=== PATIENT | female | born 1950 | race Caucasian/White ===

== ENCOUNTER 2016-05-08 07:07 | Inpatient (IN) ==
--- NOTE | 2016-05-08 07:42 | History & Physical Report ---
Date of Encounter: 05/08/16 Time of Encounter: 07:41 (\) 24 Hour HP Update - Instructions Instructions: If the History and Physical is less than 30 days old and was completed prior to A.M. admission and or procedure and has NOT been updated on calendar day of procedure please complete this update prior to performing procedure. - Update Patient reports changes in Medical Condition: No Changes in assessment/condition: No Changes in Medication: No Preop tests/diagnostics Reviewed: Yes Surgery Remains Indicated: Yes Consent for Planned Operative Procedure(s) Verified: Yes - Pre-Operative Checklist Preoperative Checklist Indicated: Yes Prophylactic Antibiotic Ordered: Yes Home Medications Include Beta Braeden: Yes Beta Braeden Taken Today (Day of Surgery): Yes Beta Braeden Taken Yesterday (Day Prior to Surgery): Yes Is VTE Prophylaxis Indicated?: Yes
[2016-05-08] MEDS ORDERED: Levofloxacin 500 MG/100 ML 500 MG/100 ML BAG IVPB ONE (07:43)
[2016-05-08] MEDS ORDERED: Albuterol 2.5 MG/3 ML NEBULIZER IH ONE (07:44)
[2016-05-08] MEDS ORDERED: Ringers Solution, Lactated 1,000 ML IVC SCH (07:45)
--- NOTE | 2016-05-08 08:04 | Anesthesia Evaluation PreOp ---
Date of Encounter: 05/08/16 Time of Encounter: 08:04 - Past History Planned Operation: r USE Cardiac History: HTN, Hyperlipidemia Pulmonary History: Snore, LUCIUS Dx PR MANAGER History: Denies Any Significant HX Other Medical History: Renal (stones), Diabetes Type II, Other (grave's dz, breast ca) Anesthesia History: No Prior Anesthetic Complications, Past Anesthesia ( cholecyst, hysterect, hernia/appy, hemorrhoid, breast, t&a, renal) Alcohol Use: none Drug use: none Medications and Allergies Aspirin [Adult Low Dose Aspirin EC] 81 mg PO DAILY 03/28/15 [History] Furosemide [Lasix] 20 mg PO DAILY 03/28/15 [History] Metformin HCl [Glucophage] 1,000 mg PO BIDWM 03/28/15 [History] Pravastatin Sodium [Pravachol] 20 mg PO DAILY 03/28/15 [History] Calcium Carbonate/Vitamin D3 [Calcium 500-Vit D3 400 Tablet] 550 mg PO DAILY 03/25 [History] Metoprolol Tartrate 50 mg PO BID 11/09/15 [History] Cetirizine HCl [Zyrtec] 10 mg PO DAILY 12/14/15 [History] Gabapentin [Neurontin] 600 mg PO HS 03/15/16 [History] Insulin Glargine,Hum.rec.anlog [Lantus Solostar] 65 unit SQ HS 03/15/16 [History ] Potassium Gluconate [Potassium] 99 mg PO DAILY 03/15/16 [History] Acetaminophen [Tylenol] 1,000 mg PO Q6HR PRN #0 tablet 03/25/16 [Rx] Cyclobenzaprine [Flexeril] 10 mg PO TID #30 tablet 04/23/16 [Rx] Oxycodone HCl/Acetaminophen [Percocet 10-325 mg Tablet] 1 tab PO Q6H PRN [History] Promethazine [Phenergan] 25 mg PO Q6HR PRN 05/08/16 [History] Terconazole [Terazol 7] 1 appl VG HS 05/08/16 [History] Allergies glimepiride [From Amaryl] Allergy (Unknown, Verified 05/07/16 04:39) Itching glipizide Allergy (Unknown, Verified 05/07/16 04:39) Itching Sulfa (Sulfonamide Antibiotics) Allergy (Unknown, Verified 05/07/16 04:39) Itching latex Allergy (Verified 05/07/16 04:39) Itching Latex, Natural Rubber Allergy (Verified 05/07/16 04:39) Itching fentanyl Adverse Reaction (Unknown, Verified 05/07/16 04:39) Vomiting and weakness promethazine Adverse Reaction (Unknown, Verified 05/07/16 04:39) muscle spasms - Meds/Allergy Pre-op Review Medications Reviewed: Yes Allergies Reviewed: Yes Beta Blockers on Current Med List: Yes If Beta Blockers taken, Date/Time (Last Dose taken): metoprolol AT 0300 Anesthesia Results - Labs Laboratory Tests 12/11/15 03/12/16 05/07/16 15:07 11:12 05:13 Hgb 14.4 Hct 44.4 Plt Count 190 PT 13.7 H INR 1.3 APTT 29.9 Sodium Potassium Creatinine Hemoglobin A1c 10.2 H 05/07/16 05:13 Hgb Hct Plt Count PT INR APTT Sodium 138 Potassium 4.5 Creatinine 1.23 H Hemoglobin A1c - Imaging EKG: report reviewed (sb) Anesthesia Exam O2 Sat Height 1.68 m Height 1.68 m Height 1.68 m Weight 117.027 kg Weight 117.027 kg Weight 117.027 kg O2 Sat by Pulse Oximetry 90 Vital Signs Temp Pulse Resp BP Pulse Ox 97.9 F 61 18 115/67 90 L 05/08/16 07:46 05/08/16 07:46 05/08/16 07:46 05/08/16 07:46 05/08/16 07:46 Height: 1.68 Weight: 117 NPO (# of Hours): >8 - HEENT Pupil (Motor): Pupils equal, EOMI Mallampati: III Teeth: Poor dentition (large incisors, loose r 2nd maxillary tooth) Oral Opening: Greater than 3 (recessed mandible, good underbite) - PR MANAGER LOC: Oriented PR MANAGER Motor: Normal RUE, Normal LUE, Normal RLE, Normal LLE, Normal Face PR MANAGER Sensory: Normal: RUE, LUE, RLE, LLE, Face - Cardiac Rhythm: Regular Murmur: None - Pulmonary Breath Sounds: bilateral Clear Respiratory Effort: Symmetrical Anesthesia Assess/Plan ASA Score: 3 (AWAKE LOOK PRIOR TO INDUCTION WITH MIRNA) Modified Stan Scale for Level of Consciousness: Cooperative, oriented, and tranquil Anesthetic Plan: General Monitoring Plan: Standard Monitors Recovery Plan: PACU
[2016-05-08] MEDS ORDERED: Lidocaine 1% 20 ML MDV ID ONE (08:31)
[2016-05-08] MEDS ORDERED: Lidocaine -MPF 4% 5 ML AMPUL ONE (09:24)
[2016-05-08] MEDS ORDERED: Propofol 500 MG/50 ML INFUS..BTL ONE (09:24)
[2016-05-08] MEDS ORDERED: *HR* Propofol 200 MG/20 ML VIAL IVP ONE (09:24)
[2016-05-08] MEDS ORDERED: *HR* Remifentanil 2 MG VIAL IVP ONE (09:24)
[2016-05-08] MEDS ORDERED: Ondansetron 4 MG/2 ML VIAL ONE (09:26)
[2016-05-08] MEDS ORDERED: EPHEDrine 50 MG/ML VIAL ONE (10:21)
[2016-05-08] MEDS ORDERED: Ondansetron 4 MG/2 ML VIAL IVP ONE (10:28)
[2016-05-08] MEDS ORDERED: *HR* Labetalol 100 MG/20 ML MDV IVP PRN (10:28)
[2016-05-08] MEDS ORDERED: *HR* HYDROmorphone (PF) 1 MG/ML SYRINGE IVP PRN (10:28)
[2016-05-08] MEDS ORDERED: *HR* OxyCODONE/APAP 10/325 TABLET PO PRN (10:43)
--- NOTE | 2016-05-08 10:45 | Discharge Summary ---
Outpatient Proc Discharge Plan - Plan Additional Instructions: [id number] (Rev. 08/20) Page 1 of 2 POST-OPERATIVE HOME GOING INSTRUCTIONS: URETEROSCOPY/STENT/CYSTOSCOPY [facility] [address] [facility] [address] [place] [address] Dr. Justo Ladd Your post-operative appointment has been scheduled for 1. When you leave Same Day Surgery you may be given: Prescriptions - Please finish all antibiotics. follow- up visit if instructed by your physician. 2. You should drink 6-8 glasses of water per day, as long as you are not on fluid restrictions by another physician. 3. It is very common to have blood and small clots in you urine following surgery. You may also experience urinary tract discomfort, irritation of the bladder and urethra (frequency, urgency, and pain/burning with urination), and occasional inability to control your urine. No sexual intercourse until evaluated by your physician 4. If you have a stent, you can expect pain: In your bladder radiating up to your kidney when, and after, you urinate When lifting something heavy When you turn or bend If you have a stent, you can expect frequency, urgency, and burning with urination and intermittent pink/red colored urine. You can work with a stent in place, but if you do a lot of heavy lifting or moving around you will see more blood in your urine. This is OKAY- just drink more fluids. If a string is taped to your abdomen, penis or thigh, it is connected to your stent. DO NOT pull on, or cut, your stent string, unless otherwise instructed by your physician. 5. Patient can remove her stent in 2-3 days Home Medications: Aspirin [Adult Low Dose Aspirin EC] 162 mg PO DAILY 03/28/15 [History] Furosemide [Lasix] 20 mg PO DAILY 03/28/15 [History] Metformin HCl [Glucophage] 1,000 mg PO BIDWM 03/28/15 [History] Pravastatin Sodium [Pravachol] 20 mg PO DAILY 03/28/15 [History] Calcium Carbonate/Vitamin D3 [Calcium 500-Vit D3 400 Tablet] 550 mg PO DAILY 03/25 [History] Metoprolol Tartrate 50 mg PO BID 09/01/16 [History] Cetirizine HCl [Zyrtec] 10 mg PO DAILY 12/14/15 [History] Gabapentin [Neurontin] 600 mg PO HS 03/15/16 [History] Insulin Glargine,Hum.rec.anlog [Lantus Solostar] 65 unit SQ HS 03/15/16 [History ] Potassium Gluconate [Potassium] 99 mg PO DAILY 03/15/16 [History] Acetaminophen [Tylenol] 1,000 mg PO Q6HR PRN #0 tablet 03/25/16 [Rx] Cyclobenzaprine [Flexeril] 10 mg PO TID #30 tablet 04/23/16 [Rx] Oxycodone HCl/Acetaminophen [Percocet 10-325 mg Tablet] 1 tab PO Q6H PRN [History] Promethazine [Phenergan] 25 mg PO Q6HR PRN 05/08/16 [History] Terconazole [Terazol 7] 1 appl VG HS 05/08/16 [History]
--- NOTE | 2016-05-08 10:47 | Operative Note ---
Date of procedure: 05/08/16 Pre-op diagnosis: right renal stone Post-op diagnosis: same Procedure: Right ureteroscopic laser lithotripsy of stone, right ureteroscopic basket retrieval of stone, right 4.8 x 26 cm ureteral stent placement Anesthesia: GETA Surgeon: Juan J Martinez Condition: stable Disposition: PACU Procedure in Detail: Patient was prepped and draped in normal sterile fashion. Timeout procedure performed. At this point I then placed a cystoscope in the patient's bladder and cannulated the right ureteral orifice using the sensor wire. This was advanced to the right kidney using fluoroscopy. I then placed 11 x 13 x 36 cm access sheath up to the right kidney. I then placed the flexible ureteroscope into the right kidney and encountered the 1.5 cm right renal stone. I used a holmium laser to fragment the stone. Stone had an mostly matrix composition and fragmented easily. I then used a basket to remove all debris and stone fragments. The entire renal collecting system was not fully surveyed with no large stone fragments or debris noted. I then backloaded a wire into the right kidney using fluoroscopy. I then placed a 4.8 x 26 cm ureteral stent into the right kidney with good curl seen in the right kidney and in the bladder. String was left for easy removal in 2-3 days.
[2016-05-08] MEDS ORDERED: Ipratropium/Albuterol Neb 3 ML ONE (11:17)
--- NOTE | 2016-05-08 14:30 | Anesthesia Evaluation Post Op ---
Date of Encounter: 05/08/16 Time of Encounter: 14:28 - Vital Signs Vital Signs: Last Vital Signs Temp 97.4 F L 05/08/16 12:25 Pulse 82 05/08/16 13:25 Resp 16 05/08/16 13:25 BP 98/61 05/08/16 13:25 Pulse Ox 97 05/08/16 13:25 - Lungs Lungs: Clear Ascult./Percussion - Airway Airway: Non-obstructed - Cardiovascular Regular Rate - Mental Status Mental Status: Alert & Oriented, Answers Appropriately - Pain Pain Scale: 2 - Nausea Vomiting Nausea Vomiting: Not Present - Hydration Hydration: Tolerates oral liquids Notes: Patient continues to require supplemental oxygen. Her initial oxygen saturation prior to surgery was 90%. After surgery, she required 4L nasal canula to maintain oxygen saturation in the mid 90's. Patient will be admitted to the hospitalist service, as she is not on supplemental oxygen at home. 05/08/16 14:28 - Discharge PostOp Status: Transfer Patient to floor
[2016-05-08] MEDS ORDERED: Naloxone 0.4 MG/ML INJ IVP PRN (15:40)
[2016-05-08] MEDS ORDERED: D5% in Water 1,000 ML IV PRN (15:44)
[2016-05-08] MEDS ORDERED: *HR* Dextrose 50 % in Water (Syg) 50 ML SYRINGE IVP PRN (15:44)
[2016-05-08] MEDS ORDERED: Dextrose Gel 15 GM PO PRN ×2 (15:44)
--- NOTE | 2016-05-08 15:56 | Internal Med History&Physical ---
<Italo Agudelo - Last Filed: 05/08/16 16:29> Date of Encounter: 05/08/16 Time of Encounter: 15:47 Assessment and Plan (1) Acute respiratory failure with hypoxia Current visit: Yes Status: Acute post operative acute respiratory failure with hypoxia likely secondary to LUCIUS vs fluid overload. Patient requiring 4L O2. Etiology unknown. No echo on file. Currently on 20mg lasix at home for venous insufficiency. Has 1 + pedal edema. Start 40 lasix BID and order echo, EKG and CXR to evaluate for heart failure. Wean off O2 with O2 sat goal of >90% (2) Ureterolithiasis Current visit: Yes Status: Acute s/p r. ureteroscopic stone extraction. Continue IVF 25cc/hr. On percocet 10/325 and dilauded for pain. repeat BMP tomorrow. management per urology (3) Venous (peripheral) insufficiency Current visit: Yes Status: Chronic Patient has hx of venous insufficiency. Currently on lasix. has 1+ pedal edema. continue lasix. (4) HLD (hyperlipidemia) Current visit: Yes Status: Chronic hx of HLD. continue pravastatin. Qualifiers: Hyperlipidemia type: pure hypercholesterolemia Qualified Code(s): E78.00 - Pure hypercholesterolemia, unspecified; E78.0 - Pure hypercholesterolemia (5) Diabetes mellitus Current visit: Yes Status: Chronic Last A1c is 10% which was five months ago. Will repeat. Start on Levamir 35 with medium sliding scale and ACHS accuchecks. Qualifiers: Diabetes mellitus type: type 2 Diabetes mellitus complication status: with hyperglycemia Diabetes mellitus halfway insulin use: with halfway use Qualified Code(s): E11.65 - Type 2 diabetes mellitus with hyperglycemia; Z79.4 - jail (current) use of insulin (6) DVT prophylaxis Current visit: Yes Status: Acute Omeprazole for GI prophylaxis and SCD for DVT prophylaxis. Admitted for observation . FUll code. Time spent 40 min . High risk for resp failure Internal Medicine - H&P: HPI Chief complaint: postoperative respiratory failure Admitted From: Intrahospital Transfer Plans for Post Hospital Care: Home History of present illness: Ms. Clifford is a 65 year old female hx of graves disease, HLD, LUCIUS, Venous insufficeincy, DMII, breast cancer, HTN, asthma underwent r. utreteroscopic stone extraction this morning. Prior to surgery patients O2 was 90% on room air. Post operatively she required 4L nasal canula. She denies ever having needed oxygen. Patient says she has had sleep study and is diagnosed with LUCIUS in the past but does not know the results. She denies use of CPAP. There are no records on ecw or meditech. Furthermore, patient takes lasix for lower extremity edema 2nd to venous insufficiency. She denies hx of hear failure, GA, CAD. There is no echocardiogram on file. Patient denies CP, SOB, abdominal pain , nausea, vomiting. Desaturated down to the 80s. Past Med Surg Social Fam HX - Past Medical History Medical history: cancer (breast s/p radiotherapy ), diabetes (insulin dep), kidney stones, renal disease, other Psychiatric history: no psych history - Past Surgical History Surgical History: appendectomy, cholecystectomy, hysterectomy, other (right breast lumpectomy) - Social History Smoking Status: Never smoker Smokeless Tobacco Status: No Alcohol use: none Drug use: none - Family History Father Living Status: - Additional Family History Additional family history: Father CAD Internal Medicine - H&P: Meds Aspirin [Adult Low Dose Aspirin EC] 162 mg PO DAILY 03/28/15 [History] Furosemide [Lasix] 20 mg PO DAILY 03/28/15 [History] Metformin HCl [Glucophage] 1,000 mg PO BIDWM 03/28/15 [History] Pravastatin Sodium [Pravachol] 20 mg PO DAILY 03/28/15 [History] Calcium Carbonate/Vitamin D3 [Calcium 500-Vit D3 400 Tablet] 550 mg PO DAILY 03/25 [History] Metoprolol Tartrate 50 mg PO BID 11/09/15 [History] Cetirizine HCl [Zyrtec] 10 mg PO DAILY 12/14/15 [History] Gabapentin [Neurontin] 600 mg PO HS 03/15/16 [History] Insulin Glargine,Hum.rec.anlog [Lantus Solostar] 65 unit SQ HS 03/15/16 [History ] Potassium Gluconate [Potassium] 99 mg PO DAILY 03/15/16 [History] Acetaminophen [Tylenol] 1,000 mg PO Q6HR PRN #0 tablet 03/25/16 [Rx] Cyclobenzaprine [Flexeril] 10 mg PO TID #30 tablet 04/23/16 [Rx] Oxycodone HCl/Acetaminophen [Percocet 10-325 mg Tablet] 1 tab PO Q6H PRN [History] Promethazine [Phenergan] 25 mg PO Q6HR PRN 05/08/16 [History] Terconazole [Terazol 7] 1 appl VG HS 05/08/16 [History] Allergies glimepiride [From Amaryl] Allergy (Unknown, Verified 05/07/16 04:39) Itching glipizide Allergy (Unknown, Verified 05/07/16 04:39) Itching Sulfa (Sulfonamide Antibiotics) Allergy (Unknown, Verified 05/07/16 04:39) Itching latex Allergy (Verified 05/07/16 04:39) Itching Latex, Natural Rubber Allergy (Verified 05/07/16 04:39) Itching fentanyl Adverse Reaction (Unknown, Verified 05/07/16 04:39) Vomiting and weakness promethazine Adverse Reaction (Unknown, Verified 05/07/16 04:39) muscle spasms All Systems PM: A 10-system review of systems was performed and is negative for pertinent findings except as documented above in the HPI. - Constitutional Constitutional: no chills, no fever(s), no night sweats - EENT Eyes: no change in vision, no discharge, no pain, no photophobia Ears: no ear discharge, no ear pain, no tinnitus Nose, mouth and throat: no dysphagia, no nasal discharge, no neck pain, no sore throat - Cardiovascular Cardiovascular ROS IM: no chest pain, no diaphoresis, no dyspnea, no lightheadedness, no palpitations, no syncope - Respiratory Respiratory: no cough, no dyspnea, no wheezing, no excessive phlegm production - Gastrointestinal Gastrointestinal: no abdominal pain, no diarrhea, no hematemesis, no hematochezia, no melena, no nausea, no vomiting - Genitourinary Genitourinary: no change in urinary stream, no dysuria, no flank pain, no hematuria - Musculoskeletal Musculoskeletal ROS IM: no numbness, no tingling - Integumentary Integumentary IM: no rash, no unusual bruising - Neurological Neurological ROS: no confusion, no convulsions, no focal weakness, no numbness, no tingling, no tremor(s) - Hematologic/Lymphatic Hematologic/Lymphatic: no easy bruising - Constitutional Vitals: Temp Pulse Resp BP Pulse Ox 98.1 F 83 16 115/60 97 05/08/16 15:00 05/08/16 15:00 05/08/16 15:00 05/08/16 15:00 05/08/16 15:01 General appearance: Present: A&O X 3, answers questions appropriately - Head Head exam: Present: atraumatic, normocephalic - Eye Eye exam: Present: PERRL, conjuntiva pink, sclera anicteric - Neck Neck exam general surgery: Present: supple, trachea midline. Absent: lymphadenopathy - Respiratory Respiratory exam: Present: CTAB, rales (fine b/l lower lobes ). Absent: accessory muscle use, rhonchi, wheezes - Cardiovascular Cardiovascular exam: Present: RRR, +S1, +S2. Absent: diastolic murmur, gallop, rubs, systolic murmur - GI/Abdominal GI/Abdominal exam: Present: normal bowel sounds, soft, no peritoneal signs. Absent: distended, tenderness - Extremities Exam Extremities exam: Present: pedal edema (mild 1+), warm, radial pulses palpable and symetrical. Absent: calf tenderness, cyanotic - Neurological Exam Neurological exam: Present: CN II-XII intact, oriented X3, no focal deficits. Absent: pronater drift, facial droop, speech deficit - Skin Skin exam: Present: dry, intact Internal Med - H&P Results - Impressions ITS Impressions Fluoroscopy 05/08/16 10:02 IMPRESSION: Intraprocedural fluoroscopic spot images as above. See separate procedure report for more information. D/ / Amadeo Mcclure MD / Amadeo Mcclure MD Interpreting Provider: Amadeo Mcclure MD X-Ray 05/08/16 10:02 IMPRESSION: Intraprocedural fluoroscopic spot images as above. See separate procedure report for more information. D/ / Amadeo Mcclure MD / Amadeo Mcclure MD Interpreting Provider: Amadeo Mcclure MD <Mata Moreno H - Last Filed: 05/08/16 16:35> Internal Medicine - H&P: HPI History of present illness: Ms. Clifford is a 65 year old female All Systems PM: A 10-system review of systems was performed and is negative for pertinent findings except as documented above in the HPI. - Constitutional Vitals: Temp Pulse Resp BP Pulse Ox 98.1 F 83 16 115/60 97 05/08/16 15:00 05/08/16 15:00 05/08/16 15:00 05/08/16 15:00 05/08/16 15:01 Internal Med - H&P Results - Impressions ITS Impressions Fluoroscopy 05/08/16 10:02 IMPRESSION: Intraprocedural fluoroscopic spot images as above. See separate procedure report for more information. D/ / Amadeo Mcclure MD / Amadeo Mcclure MD Interpreting Provider: Amadeo Mcclure MD X-Ray 05/08/16 10:02 IMPRESSION: Intraprocedural fluoroscopic spot images as above. See separate procedure report for more information. D/ / Amadeo Mcclure MD / Amadeo Mcclure MD Interpreting Provider: Amadeo Mcclure MD - Attending Attestation sleep study as outpatient I examined this patient and my medical decision-making was reviewed with the MARINE REPORTER/PA/Advanced Practice Nurse/Resident Physician. I agree with the documented findings, disposition and treatment plan as described except to the extent set forth below.
[2016-05-08] MEDS ORDERED: Ipratropium/Albuterol Neb 3 ML IH PRN (16:27)
[2016-05-08] MEDS: Insulin LISPRO 300 UNITS/3 ML VIAL SQ SCH ×2 (16:46→21:28)
[2016-05-08 16:51] LABS: Hematocrit 38.2 % (35.3-44.9); Mean Corpuscular HGB Conc 31.2 g/dL (31.6-35.5); Mean Corpuscular Hemoglobin 27.8 pg (28.0-33.3); Mean Corpuscular Volume 89.3 fL (83.0-100.0); Mean Platelet Volume 10.6 fL (9.4-12.4); Platelet Count 143 K/mcL (140-400); Red Blood Count 4.28 M/mcL (3.82-4.97); Red Cell Distribution Width 15.9 % (11.5-14.5)
[2016-05-08 16:53] LABS: Hemoglobin 11.9 g/dL (11.5-15.4)
[2016-05-08 17:00] LABS: Potassium 5.2 mEq/L (3.5-4.5)
[2016-05-08] MEDS ORDERED: *HR* Heparin 5,000 UNIT/ML VIAL SQ SCH (19:00)
[2016-05-08] MEDS ORDERED: Insulin DETEMIR 100 UNIT/ML X5UNITS SQ SCH (21:00)
[2016-05-08] MEDS: Gabapentin 300 MG CAPSULE PO SCH (22:06)
[2016-05-08] MEDS: Furosemide 40 MG/4 ML VIAL IV SCH (22:06)
[2016-05-09] MEDS ORDERED: Furosemide 480 MG in D5% in Water 192 ML IVC SCH (02:41)
--- NOTE | 2016-05-09 02:55 | Event Note ---
Addendum entered and electronically signed by Al Rosa DO 05/09/16 05:32: ABG revealed respiratory acidosis with pH of 7.27. She was put on BiPAP and RN notes she appears better. However she remains lethargic and developed a fever of 100.4 along with worsening leukocytosis. She received a dose of Tylenol. I suspect she could be getting septic but there is no obvious source of infection at this time. She had urine/blood cultures obtained and a CXR has been ordered. Will start her on Vanc/Zosyn as her infection could be due to health care associated organisms. In addition, her troponin was 0.72, without any previous recordings. I have started her on a heparin drip and obtaining an EKG. She will be moved to for higher acuity care. I will also order a head CT and obtain a VBG later this morning. Original Note: <Al Rosa - Last Filed: 05/09/16 02:48> Date of Encounter: 05/09/16 Time of Encounter: 02:48 Paged by nurse this morning due to patient being increasingly lethargic and not able to go to the bedside commode s/p ureteroscopic stone extraction and stent placement. She had already been worked up by the primary team as she developed acute respiratory failure requiring 4 L of oxygen to maintain saturations in the low-mid 90's despite not being on any oxygen at home. CXR demonstrated pulmonary edema and she was started on IV Lasix 40 mg BID. She has had decent urinary output according to RN but even with the help of several caregivers, it was difficult to get her up to the commode. I believe it is appropriate to initiate a Chery at this time which will provide accurate I/O's for the time being. Patient is A/O x3 and did confirm shortness of breath and increased work of breathing, and rales were heard bilaterally. I will place her on Lasix drip for the next 10 hours for increased diuresis, and hold her IV BID Lasix until the afternoon. Will also obtain ABG, troponin, and BNP for further evaluation. She may require BiPAP depending on her respiratory status and results of ABG. <Yasmani Garcia - Last Filed: 05/11/16 07:26> My signature below is to certify that this patient is under my care and that I, or the Resident Physician working with me, has had a [id number] encounter with this patient. For this encounter, I have reviewed the documentation, treatment plan, and medical decision making. My medical decision-making was reviewed with the Resident Physician. Cumulative laboratory and radiographic database was reviewed, considered and discussed. I agree with the documented findings, disposition and treatment plan as described except to the extent set forth below. Vital Signs Temp Pulse Resp BP Pulse Ox 05/11/16 04:22 18 91 L 05/11/16 03:29 98.3 F 80 16 168/80 92 L 05/11/16 00:02 18 93 L 05/10/16 23:40 97.8 F 79 15 161/74 92 L 05/10/16 21:30 111 05/10/16 21:11 98.2 F 111 18 161/82 91 L 05/10/16 20:35 18 91 L 05/10/16 16:30 97.8 F 110 18 164/78 91 L 05/10/16 16:08 18 93 L 05/10/16 16:07 112 05/10/16 11:57 18 90 L 05/10/16 11:49 89 05/10/16 11:26 98.2 F 94 152/70 86 L 05/10/16 08:28 97.3 F L 97 20 154/93 90 L 05/10/16 08:08 101 Intake and Output 05/10/16 05/10/16 05/11/16 15:59 23:59 07:59 Intake Total 460 / 460 120 / 120 Output Total 1200 / 1200 2850 / 2850 Balance -740 / -740 -2730 / -2730 Intake: IV Fluids 100 / 100 Zosyn 3.375 GM In 100 / 100 Dextrose 5% (Minibag+) 100 ML 100 ML @ 25 mls/hr IVPB Q8H DESI Rx#: [id number] Oral 360 / 360 120 / 120 Output: Catheter 1200 / 1200 2850 / 2850 Other: Meal Lunch Dinner Percent of Meal Consumed 100% 100% Blood Glucose* 468 473 Abnormal lab results WBC 13.6 K/mcL (4.3-11.1) H 05/11/16 04:09 RDW 15.4 % (11.5-14.5) H 05/11/16 04:09 Neutrophils # 15.8 K/mcL (1.6-8.9) H 05/09/16 03:51 PT 14.0 Seconds (9.4-12.1) H 05/09/16 05:29 ABG pCO2 57 mmHg (35-45) H 05/09/16 15:50 ABG pO2 74 mmHg (85-104) L 05/09/16 15:50 ABG HCO3 32.2 mEQ/L (21-27) H 05/09/16 15:50 ABG Total CO2 33.9 mEq/L (20-26) H 05/09/16 15:50 ABG O2 Saturation 94 % (95-98) L 05/09/16 15:50 ABG Base Excess 5.3 mEq/L (-2.0 to 3.0) H 05/09/16 15:50 VBG pO2 245 mmHg (25-40) H 05/09/16 10:28 VBG HCO3 28.2 mEq/L (21-27) H 05/09/16 10:28 Chloride 94 mEq/L (98-109) L 05/11/16 04:09 Carbon Dioxide 30 mEq/L (19-29) H 05/11/16 04:09 BUN 33 mg/dL (7-20) H 05/11/16 04:09 Creatinine 1.39 mg/dL (0.57-1.11) H 05/11/16 04:09 Est GFR ( Amer) 46 (> 60) L 05/11/16 04:09 Est GFR (Non-Af Amer) 38 (> 60) L 05/11/16 04:09 Glucose 473 mg/dL (70-99) H 05/11/16 04:09 POC Glucose 473 (58-89) H* 05/10/16 21:18 Hemoglobin A1c 7.4 % (-5.6) H 05/09/16 03:51 Calculated Osmolality 312 (280-300) H 05/11/16 04:09 Magnesium 1.3 mg/dL (1.6-2.6) L 05/09/16 16:21 Troponin I 0.50 ng/mL (0-0.03) H* 05/09/16 16:21 B-Natriuretic Peptide 440 pg/mL (0-100) H 05/09/16 03:51 Urine Clarity Cloudy (Clear) A 05/09/16 06:43 Urine Blood Large (Negative) H 05/09/16 06:43 Ur Leukocyte Esterase Large (Negative) H 05/09/16 06:43 Urine Microscopic RBC 5-15 per hpf (0-3) H 05/09/16 06:43 Urine Microscopic WBC 30-50 per hpf (0-3) H 05/09/16 06:43 Urine Yeast Moderate per hpf (None Seen) H 05/09/16 06:43 Entero/Rhino (PCR) DETECTED (Not Detect) A 05/09/16 16:30 Laboratory Results WBC 13.6 K/mcL (4.3-11.1) H 05/11/16 04:09 RBC 4.29 M/mcL (3.82-4.97) 05/11/16 04:09 Hgb 12.1 g/dL (11.5-15.4) 05/11/16 04:09 Hct 36.9 % (35.3-44.9) 05/11/16 04:09 MCV 86.0 fL (83.0-100.0) 05/11/16 04:09 MCH 28.2 pg (28.0-33.3) 05/11/16 04:09 MCHC 32.8 g/dL (31.6-35.5) 05/11/16 04:09 RDW 15.4 % (11.5-14.5) H 05/11/16 04:09 Plt Count 192 K/mcL (140-400) 05/11/16 04:09 MPV 10.8 fL (9.4-12.4) 05/11/16 04:09 Immature Gran % 0.7 % (0-4) 05/09/16 03:51 Seg Neutrophils % 86.2 % 05/09/16 03:51 Lymphocytes % 6.6 % 05/09/16 03:51 Monocytes % 5.7 % 05/09/16 03:51 Eosinophils % 0.6 % 05/09/16 03:51 Basophils % 0.2 % 05/09/16 03:51 Neutrophils # 15.8 K/mcL (1.6-8.9) H 05/09/16 03:51 Lymphocytes # 1.2 K/mcL (0.6-4.6) 05/09/16 03:51 Monocytes # 1.1 K/mcL (0.0-1.3) 05/09/16 03:51 Eosinophils # 0.1 K/mcL (0.0-0.6) 05/09/16 03:51 Basophils # 0.0 K/mcL (0.0-0.2) 05/09/16 03:51 PT 14.0 Seconds (9.4-12.1) H 05/09/16 05:29 INR 1.3 05/09/16 05:29 APTT 30.2 Seconds (26.0-36.0) D 05/09/16 12:57 ABG pH 7.36 pH Units (7.32-7.45) 05/09/16 15:50 ABG pCO2 57 mmHg (35-45) H 05/09/16 15:50 ABG pO2 74 mmHg (85-104) L 05/09/16 15:50 ABG HCO3 32.2 mEQ/L (21-27) H 05/09/16 15:50 ABG Total CO2 33.9 mEq/L (20-26) H 05/09/16 15:50 ABG O2 Saturation 94 % (95-98) L 05/09/16 15:50 ABG Base Excess 5.3 mEq/L (-2.0 to 3.0) H 05/09/16 15:50 VBG pH 7.35 pH Units (7.32-7.42) 05/09/16 10:28 VBG pCO2 51 mmHg (41-51) 05/09/16 10:28 VBG pO2 245 mmHg (25-40) H 05/09/16 10:28 VBG HCO3 28.2 mEq/L (21-27) H 05/09/16 10:28 Blood Gas Modality BIPAP 05/09/16 15:50 Inspired O2 36 % 05/09/16 15:50 Sodium 137 mEq/L (136-145) 05/11/16 04:09 Potassium 3.7 mEq/L (3.5-4.5) 05/11/16 04:09 Chloride 94 mEq/L (98-109) L 05/11/16 04:09 Carbon Dioxide 30 mEq/L (19-29) H 05/11/16 04:09 BUN 33 mg/dL (7-20) H 05/11/16 04:09 Creatinine 1.39 mg/dL (0.57-1.11) H 05/11/16 04:09 Est GFR ( Amer) 46 (> 60) L 05/11/16 04:09 Est GFR (Non-Af Amer) 38 (> 60) L 05/11/16 04:09 BUN/Creatinine Ratio 24 (6-26) 05/11/16 04:09 Glucose 473 mg/dL (70-99) H 05/11/16 04:09 POC Glucose 473 (58-89) H* 05/10/16 21:18 Est Mean Plasma Glucose 166 mg/dl 05/09/16 03:51 Hemoglobin A1c 7.4 % (-5.6) H 05/09/16 03:51 Calculated Osmolality 312 (280-300) H 05/11/16 04:09 Calcium 9.4 mg/dL (8.6-10.8) 05/11/16 04:09 Ionized Calcium 1.26 mmol/L (1.15-1.35) 05/09/16 16:21 Magnesium 1.3 mg/dL (1.6-2.6) L 05/09/16 16:21 Troponin I 0.50 ng/mL (0-0.03) H* 05/09/16 16:21 B-Natriuretic Peptide 440 pg/mL (0-100) H 05/09/16 03:51 Urine Color Yellow (Yellow) 05/09/16 06:43 Urine Clarity Cloudy (Clear) A 05/09/16 06:43 Urine pH 6.0 pH Units (5.0-8.0) 05/09/16 06:43 Ur Specific [place] 1.010 (1.010-1.025) 05/09/16 06:43 Urine Protein Trace mg/dL (Neg-Trace) 05/09/16 06:43 Urine Glucose (UA) Normal mg/dL (Normal) 05/09/16 06:43 Urine Ketones Negative mg/dL (Negative) 05/09/16 06:43 Urine Blood Large (Negative) H 05/09/16 06:43 Urine Nitrite Negative (Negative) 05/09/16 06:43 Urine Bilirubin Negative (Negative) 05/09/16 06:43 Urine Urobilinogen Normal mg/dL (Normal) 05/09/16 06:43 Ur Leukocyte Esterase Large (Negative) H 05/09/16 06:43 Urine Microscopic RBC 5-15 per hpf (0-3) H 05/09/16 06:43 Urine Microscopic WBC 30-50 per hpf (0-3) H 03 06:43 Ur Squamous Epith Cells Few per lpf (None-Few) 03 06:43 Urine Bacteria Few per hpf (None-Few) 05/09/16 06:43 Hyaline Casts None Seen per lpf (None-Few) 05/09/16 06:43 Urine Yeast Moderate per hpf (None Seen) H 05/09/16 06:43 Chlamy pneumoniae PCR Not Detected (Not Detect) 05/09/16 16:30 Adenovirus (PCR) Not Detected (Not Detect) 05/09/16 16:30 B. pertussis DNA (PCR) Not Detected (Not Detect) 05/09/16 16:30 Coronavirus OC43 (PCR) Not Detected (Not Detect) 05/09/16 16:30 Coronavirus HKU1 (PCR) Not Detected (Not Detect) 05/09/16 16:30 Coronavirus 229E (PCR) Not Detected (Not Detect) 05/09/16 16:30 Coronavirus NL63 (PCR) Not Detected (Not Detect) 05/09/16 16:30 Human Metapneumovirus Not Detected (Not Detect) 05/09/16 16:30 Influenza A (H1) PCR Not Detected (Not Detect) 05/09/16 16:30 Influ A (H1N1/09) PCR Not Detected (Not Detect) 05/09/16 16:30 Influenza A (H3) PCR Not Detected (Not Detect) 05/09/16 16:30 Influenza A Untype (PCR) Not Detected (Not Detect) 05/09/16 16:30 Influenza Type B (PCR) Not Detected (Not Detect) 05/09/16 16:30 M.pneumoniae DNA (PCR) Not Detected (Not Detect) 05/09/16 16:30 Parainfluenza 1 (PCR) Not Detected (Not Detect) 05/09/16 16:30 Parainfluenza 2 (PCR) Not Detected (Not Detect) 05/09/16 16:30 Parainfluenza 3 (PCR) Not Detected (Not Detect) 05/09/16 16:30 Parainfluenza 4 (PCR) Not Detected (Not Detect) 05/09/16 16:30 RSV (PCR) Not Detected (Not Detect) 05/09/16 16:30 Entero/Rhino (PCR) DETECTED (Not Detect) A 05/09/16 16:30 Impressions Fluoroscopy 05/08/16 10:02 IMPRESSION: Intraprocedural fluoroscopic spot images as above. See separate procedure report for more information. D/ / Amadeo Mcclure MD / Amadeo Mcclure MD Interpreting Provider: Amadeo Mcclure MD X-Ray 05/08/16 10:02 IMPRESSION: Intraprocedural fluoroscopic spot images as above. See separate procedure report for more information. D/ / Amadeo Mcclure MD / Amadeo Mcclure MD Interpreting Provider: Amadeo Mcclure MD Chest X-Ray 05/09/16 05:19 IMPRESSION: Cardiomegaly with mild pulmonary edema. No significant change. D/ / Audelia Trejo MD / Audelia Trejo MD Interpreting Provider: Audelia Trejo MD Head CT 05/09/16 07:00 IMPRESSION: 1. No acute intracranial abnormality. D/ / Álvaro Baca MD / Álvaro Baca MD Interpreting Provider: Álvaro Baca MD Chest CTA 05/09/16 07:15 IMPRESSION: 1. No findings of pulmonary embolism. 2. Mild cardiomegaly with right atrial and right ventricular dilation as well as mild right ventricular hypertrophy. 3. Moderate pulmonary artery dilation, suggestive of pulmonary hypertension given the above cardiac findings. D/ / Jaskaran Giordano MD / Jaskaran Giordano MD Interpreting Provider: Jaskaran Giodrano MD
[2016-05-09 03:18] LABS: ABG Base Excess 1.9 mEq/L (-2.0 to 3.0); ABG HCO3 30.3 mEQ/L (21-27); ABG Oxygen Saturation 93 % (95-98); ABG PCO2 66 mmHg (35-45); ABG PH 7.27 pH Units (7.32-7.45); ABG PO2 77 mmHg (85-104); ABG TCO2 32.3 mEq/L (20-26); Blood Gas FiO2 36 %
[2016-05-09 04:45] LABS: Basophils % 0.2 %; Eosinophils # 0.1 K/mcL (0.0-0.6); Eosinophils % 0.6 %; Hematocrit 35.6 % (35.3-44.9); Hemoglobin 11.1 g/dL (11.5-15.4); Immature Granulocytes % 0.7 % (0-4); Lymphocytes # 1.2 K/mcL (0.6-4.6); Lymphocytes % 6.6 %; Mean Corpuscular HGB Conc 31.2 g/dL (31.6-35.5); Mean Corpuscular Hemoglobin 27.7 pg (28.0-33.3); Mean Corpuscular Volume 88.8 fL (83.0-100.0); Monocytes # 1.1 K/mcL (0.0-1.3); Monocytes % 5.7 %; Neutrophils # 15.8 K/mcL (1.6-8.9); Platelet Count 145 K/mcL (140-400); Red Blood Count 4.01 M/mcL (3.82-4.97); Red Cell Distribution Width 15.8 % (11.5-14.5); Segmented Neutrophils % 86.2 %
[2016-05-09] MEDS ORDERED: Acetaminophen 325 MG TABLET PO PRN (04:58)
[2016-05-09 05:02] LABS: Hemoglobin A1C 7.4 %
[2016-05-09 05:06] LABS: Calcium 9.4 mg/dL (8.6-10.8); Potassium 4.5 mEq/L (3.5-4.5)
[2016-05-09] MEDS ORDERED: *HR* Heparin 5,000 UNIT/ML VIAL IVP ONE (05:17)
[2016-05-09] MEDS ORDERED: *HR* Heparin 5,000 UNIT/ML VIAL IVP PRN ×2 (05:17)
[2016-05-09] MEDS ORDERED: Heparin 25,000 UNIT/500 ML D5W 25,000 UNIT/500 ML MLS IVC SCH (05:30)
[2016-05-09 05:39] LABS: Hemoglobin 11.4 g/dL (11.5-15.4); Mean Corpuscular HGB Conc 31.7 g/dL (31.6-35.5); Mean Corpuscular Hemoglobin 28.3 pg (28.0-33.3); Mean Corpuscular Volume 89.3 fL (83.0-100.0); Mean Platelet Volume 10.9 fL (9.4-12.4); Platelet Count 132 K/mcL (140-400); Red Blood Count 4.03 M/mcL (3.82-4.97); Red Cell Distribution Width 15.8 % (11.5-14.5)
[2016-05-09 05:43] LABS: INR 1.3
[2016-05-09 05:46] LABS: Activated Partial Thrombo Time 17.7 Seconds (26.0-36.0)
[2016-05-09] MEDS ORDERED: Vancomycin 1,750 MG in D5% in Water 250 ML IVPB SCH (06:00)
--- NOTE | 2016-05-09 06:57 | Urology Progress Note ---
Date of Encounter: 05/09/16 Time of Encounter: 06:55 - Assessment and Plan (1) Right kidney stone Current Visit: No Status: Acute Assessment and plan: will keep stent in placed at this time. jony per primary team. will continue to follow. Progress Note Narrative: Alicja is a 65 y/o female pod 1 from right stone extraction. patient had difficulty with keeping O2 sats up. trop also increased. going to be started on heparin drip. catheter placed last night. Objective Initial Vital Signs Temp Pulse Resp BP Pulse Ox 97.9 F 61 18 115/67 90 L 05/08/16 07:46 05/08/16 07:46 05/08/16 07:46 05/08/16 07:46 05/08/16 07:46 - General physical appearance Present: well developed (moderate distress ) - Abdomen Present: soft - Labs 05/09/16 05:29 05/09/16 03:51 Diabetes panel 05/08/16 05/09/16 05/09/16 Range/Units 16:36 03:51 03:51 Sodium 135 L 138 (136-145) mEq/L Potassium 5.2 H 4.5 (3.5-4.5) mEq/L Chloride 103 104 (98-109) mEq/L Carbon Dioxide 24 26 (19-29) mEq/L BUN 29 H 26 H (7-20) mg/dL Creatinine 1.59 H 1.25 H (0.57-1.11) mg/dL Glucose 155 H 165 H (70-99) mg/dL Hemoglobin A1c 7.4 H ( - 5.6) % Calcium 9.0 9.4 (8.6-10.8) mg/dL Calcium panel 05/08/16 05/09/16 Range/Units 16:36 03:51 Calcium 9.0 9.4 (8.6-10.8) mg/dL Pituitary panel 05/08/16 05/09/16 Range/Units 16:36 03:51 Sodium 135 L 138 (136-145) mEq/L Potassium 5.2 H 4.5 (3.5-4.5) mEq/L Chloride 103 104 (98-109) mEq/L Carbon Dioxide 24 26 (19-29) mEq/L BUN 29 H 26 H (7-20) mg/dL Creatinine 1.59 H 1.25 H (0.57-1.11) mg/dL Glucose 155 H 165 H (70-99) mg/dL Calcium 9.0 9.4 (8.6-10.8) mg/dL Adrenal panel 05/08/16 05/09/16 Range/Units 16:36 03:51 Sodium 135 L 138 (136-145) mEq/L Potassium 5.2 H 4.5 (3.5-4.5) mEq/L Chloride 103 104 (98-109) mEq/L Carbon Dioxide 24 26 (19-29) mEq/L BUN 29 H 26 H (7-20) mg/dL Creatinine 1.59 H 1.25 H (0.57-1.11) mg/dL Glucose 155 H 165 H (70-99) mg/dL Calcium 9.0 9.4 (8.6-10.8) mg/dL Consult Discharge Plan - Plan Additional Instructions: [id number] (Rev. 08/20) Page 1 of 2 POST-OPERATIVE HOME GOING INSTRUCTIONS: URETEROSCOPY/STENT/CYSTOSCOPY [facility] [address] [address] [address] [place] [address] [address] Justo Ladd Your post-operative appointment has been scheduled for 1. When you leave Same Day Surgery you may be given: Prescriptions - Please finish all antibiotics. follow- up visit if instructed by your physician. 2. You should drink 6-8 glasses of water per day, as long as you are not on fluid restrictions by another physician. 3. It is very common to have blood and small clots in you urine following surgery. You may also experience urinary tract discomfort, irritation of the bladder and urethra (frequency, urgency, and pain/burning with urination), and occasional inability to control your urine. No sexual intercourse until evaluated by your physician 4. If you have a stent, you can expect pain: In your bladder radiating up to your kidney when, and after, you urinate When lifting something heavy When you turn or bend If you have a stent, you can expect frequency, urgency, and burning with urination and intermittent pink/red colored urine. You can work with a stent in place, but if you do a lot of heavy lifting or moving around you will see more blood in your urine. This is OKAY- just drink more fluids. If a string is taped to your abdomen, penis or thigh, it is connected to your stent. DO NOT pull on, or cut, your stent string, unless otherwise instructed by your physician. 5. Patient can remove her stent in 2-3 days Referrals: Abigail Greco, [employer] [Primary Care Provider] -
[2016-05-09] MEDS: Vancomycin 2,000 MG in D5% in Water 500 ML IVPB SCH (07:17)
[2016-05-09] MEDS: Ipratropium/Albuterol Neb 3 ML IH SCH ×5 (07:39→23:41)
--- NOTE | 2016-05-09 07:40 | Internal Med Progress Note ---
Date of Encounter: 05/09/16 Time of Encounter: 07:37 - Assessment and plan (1) Acute respiratory failure with hypoxia Current Visit: Yes Status: Acute Assessment and plan: Acute metabolic encephalopathy due to Acute hypoxic and hypercapnic respiratory failure secondary to pulmonary edema versus community-acquired pneumonia/ atypical pneumonia, consider possible pulmonary emboli Continue vancomycin, Levaquin and Zosyn The continue Lasix drip, order an echocardiogram. Order a respiratory infection panel, blood cultures, send urine to test for legionella and Streptococcus pneumoniae Order stat CT angios the chest, CT of the head due to confusion (2) Sepsis Current Visit: Yes Status: Acute Qualifiers: Sepsis type: sepsis due to unspecified organism Qualified Code(s): A41.9 - Sepsis, unspecified organism (3) Ureterolithiasis Current Visit: Yes Status: Acute Assessment and plan: s/p r. ureteroscopic stone extraction. 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 high risk due to comorbidities - Time Spent With Patient Greater than 35 minutes - Subjective Interval history: The patient is awake but confused at times. Spiked a fever of 100.4, chest x- ray shows pulmonary edema despite being on Lasix. Denies any chest pain, troponin 0.7 ABG shows a pH of 7.27 PCO2 of 66 and a PO2 of 77. Denies any abdominal pain, denies bringing up any phlegm, unable to complete review of systems due to confusion - Constitutional Vitals: Temp Pulse Resp BP Pulse Ox 100.1 F H 86 17 110/70 94 L 05/09/16 06:54 05/09/16 06:54 05/09/16 06:54 05/09/16 06:54 05/09/16 06:54 General appearance: Present: A&O X 2, answers questions appropriately - Head Head exam: Present: atraumatic, normocephalic - Eye Eye exam: Present: PERRL, conjuntiva pink, sclera anicteric Pupils: Present: PERRL - Neck Neck exam general surgery: Present: supple, trachea midline. Absent: lymphadenopathy - Respiratory Respiratory exam: Present: CTAB, rales (Bilateral crackles). Absent: accessory muscle use, rhonchi, wheezes - Cardiovascular Cardiovascular exam: Present: RRR, +S1, +S2. Absent: diastolic murmur, gallop, rubs, systolic murmur - GI/Abdominal GI/Abdominal exam: Present: normal bowel sounds, soft, no peritoneal signs. Absent: distended, tenderness - Extremities Exam Extremities exam: Present: pedal edema (+1 pitting edema in both lower extremities), warm, radial pulses palpable and symetrical. Absent: calf tenderness, cyanotic - Neurological Exam Neurological exam: Present: CN II-XII intact, no focal deficits. Absent: oriented X3, pronater drift, facial droop, speech deficit - Skin Skin exam: Present: dry, intact Internal Medicine: Result - Labs CBC & Chem 7: 05/09/16 05:29 05/09/16 03:51 Labs: Short CBC 05/08/16 05/09/16 05/09/16 Range/Units 16:36 03:51 05:29 WBC 15.4 H 18.4 H 18.0 H (4.3-11.1) K/mcL Hgb 11.9 D 11.1 L 11.4 L (11.5-15.4) g/dL Hct 38.2 35.6 36.0 (35.3-44.9) % Plt Count 143 145 132 L (140-400) K/mcL Neutrophils # 15.8 H (1.6-8.9) K/mcL BMP 05/08/16 05/09/16 16:36 03:51 Sodium 135 L 138 Potassium 5.2 H 4.5 Chloride 103 104 Carbon Dioxide 24 26 BUN 29 H 26 H Creatinine 1.59 H 1.25 H Glucose 155 H 165 H Calcium 9.0 9.4 Cardiac Enzymes 05/09/16 Range/Units 03:51 Troponin I 0.72 H* (0-0.03) ng/mL - ABG Interpretation ABG results: ABG ABG pH 7.27 pH Units (7.32-7.45) L 05/09/16 02:55 ABG pCO2 66 mmHg (35-45) H 05/09/16 02:55 ABG pO2 77 mmHg (85-104) L 05/09/16 02:55 ABG O2 Saturation 93 % (95-98) L 05/09/16 02:55 PT/INR, D-dimer PT 14.0 Seconds (9.4-12.1) H 05/09/16 05:29 - Impressions Impressions Fluoroscopy 05/08/16 10:02 IMPRESSION: Intraprocedural fluoroscopic spot images as above. See separate procedure report for more information. D/ / Amadeo Mcclure MD / Amadeo Mcclure MD Interpreting Provider: Amadeo Mcclure MD X-Ray 05/08/16 10:02 IMPRESSION: Intraprocedural fluoroscopic spot images as above. See separate procedure report for more information. D/ / Amadeo Mcclure MD / Amadeo Mcclure MD Interpreting Provider: Amadeo Mcclure MD Chest X-Ray 05/08/16 15:41 IMPRESSION: Pulmonary edema D/ / Kian Goodwin MD / Kian Goodwin MD Interpreting Provider: Kian Goodwin MD Chest X-Ray 05/09/16 05:19 IMPRESSION: Cardiomegaly with mild pulmonary edema. No significant change. D/ / Audelia Trejo MD / Audelia Trejo MD Interpreting Provider: Audelia Trejo MD Consult Discharge Plan - Plan Additional Instructions: [id number] (Rev. 08/20) Page 1 of 2 POST-OPERATIVE HOME GOING INSTRUCTIONS: URETEROSCOPY/STENT/CYSTOSCOPY [facility] [address] [facility] [address] [address] Justo Ladd Your post-operative appointment has been scheduled for 1. When you leave Same Day Surgery you may be given: Prescriptions - Please finish all antibiotics. follow- up visit if instructed by your physician. 2. You should drink 6-8 glasses of water per day, as long as you are not on fluid restrictions by another physician. 3. It is very common to have blood and small clots in you urine following surgery. You may also experience urinary tract discomfort, irritation of the bladder and urethra (frequency, urgency, and pain/burning with urination), and occasional inability to control your urine. No sexual intercourse until evaluated by your physician 4. If you have a stent, you can expect pain: In your bladder radiating up to your kidney when, and after, you urinate When lifting something heavy When you turn or bend If you have a stent, you can expect frequency, urgency, and burning with urination and intermittent pink/red colored urine. You can work with a stent in place, but if you do a lot of heavy lifting or moving around you will see more blood in your urine. This is OKAY- just drink more fluids. If a string is taped to your abdomen, penis or thigh, it is connected to your stent. DO NOT pull on, or cut, your stent string, unless otherwise instructed by your physician. 5. Patient can remove her stent in 2-3 days Referrals: Abigail Greco, [employer] [Primary Care Provider] -
[2016-05-09 07:55] LABS: Bilirubin,Urine Negative (Negative); Blood,Urine Large (Negative); Clarity,Urine Cloudy (Clear); Color,Urine Yellow (Yellow); Glucose,Urine (UA) Normal (Normal); Ketones,Urine Negative (Negative); Leukocyte Esterase,Urine Large (Negative); Nitrite,Urine Negative (Negative); Protein,Urine Trace mg/dL (Neg-Trace); Urobilinogen,Urine Normal (Normal)
[2016-05-09 07:57] LABS: Hyaline Casts,Urine None Seen per lpf (None-Few); Squamous Epithelial Cell,Urine Few per lpf (None-Few)
[2016-05-09] MEDS ORDERED: methylPREDNISolone 125 MG/2 ML VIAL IV SCH (08:00)
[2016-05-09] MEDS ORDERED: Piperacillin/Tazobactam 3.375 GM in D5% in Water (Mini-Bag+) 100 ML IVPB SCH (08:00)
[2016-05-09] MEDS: Insulin LISPRO 300 UNITS/3 ML VIAL SQ SCH ×4 (08:05→21:23)
[2016-05-09 08:15] LABS: WBC,Urine 30-50 per hpf (0-3)
[2016-05-09 08:17] LABS: Bacteria,Urine Few per hpf (None-Few); Yeast,Urine Moderate per hpf (None Seen)
[2016-05-09] MEDS ORDERED: Furosemide 20 MG TABLET PO SCH (09:00)
[2016-05-09 10:36] LABS: VBG HCO3 28.2 mEq/L (21-27); VBG PH 7.35 pH Units (7.32-7.42)
--- NOTE | 2016-05-09 10:49 | ECHO - Doppler Report ---
Echocardiogram Name: Alicja Clifford Date of Study: 05/09/2016 Date: 1950 Ht: 66.0 in Medical Record#: [id number] Age: 65 Wt: 270.0 lb Gender: Female BSA: 2.27 Order #: [id number] Location: [facility] Room #: 2N11 Reading Physician: Jaskaran Antoine MD, [facility] [employer] Spr[employer] Helper: Reny Bonilla, T Ordering Physician: Italo Agudelo DO Primary Physician: Juan J Martinez MD Indications: Pulmonary crackles Impressions: Sinus rhythm with frequent PVCs. Normal left ventricular size and systolic function, LVEF 60-65%. Mild concentric left ventricular hypertrophy. Indeterminate diastolic function. Normal right ventricular size and function. No significant valvular dysfunction. Mild pulmonary hypertension. Estimated RVSP = 40 mmHg. Left Ventricular Wall Motion: Rest Echo Findings All wall segments showed normal motion. Findings: Study Quality * Technically adequate exam. ECG Findings * Sinus rhythm with frequent PVCs. Left Ventricle * Normal left ventricular size and systolic function, LVEF 60-65%. * Normal LV chamber size. * Mild concentric left ventricular hypertrophy. * Indeterminate diastolic function. Right Ventricle * Normal right ventricular size and function. Left Atrium * Normal left atrial size. Right Atrium * Normal right atrial size. Aorta * Normally sized aortic root. Pericardium * There is no pericardial effusion present. IVC * Normal IVC dimensions and inspiratory collapse. Aortic Valve * Trileaflet aortic valve. * Mildly sclerotic aortic valve leaflets. * No aortic stenosis. * No aortic regurgitation. Mitral Valve * Normal mitral valve structure. * No mitral stenosis. * Trace mitral regurgitation. Tricuspid Valve * Normal tricuspid valve structure. * No tricuspid stenosis. * Trace tricuspid regurgitation. * Mild pulmonary hypertension. Estimated RVSP = 40 mmHg. Pulmonic Valve * Pulmonic valve not well visualized. * No pulmonic stenosis. * No pulmonic regurgitation. History Diabetes Hypercholesteremia Family History of CAD Measurements: BP: 110/ 70 2D Normal Values RVIDd: 3.50 cm IVSd: 1.30 cm 0.6 - 1.0 cm LVIDd: 5.20 cm 3.7 - 5.6 cm LVPWd: 1.20 cm 0.6 - 1.1 cm LVIDs: 3.10 cm 1.5 - 3.6 cm AO: 2.80 cm < 4.0 cm LA volume: 66 Tricuspid Valve TV Regurg Peak Grad: 37.00mmHg TV Regurg Peak Nakul: 3.04m/sec Updated by Jaskaran Antoine MD, [facility] on 05/09/2016 10:44:14 AM electronically signed on 05/09/2016 10:44:48 AM with status of Final Wall Motion Fried: 1=Normal, 2=Hypokinesis, 3=Akinesis, 4=Dyskinesis, 5=Aneurysmal, 6=Hyperkinetic, X=Not Visualized (Blank)=Missing
[2016-05-09] MEDS: Levofloxacin 750 MG/150 ML 750 MG/150 ML BAG IVPB SCH (11:27)
[2016-05-09] MEDS: Aspirin Enteric Coated 81 MG Tablet PO SCH (11:27)
[2016-05-09] MEDS: Piperacillin/Tazobactam 3.375 GM in D5% in Water (Mini-Bag+) 100 ML IVPB SCH ×2 (11:34→19:14)
[2016-05-09] MEDS: methylPREDNISolone 125 MG/2 ML VIAL IV SCH ×2 (11:34→19:14)
[2016-05-09 13:39] LABS: Calcium 8.9 mg/dL (8.6-10.8); Potassium 3.7 mEq/L (3.5-4.5)
--- NOTE | 2016-05-09 13:49 | Pulmonology Consult Note ---
Date of Encounter: 05/09/16 Time of Encounter: 13:00 Assessment and Plan (1) Acute respiratory failure with hypoxia Current Visit: Yes Status: Acute This is secondary to atelectasis and suspect patient baseline is hypoxic from her pulmonary hypertension and OHS. Patient needs incentive spirometry and early mobilization. Patient needs pain control and deep breathing. Keep SPO2 around 90% (2) LUCIUS (obstructive sleep apnea) Current Visit: Yes Status: Chronic I have told her she needs to follow up on this as outpatient and it is extremely important to be compliant with her PAP. She can be on BiPAP now. (3) Obesity hypoventilation syndrome Current Visit: Yes Status: Chronic (4) Secondary pulmonary hypertension Current Visit: Yes Status: Chronic There is evidence in echo and CTA and this is group 3 from her untreated LUCIUS, she needs to be compliant with her treatment. I have talked to primary team and no need for heparin because patient doesn't have pulmonary embolism. History of Present Illness Consult date: 05/09/16 Requesting physician: Mata Moreno Reason for consult: other (Hypoxia) Chief complaint: Hypoxia History of present illness: This is a a pleasant 65-year-old female who is known to me from outpatient and she is not complaint with her CPAP for her LUCIUS. Patient has multiple other medical problems which is listed under PMH. Patient has history of asthma and she had surgery done and was found to be hypoxic. Patient had CTA which was negative for pulmonary embolism. She denies any chest pain, no wheezing and denies any significant productive cough. She has no hemoptysis. She has some legs swelling. Patient denies any fever or chills. She is not using any home O2. Past Med Surg Social Fam HX - Past Medical History Medical history: cancer (breast s/p radiotherapy ), diabetes (insulin dep), kidney stones, renal disease, other Psychiatric history: no psych history - Past Surgical History Surgical History: appendectomy, cholecystectomy, hysterectomy, other (right breast lumpectomy) - Social History Smoking Status: Never smoker Smokeless Tobacco Status: No Alcohol use: none Drug use: none - Family History Father Living Status: Medications and Allergies Aspirin [Adult Low Dose Aspirin EC] 162 mg PO DAILY 03/28/15 [History] Furosemide [Lasix] 20 mg PO DAILY 03/28/15 [History] Metformin HCl [Glucophage] 1,000 mg PO BIDWM 03/28/15 [History] Pravastatin Sodium [Pravachol] 20 mg PO DAILY 03/28/15 [History] Calcium Carbonate/Vitamin D3 [Calcium 500-Vit D3 400 Tablet] 550 mg PO DAILY 03/25 [History] Metoprolol Tartrate 50 mg PO BID 11/09/15 [History] Cetirizine HCl [Zyrtec] 10 mg PO DAILY 12/14/15 [History] Gabapentin [Neurontin] 600 mg PO HS 03/15/16 [History] Insulin Glargine,Hum.rec.anlog [Lantus Solostar] 65 unit SQ HS 03/15/16 [History ] Potassium Gluconate [Potassium] 99 mg PO DAILY 03/15/16 [History] Acetaminophen [Tylenol] 1,000 mg PO Q6HR PRN #0 tablet 03/25/16 [Rx] Cyclobenzaprine [Flexeril] 10 mg PO TID #30 tablet 04/23/16 [Rx] Oxycodone HCl/Acetaminophen [Percocet 10-325 mg Tablet] 1 tab PO Q6H PRN [History] Promethazine [Phenergan] 25 mg PO Q6HR PRN 05/08/16 [History] Terconazole [Terazol 7] 1 appl VG HS 05/08/16 [History] Allergies glimepiride [From Amaryl] Allergy (Unknown, Verified 05/07/16 04:39) Itching glipizide Allergy (Unknown, Verified 05/07/16 04:39) Itching Sulfa (Sulfonamide Antibiotics) Allergy (Unknown, Verified 05/07/16 04:39) Itching latex Allergy (Verified 05/07/16 04:39) Itching Latex, Natural Rubber Allergy (Verified 05/07/16 04:39) Itching fentanyl Adverse Reaction (Unknown, Verified 05/07/16 04:39) Vomiting and weakness promethazine Adverse Reaction (Unknown, Verified 05/07/16 04:39) muscle spasms All Systems: A 10-system review of systems was performed and is negative for pertinent findings except as documented above in the HPI. Physical Examination Vital Signs: Vital Signs, Last 4 Hours Temp Pulse Resp BP Pulse Ox 05/09/16 12:06 18 138/76 95 05/09/16 11:21 94 95 05/09/16 11:16 98.2 F 108 18 138/76 95 05/09/16 09:49 85 General appearance: no acute distress Eyes: nonicteric Mallampati (class): 4 Neck: supple, no lymphadenopathy Effort: normal Auscultation: bilateral: diminished breath sounds Percussion: bilateral: not dull Cardiovascular: regular rate and rhythm Gastrointestinal: normoactive bowel sounds, soft Extremities: edema normal mental status, non-focal exam mood appropriate Results - Laboratory Findings CBC and BMP: 05/09/16 05:29 05/09/16 12:57 ABG ABG pH 7.27 pH Units (7.32-7.45) L 05/09/16 02:55 ABG pCO2 66 mmHg (35-45) H 05/09/16 02:55 ABG pO2 77 mmHg (85-104) L 05/09/16 02:55 ABG O2 Saturation 93 % (95-98) L 05/09/16 02:55 PT/INR, D-dimer PT 14.0 Seconds (9.4-12.1) H 05/09/16 05:29 Abnormal lab findings: Abnormal lab results WBC 18.0 K/mcL (4.3-11.1) H 05/09/16 05:29 Hgb 11.4 g/dL (11.5-15.4) L 05/09/16 05:29 RDW 15.8 % (11.5-14.5) H 05/09/16 05:29 Plt Count 132 K/mcL (140-400) L 05/09/16 05:29 Neutrophils # 15.8 K/mcL (1.6-8.9) H 05/09/16 03:51 PT 14.0 Seconds (9.4-12.1) H 05/09/16 05:29 ABG pH 7.27 pH Units (7.32-7.45) L 05/09/16 02:55 ABG pCO2 66 mmHg (35-45) H 05/09/16 02:55 ABG pO2 77 mmHg (85-104) L 05/09/16 02:55 ABG HCO3 30.3 mEQ/L (21-27) H 05/09/16 02:55 ABG Total CO2 32.3 mEq/L (20-26) H 05/09/16 02:55 ABG O2 Saturation 93 % (95-98) L 05/09/16 02:55 VBG pO2 245 mmHg (25-40) H 05/09/16 10:28 VBG HCO3 28.2 mEq/L (21-27) H 05/09/16 10:28 Sodium 135 mEq/L (136-145) L 05/09/16 12:57 BUN 24 mg/dL (7-20) H 05/09/16 12:57 Creatinine 1.21 mg/dL (0.57-1.11) H 05/09/16 12:57 Est GFR ( Amer) 54 (> 60) L 05/09/16 12:57 Est GFR (Non-Af Amer) 44 (> 60) L 05/09/16 12:57 Glucose 302 mg/dL (70-99) H 05/09/16 12:57 POC Glucose 175 (58-89) H 05/09/16 07:32 Hemoglobin A1c 7.4 % (-5.6) H 05/09/16 03:51 Troponin I 0.71 ng/mL (0-0.03) H* 05/09/16 10:28 B-Natriuretic Peptide 440 pg/mL (0-100) H 05/09/16 03:51 Urine Clarity Cloudy (Clear) A 05/09/16 06:43 Urine Blood Large (Negative) H 05/09/16 06:43 Ur Leukocyte Esterase Large (Negative) H 05/09/16 06:43 Urine Microscopic RBC 5-15 per hpf (0-3) H 05/09/16 06:43 Urine Microscopic WBC 30-50 per hpf (0-3) H 05/09/16 06:43 Urine Yeast Moderate per hpf (None Seen) H 05/09/16 06:43 - Diagnostic Findings CT scan - chest: report reviewed, image reviewed - Clinical Findings Intake & Output: Intake & Output 05/08/16 05/09/16 05/09/16 23:59 07:59 15:59 Intake Total 400 / 400 0 / 0 Output Total 200 / 200 1650 / 1650 1300 / 1300 Balance 200 / 200 -1650 / -1650 -1300 / -1300 Weight 122.64 kg Consult Discharge Plan - Plan Additional Instructions: [id number] (Rev. 08/20) Page 1 of 2 POST-OPERATIVE HOME GOING INSTRUCTIONS: URETEROSCOPY/STENT/CYSTOSCOPY [facility] [address] [place] [address] [address] Justo Ladd Your post-operative appointment has been scheduled for 1. When you leave Same Day Surgery you may be given: Prescriptions - Please finish all antibiotics. follow- up visit if instructed by your physician. 2. You should drink 6-8 glasses of water per day, as long as you are not on fluid restrictions by another physician. 3. It is very common to have blood and small clots in you urine following surgery. You may also experience urinary tract discomfort, irritation of the bladder and urethra (frequency, urgency, and pain/burning with urination), and occasional inability to control your urine. No sexual intercourse until evaluated by your physician 4. If you have a stent, you can expect pain: In your bladder radiating up to your kidney when, and after, you urinate When lifting something heavy When you turn or bend If you have a stent, you can expect frequency, urgency, and burning with urination and intermittent pink/red colored urine. You can work with a stent in place, but if you do a lot of heavy lifting or moving around you will see more blood in your urine. This is OKAY- just drink more fluids. If a string is taped to your abdomen, penis or thigh, it is connected to your stent. DO NOT pull on, or cut, your stent string, unless otherwise instructed by your physician. 5. Patient can remove her stent in 2-3 days Referrals: Abigail Greco, GROWTH HACKER [Primary Care Provider] - 05/17/16 3:00 pm ()
[2016-05-09 16:00] LABS: ABG Base Excess 5.3 mEq/L (-2.0 to 3.0); ABG HCO3 32.2 mEQ/L (21-27); ABG Oxygen Saturation 94 % (95-98); ABG PCO2 57 mmHg (35-45); ABG PH 7.36 pH Units (7.32-7.45); ABG PO2 74 mmHg (85-104); ABG TCO2 33.9 mEq/L (20-26)
[2016-05-09 16:01] LABS: Blood Gas FiO2 36 %
[2016-05-09 16:41] LABS: Ionized Calcium 1.26 mmol/L (1.15-1.35)
[2016-05-09 16:43] LABS: Magnesium 1.3 mg/dL (1.6-2.6)
[2016-05-09] MEDS: Magnesium Sulfate 2 GM in D5% in Water 100 ML IVPB SCH ×2 (17:58→19:12)
[2016-05-09 19:01] LABS: Adenovirus Not Detected (Not Detect); Bordetella Pertussis Not Detected (Not Detect); Chlamydophila pneumoniae Not Detected (Not Detect); Coronavirus 229E Not Detected (Not Detect); Coronavirus HKU1 Not Detected (Not Detect); Coronavirus NL63 Not Detected (Not Detect); Coronavirus OC43 Not Detected (Not Detect); Human Metapneumovirus Not Detected (Not Detect); Human Rhinovirus/Enterovirus ***DETECTED*** (Not Detect); Influenza A Subtype 2009 H1 Not Detected (Not Detect); Influenza A Untypeable Not Detected (Not Detect); Influenza B Not Detected (Not Detect); Mycoplasma pneumoniae Not Detected (Not Detect); Parainfluenza Virus 1 Not Detected (Not Detect); Parainfluenza Virus 2 Not Detected (Not Detect); Parainfluenza Virus 3 Not Detected (Not Detect); Parainfluenza Virus 4 Not Detected (Not Detect); Respiratory Syncytial Virus Not Detected (Not Detect)
[2016-05-09] MEDS: Gabapentin 300 MG CAPSULE PO SCH (21:03)
[2016-05-09] MEDS: Furosemide 40 MG/4 ML VIAL IV SCH (21:04)
[2016-05-09] MEDS: Insulin DETEMIR 100 UNIT/ML X5UNITS SQ SCH (21:24)
[2016-05-10] MEDS: Ipratropium/Albuterol Neb 3 ML IH SCH ×5 (03:10→20:35)
[2016-05-10] MEDS: Piperacillin/Tazobactam 3.375 GM in D5% in Water (Mini-Bag+) 100 ML IVPB SCH ×2 (04:20→11:51)
[2016-05-10] MEDS: methylPREDNISolone 125 MG/2 ML VIAL IV SCH ×2 (04:20→13:05)
[2016-05-10 04:33] LABS: Hematocrit 39.5 % (35.3-44.9); Hemoglobin 12.8 g/dL (11.5-15.4); Mean Corpuscular HGB Conc 32.4 g/dL (31.6-35.5); Mean Corpuscular Hemoglobin 28.3 pg (28.0-33.3); Mean Corpuscular Volume 87.4 fL (83.0-100.0); Mean Platelet Volume 11.2 fL (9.4-12.4); Platelet Count 179 K/mcL (140-400); Red Blood Count 4.52 M/mcL (3.82-4.97); Red Cell Distribution Width 15.4 % (11.5-14.5)
[2016-05-10 04:52] LABS: Calcium 9.9 mg/dL (8.6-10.8)
[2016-05-10] MEDS: Vancomycin 2,000 MG in D5% in Water 500 ML IVPB SCH (06:46)
[2016-05-10] MEDS: Furosemide 40 MG/4 ML VIAL IV SCH ×2 (07:54→22:01)
[2016-05-10] MEDS: Aspirin Enteric Coated 81 MG Tablet PO SCH (07:54)
[2016-05-10] MEDS: Levofloxacin 750 MG/150 ML 750 MG/150 ML BAG IVPB SCH (07:54)
[2016-05-10] MEDS: Insulin LISPRO 300 UNITS/3 ML VIAL SQ SCH ×4 (07:55→16:34)
--- NOTE | 2016-05-10 09:57 | Pulmonology Progress Note ---
Date of Encounter: 05/10/16 Time of Encounter: 08:25 Assessment and Plan (1) Acute respiratory failure with hypoxia Current Visit: Yes Status: Acute Continue wean off FIO2 to keep SPO2 around 90% and IS (2) LUCIUS (obstructive sleep apnea) Current Visit: Yes Status: Chronic Patient was able to sleep with BiPAP last night and outpatient follow up for that. (3) Obesity hypoventilation syndrome Current Visit: Yes Status: Chronic NIV (4) Secondary pulmonary hypertension Current Visit: Yes Status: Chronic This is from her untreated LUCIUS and to be addressed as outpatient (5) Atelectasis of both lungs Current Visit: Yes Status: Acute Encourage IS and I don't feel patient needs to be on all those antibiotics. Please de-escalate antibiotics. Subjective Principal diagnosis: Hypoxia Interval history: Patient is feeling better and better oxygenation Objective PUL Vital signs: Last Vital Signs Temp 97.3 F L 05/10/16 08:28 Pulse 97 05/10/16 08:28 Resp 20 05/10/16 08:28 BP 154/93 05/10/16 08:28 Pulse Ox 90 L 05/10/16 08:28 General appearance: no acute distress ENT: oropharynx moist Mallampati (class): 3 Neck: supple Effort: normal Auscultation: bilateral: diminished breath sounds Percussion: bilateral: not dull Cardiovascular: regular rate and rhythm Gastrointestinal: normoactive bowel sounds Extremities: no cyanosis, edema normal mental status, non-focal exam mood appropriate Results - Laboratory Findings CBC and BMP: 05/10/16 04:04 05/10/16 04:04 ABG ABG pH 7.36 pH Units (7.32-7.45) 05/09/16 15:50 ABG pCO2 57 mmHg (35-45) H 05/09/16 15:50 ABG pO2 74 mmHg (85-104) L 05/09/16 15:50 ABG O2 Saturation 94 % (95-98) L 05/09/16 15:50 PT/INR, D-dimer PT 14.0 Seconds (9.4-12.1) H 05/09/16 05:29 Abnormal lab findings: Abnormal lab results WBC 16.5 K/mcL (4.3-11.1) H 05/10/16 04:04 RDW 15.4 % (11.5-14.5) H 05/10/16 04:04 Neutrophils # 15.8 K/mcL (1.6-8.9) H 05/09/16 03:51 PT 14.0 Seconds (9.4-12.1) H 05/09/16 05:29 ABG pCO2 57 mmHg (35-45) H 05/09/16 15:50 ABG pO2 74 mmHg (85-104) L 05/09/16 15:50 ABG HCO3 32.2 mEQ/L (21-27) H 05/09/16 15:50 ABG Total CO2 33.9 mEq/L (20-26) H 05/09/16 15:50 ABG O2 Saturation 94 % (95-98) L 05/09/16 15:50 ABG Base Excess 5.3 mEq/L (-2.0 to 3.0) H 05/09/16 15:50 VBG pO2 245 mmHg (25-40) H 05/09/16 10:28 VBG HCO3 28.2 mEq/L (21-27) H 05/09/16 10:28 BUN 24 mg/dL (7-20) H 05/10/16 04:04 Creatinine 1.31 mg/dL (0.57-1.11) H 05/10/16 04:04 Est GFR ( Amer) 49 (> 60) L 05/10/16 04:04 Est GFR (Non-Af Amer) 40 (> 60) L 05/10/16 04:04 Glucose 348 mg/dL (70-99) H 05/10/16 04:04 POC Glucose 380 (58-89) H 05/09/16 21:10 Hemoglobin A1c 7.4 % (-5.6) H 05/09/16 03:51 Calculated Osmolality 308 (280-300) H 05/10/16 04:04 Magnesium 1.3 mg/dL (1.6-2.6) L 05/09/16 16:21 Troponin I 0.50 ng/mL (0-0.03) H* 05/09/16 16:21 B-Natriuretic Peptide 440 pg/mL (0-100) H 05/09/16 03:51 Urine Clarity Cloudy (Clear) A 05/09/16 06:43 Urine Blood Large (Negative) H 05/09/16 06:43 Ur Leukocyte Esterase Large (Negative) H 05/09/16 06:43 Urine Microscopic RBC 5-15 per hpf (0-3) H 05/09/16 06:43 Urine Microscopic WBC 30-50 per hpf (0-3) H 05/09/16 06:43 Urine Yeast Moderate per hpf (None Seen) H 05/09/16 06:43 Entero/Rhino (PCR) DETECTED (Not Detect) A 05/09/16 16:30 - Microbiology Findings Microbiology Findings: Microbiology, Last 48 Hours 05/09/16 05:29 Blood Culture - Preliminary Peripheral Venipuncture No growth. 05/09/16 05:29 Blood Culture - Preliminary Peripheral Venipuncture No growth. 05/09/16 09:30 Streptococcus pneumoniae Antigen (M - Final Urine,Clean Catch 05/09/16 09:30 Legionella Antigen - Final Urine,Catheterized - Clinical Findings Intake & Output: Intake & Output 05/09/16 05/10/16 05/10/16 23:59 07:59 15:59 Intake Total 408 / 408 0 / 0 120 / 120 Output Total 1500 / 1500 2800 / 2800 1200 / 1200 Balance -1092 / -1092 -2800 / -2800 -1080 / -1080 Weight 118.3 kg Consult Discharge Plan - Plan Additional Instructions: CLI.3279 (Rev. 08/20) Page 1 of 2 POST-OPERATIVE HOME GOING INSTRUCTIONS: URETEROSCOPY/STENT/CYSTOSCOPY [facility] [address] [place] [address] [address] Justo Ladd Your post-operative appointment has been scheduled for 1. When you leave Same Day Surgery you may be given: Prescriptions - Please finish all antibiotics. follow- up visit if instructed by your physician. 2. You should drink 6-8 glasses of water per day, as long as you are not on fluid restrictions by another physician. 3. It is very common to have blood and small clots in you urine following surgery. You may also experience urinary tract discomfort, irritation of the bladder and urethra (frequency, urgency, and pain/burning with urination), and occasional inability to control your urine. No sexual intercourse until evaluated by your physician 4. If you have a stent, you can expect pain: In your bladder radiating up to your kidney when, and after, you urinate When lifting something heavy When you turn or bend If you have a stent, you can expect frequency, urgency, and burning with urination and intermittent pink/red colored urine. You can work with a stent in place, but if you do a lot of heavy lifting or moving around you will see more blood in your urine. This is OKAY- just drink more fluids. If a string is taped to your abdomen, penis or thigh, it is connected to your stent. DO NOT pull on, or cut, your stent string, unless otherwise instructed by your physician. 5. Patient can remove her stent in 2-3 days Referrals: Abigail Greco, STEERSMAN [Primary Care Provider] - 05/17/16 3:00 pm ()
[2016-05-10] MEDS ORDERED: *HR* Dextrose 50 % in Water (Syg) 50 ML SYRINGE IVP PRN (13:08)
[2016-05-10] MEDS ORDERED: Dextrose Gel 15 GM PO PRN ×2 (13:08)
[2016-05-10] MEDS ORDERED: D5% in Water 1,000 ML IV PRN (13:08)
--- NOTE | 2016-05-10 15:26 | Urology Progress Note ---
Date of Encounter: 05/10/16 Time of Encounter: 15:25 - Assessment and Plan (1) Right kidney stone Current Visit: No Status: Acute Assessment and plan: can remove stent when catheter comes out. patient can f/u in 2-3 weeks. Progress Note Narrative: Patient seen. asleep at this time. Objective Initial Vital Signs Temp Pulse Resp BP Pulse Ox 97.9 F 61 18 115/67 90 L 05/08/16 07:46 05/08/16 07:46 05/08/16 07:46 05/08/16 07:46 05/08/16 07:46 - General physical appearance Present: well developed - Abdomen Present: soft - Labs 05/10/16 04:04 05/10/16 04:04 Diabetes panel 05/10/16 Range/Units 04:04 Sodium 140 (136-145) mEq/L Potassium 4.0 (3.5-4.5) mEq/L Chloride 98 (98-109) mEq/L Carbon Dioxide 29 (19-29) mEq/L BUN 24 H (7-20) mg/dL Creatinine 1.31 H (0.57-1.11) mg/dL Glucose 348 H (70-99) mg/dL Calcium 9.9 (8.6-10.8) mg/dL Calcium panel 05/10/16 Range/Units 04:04 Calcium 9.9 (8.6-10.8) mg/dL Pituitary panel 05/10/16 Range/Units 04:04 Sodium 140 (136-145) mEq/L Potassium 4.0 (3.5-4.5) mEq/L Chloride 98 (98-109) mEq/L Carbon Dioxide 29 (19-29) mEq/L BUN 24 H (7-20) mg/dL Creatinine 1.31 H (0.57-1.11) mg/dL Glucose 348 H (70-99) mg/dL Calcium 9.9 (8.6-10.8) mg/dL Adrenal panel 05/10/16 Range/Units 04:04 Sodium 140 (136-145) mEq/L Potassium 4.0 (3.5-4.5) mEq/L Chloride 98 (98-109) mEq/L Carbon Dioxide 29 (19-29) mEq/L BUN 24 H (7-20) mg/dL Creatinine 1.31 H (0.57-1.11) mg/dL Glucose 348 H (70-99) mg/dL Calcium 9.9 (8.6-10.8) mg/dL Consult Discharge Plan - Plan Additional Instructions: 3279 (Rev. 08/20) Page 1 of 2 POST-OPERATIVE HOME GOING INSTRUCTIONS: URETEROSCOPY/STENT/CYSTOSCOPY [facility] [address] [place] [address] Dr. Justo Ladd Your post-operative appointment has been scheduled for 1. When you leave Same Day Surgery you may be given: Prescriptions - Please finish all antibiotics. follow- up visit if instructed by your physician. 2. You should drink 6-8 glasses of water per day, as long as you are not on fluid restrictions by another physician. 3. It is very common to have blood and small clots in you urine following surgery. You may also experience urinary tract discomfort, irritation of the bladder and urethra (frequency, urgency, and pain/burning with urination), and occasional inability to control your urine. No sexual intercourse until evaluated by your physician 4. If you have a stent, you can expect pain: In your bladder radiating up to your kidney when, and after, you urinate When lifting something heavy When you turn or bend If you have a stent, you can expect frequency, urgency, and burning with urination and intermittent pink/red colored urine. You can work with a stent in place, but if you do a lot of heavy lifting or moving around you will see more blood in your urine. This is OKAY- just drink more fluids. If a string is taped to your abdomen, penis or thigh, it is connected to your stent. DO NOT pull on, or cut, your stent string, unless otherwise instructed by your physician. 5. Patient can remove her stent in 2-3 days Referrals: Abigail Greco, CHENG [Primary Care Provider] - 05/17/16 3:00 pm ()
--- NOTE | 2016-05-10 15:30 | Internal Med Progress Note ---
Date of Encounter: 05/10/16 Time of Encounter: 15:26 - Assessment and plan (1) Acute respiratory failure with hypoxia Current Visit: Yes Status: Acute Assessment and plan: Acute metabolic encephalopathy (multifactorial) due to Acute hypoxic and hypercapnic respiratory failure secondary to pulmonary edema versus due to viral bronchitis ( rhino/Enterovirus) , consider bacterial bronchitis. LUCIUS/ obesity hypoventilation syndrome, secondary pulmonary HTN , lung atelectasis still hypoxic in the 80s despite being on 3 Lt of Oxygen BIPAP as needed, non compliant with CPAP at home Disontinue vancomycin, Levaquin and Zosyn Start Azithromycin continue Lasix , decrease dose to 20 mg IV BID stricti I's and O's negative legionella and Streptococcus pneumoniae CT angio of the chest di not show Pulm emboli. (2) Sepsis Current Visit: Yes Status: Acute Qualifiers: Qualified Code(s): A41.9 - Sepsis, unspecified organism (3) Ureterolithiasis Current Visit: Yes Status: Acute Assessment and plan: s/p r. ureteroscopic stone extraction. management per urology (4) Diabetes mellitus Current Visit: Yes Status: Chronic Assessment and plan: Levemir , add lispro 10 unit s TID plus sliding scale Qualifiers: Qualified Code(s): E11.65 - Type 2 diabetes mellitus with hyperglycemia; Z79.4 - manager long term care (current) use of insulin (5) HLD (hyperlipidemia) Current Visit: Yes Status: Chronic Qualifiers: Qualified Code(s): E78.00 - Pure hypercholesterolemia, unspecified; E78.0 - Pure hypercholesterolemia (6) Elevated troponin Current Visit: Yes Status: Acute Assessment and plan: likely demand ischemia heparin drip discontinued, ASA , metoprolol, statin, cardiology consulted. high risk due to comorbidities - Subjective Interval history: Not confused anymore. Spiked a fever of 100.4 on 05/09/16, chest x-ray showed pulmonary edema despite being on Lasix. Denied any chest pain, troponin 0.7 ABG shows a pH of 7.27 PCO2 of 66 and a PO2 of 77. Denies any abdominal pain, denies bringing up any phlegm, no dysuria or diarrhea. No nausea - Constitutional Vitals: Temp Pulse Resp BP Pulse Ox 98.2 F 89 18 152/70 90 L 05/10/16 11:26 05/10/16 11:49 05/10/16 11:57 05/10/16 11:26 05/10/16 11:57 General appearance: Present: A&O X 3, answers questions appropriately - Head Head exam: Present: atraumatic, normocephalic - Eye Eye exam: Present: PERRL, conjuntiva pink, sclera anicteric Pupils: Present: PERRL - Neck Neck exam general surgery: Present: supple, trachea midline. Absent: lymphadenopathy - Respiratory Respiratory exam: Present: CTAB, rales (minimal bibasilar fine crackles). Absent: accessory muscle use, rhonchi, wheezes - Cardiovascular Cardiovascular exam: Present: RRR, +S1, +S2. Absent: diastolic murmur, gallop, rubs, systolic murmur - GI/Abdominal GI/Abdominal exam: Present: normal bowel sounds, soft, no peritoneal signs. Absent: distended, tenderness - Extremities Exam Extremities exam: Present: warm, radial pulses palpable and symetrical. Absent : calf tenderness, cyanotic, pedal edema - Neurological Exam Neurological exam: Present: CN II-XII intact, oriented X3, no focal deficits. Absent: pronater drift, facial droop, speech deficit - Skin Skin exam: Present: dry, intact Internal Medicine: Result - Labs CBC & Chem 7: 05/10/16 04:04 05/10/16 04:04 Labs: Short CBC 05/10/16 Range/Units 04:04 WBC 16.5 H (4.3-11.1) K/mcL Hgb 12.8 (11.5-15.4) g/dL Hct 39.5 (35.3-44.9) % Plt Count 179 (140-400) K/mcL BMP 05/10/16 04:04 Sodium 140 Potassium 4.0 Chloride 98 Carbon Dioxide 29 BUN 24 H Creatinine 1.31 H Glucose 348 H Calcium 9.9 Cardiac Enzymes 05/09/16 Range/Units 16:21 Troponin I 0.50 H* (0-0.03) ng/mL - ABG Interpretation ABG results: ABG ABG pH 7.36 pH Units (7.32-7.45) 05/09/16 15:50 ABG pCO2 57 mmHg (35-45) H 05/09/16 15:50 ABG pO2 74 mmHg (85-104) L 05/09/16 15:50 ABG O2 Saturation 94 % (95-98) L 05/09/16 15:50 PT/INR, D-dimer PT 14.0 Seconds (9.4-12.1) H 05/09/16 05:29 Consult Discharge Plan - Plan Additional Instructions: [id number] (Rev. 08/20) Page 1 of 2 POST-OPERATIVE HOME GOING INSTRUCTIONS: URETEROSCOPY/STENT/CYSTOSCOPY [facility] [address] [place] [address] [address]. Justo Ladd Your post-operative appointment has been scheduled for 1. When you leave Same Day Surgery you may be given: Prescriptions - Please finish all antibiotics. follow- up visit if instructed by your physician. 2. You should drink 6-8 glasses of water per day, as long as you are not on fluid restrictions by another physician. 3. It is very common to have blood and small clots in you urine following surgery. You may also experience urinary tract discomfort, irritation of the bladder and urethra (frequency, urgency, and pain/burning with urination), and occasional inability to control your urine. No sexual intercourse until evaluated by your physician 4. If you have a stent, you can expect pain: In your bladder radiating up to your kidney when, and after, you urinate When lifting something heavy When you turn or bend If you have a stent, you can expect frequency, urgency, and burning with urination and intermittent pink/red colored urine. You can work with a stent in place, but if you do a lot of heavy lifting or moving around you will see more blood in your urine. This is OKAY- just drink more fluids. If a string is taped to your abdomen, penis or thigh, it is connected to your stent. DO NOT pull on, or cut, your stent string, unless otherwise instructed by your physician. 5. Patient can remove her stent in 2-3 days Referrals: Abigail Greco, CAGE MAKER MACHINE [Primary Care Provider] - 05/17/16 3:00 pm ()
[2016-05-10] MEDS: Azithromycin 250 MG TABLET PO SCH (16:34)
[2016-05-10] MEDS ORDERED: Insulin LISPRO 300 UNITS/3 ML VIAL SQ SCH (21:00)
[2016-05-10] MEDS ORDERED: MethylPREDNISolone 40 MG/ML VIAL IVP SCH (21:00)
[2016-05-10] MEDS: Gabapentin 300 MG CAPSULE PO SCH (22:00)
[2016-05-10] MEDS: Insulin DETEMIR 100 UNIT/ML X5UNITS SQ SCH (22:01)
[2016-05-11] MEDS: Ipratropium/Albuterol Neb 3 ML IH SCH ×4 (00:02→11:01)
[2016-05-11 04:57] LABS: Hematocrit 36.9 % (35.3-44.9); Hemoglobin 12.1 g/dL (11.5-15.4); Mean Corpuscular HGB Conc 32.8 g/dL (31.6-35.5); Mean Corpuscular Hemoglobin 28.2 pg (28.0-33.3); Mean Platelet Volume 10.8 fL (9.4-12.4); Platelet Count 192 K/mcL (140-400); Red Blood Count 4.29 M/mcL (3.82-4.97); Red Cell Distribution Width 15.4 % (11.5-14.5)
[2016-05-11 05:10] LABS: Calcium 9.4 mg/dL (8.6-10.8); Potassium 3.7 mEq/L (3.5-4.5)
[2016-05-11] MEDS ORDERED: Insulin DETEMIR 100 UNIT/ML X5UNITS SQ ONE (07:34)
[2016-05-11 07:35] VITALS: BP 192/71
--- NOTE | 2016-05-11 07:45 | Discharge Summary ---
Date of Encounter: 05/11/16 Time of Encounter: 07:42 - Discharge Diagnosis (1) Acute respiratory failure with hypoxia Priority: Primary Status: Acute Comments: Acute metabolic encephalopathy (multifactorial) due to Acute hypoxic and hypercapnic respiratory failure secondary to acute pulmonary edema due to viral bronchitis ( rhino/Enterovirus) , consider bacterial bronchitis. LUCIUS/ obesity hypoventilation syndrome, secondary pulmonary HTN , lung atelectasis (2) Sepsis Priority: Primary Status: Acute Qualifiers: Sepsis type: sepsis due to unspecified organism Qualified Code(s): A41.9 - Sepsis, unspecified organism (3) Ureterolithiasis Priority: Secondary Status: Acute Comments: s/p right laser lithotripsy/ ureteroscopic stone extraction. 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: with fdc use Qualified Code(s): E11.65 - Type 2 diabetes mellitus with hyperglycemia; Z79.4 - long term care administrator (current) use of insulin (5) HLD (hyperlipidemia) Priority: Secondary Status: Chronic Qualifiers: Hyperlipidemia type: pure hypercholesterolemia Qualified Code(s): E78.00 - Pure hypercholesterolemia, unspecified; E78.0 - Pure hypercholesterolemia (6) Elevated troponin Priority: Secondary Status: Acute Comments: likely demand ischemia - Discharge Medications Prescriptions: Azithromycin [Zithromax] 500 mg PO DAILY #2 tablet Furosemide [Lasix] 20 mg PO DAILY #30 tablet Oxycodone HCl/Acetaminophen [Percocet 10-325 mg Tablet] 1 tab PO Q6H PRN #20 tablet PRN Reason: Pain PredniSONE 10 mg PO DAILY 6 Days Home Medications: Aspirin [Adult Low Dose Aspirin EC] 162 mg PO DAILY 03/28/15 [History] Metformin HCl [Glucophage] 1,000 mg PO BIDWM 03/28/15 [History] Pravastatin Sodium [Pravachol] 20 mg PO DAILY 03/28/15 [History] Calcium Carbonate/Vitamin D3 [Calcium 500-Vit D3 400 Tablet] 550 mg PO DAILY 03/25 [History] Metoprolol Tartrate 50 mg PO BID 11/09/15 [History] Cetirizine HCl [Zyrtec] 10 mg PO DAILY 12/14/15 [History] Gabapentin [Neurontin] 600 mg PO HS 03/15/16 [History] Insulin Glargine,Hum.rec.anlog [Lantus Solostar] 65 unit SQ HS 03/15/16 [History ] Potassium Gluconate [Potassium] 99 mg PO DAILY 03/15/16 [History] Acetaminophen [Tylenol] 1,000 mg PO Q6HR PRN #0 tablet 03/25/16 [Rx] Cyclobenzaprine [Flexeril] 10 mg PO TID #30 tablet 04/23/16 [Rx] Promethazine [Phenergan] 25 mg PO Q6HR PRN 05/08/16 [History] Terconazole [Terazol 7] 1 appl VG HS 05/08/16 [History] Azithromycin [Zithromax] 500 mg PO DAILY #2 tablet 05/11/16 [Rx] Furosemide [Lasix] 20 mg PO DAILY #30 tablet 05/11/16 [Rx] Oxycodone HCl/Acetaminophen [Percocet 10-325 mg Tablet] 1 tab PO Q6H PRN #20 tablet 05/11/16 [Rx] PredniSONE 10 mg PO DAILY 6 Days 05/11/16 [Rx] Allergies/Adverse Reactions: Allergies glimepiride [From Amaryl] Allergy (Unknown, Verified 05/07/16 04:39) Itching glipizide Allergy (Unknown, Verified 05/07/16 04:39) Itching Sulfa (Sulfonamide Antibiotics) Allergy (Unknown, Verified 05/07/16 04:39) Itching latex Allergy (Verified 05/07/16 04:39) Itching Latex, Natural Rubber Allergy (Verified 05/07/16 04:39) Itching fentanyl Adverse Reaction (Unknown, Verified 05/07/16 04:39) Vomiting and weakness promethazine Adverse Reaction (Unknown, Verified 05/07/16 04:39) muscle spasms Procedures/tests Complete & Pending: Procedures Performed prior 72 hours Category Date Time Status CT angio chest [CT] Stat Cat Scan 05/09/16 07:[address] without Contrast [CT head/brain wo con] [CT] Cat Scan 05/09/16 07:00 Completed Stat EKG [ECG 12 lead ECG] [ECG] Stat Y 05/09/16 05:19 Ordered EV echocardiogram Stat Y 05/09/16 15:41 Completed Date of admission: 05/09/16 08:01 Primary care physician: Abigail Greco CNP Consults: 05/08/16 16:35 Consult to Urology [CONS] Routine Consulting Provider: Juan J Martinez Reason for Consult: s/p stone extraction Call Completed: No 05/09/16 11:10 Consult to Pulmonology [CONS] Routine Consulting Provider: [facility] Reason for Consult: acute respirtory failure. Call Completed: Yes - Patient Status Disposition: Home, Self-Care Condition: Fair Overall status at discharge: patient is progressing back to baseline - Discharge Instructions Follow Up With: Abigail Greco CNP [Primary Care Provider] - 05/17/16 3:00 pm () Additional Instructions: FOllow with primary care physician in 7 days. Continue furosemide. Taper prednisone, 2 more days of azithromycin. Follow up with the pulmonary service within 2 weeks. Be compliant with CPAP at home. Can use Oxygen Follow with urology within 2 weeks. Fluid restriction of 1500 cc per day until oxygen is not required. CLI.3279 (Rev. 08/20) Page 1 of 2 POST-OPERATIVE HOME GOING INSTRUCTIONS: URETEROSCOPY/STENT/CYSTOSCOPY [facility] [address] [place] [address] [address]. Justo Ladd Your post-operative appointment has been scheduled for 1. When you leave Same Day Surgery you may be given: Prescriptions - Please finish all antibiotics. follow- up visit if instructed by your physician. 2. You should drink 6-8 glasses of water per day, as long as you are not on fluid restrictions by another physician. 3. It is very common to have blood and small clots in you urine following surgery. You may also experience urinary tract discomfort, irritation of the bladder and urethra (frequency, urgency, and pain/burning with urination), and occasional inability to control your urine. No sexual intercourse until evaluated by your physician 4. If you have a stent, you can expect pain: In your bladder radiating up to your kidney when, and after, you urinate When lifting something heavy When you turn or bend If you have a stent, you can expect frequency, urgency, and burning with urination and intermittent pink/red colored urine. You can work with a stent in place, but if you do a lot of heavy lifting or moving around you will see more blood in your urine. This is OKAY- just drink more fluids. If a string is taped to your abdomen, penis or thigh, it is connected to your stent. DO NOT pull on, or cut, your stent string, unless otherwise instructed by your physician. 5. Patient can remove her stent in 2-3 days - Diet and Activity Activity: increase activity as tolerated, wear oxygen at all times Diet: diabetic diet Hospital course: Ms. Clifford is a 65 year old female hx of graves disease, HLD, LUCIUS, Venous insufficeincy, DMII, breast cancer, HTN, asthma underwent right utreteroscopic stone extraction this morning. Prior to surgery the patient's O2 was 90% on room air. Post operatively she required 4L nasal canula. She denied ever having needed oxygen. Patient says she has had sleep study and is diagnosed with LUCIUS in the past but is not compliant with her CPAP. There are no records on ecw or meditech. Furthermore, patient takes lasix for lower extremity edema 2nd to venous insufficiency. She denied hx of hear failure, TN, CAD. There is no echocardiogram on file. Patient denies CP, SOB, abdominal pain, nausea, vomiting. Desaturated down to the 80s. Became unstable, her troponin increased to 0.7, was started on a heparin drip due to concerns of NSTEMI and Pulm emboli. ALso was given Vancomycin IV, levaquin and zosyn. A CT angio of the chest did not show any Pulmonary emboli. Was evaluated by the pulmonary service, antibiotics were discontinued as no pneumonia was found. Tested positive for Rhino/entero virus. Solumedrol and lasix were continued. The patient is saturating 93 on 3Lt, was given the option to stay another day but prefers to go home on oxygen. Has a CPAP tyrell at home which will be using now regularly. Azithromycin was prescribed. - Time Spent with Patient Total time spent providing and/or coordinating discharge services: Greater than 30 minutes (40 min) - Constitutional Vitals: Temp Pulse Resp BP Pulse Ox 97.7 F 60 18 192/71 93 L 05/11/16 07:00 05/11/16 07:00 05/11/16 07:00 05/11/16 07:00 05/11/16 07:00 General appearance: Present: A&O X 3, answers questions appropriately - Head Head exam: Present: atraumatic, normocephalic - Eye Eye exam: Present: PERRL, conjuntiva pink, sclera anicteric Pupils: Present: PERRL - Neck Neck exam general surgery: Present: supple, trachea midline. Absent: lymphadenopathy - Respiratory Respiratory exam: Present: CTAB, rales (bibasilar fine crackles). Absent: accessory muscle use, rhonchi, wheezes - Cardiovascular Cardiovascular exam: Present: RRR, +S1, +S2. Absent: diastolic murmur, gallop, rubs, systolic murmur - GI/Abdominal GI/Abdominal exam: Present: normal bowel sounds, soft, no peritoneal signs. Absent: distended, tenderness - Extremities Exam Extremities exam: Present: warm, radial pulses palpable and symetrical. Absent : calf tenderness, cyanotic, pedal edema - Neurological Exam Neurological exam: Present: CN II-XII intact, oriented X3, no focal deficits. Absent: pronater drift, facial droop, speech deficit - Skin Skin exam: Present: dry, intact
--- NOTE | 2016-05-11 08:10 | Physician Discharge Referral ---
Home Health/Hosp Referral Info Transfer to: Home Health Provider in Charge Post Discharge: PCP - Diagnosis (1) Acute respiratory failure with hypoxia Status: Acute (2) Sepsis Status: Acute (3) Ureterolithiasis Status: Acute (4) Diabetes mellitus Status: Chronic (5) HLD (hyperlipidemia) Status: Chronic (6) Elevated troponin Status: Acute - Respiratory Orders Oxygen / L per min (4 Lt) Smoking Cessation: Smoking cessation has been advised. For more information, call the [place] [employer] Quit Line at 4-606-SYZV-NOW. - Diet/Nutrition Diet/Nutrition Orders: No Added Salt (ANUPAM) - Activity Activity: List: FOllow with primary care physician in 7 days. Continue furosemide. Taper prednisone, 2 more days of azithromycin. Follow up with the pulmonary service within 2 weeks. Be compliant with CPAP at home. Can use Oxygen Follow with urology within 2 weeks. Fluid restriction of 1500 cc per day until oxygen is not required. [id number] (Rev. 08/20) Page 1 of 2 POST-OPERATIVE HOME GOING INSTRUCTIONS: URETEROSCOPY/STENT/CYSTOSCOPY [facility] [address] [facility] [address] [place] [address] [address]. Justo Ladd Your post-operative appointment has been scheduled for 1. When you leave Same Day Surgery you may be given: Prescriptions - Please finish all antibiotics. follow- up visit if instructed by your physician. 2. You should drink 6-8 glasses of water per day, as long as you are not on fluid restrictions by another physician. 3. It is very common to have blood and small clots in you urine following surgery. You may also experience urinary tract discomfort, irritation of the bladder and urethra (frequency, urgency, and pain/burning with urination), and occasional inability to control your urine. No sexual intercourse until evaluated by your physician 4. If you have a stent, you can expect pain: In your bladder radiating up to your kidney when, and after, you urinate When lifting something heavy When you turn or bend If you have a stent, you can expect frequency, urgency, and burning with urination and intermittent pink/red colored urine. You can work with a stent in place, but if you do a lot of heavy lifting or moving around you will see more blood in your urine. This is OKAY- just drink more fluids. If a string is taped to your abdomen, penis or thigh, it is connected to your stent. DO NOT pull on, or cut, your stent string, unless otherwise instructed by your physician. 5. Patient can remove her stent in 2-3 days - Services Needed Following services are medically necessary services: Home Health Aide, Physical Therapy - Transfer Medications Prescriptions: Azithromycin [Zithromax] 500 mg PO DAILY #2 tablet Furosemide [Lasix] 20 mg PO DAILY #30 tablet Oxycodone HCl/Acetaminophen [Percocet 10-325 mg Tablet] 1 tab PO Q6H PRN #20 tablet PRN Reason: Pain PredniSONE 10 mg PO DAILY 6 Days Home Medications: Aspirin [Adult Low Dose Aspirin EC] 162 mg PO DAILY 03/28/15 [History] Metformin HCl [Glucophage] 1,000 mg PO BIDWM 03/28/15 [History] Pravastatin Sodium [Pravachol] 20 mg PO DAILY 03/28/15 [History] Calcium Carbonate/Vitamin D3 [Calcium 500-Vit D3 400 Tablet] 550 mg PO DAILY 03/25 [History] Metoprolol Tartrate 50 mg PO BID 11/09/15 [History] Cetirizine HCl [Zyrtec] 10 mg PO DAILY 12/14/15 [History] Gabapentin [Neurontin] 600 mg PO HS 03/15/16 [History] Insulin Glargine,Hum.rec.anlog [Lantus Solostar] 65 unit SQ HS 03/15/16 [History ] Potassium Gluconate [Potassium] 99 mg PO DAILY 03/15/16 [History] Acetaminophen [Tylenol] 1,000 mg PO Q6HR PRN #0 tablet 03/25/16 [Rx] Cyclobenzaprine [Flexeril] 10 mg PO TID #30 tablet 04/23/16 [Rx] Promethazine [Phenergan] 25 mg PO Q6HR PRN 05/08/16 [History] Terconazole [Terazol 7] 1 appl VG HS 05/08/16 [History] Azithromycin [Zithromax] 500 mg PO DAILY #2 tablet 05/11/16 [Rx] Furosemide [Lasix] 20 mg PO DAILY #30 tablet 05/11/16 [Rx] Oxycodone HCl/Acetaminophen [Percocet 10-325 mg Tablet] 1 tab PO Q6H PRN #20 tablet 05/11/16 [Rx] PredniSONE 10 mg PO DAILY 6 Days 05/11/16 [Rx] Allergies/Adverse Reactions: Allergies glimepiride [From Amaryl] Allergy (Unknown, Verified 05/07/16 04:39) Itching glipizide Allergy (Unknown, Verified 05/07/16 04:39) Itching Sulfa (Sulfonamide Antibiotics) Allergy (Unknown, Verified 05/07/16 04:39) Itching latex Allergy (Verified 05/07/16 04:39) Itching Latex, Natural Rubber Allergy (Verified 05/07/16 04:39) Itching fentanyl Adverse Reaction (Unknown, Verified 05/07/16 04:39) Vomiting and weakness promethazine Adverse Reaction (Unknown, Verified 05/07/16 04:39) muscle spasms Certification: Further, I certify that my clinical findings support that this patient is homebound (i.e. absences from home require considerable and taxing effort and are for medical reasons or quaker services or infrequently or short duration when for other reasons) because: Homebound Reason: Patient requires assistance of a person or device to safely leave home Attestation: My signature below is to certify that this patient is under my care and that I, or nurse practitioner, or a physician's housekeeping assistant working with me, has a face-to -face encounter with this patient.
[2016-05-11] MEDS: Insulin LISPRO 300 UNITS/3 ML VIAL SQ SCH ×4 (08:49→12:36)
[2016-05-11] MEDS ORDERED: Levofloxacin 750 MG/150 ML 750 MG/150 ML BAG IVPB SCH (09:00)
[2016-05-11] MEDS ORDERED: predniSONE 20 MG TABLET PO SCH (09:00)
[2016-05-11] MEDS: Furosemide 40 MG/4 ML VIAL IV SCH (10:01)
[2016-05-11] MEDS: Azithromycin 250 MG TABLET PO SCH (10:02)
[2016-05-11] MEDS: Aspirin Enteric Coated 81 MG Tablet PO SCH (10:02)
[2016-05-11] MEDS ORDERED: Aminoglycoside Consult 1 EACH MC ONE (13:41)
== END 2016-05-11 13:42 | disposition home or self-care (01) | DRG 668 ==
LOC: SAMDAY 07:07 → 3ANU 07:07 → SUATTDRO 17:31 → 2NNU 05-09 09:01 → 3ANU 05-10 23:16
PROVIDERS: ADMIT Internal Medicine; ATTEND Internal Medicine

== ENCOUNTER 2016-12-04 13:22 | Inpatient (IN) ==
--- NOTE | 2016-12-04 13:46 | Emergency Department Note ---
Disposition Clinical Impression: Abdominal pain Qualifiers: Abdominal location: unspecified location Qualified Code(s): R10.9 - Unspecified abdominal pain Disposition: Admitted As Inpatient Condition: Fair Referrals: Abigail Greco CNP [Primary Care Provider] - Forms: ED Satisfaction Letter, Work/School Release Time of Disposition: 16:12 Abdominal Pain HPI - General Chief Complaint: ED Abdominal Pain Stated Complaint: ABD PAIN Time Seen by Provider: 12/04/16 13:42 Source: patient Mode of arrival: ambulatory Limitations: no limitations Nursing Notes Reviewed: Yes Vital Signs Reviewed: Yes - History of Present Illness HPI Narrative: 66-year-old who comes in complaining of abdominal pain for last couple of days with nausea but no vomiting. Patient has a history kidney stones and diverticulitis in the past and doesn't know if it's related to one or the other. Pt Subjective Complaint: abdominal pain Onset (ago): day(s) Consistency: constant Location: LLQ, RLQ, epigastric Pain Severity: moderate, severe Pain Scale: 9 Quality: aching Radiation: none Migration to: no migration Improves with: nothing Worsens with: movement Associated symptoms: Reports: nausea. Denies: vomiting Treatments prior to arrival: none - Related Data Home Medications Medication Instructions Recorded Confirmed Aspirin [Adult Low Dose Aspirin EC] 162 mg PO DAILY 03/28/15 05/08/16 Metformin HCl [Glucophage] 1,000 mg PO BIDWM 03/28/15 05/08/16 Pravastatin Sodium [Pravachol] 20 mg PO DAILY 03/28/15 05/08/16 Calcium Carbonate/Vitamin D3 550 mg PO DAILY 11/09/15 05/08/16 [Calcium 500-Vit D3 400 Tablet] Metoprolol Tartrate 50 mg PO BID 11/09/15 05/08/16 Cetirizine HCl [Zyrtec] 10 mg PO DAILY 12/14/15 05/08/16 Gabapentin [Neurontin] 600 mg PO HS 03/15/16 05/08/16 Insulin Glargine,Hum.rec.anlog 65 unit SQ HS 03/15/16 05/08/16 [Lantus Solostar] Potassium Gluconate [Potassium] 99 mg PO DAILY 03/15/16 05/08/16 Promethazine [Phenergan] 25 mg PO Q6HR PRN 05/08/16 05/08/16 Terconazole [Terazol 7] 1 appl VG HS 05/08/16 05/08/16 Previous Rx's Medication Instructions Recorded Acetaminophen [Tylenol] 1,000 mg PO Q6HR PRN #0 tablet 03/25/16 Cyclobenzaprine [Flexeril] 10 mg PO TID #30 tablet 04/23/16 Azithromycin [Zithromax] 500 mg PO DAILY #2 tablet 05/11/16 Furosemide [Lasix] 20 mg PO DAILY #30 tablet 05/11/16 Oxycodone HCl/Acetaminophen 1 tab PO Q6H PRN #20 tablet 05/11/16 [Percocet 10-325 mg Tablet] predniSONE [PredniSONE] 10 mg PO DAILY 6 Days tablet 05/11/16 Ciprofloxacin [Cipro] 500 mg PO BID #20 tablet 10/20/16 HYDROcodone/Acet 5/325 mg [[place] 1 tab PO Q6H PRN #12 tab 10/20/16 5-325 mg] Ondansetron HCl [Zofran] 4 mg PO Q8HR PRN #15 tablet 10/20/16 metroNIDAZOLE [Flagyl] 500 mg PO TID #30 tablet 10/20/16 Allergies Allergy/AdvReac Type Severity Reaction Status Date / Time glimepiride [From Amaryl] Allergy Unknown Itching Verified 05/07/16 04:39 glipizide Allergy Unknown Itching Verified 05/07/16 04:39 Sulfa (Sulfonamide Allergy Unknown Itching Verified 05/07/16 04:39 Antibiotics) latex Allergy Itching Verified 05/07/16 04:39 Latex, Natural Rubber Allergy Itching Verified 05/07/16 04:39 fentanyl AdvReac Unknown Vomiting Verified 05/07/16 04:39 and weakness promethazine AdvReac Unknown muscle Verified 05/07/16 04:39 spasms All systems ED: reviewed and negative except as stated. Constitutional: Denies: fever, chills, weakness, weight change Eyes: Denies: eye pain, eye discharge, vision change ENT ED: Denies: ear pain, throat pain, dental pain, hearing loss, epistaxis, congestion, dysphagia Cardiovascular: Denies: chest pain, palpitations, dyspnea on exertion, edema, syncope Respiratory: Denies: cough, dyspnea, wheezes, hemoptysis, stridor Gastrointestinal: Reports: abdominal pain. Denies: nausea, vomiting, diarrhea, constipation, hematemesis, melena, hematochezia Genitourinary: Denies: dysuria, frequency, hematuria, discharge Musculoskeletal: Denies: back pain, neck pain, arthralgia, myalgia Integumentary: Denies: rash, abrasion, lesions Neurological: Denies: headache, weakness, numbness, paresthesias, confusion, abnormal gait, vertigo Psychiatric: Denies: anxiety, depression, suicidal thoughts, homicidal thoughts , auditory hallucinations, visual hallucinations Endocrine: Denies: fatigue Hematological/Lymphatic: Denies: easy bleeding, easy bruising Allergic/Immunologic: Denies: facial swelling, urticaria Abdominal Pain PMH - Past Medical History Medical history: Reports: cancer, DVT, diabetes, hyperlipidemia, hypertension, kidney stones, renal disease, thyroid disease Female Surgical History: Reports: appendectomy, cancer surgery, cholecystectomy , herniorrhaphy, hysterectomy, Tonsillectomy [employer] history: Reports: other Psychiatric history: Reports: no psych history - Social History Smoking status: Never smoker Alcohol use: Reports: none Drug use: Reports: none Physical Exam - General Limitations: no limitations General appearance: alert - Head Head exam: atraumatic, normocephalic, normal inspection - Eye Eye exam: Present: normal appearance, PERRL, EOMI - ENT ENT exam: normal exam, normal oropharynx, mucous membranes moist - Neck Neck exam: Present: normal inspection, full ROM, trachea midline - Chest Chest inspection: Present: normal inspection, symmetric chest wall rise - Respiratory Respiratory exam: Present: normal lung sounds bilaterally - Cardiovascular Cardiovascular exam: Present: regular rate, normal rhythm, normal heart sounds - Abdominal Exam Abdominal exam: Present: soft, tenderness. Absent: guarding, rebound Abdominal tenderness: Present: diffuse - Extremities Exam Extremities exam: Present: normal inspection, full ROM. Absent: tenderness, pedal edema - Expanded Lower Extremity Exam Neurovascular/Tendon exam: Absent: motor deficit, sensory deficit, tendon deficit Gait: observed and normal - Back Exam Back exam: Present: normal inspection, full ROM. Absent: tenderness - Neurological Exam Neurological exam: Present: alert, oriented X3 - Psychiatric Psychiatric exam: Present: normal affect, normal mood - Skin Skin exam: Present: warm, dry, intact, normal color Course - Reevaluation(s) Reevaluation #1: 66-year-old with abdominal pain and not able to eat CT scan shows inflammation around the second part of the duodenum and pancreas. The patient will be admitted for further evaluation and treatment. Time: 16:11 - Consultations Consultation #1: Discussed with Dr. Solares, admit. Time: 16:04 Vital Signs Temperature 98.5 F 12/04/16 13:25 Pulse Rate 64 12/04/16 13:25 Respiratory Rate 22 12/04/16 13:25 Blood Pressure 150/80 12/04/16 13:25 O2 Sat by Pulse Oximetry 92 12/04/16 13:25 Temperature 98.5 F 12/04/16 13:25 Pulse Rate 71 12/04/16 15:23 Respiratory Rate 14 12/04/16 15:23 Blood Pressure 149/119 12/04/16 15:23 O2 Sat by Pulse Oximetry 95 12/04/16 15:23 Oxygen Delivery Oxygen Delivery Room Air Abdominal Pain - Lab Data Lab results reviewed: Yes I reviewed the patient's lab results. Result diagrams: 12/04/16 14:00 12/04/16 14:00 Lab Results 12/04/16 12/04/16 12/04/16 Range/Units 14:00 14:00 14:00 WBC 11.1 (4.3-11.1) K/mcL RBC 4.99 H (3.82-4.97) M/mcL Hgb 14.4 (11.5-15.4) g/dL Hct 44.5 (35.3-44.9) % MCV 89.2 (83.0-100.0) fL MCH 28.9 (28.0-33.3) pg MCHC 32.4 (31.6-35.5) g/dL RDW 13.0 (11.5-14.5) % Plt Count 190 (140-400) K/mcL MPV 11.2 (9.4-12.4) fL Immature Gran % 0.5 (0-4) % Seg Neutrophils % 70.0 % Lymphocytes % 21.9 % Monocytes % 5.3 % Eosinophils % 1.8 % Basophils % 0.5 % Neutrophils # 7.8 (1.6-8.9) K/mcL Lymphocytes # 2.4 (0.6-4.6) K/mcL Monocytes # 0.6 (0.0-1.3) K/mcL Eosinophils # 0.2 (0.0-0.6) K/mcL Basophils # 0.1 (0.0-0.2) K/mcL Sodium 137 (136-145) mEq/L Potassium 4.7 H (3.5-4.5) mEq/L Chloride 103 (98-109) mEq/L Carbon Dioxide 23 (19-29) mEq/L BUN 20 (7-20) mg/dL Creatinine 0.99 (0.57-1.11) mg/dL Est GFR ( Amer) > 60 (> 60) Est GFR (Non-Af Amer) 56 L (> 60) BUN/Creatinine Ratio 20 (6-26) Glucose 310 H (70-99) mg/dL Calculated Osmolality 298 (280-300) Lactic Acid 2.5 H (0.5-2.2) mmol/L Calcium 9.9 (8.6-10.8) mg/dL Total Bilirubin 0.4 (0.2-1.2) mg/dL Direct Bilirubin 0.2 (0.0-0.5) mg/dL Indirect Bilirubin 0.2 (0.0-1.2) mg/dL AST 30 (5-34) Units/L ALT 44 (0-55) Units/L Alkaline Phosphatase 84 (38-126) Units/L Serum Total Protein 7.6 (6.0-8.3) g/dL Albumin 3.3 L (3.5-5.0) g/dL Globulin 4.3 H (2.4-3.5) g/dL Albumin/Globulin Ratio 0.8 L (1.1-2.2) Amylase 50 (25-125) Units/L Lipase 33 (8-78) Units/L Urine Color (Yellow) Urine Clarity (Clear) Urine pH (5.0-8.0) pH Units Ur Specific [place] (1.010-1.025) Urine Protein (Neg-Trace) mg/dL Urine Glucose (UA) (Normal) mg/dL Urine Ketones (Negative) mg/dL Urine Blood (Negative) Urine Nitrite (Negative) Urine Bilirubin (Negative) Urine Urobilinogen (Normal) mg/dL Ur Leukocyte Esterase (Negative) Urine Microscopic RBC (0-3) per hpf Urine Microscopic WBC (0-3) per hpf Ur Squamous Epith Cells (None-Few) per lpf Urine Bacteria (None-Few) per hpf Hyaline Casts (None-Few) per lpf Ur Culture Indicated? (NO) 12/04/16 Range/Units 14:14 WBC (4.3-11.1) K/mcL RBC (3.82-4.97) M/mcL Hgb (11.5-15.4) g/dL Hct (35.3-44.9) % MCV (83.0-100.0) fL MCH (28.0-33.3) pg MCHC (31.6-35.5) g/dL RDW (11.5-14.5) % Plt Count (140-400) K/mcL MPV (9.4-12.4) fL Immature Gran % (0-4) % Seg Neutrophils % % Lymphocytes % % Monocytes % % Eosinophils % % Basophils % % Neutrophils # (1.6-8.9) K/mcL Lymphocytes # (0.6-4.6) K/mcL Monocytes # (0.0-1.3) K/mcL Eosinophils # (0.0-0.6) K/mcL Basophils # (0.0-0.2) K/mcL Sodium (136-145) mEq/L Potassium (3.5-4.5) mEq/L Chloride (98-109) mEq/L Carbon Dioxide (19-29) mEq/L BUN (7-20) mg/dL Creatinine (0.57-1.11) mg/dL Est GFR ( Amer) (> 60) Est GFR (Non-Af Amer) (> 60) BUN/Creatinine Ratio (6-26) Glucose (70-99) mg/dL Calculated Osmolality (280-300) Lactic Acid (0.5-2.2) mmol/L Calcium (8.6-10.8) mg/dL Total Bilirubin (0.2-1.2) mg/dL Direct Bilirubin (0.0-0.5) mg/dL Indirect Bilirubin (0.0-1.2) mg/dL AST (5-34) Units/L ALT (0-55) Units/L Alkaline Phosphatase (38-126) Units/L Serum Total Protein (6.0-8.3) g/dL Albumin (3.5-5.0) g/dL Globulin (2.4-3.5) g/dL Albumin/Globulin Ratio (1.1-2.2) Amylase (25-125) Units/L Lipase (8-78) Units/L Urine Color Yellow (Yellow) Urine Clarity Clear (Clear) Urine pH 6.0 (5.0-8.0) pH Units Ur Specific [place] 1.020 (1.010-1.025) Urine Protein Negative (Neg-Trace) mg/dL Urine Glucose (UA) >=1000 H (Normal) mg/dL Urine Ketones Negative (Negative) mg/dL Urine Blood Negative (Negative) Urine Nitrite Negative (Negative) Urine Bilirubin Negative (Negative) Urine Urobilinogen Normal (Normal) mg/dL Ur Leukocyte Esterase Small H (Negative) Urine Microscopic RBC 0-3 (0-3) per hpf Urine Microscopic WBC 5-15 H (0-3) per hpf Ur Squamous Epith Cells Many H (None-Few) per lpf Urine Bacteria None Seen (None-Few) per hpf Hyaline Casts None Seen (None-Few) per lpf Ur Culture Indicated? YES A (NO) - Radiology Data Radiology results reviewed: Yes I reviewed the patient's radiology results. Abdomen/Pelvis CT 12/04/16 13:43 IMPRESSION: 1. Inflammation of the 2nd portion of the duodenum and the adjacent pancreatic head. This may represent peptic ulcer disease with secondary pancreatic inflammation versus mild acute pancreatitis with secondary duodenitis. 2. Prior cholecystectomy. Questionable distal choledocholithiasis. No significant common bile duct dilatation. 3. Postsurgical changes with small bowel adhesions and no obstruction. At the superior margin of a prior ventral hernia repair there is a stable small fat containing midline ventral hernia. D/ / 12/04/2016 14:55:11 Christiano Ambriz MD / fabio Interpreting Provider: Christiano Ambriz MD
[2016-12-04 14:09] LABS: Basophils # 0.1 K/mcL (0.0-0.2); Basophils % 0.5 %; Eosinophils # 0.2 K/mcL (0.0-0.6); Eosinophils % 1.8 %; Hematocrit 44.5 % (35.3-44.9); Hemoglobin 14.4 g/dL (11.5-15.4); Immature Granulocytes % 0.5 % (0-4); Lymphocytes # 2.4 K/mcL (0.6-4.6); Lymphocytes % 21.9 %; Mean Corpuscular HGB Conc 32.4 g/dL (31.6-35.5); Mean Corpuscular Hemoglobin 28.9 pg (28.0-33.3); Mean Corpuscular Volume 89.2 fL (83.0-100.0); Mean Platelet Volume 11.2 fL (9.4-12.4); Monocytes # 0.6 K/mcL (0.0-1.3); Monocytes % 5.3 %; Neutrophils # 7.8 K/mcL (1.6-8.9); Platelet Count 190 K/mcL (140-400); Red Blood Count 4.99 M/mcL (3.82-4.97)
[2016-12-04 14:28] LABS: Bilirubin,Urine Negative (Negative); Blood,Urine Negative (Negative); Clarity,Urine Clear (Clear); Color,Urine Yellow (Yellow); Glucose,Urine (UA) >=1000 mg/dL (Normal); Ketones,Urine Negative (Negative); Leukocyte Esterase,Urine Small (Negative); Nitrite,Urine Negative (Negative); Protein,Urine Negative (Neg-Trace); Urobilinogen,Urine Normal (Normal)
[2016-12-04 14:31] LABS: Bacteria,Urine None Seen per hpf (None-Few); Hyaline Casts,Urine None Seen per lpf (None-Few); RBC,Urine 0-3 per hpf (0-3); Squamous Epithelial Cell,Urine Many per lpf (None-Few)
[2016-12-04] MEDS ORDERED: Ondansetron 4 MG/2 ML VIAL IVP ONE (15:05)
[2016-12-04] MEDS ORDERED: *HR* Morphine 2 MG/ML SYRINGE IVP ONE ×2 (15:05→16:17)
[2016-12-04] MEDS ORDERED: Pantoprazole 40 MG VIAL IVP ONE (15:05)
[2016-12-04 15:44] LABS: Alanine Aminotransferase 44 Units/L (0-55); Albumin 3.3 g/dL (3.5-5.0); Albumin/Globulin Ratio 0.8 (1.1-2.2); Alkaline Phosphatase 84 Units/L (38-126); Amylase 50 Units/L (25-125); Aspartate Amino Transferase 30 Units/L (5-34); BUN/Creatinine Ratio 20 (6-26); Bilirubin,Direct 0.2 mg/dL (0.0-0.5); Bilirubin,Indirect 0.2 mg/dL (0.0-1.2); Bilirubin,Total 0.4 mg/dL (0.2-1.2); Blood Urea Nitrogen 20 mg/dL (7-20); Calcium 9.9 mg/dL (8.6-10.8); Carbon Dioxide 23 mEq/L (19-29); Chloride 103 mEq/L (98-109); Globulin 4.3 g/dL (2.4-3.5); Glucose 310 mg/dL (70-99); Lipase 33 Units/L (8-78); Osmolality,Calculated 298 (280-300); Potassium 4.7 mEq/L (3.5-4.5); Sodium 137 mEq/L (136-145); Total Protein 7.6 g/dL (6.0-8.3); eGFR For African Americans > 60 (> 60); eGFR For Non-African Americans 56 (> 60)
[2016-12-04] MEDS ORDERED: Acetaminophen 325 MG TABLET PO PRN (17:39)
[2016-12-04] MEDS ORDERED: Naloxone 0.4 MG/ML INJ IVP PRN (17:39)
[2016-12-04] MEDS ORDERED: *HR* Dextrose 50 % in Water (Syg) 50 ML SYRINGE IVP PRN (17:54)
[2016-12-04] MEDS ORDERED: Dextrose Gel 15 GM PO PRN ×2 (17:54)
[2016-12-04] MEDS ORDERED: D5% in Water 1,000 ML IVC PRN (17:54)
[2016-12-04] MEDS ORDERED: Insulin LISPRO 300 UNITS/3 ML VIAL SQ SCH (18:00)
--- NOTE | 2016-12-04 18:09 | Internal Med History&Physical ---
<Willie Jaime - Last Filed: 12/04/16 18:51> Date of Encounter: 12/04/16 Time of Encounter: 17:30 Assessment and Plan (1) Pancreatitis Current visit: Yes Status: Acute Patient presents with suspected pancreatitis based on imaging results. CT of the abdomen/pelvis w/o contrast today shows inflammation of the second portion of the duodenum and the adjacent pancreatic head. This may represent peptic ulcer disease with secondary pancreatic inflammation versus mild acute pancreatitis with secondary duodenitis. NPO status. 0.9 NS IV fluids @ 100 mL/ HR. IVP Zofran Q6 PRN. IVP Protonix 40 mg BID. Stair-step pain medication for pain management. Hold aspirin due to suspected peptic ulcer disease. IVPB ciprofloxacin 200 mg Q12 and IVPB flagyl 500 mg Q8 ordered for infection coverage. Patient to be monitored closely. Monitor I&O and daily weight. Qualifiers: Chronicity: acute Pancreatitis type: unspecified pancreatitis type Acute pancreatitis complication: unspecified Qualified Code(s): K85.90 - Acute pancreatitis without necrosis or infection, unspecified (2) Abdominal pain Current visit: Yes Status: Acute Patient presents with acute abdominal pain. CT of the abdomen/pelvis w/o contrast today shows inflammation of the second portion of the duodenum and the adjacent pancreatic head. This may represent peptic ulcer disease with secondary pancreatic inflammation versus mild acute pancreatitis with secondary duodenitis. NPO status. 0.9 NS IV fluids @ 100 mL/HR. IVP Zofran Q6 PRN. IVP Protonix 40 mg BID. Stair-step pain medication for pain management. Hold aspirin due to suspected peptic ulcer disease. Monitor I&O and daily weight. Qualifiers: Abdominal location: generalized Qualified Code(s): R10.84 - Generalized abdominal pain (3) Hyperkalemia Current visit: Yes Status: Acute Patient presents with potassium of 4.7. Will hold patient's PO potassium today and monitor potassium level in follow-up labs and continue when WNL. (4) HTN (hypertension) Current visit: Yes Status: Chronic History of hypertension. Monitor vital signs and continue patient's metoprolol. Qualifiers: Hypertension type: essential hypertension Qualified Code(s): I10 - Essential (primary) hypertension (5) HLD (hyperlipidemia) Current visit: Yes Status: Chronic History of hyperlipidemia. Lipid panel ordered in a.m. labs. Continue patient' s pravastatin. Qualifiers: Hyperlipidemia type: pure hypercholesterolemia Qualified Code(s): E78.00 - Pure hypercholesterolemia, unspecified; E78.0 - Pure hypercholesterolemia (6) History of DVT (deep vein thrombosis) Current visit: Yes Status: Chronic Patient placed on heparin 5,000 units SQ Q8 for DVT prophylaxis and due to hx of DVTs. Patient's only current anticoagulation is daily aspirin therapy. Will hld patient's aspirin due to current peptic ulcer disease and abdominal pain. (7) Thyroid disease Current visit: Yes Status: Chronic Continue patient's Synthroid. (8) Diabetes mellitus Current visit: Yes Status: Chronic Patient presents with hx of diabetes controlled by insulin. Blood glucose 310 on admission. Will continue patient's HS insulin and administer low dose correction insulin sliding scale TIDAC and hypoglycemia protocol. Blood glucose ACHS. A1c ordered in a.m. labs. Qualifiers: Diabetes mellitus type: type 2 Diabetes mellitus complication status: with hyperglycemia Diabetes mellitus jail insulin use: with jail use Qualified Code(s): E11.65 - Type 2 diabetes mellitus with hyperglycemia; Z79.4 - [facility] (current) use of insulin (9) CKD (chronic kidney disease) stage 3, GFR 30-59 ml/min Current visit: Yes Status: Chronic Patient presents with GFR of 56. Will use IV fluids judiciously and avoid nephrotoxic agents. Monitor renal function in follow-up labs. (10) DVT prophylaxis Current visit: Yes Status: Acute Heparin 5,000 units SQ Q8 for DVT prophylaxis. Internal Medicine - H&P: HPI Chief complaint: Abdominal pain Admitted From: Emergency Dept Plans for Post Hospital Care: Home History of present illness: Mrs. Clifford is a 66 year old female with medical history of breast cancer, heart murmur, diverticulosis, DVT, phlebitis, diabetes controlled with insulin, hyperlipidemia, hypertension, kidney stones, chronic kidney disease, and thyroid disease presents from the ED with chief complaint abdominal pain which began several weeks ago and became worse yesterday causing nausea and chills. Mrs. Clifford states that she has been eating tomatoes and strawberries during the summer, most recently yesterday. Patient reports abdominal pain and nausea but denies recent illness, fever, headache, changes in vision, shortness of breath, chest pain, palpitations, lightheadedness, dizziness, diarrhea, constipation, unusual bleeding, numbness, tingling, presyncope, or syncope. Upon admission, patient's vital signs include temperature 9 8.5F, heart rate of 64 bpm, respiratory rate of 22, BP of 150/80, SPO2 92% on room air pertinent abnormal labs include potassium of 4.7, GFR 56, glucose 310, lactic acid 2.5, albumin 3.3 , globulin of 4.3, albumin/globulin ratio of 0.8. WBC is currently 11.1. CT of the abdomen/pelvis today without contrast shows inflammation of the second portion of the duodenum with adjacent pancreatic head. This may represent peptic ulcer disease with secondary pancreatic inflammation versus mild acute pancreatitis with secondary duodenitis. Prior cholecystectomy. Questionable distal choledocholithiasis. No significant common bile duct dilatation. Postsurgical changes with small bowel adhesions and no obstruction. At the superior margin of a prior ventral hernia repair there is a stable small fat- containing midline ventral hernia. Upon assessment, patient is alert and oriented 3 and states she is mildly nauseous but not in acute distress. Heart rate shows an regular rhythm on exam and lungs are clear bilaterally on auscultation. She is hemodynamically stable and reports only mild abdominal pain which she states morphine helped. Information taken from patient, chart review, and previous medical records. Mrs. Clifford at high risk for further morbidity based on current symptoms of peptic ulcer disease versus pancreatitis versus secondary duodenitis, risk factors, and history and will be placed as inpatient status. Time spent with patient greater than 40 minutes. Past Med Surg Social Fam HX - Past Medical History Source: patient, old records reviewed Medical history: cancer (Breast), DVT, diabetes, hyperlipidemia, hypertension, kidney stones, renal disease, thyroid disease Psychiatric history: no psych history - Past Surgical History Surgical History: appendectomy, cholecystectomy, hysterectomy, other (right breast lumpectomy) - Social History Smoking Status: Never smoker Smokeless Tobacco Status: No Alcohol use: none Drug use: none Current living situation: Home, With Family Activity Level: Independent ambulation Recent Out of Country Travel Within the Last 8 Weeks: No Exposure or Possible Exposure to Illness During Travel: No - Family History Father Race: Family Member Ethnicity: Non- Living Status: Age at : 42 Cause of : Cirrhosis Hx Family Endocrine Disorder: Yes (Cirrhosis) Mother Race: Family Member Ethnicity: Non- Living Status: Age at : 86 Cause of : Breast cancer Hx Family Cardiac Disorders: Yes (DVTs) Hx Family Cancer: Yes (Breast) Brother Race: Family Member Ethnicity: Non- Living Status: Age at : 51 Cause of : CAD Hx Family Cardiac Disorders: Yes (CAD) Sister Race: Family Member Ethnicity: Non- Living Status: Still Living Hx Family Medical Disorders: No Internal Medicine - H&P: Meds Aspirin [Adult Low Dose Aspirin EC] 162 mg PO DAILY 03/28/15 [History] Metformin HCl [Glucophage] 1,000 mg PO BIDWM 03/28/15 [History] Pravastatin Sodium [Pravachol] 20 mg PO DAILY 03/28/15 [History] Calcium Carbonate/Vitamin D3 [Calcium 500-Vit D3 400 Tablet] 1 tab PO DAILY 03/25 [History] Metoprolol Tartrate 50 mg PO BID 11/09/15 [History] Cetirizine HCl [Zyrtec] 10 mg PO DAILY 12/14/15 [History] Gabapentin [Neurontin] 600 mg PO HS 03/15/16 [History] Insulin Glargine,Hum.rec.anlog [Lantus Solostar] 65 unit SQ HS 03/15/16 [History ] Potassium Gluconate [Potassium] 99 mg PO DAILY 03/15/16 [History] Furosemide [Lasix] 20 mg PO DAILY #30 tablet 05/11/16 [Rx] Tizanidine HCl [Tizanidine HCl] 2 mg PO BID 12/04/16 [History] 3 Allergy/AdvReac Type Severity Reaction Status Date / Time glimepiride [From Amaryl] Allergy Unknown Itching Verified 05/07/16 04:39 glipizide Allergy Unknown Itching Verified 05/07/16 04:39 Sulfa (Sulfonamide Allergy Unknown Itching Verified 05/07/16 04:39 Antibiotics) latex Allergy Itching Verified 05/07/16 04:39 Latex, Natural Rubber Allergy Itching Verified 05/07/16 04:39 fentanyl AdvReac Unknown Vomiting Verified 05/07/16 04:39 and weakness promethazine AdvReac Unknown muscle Verified 05/07/16 04:39 spasms All Systems PM: A 10-system review of systems was performed and is negative for pertinent findings except as documented above in the HPI. - Constitutional Constitutional: as per HPI, chills, weakness - EENT Eyes: no change in vision, no discharge, no pain, no photophobia Ears: no ear discharge, no ear pain, no tinnitus Nose, mouth and throat: no dysphagia, no nasal discharge, no neck pain, no sore throat - Breasts Breasts: as per HPI - Cardiovascular Cardiovascular ROS IM: as per HPI, irregular heart rhythm - Respiratory Respiratory: as per HPI - Gastrointestinal Gastrointestinal: as per HPI, abdominal pain, nausea - Genitourinary Genitourinary: no change in urinary stream, no dysuria, no flank pain, no hematuria Menstruation: as per HPI, post hysterectomy - Musculoskeletal Musculoskeletal ROS IM: no numbness, no tingling - Integumentary Integumentary IM: no rash, no unusual bruising - Neurological Neurological ROS: no confusion, no convulsions, no focal weakness, no numbness, no tingling, no tremor(s) - Psychiatric Psychiatric: as per HPI - Endocrine Endocrine IM: as per HPI - Hematologic/Lymphatic Hematologic/Lymphatic: no easy bruising - Allergic/Immunologic Allergic/Immunologic: as per HPI - Constitutional Vitals: Temp Pulse Resp BP Pulse Ox 98.5 F 79 16 149/119 93 12/04/16 13:25 12/04/16 16:30 12/04/16 16:51 12/04/16 16:51 12/04/16 16:30 General appearance: Present: cooperative, mild distress, A&O X 3, morbidly obese , pleasant, answers questions appropriately - Head Head exam: Present: atraumatic, normocephalic - Eye Eye exam: Present: PERRL, conjuntiva pink, sclera anicteric Pupils: Present: PERRL - ENT ENT exam: Present: normal exam, normal external ear exam - Neck Neck exam general surgery: Present: normal inspection, supple, trachea midline. Absent: lymphadenopathy - Respiratory Respiratory exam: Present: CTAB. Absent: accessory muscle use, rales, rhonchi, wheezes - Cardiovascular Cardiovascular exam: Present: RRR, +S1, +S2. Absent: diastolic murmur, gallop, rubs, systolic murmur - GI/Abdominal GI/Abdominal exam: Present: guarding, soft, tenderness - Rectal Rectal exam: Present: deferred - Additional comments: exam deferred. - Extremities Exam Extremities exam: Present: warm, radial pulses palpable and symmetrical. Absent : calf tenderness, cyanotic - Back Exam Back exam: Present: normal inspection - Neurological Exam Neurological exam: Present: CN II-XII intact, oriented X3, no focal deficits. Absent: pronater drift, facial droop, speech deficit - Psychiatric Psychiatric exam: Present: normal affect, normal mood - Skin Skin exam: Present: dry, intact Internal Med - H&P Results - Labs CBC & Chem 7: 12/04/16 14:00 12/04/16 14:00 - Diagnostic Studies CT scan - abdomen Additional comments: Impressions Abdomen/Pelvis CT 12/04/16 13:43 IMPRESSION: 1. Inflammation of the 2nd portion of the duodenum and the adjacent pancreatic head. This may represent peptic ulcer disease with secondary pancreatic inflammation versus mild acute pancreatitis with secondary duodenitis. 2. Prior cholecystectomy. Questionable distal choledocholithiasis. No significant common bile duct dilatation. 3. Postsurgical changes with small bowel adhesions and no obstruction. At the superior margin of a prior ventral hernia repair there is a stable small fat containing midline ventral hernia. D/ / 12/04/2016 14:55:11 Christiano Ambriz MD / fabio Interpreting Provider: Christiano Ambriz MD <Ash Orlando - Last Filed: 12/04/16 19:04> Date of Encounter: 12/04/16 Internal Medicine - H&P: HPI History of present illness: Ms. Clifford is a 66 year old female All Systems PM: A 10-system review of systems was performed and is negative for pertinent findings except as documented above in the HPI. - Constitutional Vitals: Temp Pulse Resp BP Pulse Ox 98.5 F 79 16 149/119 93 12/04/16 13:25 12/04/16 16:30 12/04/16 16:51 12/04/16 16:51 12/04/16 16:30 Internal Med - H&P Results - Labs CBC & Chem 7: 12/04/16 14:00 12/04/16 14:00 - Attending Attestation I examined this patient and my medical decision-making was reviewed with the OUTPATIENT CODING SPECIALIST. I agree with the documented findings, disposition and treatment plan as described except to the extent set forth below. Patient is a 66-year-old female with past medical history of cancer, diabetes, DVT, hypertension, renal disease, thyroid disease and kidney stones. Patient presented to the new complains of abdominal pain and nausea. Initial CT of the abdomen revealed probable duodenitis and probable pancreatitis and peptic ulcer disease. Patient will be nothing by mouth. She will be on IV fluids and IV Cipro and Flagyl. She will eventually need EGD and colonoscopy. Patient will be continued on all her home medications. Patient states her abdominal pain has now improved with IV morphine. No other complaints. Patient is awake and alert. Not in any distress. Able to provide all history. No family members at bedside. Heart rate 79, blood pressure 149/119, O2 sat 90% on room air. Heart S1-S2 positive. Abdomen soft obese, mild epigastric tenderness. Extremities all pulses strong and regular, no edema.
[2016-12-04] MEDS: 0.9 % Sodium Chloride 1,000 ML IVC SCH (19:00)
[2016-12-04] MEDS ORDERED: TIZANIDINE HCL 2 MG PO SCH (21:00)
[2016-12-04] MEDS ORDERED: Insulin DETEMIR 100 UNIT/ML X5UNITS SQ SCH (21:00)
[2016-12-04] MEDS: Gabapentin 300 MG CAPSULE PO SCH (21:35)
[2016-12-04] MEDS: Pantoprazole 40 MG VIAL IVP SCH (21:36)
[2016-12-05] MEDS: MetroNIDAZOLE 500 MG/100 ML 500 MG/100 ML BAG IVPB SCH ×4 (00:14→23:48)
[2016-12-05] MEDS: *HR* Heparin 5,000 UNIT/ML VIAL SQ SCH ×4 (00:14→23:47)
[2016-12-05] MEDS: Insulin LISPRO 300 UNITS/3 ML VIAL SQ SCH ×5 (00:29→23:48)
[2016-12-05] MEDS: *HR* Morphine 2 MG/ML SYRINGE IVP PRN ×4 (00:29→23:54)
[2016-12-05 04:44] LABS: INR 1.2
[2016-12-05 04:46] LABS: Basophils # 0.1 K/mcL (0.0-0.2); Basophils % 0.6 %; Eosinophils # 0.3 K/mcL (0.0-0.6); Eosinophils % 2.3 %; Hematocrit 41.8 % (35.3-44.9); Hemoglobin 13.7 g/dL (11.5-15.4); Immature Granulocytes % 0.4 % (0-4); Lymphocytes % 27.6 %; Mean Corpuscular HGB Conc 32.8 g/dL (31.6-35.5); Mean Corpuscular Hemoglobin 29.5 pg (28.0-33.3); Mean Corpuscular Volume 90.1 fL (83.0-100.0); Mean Platelet Volume 11.1 fL (9.4-12.4); Monocytes # 0.9 K/mcL (0.0-1.3); Neutrophils # 6.7 K/mcL (1.6-8.9); Platelet Count 167 K/mcL (140-400); Red Blood Count 4.64 M/mcL (3.82-4.97); Red Cell Distribution Width 13.1 % (11.5-14.5); Segmented Neutrophils % 61.1 %
[2016-12-05 04:47] LABS: Activated Partial Thrombo Time 29.9 Seconds (26.0-36.0)
[2016-12-05 04:55] LABS: Alanine Aminotransferase 40 Units/L (0-55); Albumin/Globulin Ratio 0.8 (1.1-2.2); Alkaline Phosphatase 75 Units/L (38-126); Aspartate Amino Transferase 28 Units/L (5-34); BUN/Creatinine Ratio 17 (6-26); Blood Urea Nitrogen 15 mg/dL (7-20); Calcium 9.3 mg/dL (8.6-10.8); Carbon Dioxide 25 mEq/L (19-29); Chloride 105 mEq/L (98-109); Chol/HDL Ratio 3.8 (0-4.9); Cholesterol 180 mg/dL (< 200); Globulin 3.8 g/dL (2.4-3.5); Glucose 178 mg/dL (70-99); HDL Cholesterol 48 mg/dL (40-59); LDL Cholesterol,Calculated 105 mg/dL (0-99); Magnesium 1.7 mg/dL (1.6-2.6); Osmolality,Calculated 291 (280-300); Potassium 4.3 mEq/L (3.5-4.5); Sodium 138 mEq/L (136-145); Total Protein 6.8 g/dL (6.0-8.3); Triglycerides 135 mg/dL (< 150); eGFR For African Americans > 60 (> 60); eGFR For Non-African Americans > 60 (> 60)
[2016-12-05 04:57] LABS: Bilirubin,Total 0.8 mg/dL (0.2-1.2)
[2016-12-05] MEDS: 0.9 % Sodium Chloride 1,000 ML IVC SCH ×3 (07:29→20:38)
[2016-12-05] MEDS: *HR* HYDROcodone/Acet 5/325 mg TABLET PO PRN ×3 (07:32→20:37)
[2016-12-05] MEDS: Loratadine 10 MG TABLET PO SCH (08:48)
[2016-12-05] MEDS: Furosemide 20 MG TABLET PO SCH (08:48)
[2016-12-05] MEDS: Cholecalciferol (D-3) 1,000 UNIT TABLET PO SCH (08:49)
[2016-12-05] MEDS: Pantoprazole 40 MG VIAL IVP SCH ×2 (08:50→20:38)
[2016-12-05] MEDS ORDERED: NON-FORMULARY MEDICATION 1 EACH EACH (Calcium Carbonate/Vitamin D3 [Calcium 500-Vit D3 400 PO SCH (09:00)
[2016-12-05] MEDS ORDERED: (Potassium Gluconate [Potassium] 99 MG) PO SCH (09:00)
[2016-12-05] MEDS ORDERED: Lidocaine -MPF 2% 5 ML VIAL INFILT ONE (09:06)
[2016-12-05] MEDS ORDERED: *HR* Propofol 200 MG/20 ML VIAL IVP ONE (09:06)
--- NOTE | 2016-12-05 17:00 | Internal Med Progress Note ---
Date of Encounter: 12/05/16 Time of Encounter: 10:00 - Assessment and plan (1) Abdominal pain Current Visit: Yes Status: Acute Assessment and plan: -CT of the abdomen/pelvis showed inflammation of the second portion of the duodenum and adjacent pancreatic head, which may represent peptic ulcer disease with secondary pancreatic inflammation versus mild acute pancreatitis with secondary duodenitis. -Will continue IV Protonix in addition to IV Flagyl/Cipro. -GI consulted and appreciate recommendations. Qualifiers: Abdominal location: generalized Qualified Code(s): R10.84 - Generalized abdominal pain (2) Diabetes mellitus Current Visit: Yes Status: Chronic Assessment and plan: -Blood glucose controlled; continue home medications. Qualifiers: Diabetes mellitus type: type 2 Diabetes mellitus complication status: with hyperglycemia Diabetes mellitus fci insulin use: with terminologist use Qualified Code(s): E11.65 - Type 2 diabetes mellitus with hyperglycemia; Z79.4 - [facility] (current) use of insulin (3) HLD (hyperlipidemia) Current Visit: Yes Status: Chronic Assessment and plan: Continue home medications Qualifiers: Hyperlipidemia type: pure hypercholesterolemia Qualified Code(s): E78.00 - Pure hypercholesterolemia, unspecified; E78.0 - Pure hypercholesterolemia (4) HTN (hypertension) Current Visit: Yes Status: Chronic Assessment and plan: -Blood pressure controlled; continue home medications. Qualifiers: Hypertension type: essential hypertension Qualified Code(s): I10 - Essential (primary) hypertension (5) Thyroid disease Current Visit: Yes Status: Chronic Assessment and plan: Continue home medications. (6) Obesity hypoventilation syndrome Current Visit: No Status: Chronic Assessment and plan: Lifestyle modifications for weight loss (7) LUCIUS (obstructive sleep apnea) Current Visit: No Status: Chronic Assessment and plan: -Will continue supplemental oxygen - Subjective Interval history: She reports of abdominal discomfort this morning. - Constitutional Vitals: Temp Pulse Resp BP Pulse Ox 97.5 F L 53 18 121/66 92 12/05/16 15:00 12/05/16 15:00 12/05/16 15:00 12/05/16 15:00 12/05/16 15:00 General appearance: Present: cooperative, mild distress, A&O X 3, morbidly obese , pleasant, answers questions appropriately - Respiratory Respiratory exam: Present: CTAB. Absent: accessory muscle use, rales, rhonchi, wheezes - Cardiovascular Cardiovascular exam: Present: RRR, +S1, +S2. Absent: diastolic murmur, gallop, rubs, systolic murmur - GI/Abdominal GI/Abdominal exam: Present: soft, tenderness, no peritoneal signs. Absent: distended, guarding Internal Medicine: Result - Labs CBC & Chem 7: 12/05/16 04:25 12/05/16 04:25 Labs: Short CBC 12/05/16 Range/Units 04:25 WBC 10.9 (4.3-11.1) K/mcL Hgb 13.7 (11.5-15.4) g/dL Hct 41.8 (35.3-44.9) % Plt Count 167 (140-400) K/mcL Neutrophils # 6.7 (1.6-8.9) K/mcL BMP 12/05/16 04:25 Sodium 138 Potassium 4.3 Chloride 105 Carbon Dioxide 25 BUN 15 Creatinine 0.88 Glucose 178 H Calcium 9.3 Liver Function 12/05/16 Range/Units 04:25 Total Bilirubin 0.8 D (0.2-1.2) mg/dL AST 28 (5-34) Units/L ALT 40 (0-55) Units/L Alkaline Phosphatase 75 (38-126) Units/L Albumin 3.0 L (3.5-5.0) g/dL - ABG Interpretation ABG results: PT/INR, D-dimer PT 13.0 Seconds (9.4-12.1) H 12/05/16 04:25 Consult Discharge Plan - Plan Referrals: Abigail Greco, WARD AIDE [Primary Care Provider] -
[2016-12-05] MEDS: Gabapentin 300 MG CAPSULE PO SCH (20:38)
[2016-12-06] MEDS: Ondansetron 4 MG/2 ML VIAL IVP PRN (02:51)
[2016-12-06] MEDS: *HR* HYDROcodone/Acet 5/325 mg TABLET PO PRN ×2 (02:52→22:47)
[2016-12-06] MEDS: Insulin LISPRO 300 UNITS/3 ML VIAL SQ SCH ×4 (06:09→23:36)
[2016-12-06] MEDS: Loratadine 10 MG TABLET PO SCH (07:44)
[2016-12-06] MEDS: Cholecalciferol (D-3) 1,000 UNIT TABLET PO SCH (07:45)
[2016-12-06] MEDS: Furosemide 20 MG TABLET PO SCH ×2 (07:45→10:09)
[2016-12-06] MEDS: MetroNIDAZOLE 500 MG/100 ML 500 MG/100 ML BAG IVPB SCH ×3 (07:46→23:33)
[2016-12-06] MEDS: *HR* Heparin 5,000 UNIT/ML VIAL SQ SCH ×3 (07:46→23:34)
[2016-12-06] MEDS: Pantoprazole 40 MG VIAL IVP SCH ×2 (07:46→20:12)
--- NOTE | 2016-12-06 08:43 | Anesthesia Evaluation PreOp ---
Date of Encounter: 12/06/16 Time of Encounter: 08:37 - Past History Planned Operation: EGD Cardiac History: HTN, Hyperlipidemia Pulmonary History: Snore, LUCIUS Dx MEDICAL RECEPTION SPECIALIST History: Other Other Medical History: Renal (Stones), Diabetes Type II, Thyroid (Grave's Dx), Other (Breast Ca) Anesthesia History: No Prior Anesthetic Complications, Past Anesthesia (GB, ANNIE , Hernia/Appy, Hemorrhoid, Breast, T&A) : No Alcohol Use: none Drug use: none Medications and Allergies Aspirin [Adult Low Dose Aspirin EC] 162 mg PO DAILY 03/28/15 [History] Metformin HCl [Glucophage] 1,000 mg PO BIDWM 03/28/15 [History] Pravastatin Sodium [Pravachol] 20 mg PO DAILY 03/28/15 [History] Calcium Carbonate/Vitamin D3 [Calcium 500-Vit D3 400 Tablet] 1 tab PO DAILY 03/25 [History] Metoprolol Tartrate 50 mg PO BID 11/09/15 [History] Cetirizine HCl [Zyrtec] 10 mg PO DAILY 12/14/15 [History] Gabapentin [Neurontin] 600 mg PO HS 03/15/16 [History] Insulin Glargine,Hum.rec.anlog [Lantus Solostar] 65 unit SQ HS 03/15/16 [History ] Potassium Gluconate [Potassium] 99 mg PO DAILY 03/15/16 [History] Furosemide [Lasix] 20 mg PO DAILY #30 tablet 05/11/16 [Rx] Tizanidine HCl [Tizanidine HCl] 2 mg PO BID 12/04/16 [History] 3 Allergy/AdvReac Type Severity Reaction Status Date / Time glimepiride [From Amaryl] Allergy Unknown Itching Verified 05/07/16 04:39 glipizide Allergy Unknown Itching Verified 05/07/16 04:39 Sulfa (Sulfonamide Allergy Unknown Itching Verified 05/07/16 04:39 Antibiotics) latex Allergy Itching Verified 05/07/16 04:39 Latex, Natural Rubber Allergy Itching Verified 05/07/16 04:39 fentanyl AdvReac Unknown Vomiting Verified 05/07/16 04:39 and weakness promethazine AdvReac Unknown muscle Verified 05/07/16 04:39 spasms - Meds/Allergy Pre-op Review Medications Reviewed: Yes Allergies Reviewed: Yes Beta Blockers on Current Med List: Yes If Beta Blockers taken, Date/Time (Last Dose taken): 07:45 12/06/2016 Anesthesia Results - Labs 12/05/16 04:25 12/05/16 04:25 Echocardiogram Name: Alicja Clifford Date of Study: 05/09/2016 Impressions: Sinus rhythm with frequent PVCs. Normal left ventricular size and systolic function, LVEF 60-65%. Mild concentric left ventricular hypertrophy. Indeterminate diastolic function. Normal right ventricular size and function. No significant valvular dysfunction. Mild pulmonary hypertension. Estimated RVSP = 40 mmHg. Anesthesia Exam O2 Sat Weight 124.341 kg O2 Sat by Pulse Oximetry 95 O2 Sat by Pulse Oximetry 94 O2 Sat by Pulse Oximetry 95 O2 Sat by Pulse Oximetry 94 O2 Sat by Pulse Oximetry 92 O2 Sat by Pulse Oximetry 95 Vital Signs Temp Pulse Resp BP Pulse Ox 98.5 F 64 22 150/80 92 12/04/16 13:25 12/04/16 13:25 12/04/16 13:25 12/04/16 13:25 12/04/16 13:25 Vital Signs/O2 Sat, Most Current Temp Pulse Resp BP Pulse Ox 97.4 F L 72 17 167/95 95 12/06/16 06:58 12/06/16 06:58 12/06/16 06:58 12/06/16 06:58 12/06/16 06:58 - HEENT Pupil (Motor): Pupils equal, EOMI Mallampati: III Teeth: Normal Oral Opening: Greater than 3 - MEDICAL RECEPTION SPECIALIST LOC: Oriented MEDICAL RECEPTION SPECIALIST Motor: Normal RUE, Normal LUE, Normal RLE, Normal LLE, Normal Face MEDICAL RECEPTION SPECIALIST Sensory: Normal: RUE, LUE, RLE, LLE, Face - Cardiac Rhythm: Regular Murmur: None JVD: No Carotid Bruit: No - Pulmonary Breath Sounds: bilateral Clear Respiratory Effort: Symmetrical Anesthesia Assess/Plan ASA Score: 4 Modified Stan Scale for Level of Consciousness: Cooperative, oriented, and tranquil Anesthetic Plan: MAC Autologous Blood: Yes Monitoring Plan: Standard Monitors Recovery Plan: Other
[2016-12-06] MEDS ORDERED: Simethicone 40 MG/0.6 ML MLS IR ONE (09:14)
[2016-12-06] MEDS ORDERED: Tetracaine/Benzocaine/Butamben 200MG/SPRAY (100SPY/BOT) MM ONE (09:14)
[2016-12-06 10:11] LABS: Basophils # 0.1 K/mcL (0.0-0.2); Basophils % 0.6 %; Eosinophils # 0.3 K/mcL (0.0-0.6); Hematocrit 40.4 % (35.3-44.9); Immature Granulocytes % 0.3 % (0-4); Lymphocytes # 2.1 K/mcL (0.6-4.6); Lymphocytes % 22.8 %; Mean Corpuscular HGB Conc 32.2 g/dL (31.6-35.5); Mean Platelet Volume 10.5 fL (9.4-12.4); Monocytes # 0.7 K/mcL (0.0-1.3); Neutrophils # 6.2 K/mcL (1.6-8.9); Platelet Count 165 K/mcL (140-400); Red Blood Count 4.49 M/mcL (3.82-4.97); Segmented Neutrophils % 66.3 %
[2016-12-06 10:28] LABS: BUN/Creatinine Ratio 12 (6-26); Blood Urea Nitrogen 10 mg/dL (7-20); Calcium 8.9 mg/dL (8.6-10.8); Carbon Dioxide 24 mEq/L (19-29); Chloride 106 mEq/L (98-109); Glucose 188 mg/dL (70-99); Osmolality,Calculated 292 (280-300); Potassium 4.2 mEq/L (3.5-4.5); Sodium 139 mEq/L (136-145); eGFR For African Americans > 60 (> 60); eGFR For Non-African Americans > 60 (> 60)
[2016-12-06] MEDS: 0.9 % Sodium Chloride 1,000 ML IVC SCH ×2 (12:12→22:49)
[2016-12-06] MEDS: *HR* Morphine 2 MG/ML SYRINGE IVP PRN ×2 (14:45→20:11)
--- NOTE | 2016-12-06 16:09 | Gastroenterology Consult Note ---
Date of Encounter: 12/06/16 Time of Encounter: 09:00 - Assessment and plan (1) Abdominal pain Current Visit: Yes Status: Acute Assessment and plan: CT abdomen showed inflammation of second portion of duodenum and adjacent pancreatic head. Suggesting PUD vs mild pancreatitis with secondary duodonitis. Has been treated with flagyl, cipro, and protonix. Will proceed with EGD, schedule pt for MRCP, if stone is present she will need ERCP. Qualifiers: Abdominal location: right upper quadrant Qualified Code(s): R10.11 - Right upper quadrant pain (2) Nausea alone Current Visit: Yes Status: Acute Assessment and plan: Was started on protonix and is improved. (3) Pancreatic abnormality Current Visit: Yes Status: Acute Assessment and plan: CT shows possible pancreatitis await MRCP results, may need ERCP. - Time Spent With Patient Total time spent is greater than 50% in coordination of care (as documented) at patient's floor/unit and/or counseling patient: GI History of Present Illness - Data of Consult Patient: new to practice Consult date: 12/06/16 Requesting Physician: Loki Pascal - Consult Narrative Reason for consult: abdominal pain History of present illness: Ms. Clifford is a 66 year old female who presented with abdominal pain for several weeks. Pt states she has been eating increased amounts of tomatoes and strawberries and thinks this my be causing her pain. She has occasional nausea but denies vomiting. She denies any bloody or tarry stools but states she has hemmorrhoids and has occasional scant bleeding with wiping. She denies fever but had chills. She has been on zantac at home with some relief. She had normal BM last night and denies any diarrhea but has occasional constipation at home. She has a past medicat hx of DVT has been on aspirin at home, she denies any anticoagulants, breast CA, DM and kidney disease. Colonoscopy: >10 years ago EGD: never Past Med Surg Social Fam HX - Past Medical History Medical history: cancer (Breast), DVT, diabetes, hyperlipidemia, hypertension, kidney stones, renal disease, thyroid disease Psychiatric history: no psych history - Past Surgical History Surgical History: appendectomy, cholecystectomy, hysterectomy, other (right breast lumpectomy) - Social History Smoking Status: Never smoker Smokeless Tobacco Status: No Alcohol use: none Drug use: none - Family History Mother Race: Family Member Ethnicity: Non- Living Status: Age at : 86 Cause of : Breast cancer Hx Family Cardiac Disorders: Yes (DVTs) Hx Family Cancer: Yes (Breast) Brother Race: Family Member Ethnicity: Non- Living Status: Age at : 51 Cause of : CAD Hx Family Cardiac Disorders: Yes (CAD) Sister Race: Family Member Ethnicity: Non- Living Status: Still Living Hx Family Medical Disorders: No Father Race: Family Member Ethnicity: Non- Living Status: Age at : 42 Cause of : Cirrhosis Hx Family Endocrine Disorder: Yes (Cirrhosis) Review of Systems: GI: as per IGIUGIG GENERAL: denies fever, has some chills EYES: denies yellow discoloration ENT: denies pain with swallowing or difficulty swallowing CARDIO: denies chest pain, palpitations RESP: No Shortness of breath with exertion : denies change in color of urine NEURO: denies any weakness HEME: Denies any bruising MS: denies joint pain, joint swelling or back pain. DERM: denies rash or itching PSYCH: Denies history of anxiety or depression - Constitutional Vitals: Temp Pulse Resp BP Pulse Ox 98.6 F 61 16 166/89 96 12/06/16 10:00 12/06/16 10:00 12/06/16 10:00 12/06/16 10:00 12/06/16 10:00 Exam: CONSTITUTIONAL:~alert, no acute distress.~HEAD:~normocephalic.~EYES:~no jaundice.~NECK:~no obvious swelling.~HEART:~regular rate and rhythm, no murmurs. ~LUNGS:~bilateral good air entry.~ABDOMEN:~obese, non distended, soft, non tender, no masses pulpable, no organomegaly.~RECTAL EXAM:~Deferred.~EXTREMITIES: ~no clubbing, cyanosis or edema.~SKIN:~pallor noted, no stigmata of chronic liver disease.~NEUROLOGIC:~no obvious focal defect.~~~~ Results - Labs CBC & Chem 7: 12/06/16 10:01 12/06/16 10:01 Labs: Last Result Calcium 8.9 mg/dL (8.6-10.8) 12/06/16 10:01 Triglycerides 135 mg/dL (< 150) 12/05/16 04:25 Entire Visit Hgb 13.0 g/dL (11.5-15.4) 12/06/16 10:01 Hct 40.4 % (35.3-44.9) 12/06/16 10:01 PT 13.0 Seconds (9.4-12.1) H 12/05/16 04:25 Total Bilirubin 0.8 mg/dL (0.2-1.2) D 12/05/16 04:25 AST 28 Units/L (5-34) 12/05/16 04:25 ALT 40 Units/L (0-55) 12/05/16 04:25 Amylase 50 Units/L (25-125) 12/04/16 14:00 Lipase 33 Units/L (8-78) 12/04/16 14:00 - ABG ABG results: PT/INR, D-dimer PT 13.0 Seconds (9.4-12.1) H 12/05/16 04:25 Consult Discharge Plan - Plan Referrals: Abigail Greco, [employer] [Primary Care Provider] -
--- NOTE | 2016-12-06 18:01 | Internal Med Progress Note ---
Date of Encounter: 12/06/16 Time of Encounter: 10:00 - Assessment and plan (1) Abdominal pain Current Visit: Yes Status: Acute Assessment and plan: -CT of the abdomen/pelvis showed inflammation of the second portion of the duodenum and adjacent pancreatic head, which may represent peptic ulcer disease with secondary pancreatic inflammation versus mild acute pancreatitis with secondary duodenitis. -EGD showed LA grade A esophagitis in addition to nonbleeding cratered duodenal ulcers without any stigmata of bleeding. -MRCP showed mild to moderate intrahepatic and minimal extrahepatic Pierce dilation with no choledocholithiasis. There is a suspicion however for thickening of the extrahepatic bile ducts. In addition, there is edema in the pancreaticoduodenal groove of unknown etiology. -May need ERCP for further evaluation per GI recommendations. -Continue IV Cipro/Flagyl in addition to IV Protonix. -Following an appreciate any additional recommendations. Qualifiers: Abdominal location: generalized Qualified Code(s): R10.84 - Generalized abdominal pain (2) Diabetes mellitus Current Visit: Yes Status: Chronic Assessment and plan: -Blood glucose controlled; continue home medications. Qualifiers: Diabetes mellitus type: type 2 Diabetes mellitus complication status: with hyperglycemia Diabetes mellitus longterm insulin use: with exterminator termite use Qualified Code(s): E11.65 - Type 2 diabetes mellitus with hyperglycemia; Z79.4 - long term care pharmacist (current) use of insulin (3) HLD (hyperlipidemia) Current Visit: Yes Status: Chronic Assessment and plan: Continue home medications Qualifiers: Hyperlipidemia type: pure hypercholesterolemia Qualified Code(s): E78.00 - Pure hypercholesterolemia, unspecified; E78.0 - Pure hypercholesterolemia (4) HTN (hypertension) Current Visit: Yes Status: Chronic Assessment and plan: -Blood pressure controlled; continue home medications. Qualifiers: Hypertension type: essential hypertension Qualified Code(s): I10 - Essential (primary) hypertension (5) Thyroid disease Current Visit: Yes Status: Chronic Assessment and plan: Continue home medications. (6) Obesity hypoventilation syndrome Current Visit: No Status: Chronic Assessment and plan: Lifestyle modifications for weight loss (7) LUCIUS (obstructive sleep apnea) Current Visit: No Status: Chronic Assessment and plan: -Will continue supplemental oxygen - Subjective Interval history: She reports of abdominal discomfort improving this morning. - Constitutional Vitals: Temp Pulse Resp BP Pulse Ox 97.6 F 58 16 158/83 95 12/06/16 10:40 12/06/16 10:40 12/06/16 10:40 12/06/16 10:40 12/06/16 10:40 General appearance: Present: cooperative, mild distress, A&O X 3, morbidly obese , pleasant, answers questions appropriately - Respiratory Respiratory exam: Present: CTAB. Absent: accessory muscle use, rales, rhonchi, wheezes - Cardiovascular Cardiovascular exam: Present: RRR, +S1, +S2. Absent: diastolic murmur, gallop, rubs, systolic murmur - GI/Abdominal GI/Abdominal exam: Present: normal bowel sounds, soft, no peritoneal signs. Absent: distended, tenderness Internal Medicine: Result - Labs CBC & Chem 7: 12/06/16 10:01 12/06/16 10:01 Labs: Short CBC 12/06/16 Range/Units 10:01 WBC 9.3 (4.3-11.1) K/mcL Hgb 13.0 (11.5-15.4) g/dL Hct 40.4 (35.3-44.9) % Plt Count 165 (140-400) K/mcL Neutrophils # 6.2 (1.6-8.9) K/mcL BMP 12/06/16 10:01 Sodium 139 Potassium 4.2 Chloride 106 Carbon Dioxide 24 BUN 10 Creatinine 0.82 Glucose 188 H Calcium 8.9 - ABG Interpretation ABG results: PT/INR, D-dimer PT 13.0 Seconds (9.4-12.1) H 12/05/16 04:25 - Impressions Impressions Abdomen MRI 12/06/16 10:14 IMPRESSION: 1. Mild to moderate intrahepatic and minimal extrahepatic biliary dilation. No choledocholithiasis. 2. Suspicion for wall thickening involving the extrahepatic bile ducts, potentially due to cholangitis. 3. Edema in the pancreaticoduodenal groove of in definite etiology, as no obvious duodenal nor pancreatic abnormalities identified. Considerations include cholangitis as above, pancreatitis, or duodenitis. 4. Severe hepatic steatosis. D/ / Jaskaran Giordano MD / Jaskaran Giordano MD Interpreting Provider: Jaskaran Giordano MD Consult Discharge Plan - Plan Referrals: Abigail Greco, [employer] [Primary Care Provider] -
[2016-12-06] MEDS: Gabapentin 300 MG CAPSULE PO SCH (20:13)
[2016-12-07] MEDS: *HR* Morphine 2 MG/ML SYRINGE IVP PRN ×4 (02:23→20:18)
[2016-12-07] MEDS: *HR* HYDROcodone/Acet 5/325 mg TABLET PO PRN ×2 (05:18→23:28)
[2016-12-07] MEDS: Insulin LISPRO 300 UNITS/3 ML VIAL SQ SCH ×4 (05:24→23:39)
[2016-12-07] MEDS: Loratadine 10 MG TABLET PO SCH (07:42)
[2016-12-07] MEDS: Cholecalciferol (D-3) 1,000 UNIT TABLET PO SCH (07:42)
[2016-12-07] MEDS: Furosemide 20 MG TABLET PO SCH (07:42)
[2016-12-07] MEDS: Pantoprazole 40 MG VIAL IVP SCH ×3 (08:22→20:18)
[2016-12-07] MEDS: *HR* Heparin 5,000 UNIT/ML VIAL SQ SCH ×3 (08:23→23:29)
[2016-12-07] MEDS: MetroNIDAZOLE 500 MG/100 ML 500 MG/100 ML BAG IVPB SCH ×2 (08:24→15:53)
[2016-12-07 09:09] LABS: Basophils # 0.1 K/mcL (0.0-0.2); Basophils % 0.6 %; Eosinophils # 0.3 K/mcL (0.0-0.6); Eosinophils % 3.4 %; Hematocrit 41.4 % (35.3-44.9); Hemoglobin 13.6 g/dL (11.5-15.4); Immature Granulocytes % 0.4 % (0-4); Lymphocytes # 1.8 K/mcL (0.6-4.6); Lymphocytes % 22.1 %; Mean Corpuscular HGB Conc 32.9 g/dL (31.6-35.5); Mean Corpuscular Hemoglobin 30.1 pg (28.0-33.3); Mean Corpuscular Volume 91.6 fL (83.0-100.0); Monocytes # 0.6 K/mcL (0.0-1.3); Monocytes % 7.8 %; Neutrophils # 5.4 K/mcL (1.6-8.9); Platelet Count 154 K/mcL (140-400); Red Blood Count 4.52 M/mcL (3.82-4.97); Red Cell Distribution Width 13.2 % (11.5-14.5); Segmented Neutrophils % 65.7 %
[2016-12-07 09:25] LABS: BUN/Creatinine Ratio 8 (6-26); Blood Urea Nitrogen 7 mg/dL (7-20); Calcium 8.9 mg/dL (8.6-10.8); Carbon Dioxide 27 mEq/L (19-29); Chloride 105 mEq/L (98-109); Glucose 195 mg/dL (70-99); Osmolality,Calculated 293 (280-300); Potassium 3.6 mEq/L (3.5-4.5); Sodium 140 mEq/L (136-145); eGFR For African Americans > 60 (> 60); eGFR For Non-African Americans > 60 (> 60)
[2016-12-07] MEDS: 0.9 % Sodium Chloride 1,000 ML IVC SCH ×2 (12:31→23:42)
--- NOTE | 2016-12-07 15:01 | Internal Med Progress Note ---
Date of Encounter: 12/07/16 Time of Encounter: 10:00 - Assessment and plan (1) Abdominal pain Current Visit: Yes Status: Acute Assessment and plan: -CT of the abdomen/pelvis showed inflammation of the second portion of the duodenum and adjacent pancreatic head, which may represent peptic ulcer disease with secondary pancreatic inflammation versus mild acute pancreatitis with secondary duodenitis. -EGD showed LA grade A esophagitis in addition to nonbleeding cratered duodenal ulcers without any stigmata of bleeding. -MRCP showed mild to moderate intrahepatic and minimal extrahepatic bialary dilation with no choledocholithiasis. There is a suspicion however for thickening of the extrahepatic bile ducts. In addition, there is edema in the pancreaticoduodenal groove of unknown etiology. -No need for ERCP due to no stones being dignified in any of the ducts.. -Continue IV Cipro/Flagyl in addition to IV Protonix. -Will start patient on a full clear liquid diet and advance as tolerates. -GI following and appreciate any further recommendations. Qualifiers: Abdominal location: generalized Qualified Code(s): R10.84 - Generalized abdominal pain (2) Diabetes mellitus Current Visit: Yes Status: Chronic Assessment and plan: -Blood glucose controlled; continue home medications. Qualifiers: Diabetes mellitus type: type 2 Diabetes mellitus complication status: with hyperglycemia Diabetes mellitus nursing home insulin use: with nursing home use Qualified Code(s): E11.65 - Type 2 diabetes mellitus with hyperglycemia; Z79.4 - [facility] (current) use of insulin (3) HLD (hyperlipidemia) Current Visit: Yes Status: Chronic Assessment and plan: -Continue statin Qualifiers: Hyperlipidemia type: pure hypercholesterolemia Qualified Code(s): E78.00 - Pure hypercholesterolemia, unspecified; E78.0 - Pure hypercholesterolemia (4) HTN (hypertension) Current Visit: Yes Status: Chronic Assessment and plan: -Blood pressure controlled; continue home medications. Qualifiers: Hypertension type: essential hypertension Qualified Code(s): I10 - Essential (primary) hypertension (5) Thyroid disease Current Visit: Yes Status: Chronic Assessment and plan: -Continue home medications. (6) Obesity hypoventilation syndrome Current Visit: No Status: Chronic Assessment and plan: Lifestyle modifications for weight loss (7) LUCIUS (obstructive sleep apnea) Current Visit: No Status: Chronic Assessment and plan: -Will continue supplemental oxygen - Subjective Interval history: Abdominal discomfort continues to improve. - Constitutional Vitals: Temp Pulse Resp BP Pulse Ox 97.9 F 81 18 169/82 94 12/07/16 10:15 12/07/16 10:15 12/07/16 10:15 12/07/16 10:15 12/07/16 10:15 General appearance: Present: cooperative, mild distress, A&O X 3, morbidly obese , pleasant, answers questions appropriately - Cardiovascular Cardiovascular exam: Present: RRR, +S1, +S2. Absent: diastolic murmur, gallop, rubs, systolic murmur - GI/Abdominal GI/Abdominal exam: Present: normal bowel sounds, soft, no peritoneal signs. Absent: distended, tenderness Internal Medicine: Result - Labs CBC & Chem 7: 12/07/16 08:28 12/07/16 08:28 Labs: Short CBC 12/07/16 Range/Units 08:28 WBC 8.2 (4.3-11.1) K/mcL Hgb 13.6 (11.5-15.4) g/dL Hct 41.4 (35.3-44.9) % Plt Count 154 (140-400) K/mcL Neutrophils # 5.4 (1.6-8.9) K/mcL BMP 12/07/16 08:28 Sodium 140 Potassium 3.6 Chloride 105 Carbon Dioxide 27 BUN 7 Creatinine 0.84 Glucose 195 H Calcium 8.9 - ABG Interpretation ABG results: PT/INR, D-dimer PT 13.0 Seconds (9.4-12.1) H 12/05/16 04:25 - Impressions Impressions Abdomen MRI 12/06/16 10:14 IMPRESSION: 1. Mild to moderate intrahepatic and minimal extrahepatic biliary dilation. No choledocholithiasis. 2. Suspicion for wall thickening involving the extrahepatic bile ducts, potentially due to cholangitis. 3. Edema in the pancreaticoduodenal groove of in definite etiology, as no obvious duodenal nor pancreatic abnormalities identified. Considerations include cholangitis as above, pancreatitis, or duodenitis. 4. Severe hepatic steatosis. D/ / Jaskaran Giordano MD / Jaskaran Giordano MD Interpreting Provider: Jaskaran Giordano MD Consult Discharge Plan - Plan Referrals: Abigail Greco, [employer] [Primary Care Provider] -
[2016-12-07] MEDS: Gabapentin 300 MG CAPSULE PO SCH (20:17)
[2016-12-07] MEDS: Ondansetron 4 MG/2 ML VIAL IVP PRN (23:29)
[2016-12-08] MEDS: MetroNIDAZOLE 500 MG/100 ML 500 MG/100 ML BAG IVPB SCH ×4 (00:51→23:28)
[2016-12-08] MEDS: *HR* Morphine 2 MG/ML SYRINGE IVP PRN ×2 (00:53→04:57)
[2016-12-08] MEDS: 0.9 % Sodium Chloride 1,000 ML IVC SCH ×2 (06:27→14:23)
[2016-12-08] MEDS: Insulin LISPRO 300 UNITS/3 ML VIAL SQ SCH ×3 (06:28→18:32)
[2016-12-08] MEDS: Pantoprazole 40 MG VIAL IVP SCH (08:52)
[2016-12-08] MEDS: Loratadine 10 MG TABLET PO SCH (08:54)
[2016-12-08] MEDS: Furosemide 20 MG TABLET PO SCH (08:54)
[2016-12-08] MEDS: Cholecalciferol (D-3) 1,000 UNIT TABLET PO SCH (08:55)
[2016-12-08] MEDS: *HR* Heparin 5,000 UNIT/ML VIAL SQ SCH ×3 (08:57→23:29)
[2016-12-08 08:59] LABS: Basophils % 0.5 %; Eosinophils # 0.3 K/mcL (0.0-0.6); Eosinophils % 3.8 %; Hematocrit 38.7 % (35.3-44.9); Hemoglobin 12.2 g/dL (11.5-15.4); Immature Granulocytes % 0.4 % (0-4); Mean Corpuscular HGB Conc 31.5 g/dL (31.6-35.5); Mean Corpuscular Hemoglobin 28.8 pg (28.0-33.3); Mean Corpuscular Volume 91.3 fL (83.0-100.0); Mean Platelet Volume 10.6 fL (9.4-12.4); Monocytes # 0.7 K/mcL (0.0-1.3); Neutrophils # 4.3 K/mcL (1.6-8.9); Platelet Count 138 K/mcL (140-400); Red Blood Count 4.24 M/mcL (3.82-4.97); Red Cell Distribution Width 13.1 % (11.5-14.5); Segmented Neutrophils % 59.3 %
[2016-12-08 09:17] LABS: BUN/Creatinine Ratio 7 (6-26); Calcium 8.9 mg/dL (8.6-10.8); Carbon Dioxide 29 mEq/L (19-29); Chloride 109 mEq/L (98-109); Glucose 154 mg/dL (70-99); Osmolality,Calculated 296 (280-300); Potassium 3.7 mEq/L (3.5-4.5); Sodium 143 mEq/L (136-145); eGFR For African Americans > 60 (> 60); eGFR For Non-African Americans > 60 (> 60)
[2016-12-08 09:18] LABS: Blood Urea Nitrogen 5 mg/dL (7-20)
[2016-12-08] MEDS: *HR* HYDROcodone/Acet 5/325 mg TABLET PO PRN ×2 (11:49→18:30)
--- NOTE | 2016-12-08 18:16 | Internal Med Progress Note ---
Date of Encounter: 12/08/16 Time of Encounter: 11:00 - Assessment and plan (1) Abdominal pain Current Visit: Yes Status: Acute Assessment and plan: -CT of the abdomen/pelvis showed inflammation of the second portion of the duodenum and adjacent pancreatic head, which may represent peptic ulcer disease with secondary pancreatic inflammation versus mild acute pancreatitis with secondary duodenitis. -EGD showed LA grade A esophagitis in addition to nonbleeding cratered duodenal ulcers without any stigmata of bleeding. -MRCP showed mild to moderate intrahepatic and minimal extrahepatic bialary dilation with no choledocholithiasis. There is a suspicion however for thickening of the extrahepatic bile ducts. In addition, there is edema in the pancreaticoduodenal groove of unknown etiology. -No need for ERCP due to no stones being dignified in any of the ducts.. -Continue IV Cipro/Flagyl in addition to IV Protonix. -Will start patient on a full clear liquid diet and advance as tolerates. -GI following and appreciate any further recommendations. Qualifiers: Abdominal location: generalized Qualified Code(s): R10.84 - Generalized abdominal pain (2) Diabetes mellitus Current Visit: Yes Status: Chronic Assessment and plan: -Blood glucose controlled; continue home medications. Qualifiers: Diabetes mellitus type: type 2 Diabetes mellitus complication status: with hyperglycemia Diabetes mellitus group home insulin use: with group home use Qualified Code(s): E11.65 - Type 2 diabetes mellitus with hyperglycemia; Z79.4 - correction (current) use of insulin (3) HLD (hyperlipidemia) Current Visit: Yes Status: Chronic Assessment and plan: -Continue statin Qualifiers: Hyperlipidemia type: pure hypercholesterolemia Qualified Code(s): E78.00 - Pure hypercholesterolemia, unspecified; E78.0 - Pure hypercholesterolemia (4) HTN (hypertension) Current Visit: Yes Status: Chronic Assessment and plan: -Blood pressure have continued to be elevated so added calcium channel lenny to beta lenny. Qualifiers: Hypertension type: essential hypertension Qualified Code(s): I10 - Essential (primary) hypertension (5) Thyroid disease Current Visit: Yes Status: Chronic Assessment and plan: -Continue home medications. (6) Obesity hypoventilation syndrome Current Visit: No Status: Chronic Assessment and plan: Lifestyle modifications for weight loss (7) LUCIUS (obstructive sleep apnea) Current Visit: No Status: Chronic Assessment and plan: -Will continue supplemental oxygen - Subjective Interval history: Abdominal discomfort continues to improve and patient able to tolerate by mouth diet. - Constitutional Vitals: Temp Pulse Resp BP Pulse Ox 97.8 F 67 15 195/81 93 12/08/16 16:52 12/08/16 16:52 12/08/16 16:52 12/08/16 16:52 12/08/16 16:52 General appearance: Present: cooperative, mild distress, A&O X 3, morbidly obese , pleasant, answers questions appropriately - Respiratory Respiratory exam: Present: CTAB. Absent: accessory muscle use, rales, rhonchi, wheezes - Cardiovascular Cardiovascular exam: Present: RRR, +S1, +S2. Absent: diastolic murmur, gallop, rubs, systolic murmur - GI/Abdominal GI/Abdominal exam: Present: normal bowel sounds, soft, no peritoneal signs. Absent: distended, tenderness Internal Medicine: Result - Labs CBC & Chem 7: 12/08/16 08:38 12/08/16 08:38 Labs: Short CBC 12/08/16 Range/Units 08:38 WBC 7.3 (4.3-11.1) K/mcL Hgb 12.2 (11.5-15.4) g/dL Hct 38.7 (35.3-44.9) % Plt Count 138 L (140-400) K/mcL Neutrophils # 4.3 (1.6-8.9) K/mcL BMP 12/08/16 08:38 Sodium 143 Potassium 3.7 Chloride 109 Carbon Dioxide 29 BUN 5 L Creatinine 0.74 Glucose 154 H Calcium 8.9 - ABG Interpretation ABG results: PT/INR, D-dimer PT 13.0 Seconds (9.4-12.1) H 12/05/16 04:25 Consult Discharge Plan - Plan Referrals: Abigail Greco, [employer] [Primary Care Provider] -
[2016-12-08] MEDS ORDERED: Insulin LISPRO 300 UNITS/3 ML VIAL SQ SCH (21:00)
[2016-12-08] MEDS: Gabapentin 300 MG CAPSULE PO SCH (21:09)
[2016-12-09] MEDS: *HR* HYDROcodone/Acet 5/325 mg TABLET PO PRN ×2 (03:26→09:12)
[2016-12-09] MEDS: 0.9 % Sodium Chloride 1,000 ML IVC SCH (03:27)
[2016-12-09 04:52] LABS: Basophils # 0.1 K/mcL (0.0-0.2); Basophils % 0.6 %; Eosinophils # 0.3 K/mcL (0.0-0.6); Eosinophils % 3.2 %; Hematocrit 37.1 % (35.3-44.9); Hemoglobin 11.9 g/dL (11.5-15.4); Immature Granulocytes % 0.6 % (0-4); Lymphocytes # 2.5 K/mcL (0.6-4.6); Lymphocytes % 30.5 %; Mean Corpuscular HGB Conc 32.1 g/dL (31.6-35.5); Mean Corpuscular Hemoglobin 29.5 pg (28.0-33.3); Mean Corpuscular Volume 92.1 fL (83.0-100.0); Mean Platelet Volume 10.9 fL (9.4-12.4); Monocytes # 0.8 K/mcL (0.0-1.3); Monocytes % 9.7 %; Neutrophils # 4.5 K/mcL (1.6-8.9); Platelet Count 139 K/mcL (140-400); Red Blood Count 4.03 M/mcL (3.82-4.97); Red Cell Distribution Width 13.4 % (11.5-14.5); Segmented Neutrophils % 55.4 %
[2016-12-09 05:11] LABS: BUN/Creatinine Ratio 11 (6-26); Blood Urea Nitrogen 11 mg/dL (7-20); Carbon Dioxide 29 mEq/L (19-29); Chloride 109 mEq/L (98-109); Glucose 250 mg/dL (70-99); Osmolality,Calculated 304 (280-300); Potassium 3.6 mEq/L (3.5-4.5); Sodium 143 mEq/L (136-145); eGFR For African Americans > 60 (> 60); eGFR For Non-African Americans 57 (> 60)
[2016-12-09] MEDS: Cholecalciferol (D-3) 1,000 UNIT TABLET PO SCH (08:54)
[2016-12-09] MEDS: Pantoprazole 40 MG VIAL IVP SCH (08:54)
[2016-12-09] MEDS: Furosemide 20 MG TABLET PO SCH (08:55)
[2016-12-09] MEDS: *HR* Heparin 5,000 UNIT/ML VIAL SQ SCH ×2 (08:55→15:04)
[2016-12-09] MEDS: Loratadine 10 MG TABLET PO SCH (08:55)
[2016-12-09] MEDS: MetroNIDAZOLE 500 MG/100 ML 500 MG/100 ML BAG IVPB SCH (08:55)
[2016-12-09] MEDS: Insulin LISPRO 300 UNITS/3 ML VIAL SQ SCH ×2 (08:57→11:47)
[2016-12-09] MEDS ORDERED: amLODIPine 5 MG TABLET PO SCH (09:00)
[2016-12-09 14:52] VITALS: BP 181/73
--- NOTE | 2016-12-09 14:53 | Discharge Summary ---
Date of Encounter: 12/09/16 Time of Encounter: 10:00 - Discharge Diagnosis (1) Abdominal pain Priority: Primary Status: Acute Qualifiers: Abdominal location: generalized Qualified Code(s): R10.84 - Generalized abdominal pain (2) Diabetes mellitus Priority: Primary Status: Chronic Qualifiers: Diabetes mellitus type: type 2 Diabetes mellitus complication status: with hyperglycemia Diabetes mellitus termite renewal inspector insulin use: with snf use Qualified Code(s): E11.65 - Type 2 diabetes mellitus with hyperglycemia; Z79.4 - correction (current) use of insulin (3) HLD (hyperlipidemia) Priority: Secondary Status: Chronic Qualifiers: Hyperlipidemia type: pure hypercholesterolemia Qualified Code(s): E78.00 - Pure hypercholesterolemia, unspecified; E78.0 - Pure hypercholesterolemia (4) HTN (hypertension) Priority: Secondary Status: Chronic Qualifiers: Hypertension type: essential hypertension Qualified Code(s): I10 - Essential (primary) hypertension (5) Thyroid disease Priority: Secondary Status: Chronic (6) Obesity hypoventilation syndrome Priority: Secondary Status: Chronic (7) LUCIUS (obstructive sleep apnea) Priority: Secondary Status: Chronic - Discharge Medications Prescriptions: HYDROcodone/Acet 5/325 mg [[place] 5-325 mg] 1 tab PO Q12HR PRN #10 tablet PRN Reason: Moderate Pain (4-6) amLODIPine [Norvasc] 10 mg PO DAILY #30 tablet Ciprofloxacin HCl [Cipro] 500 mg PO BID #14 tablet metroNIDAZOLE [Flagyl] 500 mg PO TID #21 tablet Omeprazole [PriLOSEC] 40 mg PO DAILY #30 cap Sucralfate [Carafate] 1 gm PO QIDAC #120 tablet Home Medications: Aspirin [Adult Low Dose Aspirin EC] 162 mg PO DAILY 03/28/15 [History] Metformin HCl [Glucophage] 1,000 mg PO BIDWM 03/28/15 [History] Pravastatin Sodium [Pravachol] 20 mg PO DAILY 03/28/15 [History] Calcium Carbonate/Vitamin D3 [Calcium 500-Vit D3 400 Tablet] 1 tab PO DAILY 03/25 [History] Metoprolol Tartrate 50 mg PO BID 11/09/15 [History] Cetirizine HCl [Zyrtec] 10 mg PO DAILY 12/14/15 [History] Gabapentin [Neurontin] 600 mg PO HS 03/15/16 [History] Insulin Glargine,Hum.rec.anlog [Lantus Solostar] 65 unit SQ HS 03/15/16 [History ] Potassium Gluconate [Potassium] 99 mg PO DAILY 03/15/16 [History] Furosemide [Lasix] 20 mg PO DAILY #30 tablet 05/11/16 [Rx] Tizanidine HCl 2 mg PO BID 12/04/16 [History] Ciprofloxacin HCl [Cipro] 500 mg PO BID #14 tablet 12/09/16 [Rx] HYDROcodone/Acet 5/325 mg [[place] 5-325 mg] 1 tab PO Q12HR PRN #10 tablet [Rx] Omeprazole [PriLOSEC] 40 mg PO DAILY #30 cap 12/09/16 [Rx] Sucralfate [Carafate] 1 gm PO QIDAC #120 tablet 12/09/16 [Rx] amLODIPine [Norvasc] 10 mg PO DAILY #30 tablet 12/09/16 [Rx] metroNIDAZOLE [Flagyl] 500 mg PO TID #21 tablet 12/09/16 [Rx] Allergies/Adverse Reactions: 3 Allergy/AdvReac Type Severity Reaction Status Date / Time glimepiride [From Amaryl] Allergy Unknown Itching Verified 05/07/16 04:39 glipizide Allergy Unknown Itching Verified 05/07/16 04:39 Sulfa (Sulfonamide Allergy Unknown Itching Verified 05/07/16 04:39 Antibiotics) latex Allergy Itching Verified 05/07/16 04:39 Latex, Natural Rubber Allergy Itching Verified 05/07/16 04:39 fentanyl AdvReac Unknown Vomiting Verified 05/07/16 04:39 and weakness promethazine AdvReac Unknown muscle Verified 05/07/16 04:39 spasms Date of admission: 12/04/16 17:39 Primary care physician: Abigail Greco CNP Consults: 12/05/16 11:39 Consult to Gastroenterology [CONS] Routine Consulting Provider: Gastroenterology Yuki Reason for Consult: abd pain Call Completed: Yes - Patient Status Disposition: Home, Self-Care Condition: Fair - Discharge Instructions Follow Up With: Abigail Greco CNP [Primary Care Provider] - 12/16/16 9:00 am Hospital course: Patient is a 66 year old female with past medical history significant for breast cancer, diverticulosis, DVT, phlebitis, diabetes controlled with insulin , hyperlipidemia, hypertension, CKD, and hypothyroid, who presented to the ER on 12/04/16 with abdominal pain. Patient reported that her abdominal pain began several weeks ago and became worse the day of admission. She reported of eating tomatoes and strawberries; most recently the day prior to admission. In the ER, she was found to have inflammation of the second portion of the duodenum with adjacent pancreatic head on CT of the abdomen/pelvis which is suspected to secondary to peptic ulcer disease. Patient was admitted to the medical floor for further workup. During patients hospital stay, GI was consulted with recommendations for an EGD that showed LA grade A esophagitis in addition to a nonbleeding cratered duodenal ulcers without any stigmata of bleeding. An MRCP was also done which showed mild to moderate intrahepatic and minimal extrahepatic bialary dilation with no choledocholithiasis. Patients abdominal discomfort improved on IV Cipro/Flagyl in addition to IV Protonix. Her diet was advanced as tolerated with no issues. She will be discharged to continue a short course of Cipro/Flagyl and to take daily pantoprazole in addition to Carafate. Patient will follow-up with her primary care provider. - Time Spent with Patient Total time spent providing and/or coordinating discharge services: Less than 30 minutes - Constitutional Vitals: Temp Pulse Resp BP Pulse Ox 98.1 F 70 17 191/77 96 12/09/16 10:16 12/09/16 10:16 12/09/16 10:16 12/09/16 10:16 12/09/16 10:16 General appearance: Present: cooperative, mild distress, A&O X 3, morbidly obese , pleasant, answers questions appropriately - GI/Abdominal GI/Abdominal exam: Present: normal bowel sounds, soft, no peritoneal signs. Absent: distended, tenderness
[2016-12-09] MEDS ORDERED: metroNIDAZOLE 500 MG TABLET PO SCH (15:00)
[2016-12-09] MEDS ORDERED: Sucralfate 1 GM TABLET PO SCH (16:30)
== END 2016-12-09 16:42 | disposition home or self-care (01) | DRG 439 ==
LOC: 3ANU 13:22 → EMEROO 13:22 → 3ANU 17:43
PROVIDERS: ADMIT Family Medicine; ATTEND Hospitalist

== ENCOUNTER 2017-08-22 12:13 | Observation (INO) ==
[2017-08-22] MEDS ORDERED: Aspirin 81 MG TAB.CHEW PO ONE (12:31)
[2017-08-22] MEDS ORDERED: Ipratropium/Albuterol Neb 3 ML IH ONE (12:33)
--- NOTE | 2017-08-22 12:45 | Emergency Department Note ---
Disposition Clinical Impression: Congestive heart failure Disposition: Admitted As Inpatient Referrals: Abigail Greco, N[employer] [Primary Care Provider] - Forms: ED Satisfaction Letter General Adult HPI - General Chief complaint: ED Shortness of Breath/Dyspnea Stated complaint: SOB Time Seen by Provider: 08/22/17 12:20 Source: patient Limitations: no limitations Nursing Notes Reviewed: Yes Vital Signs Reviewed: Yes - History of Present Illness Pain Scale: 6 - Related Data Home Medications Medication Instructions Recorded Confirmed Metformin HCl [Glucophage] 1,000 mg PO BIDWM 03/28/15 08/22/17 Pravastatin Sodium [Pravachol] 20 mg PO DAILY 03/28/15 08/22/17 Cetirizine HCl [Zyrtec] 10 mg PO DAILY 12/14/15 08/22/17 Insulin Glargine,Hum.rec.anlog 65 unit SQ HS 03/15/16 08/22/17 [Lantus Solostar] Potassium Gluconate [Potassium] 99 mg PO DAILY 03/15/16 08/22/17 Tizanidine HCl 2 mg PO BID 12/04/16 08/22/17 Aspirin [Lo-Dose Aspirin EC] 162 mg PO DAILY 08/22/17 08/22/17 Calcium Carbonate [Calcium] 600 mg PO DAILY 08/22/17 08/22/17 Gabapentin [Neurontin] 1,200 mg PO TID 08/22/17 08/22/17 Metoprolol [Lopressor] 50 mg PO BID 08/22/17 08/22/17 Previous Rx's Medication Instructions Recorded Furosemide [Lasix] 20 mg PO DAILY #30 tablet 05/11/16 Omeprazole [PriLOSEC] 40 mg PO DAILY #30 cap 12/09/16 Sucralfate [Carafate] 1 gm PO QIDAC #120 tablet 12/09/16 amLODIPine [Norvasc] 10 mg PO DAILY #30 tablet 12/09/16 Allergies Allergy/AdvReac Type Severity Reaction Status Date / Time glimepiride [From Amaryl] Allergy Unknown Itching Verified 05/07/16 04:39 glipizide Allergy Unknown Itching Verified 05/07/16 04:39 Sulfa (Sulfonamide Allergy Unknown Itching Verified 05/07/16 04:39 Antibiotics) latex Allergy Itching Verified 05/07/16 04:39 Latex, Natural Rubber Allergy Itching Verified 05/07/16 04:39 fentanyl AdvReac Unknown Vomiting Verified 05/07/16 04:39 and weakness promethazine AdvReac Unknown muscle Verified 05/07/16 04:39 spasms Past Medical History - Past Medical History Medical history: Reports: cancer, DVT, diabetes, hyperlipidemia, hypertension, kidney stones, renal disease, thyroid disease Surgical history: Reports: appendectomy, cholecystectomy, hysterectomy, other ( right breast lumpectomy) Psychiatric history: Reports: 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 - Social History Smoking Status: Never smoker Smokeless Tobacco Status: No Alcohol use: Reports: none Drug use: Reports: none Physical Exam - General Limitations: no limitations General appearance: alert Course Vital Signs Temperature 98.8 F 08/22/17 12:14 Pulse Rate 65 08/22/17 12:14 Respiratory Rate 18 08/22/17 12:14 Blood Pressure 139/66 08/22/17 12:14 O2 Sat by Pulse Oximetry 91 08/22/17 12:14 Temperature 98.8 F 08/22/17 12:21 Pulse Rate 70 08/22/17 13:47 Respiratory Rate 20 08/22/17 13:47 Blood Pressure 193/92 08/22/17 13:47 O2 Sat by Pulse Oximetry 94 08/22/17 13:47 Oxygen Delivery Oxygen Delivery Nasal Cannula Medical Decision Making - [facility] Narrative Medical decision making narrative: Chest X-Ray 08/22/17 12:21 IMPRESSION: Mild pulmonary vascular congestion. Otherwise no acute cardiopulmonary findings. D/ / Colette Dillard MD / Colette Dillard MD Interpreting Provider: Colette Dillard MD 1450 hrs.: Regarding on bring her into the hospital. This may be from heart failure since she does have edema and small elevation in BNP. I do not feel that she has a PE. She is in agreement with this plan. Paging hospitals for admission. - Lab Data Result diagrams: 08/22/17 12:39 08/22/17 12:39 Lab Results 08/22/17 08/22/17 08/22/17 Range/Units 12:39 12:39 12:39 WBC 9.2 (4.3-11.1) K/mcL RBC 4.77 (3.82-4.97) M/mcL Hgb 13.0 (11.5-15.4) g/dL Hct 41.3 (35.3-44.9) % MCV 86.6 (83.0-100.0) fL MCH 27.3 L (28.0-33.3) pg MCHC 31.5 L (31.6-35.5) g/dL RDW 14.3 (11.5-14.5) % Plt Count 241 (140-400) K/mcL MPV 10.7 (9.4-12.4) fL Immature Gran % 0.2 (0-4) % Seg Neutrophils % 65.0 % Lymphocytes % 23.0 % Monocytes % 8.6 % Eosinophils % 2.4 % Basophils % 0.8 % Neutrophils # 6.0 (1.6-8.9) K/mcL Lymphocytes # 2.1 (0.6-4.6) K/mcL Monocytes # 0.8 (0.0-1.3) K/mcL Eosinophils # 0.2 (0.0-0.6) K/mcL Basophils # 0.1 (0.0-0.2) K/mcL D-Dimer (0-500) ng/mLFEU Sodium 135 L (136-145) mEq/L Potassium 4.3 (3.5-5.1) mEq/L Chloride 100 (98-107) mEq/L Carbon Dioxide 25 (23-29) mEq/L BUN 18 (8-23) mg/dL Creatinine 0.86 (0.60-1.20) mg/dL Est GFR ( Amer) > 60 (> 60) Est GFR (Non-Af Amer) > 60 (> 60) BUN/Creatinine Ratio 21 (6-26) Glucose 405 H (70-105) mg/dL Calculated Osmolality 299 (280-300) Lactic Acid 3.0 H (0.5-2.2) mmol/L Calcium 10.1 (8.6-10.3) mg/dL Total Bilirubin (0.3-1.0) mg/dL Direct Bilirubin (0.0-0.2) mg/dL Indirect Bilirubin (0.0-1.2) mg/dL AST (13-39) Units/L ALT (7-52) Units/L Alkaline Phosphatase (34-104) Units/L Troponin I < 0.03 (< 0.04) ng/mL B-Natriuretic Peptide (Less than 100) pg/mL Serum Total Protein (6.4-8.9) g/dL Albumin (3.5-5.7) g/dL Globulin (2.4-3.5) g/dL Albumin/Globulin Ratio (1.1-2.2) Lipase (11-82) Units/L 08/22/17 08/22/17 08/22/17 Range/Units 12:39 12:39 12:39 WBC (4.3-11.1) K/mcL RBC (3.82-4.97) M/mcL Hgb (11.5-15.4) g/dL Hct (35.3-44.9) % MCV (83.0-100.0) fL MCH (28.0-33.3) pg MCHC (31.6-35.5) g/dL RDW (11.5-14.5) % Plt Count (140-400) K/mcL MPV (9.4-12.4) fL Immature Gran % (0-4) % Seg Neutrophils % % Lymphocytes % % Monocytes % % Eosinophils % % Basophils % % Neutrophils # (1.6-8.9) K/mcL Lymphocytes # (0.6-4.6) K/mcL Monocytes # (0.0-1.3) K/mcL Eosinophils # (0.0-0.6) K/mcL Basophils # (0.0-0.2) K/mcL D-Dimer 341 (0-500) ng/mLFEU Sodium (136-145) mEq/L Potassium (3.5-5.1) mEq/L Chloride (98-107) mEq/L Carbon Dioxide (23-29) mEq/L BUN (8-23) mg/dL Creatinine (0.60-1.20) mg/dL Est GFR ( Amer) (> 60) Est GFR (Non-Af Amer) (> 60) BUN/Creatinine Ratio (6-26) Glucose (70-105) mg/dL Calculated Osmolality (280-300) Lactic Acid (0.5-2.2) mmol/L Calcium (8.6-10.3) mg/dL Total Bilirubin 0.5 (0.3-1.0) mg/dL Direct Bilirubin 0.0 (0.0-0.2) mg/dL Indirect Bilirubin 0.5 (0.0-1.2) mg/dL AST 23 (13-39) Units/L ALT 27 (7-52) Units/L Alkaline Phosphatase 67 (34-104) Units/L Troponin I (< 0.04) ng/mL B-Natriuretic Peptide 188 H (Less than 100) pg/mL Serum Total Protein 7.0 (6.4-8.9) g/dL Albumin 3.7 (3.5-5.7) g/dL Globulin 3.3 (2.4-3.5) g/dL Albumin/Globulin Ratio 1.1 (1.1-2.2) Lipase 45 (11-82) Units/L Attestation Statement - Attestation Attestation: This documentation is done with the assistance of Dragon dictation. Despite efforts made to ensure accuracy, there may be inaccuracies in senior embedded software engineer or spelling and typographical errors. I examined this patient and my medical decision-making was reviewed with the Resident Physician. I agree with the documented findings, disposition and treatment plan as described except to the extent set forth below. Patient seen and evaluated by Dr. Kolb and myself, I agree with her evaluation and management plan, supervise care the patient stay. Patient presents today with some dyspnea with the chest discomfort. She said a history of DVT in the past. I do a cardiac and pulmonary workup on her and reassess. She may need admission. She is in agreement with this plan.
--- NOTE | 2017-08-22 12:50 | Emergency Department Note ---
Disposition Clinical Impression: Congestive heart failure Qualifiers: Heart failure type: other Qualified Code(s): I50.9 - Heart failure, unspecified Disposition: Admitted As Inpatient Condition: Good Referrals: Abigail Greco CNP [Primary Care Provider] - Forms: ED Satisfaction Letter Time of Disposition: 14:29 General Adult HPI - General Chief complaint: ED Shortness of Breath/Dyspnea Stated complaint: SOB Time Seen by Provider: 08/22/17 12:20 Source: patient Limitations: no limitations Nursing Notes Reviewed: Yes Vital Signs Reviewed: Yes - History of Present Illness HPI Narrative: 23 week history of increasing shortness of breath. No history of CHF but she does have fluid retention. Did have breast cancer and radiation. Patient has orthopnea. She cannot lay flat at all. She also has been getting dyspneic on exertion. She cannot walk longer than 2-3 steps. Pain Scale: 6 - Related Data Home Medications Medication Instructions Recorded Confirmed Metformin HCl [Glucophage] 1,000 mg PO BIDWM 03/28/15 12/04/16 Pravastatin Sodium [Pravachol] 20 mg PO DAILY 03/28/15 12/04/16 Cetirizine HCl [Zyrtec] 10 mg PO DAILY 12/14/15 12/04/16 Insulin Glargine,Hum.rec.anlog 65 unit SQ HS 03/15/16 12/04/16 [Lantus Solostar] Potassium Gluconate [Potassium] 99 mg PO DAILY 03/15/16 12/04/16 Tizanidine HCl 2 mg PO BID 12/04/16 12/04/16 Aspirin [Lo-Dose Aspirin EC] 162 mg PO DAILY 08/22/17 08/22/17 Calcium Carbonate [Calcium] 600 mg PO DAILY 08/22/17 08/22/17 Gabapentin [Neurontin] 1,200 mg PO TID 08/22/17 08/22/17 Metoprolol [Lopressor] 50 mg PO BID 08/22/17 08/22/17 Previous Rx's Medication Instructions Recorded Furosemide [Lasix] 20 mg PO DAILY #30 tablet 05/11/16 Omeprazole [PriLOSEC] 40 mg PO DAILY #30 cap 12/09/16 Sucralfate [Carafate] 1 gm PO QIDAC #120 tablet 12/09/16 amLODIPine [Norvasc] 10 mg PO DAILY #30 tablet 12/09/16 Allergies Allergy/AdvReac Type Severity Reaction Status Date / Time glimepiride [From Amaryl] Allergy Unknown Itching Verified 05/07/16 04:39 glipizide Allergy Unknown Itching Verified 05/07/16 04:39 Sulfa (Sulfonamide Allergy Unknown Itching Verified 05/07/16 04:39 Antibiotics) latex Allergy Itching Verified 05/07/16 04:39 Latex, Natural Rubber Allergy Itching Verified 05/07/16 04:39 fentanyl AdvReac Unknown Vomiting Verified 05/07/16 04:39 and weakness promethazine AdvReac Unknown muscle Verified 05/07/16 04:39 spasms All systems ED: reviewed and negative except as stated. Constitutional: Denies: fever, chills ENT ED: Denies: congestion Cardiovascular: Reports: chest pain (Heaviness she is insistent is not actually pain). Denies: palpitations, syncope Respiratory: Reports: cough (Nonproductive), dyspnea. Denies: sputum production Gastrointestinal: Denies: abdominal pain, nausea, vomiting, diarrhea, hematemesis, melena, hematochezia Genitourinary: Denies: urgency, dysuria, frequency Musculoskeletal: Denies: back pain, neck pain Past Medical History - Past Medical History Attestation: Yes The following information was validated with the patient. 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 Absent : tenderness - Respiratory Respiratory exam: Present: wheezes (In the bases). Absent: respiratory distress , accessory muscle use - Cardiovascular Cardiovascular exam: Present: regular rate, normal rhythm, normal heart sounds - Abdominal Exam Abdominal exam: Present: soft, tenderness (Mild tenderness to palpation of her left upper quadrant.). Absent: distention, guarding, rebound, rigidity - Extremities Exam Extremities exam: Present: full ROM, pedal edema (Dictating). Absent: tenderness - Back Exam Back exam: Present: normal inspection, full ROM. Absent: tenderness - Neurological Exam Neurological exam: Present: alert, oriented X3 - Psychiatric Psychiatric exam: Present: normal affect, normal mood - Skin Skin exam: Present: warm, dry, intact, normal color Course Course Narrative: Female patient presenting to the emergency department with a 2 to three-week history of orthopnea and dyspnea on exertion. States that today it got so bad that she had come to the emergency department. She reports a nonproductive cough. Also reporting a chest heaviness today. She does have a history of DVT. Also has a history of a right mastectomy from breast cancer and a renal mass removed. Patient reporting fluid retention as well. No history of CHF. She does have pitting edema to her lower extremities. This is mild. She has some mild abdominal pain on exam as well. This is to the left upper quadrant. She winces to light palpation. Patient body habitus inhibits the exam and the pain appears to be in the subcutaneous area whenever I barely touch the patient' s left upper quadrant. It does not appear that she has any left upper quadrant tenderness to palpation whenever I deeply palpate the right side and attempt to cause a fluid wave. She denies any nausea vomiting or diarrhea. No blood in her stool or urine. No urinary symptoms. Patient does have some scant wheezing whenever she is sitting in this is in the lower lobes bilaterally. We will provide patient with a DuoNeb and get a chest x-ray at this time. We will also get a d-dimer and a basic lab workup. Patient's EKG did have multifocal complexes. We will provide patient with aspirin for her chest heaviness. - Reevaluation(s) Reevaluation #1: Patient reassessed. She is requiring 2 L of oxygen to keep her actions saturation around 95%. She states that she is feeling better at this time. The chest heaviness has decreased significantly. She states that she still cannot lay flat or she is short of breath. She states that she walks more than 5 or 6 steps she gets extremely short of breath. She does have a history of radiation to her chest and since then she has noticed that her heart "flip flops " and she is on Toprol for this. We will admit patient to the hospital for fluid retention pulmonary edema as well as hypoxia. Of note she did recently have some root canals. This was after a trip to [place]. She does have a history of DVT after asking her about this it appears to have been a superficial venous thrombosis. His d-dimer was negative while here. Pt has pulmonary edema on exam. We have given her a dose of lasix and are admitting to the hospital. Time: 14:24 - Consultations Consultation #1: Dr Tena accepted Pt in stable condition. Time: 15:34 Vital Signs Temperature 98.8 F 08/22/17 12:14 Pulse Rate 65 08/22/17 12:14 Respiratory Rate 18 08/22/17 12:14 Blood Pressure 139/66 08/22/17 12:14 O2 Sat by Pulse Oximetry 91 08/22/17 12:14 Temperature 98.8 F 08/22/17 12:21 Pulse Rate 72 08/22/17 14:59 Respiratory Rate 22 08/22/17 14:59 Blood Pressure 165/88 08/22/17 14:59 O2 Sat by Pulse Oximetry 95 08/22/17 14:59 Oxygen Delivery Oxygen Delivery Nasal Cannula Medical Decision Making - Medical Records Medical records reviewed: Yes I reviewed the patient's medical records. - Lab Data Lab results reviewed: Yes I reviewed the patient's lab results. Result diagrams: 08/22/17 12:39 08/22/17 12:39 Lab Results 08/22/17 08/22/17 08/22/17 Range/Units 12:39 12:39 12:39 WBC 9.2 (4.3-11.1) K/mcL RBC 4.77 (3.82-4.97) M/mcL Hgb 13.0 (11.5-15.4) g/dL Hct 41.3 (35.3-44.9) % MCV 86.6 (83.0-100.0) fL MCH 27.3 L (28.0-33.3) pg MCHC 31.5 L (31.6-35.5) g/dL RDW 14.3 (11.5-14.5) % Plt Count 241 (140-400) K/mcL MPV 10.7 (9.4-12.4) fL Immature Gran % 0.2 (0-4) % Seg Neutrophils % 65.0 % Lymphocytes % 23.0 % Monocytes % 8.6 % Eosinophils % 2.4 % Basophils % 0.8 % Neutrophils # 6.0 (1.6-8.9) K/mcL Lymphocytes # 2.1 (0.6-4.6) K/mcL Monocytes # 0.8 (0.0-1.3) K/mcL Eosinophils # 0.2 (0.0-0.6) K/mcL Basophils # 0.1 (0.0-0.2) K/mcL D-Dimer (0-500) ng/mLFEU Sodium 135 L (136-145) mEq/L Potassium 4.3 (3.5-5.1) mEq/L Chloride 100 (98-107) mEq/L Carbon Dioxide 25 (23-29) mEq/L BUN 18 (8-23) mg/dL Creatinine 0.86 (0.60-1.20) mg/dL Est GFR ( Amer) > 60 (> 60) Est GFR (Non-Af Amer) > 60 (> 60) BUN/Creatinine Ratio 21 (6-26) Glucose 405 H (70-105) mg/dL Calculated Osmolality 299 (280-300) Lactic Acid 3.0 H (0.5-2.2) mmol/L Calcium 10.1 (8.6-10.3) mg/dL Total Bilirubin (0.3-1.0) mg/dL Direct Bilirubin (0.0-0.2) mg/dL Indirect Bilirubin (0.0-1.2) mg/dL AST (13-39) Units/L ALT (7-52) Units/L Alkaline Phosphatase (34-104) Units/L Troponin I < 0.03 (< 0.04) ng/mL B-Natriuretic Peptide (Less than 100) pg/mL Serum Total Protein (6.4-8.9) g/dL Albumin (3.5-5.7) g/dL Globulin (2.4-3.5) g/dL Albumin/Globulin Ratio (1.1-2.2) Lipase (11-82) Units/L 08/22/17 08/22/1708/22/18 Range/Units 12:39 12:39 12:39 WBC (4.3-11.1) K/mcL RBC (3.82-4.97) M/mcL Hgb (11.5-15.4) g/dL Hct (35.3-44.9) % MCV (83.0-100.0) fL MCH (28.0-33.3) pg MCHC (31.6-35.5) g/dL RDW (11.5-14.5) % Plt Count (140-400) K/mcL MPV (9.4-12.4) fL Immature Gran % (0-4) % Seg Neutrophils % % Lymphocytes % % Monocytes % % Eosinophils % % Basophils % % Neutrophils # (1.6-8.9) K/mcL Lymphocytes # (0.6-4.6) K/mcL Monocytes # (0.0-1.3) K/mcL Eosinophils # (0.0-0.6) K/mcL Basophils # (0.0-0.2) K/mcL D-Dimer 341 (0-500) ng/mLFEU Sodium (136-145) mEq/L Potassium (3.5-5.1) mEq/L Chloride (98-107) mEq/L Carbon Dioxide (23-29) mEq/L BUN (8-23) mg/dL Creatinine (0.60-1.20) mg/dL Est GFR ( Amer) (> 60) Est GFR (Non-Af Amer) (> 60) BUN/Creatinine Ratio (6-26) Glucose (70-105) mg/dL Calculated Osmolality (280-300) Lactic Acid (0.5-2.2) mmol/L Calcium (8.6-10.3) mg/dL Total Bilirubin 0.5 (0.3-1.0) mg/dL Direct Bilirubin 0.0 (0.0-0.2) mg/dL Indirect Bilirubin 0.5 (0.0-1.2) mg/dL AST 23 (13-39) Units/L ALT 27 (7-52) Units/L Alkaline Phosphatase 67 (34-104) Units/L Troponin I (< 0.04) ng/mL B-Natriuretic Peptide 188 H (Less than 100) pg/mL Serum Total Protein 7.0 (6.4-8.9) g/dL Albumin 3.7 (3.5-5.7) g/dL Globulin 3.3 (2.4-3.5) g/dL Albumin/Globulin Ratio 1.1 (1.1-2.2) Lipase 45 (11-82) Units/L - Radiology Data Radiology results reviewed: Yes I reviewed the patient's radiology results. Chest X-Ray 08/22/17 12:21 IMPRESSION: Mild pulmonary vascular congestion. Otherwise no acute cardiopulmonary findings. D/ / Colette Dillard MD / Colette Dillard MD Interpreting Provider: Colette Dillard MD - EKG Data EKG #1 EKG attestation: Yes I reviewed and interpreted this EKG. EKG results narrative: Normal sinus rhythm with multifocal complexes at a rate of 81. [place] interval was not measured. QRS duration is 113. QT is 386. QTC is 423. No signs of acute ischemia. Patient does have several atrial complexes as well as some ventricular complexes. She had one PVC on previous EKG dated 10/20/2016.
[2017-08-22 12:51] LABS: Basophils # 0.1 K/mcL (0.0-0.2); Basophils % 0.8 %; Eosinophils # 0.2 K/mcL (0.0-0.6); Eosinophils % 2.4 %; Hematocrit 41.3 % (35.3-44.9); Immature Granulocytes % 0.2 % (0-4); Lymphocytes # 2.1 K/mcL (0.6-4.6); Mean Corpuscular HGB Conc 31.5 g/dL (31.6-35.5); Mean Corpuscular Hemoglobin 27.3 pg (28.0-33.3); Mean Corpuscular Volume 86.6 fL (83.0-100.0); Mean Platelet Volume 10.7 fL (9.4-12.4); Monocytes # 0.8 K/mcL (0.0-1.3); Monocytes % 8.6 %; Platelet Count 241 K/mcL (140-400); Red Blood Count 4.77 M/mcL (3.82-4.97); Red Cell Distribution Width 14.3 % (11.5-14.5)
[2017-08-22 13:11] LABS: Albumin 3.7 g/dL (3.5-5.7); Albumin/Globulin Ratio 1.1 (1.1-2.2); Bilirubin,Indirect 0.5 mg/dL (0.0-1.2); Bilirubin,Total 0.5 mg/dL (0.3-1.0); Globulin 3.3 g/dL (2.4-3.5)
[2017-08-22 13:12] LABS: Troponin I < 0.03 ng/mL (< 0.04)
[2017-08-22 13:13] LABS: BUN/Creatinine Ratio 21 (6-26); Blood Urea Nitrogen 18 mg/dL (8-23); Calcium 10.1 mg/dL (8.6-10.3); Carbon Dioxide 25 mEq/L (23-29); Chloride 100 mEq/L (98-107); Glucose 405 mg/dL (70-105); Osmolality,Calculated 299 (280-300); Potassium 4.3 mEq/L (3.5-5.1); Sodium 135 mEq/L (136-145); eGFR For African Americans > 60 (> 60); eGFR For Non-African Americans > 60 (> 60)
[2017-08-22] MEDS ORDERED: 0.9 % Sodium Chloride 1,000 ML IVC ONE (13:15)
[2017-08-22] MEDS ORDERED: Furosemide 20 MG/2 ML VIAL IVP ONE (15:12)
--- NOTE | 2017-08-22 17:34 | Internal Med History&Physical ---
Date of Encounter: 08/22/17 Time of Encounter: 17:34 Internal Medicine - H&P: HPI Chief complaint: SOB over the last month History of present illness: Ms. Clifford is a 66 year old female with hx of DMII, norvasc, GERD, HLD who presents with evaluation of progressive SOB. Reports 1 months hx of progressive SOB that has got worse over the last 3-4 days. Now unable to walk around the house feeling winded. No overt orthopnea or PND on PNA. Associated with b/l LE edema reported as welling. On review, she reports losing 11 pounds in the last month due to nausea symptoms with food - leading to decrease food intake. EKG personally reviewed with rate 81, PVCs FINDINGS: No focal consolidation, pleural effusion or pneumothorax. The cardiomediastinal silhouette is stable. Mild pulmonary vascular congestion. No overt pulmonary edema. The osseous structures are stable. XR/XR chest 1V portable IMPRESSION: Mild pulmonary vascular congestion. Otherwise no acute cardiopulmonary findings. TTE 05/09/2016 Impressions: Sinus rhythm with frequent PVCs. Normal left ventricular size and systolic function, LVEF 60-65%. Mild concentric left ventricular hypertrophy. Indeterminate diastolic function. Normal right ventricular size and function. No significant valvular dysfunction. Mild pulmonary hypertension. Estimated RVSP = 40 mmHg. Left Ventricular Wall Motion: Rest Echo Findings All wall segments showed normal motion. Findings: Study Quality * Technically adequate exam. ECG Findings * Sinus rhythm with frequent PVCs. Left Ventricle * Normal left ventricular size and systolic function, LVEF 60-65%. * Normal LV chamber size. * Mild concentric left ventricular hypertrophy. * Indeterminate diastolic function. Right Ventricle * Normal right ventricular size and function. Left Atrium * Normal left atrial size. Right Atrium * Normal right atrial size. Aorta * Normally sized aortic root. Pericardium * Th/ere is no pericardial effusion present. IVC/ * Normal IVC dimensions and inspiratory collapse. Aortic Valve * Trileaflet aortic valve. * Mildly sclerotic aortic valve leaflets. * No aortic stenosis. * No aortic regurgitation. Mitral Valve * Normal mitral valve structure. * No mitral stenosis. * Trace mitral regurgitation. Tricuspid Valve * Normal tricuspid valve structure. * No tricuspid stenosis. * Trace tricuspid regurgitation. * Mild pulmonary hypertension. Estimated RVSP = 40 mmHg. Pulmonic Valve * Pulmonic valve not well visualized. * No pulmonic stenosis. * No pulmonic regurgitation. Past Med Surg Social Fam HX - Past Medical History Medical history: cancer, DVT, diabetes, hyperlipidemia, hypertension, kidney stones, renal disease, thyroid disease Additional medical history: breast cancer Psychiatric history: no psych history - Past Surgical History Surgical History: appendectomy, cholecystectomy, hysterectomy, other (right breast lumpectomy) Additional surgical history: partial masectomy right breast - Social History Smoking Status: Never smoker Smokeless Tobacco Status: No Alcohol use: none Drug use: none - Family History Mother Family Member Ethnicity: Non- Living Status: Hx Family Cardiac Disorders: Yes (DVTs) Hx Family Cancer: Yes (Breast) Brother Family Member Ethnicity: Non- Living Status: Hx Family Cardiac Disorders: Yes (CAD) Sister Family Member Ethnicity: Non- Living Status: Still Living Father Family Member Ethnicity: Non- Living Status: Hx Family Endocrine Disorder: Yes (Cirrhosis) Internal Medicine - H&P: Meds Metformin HCl [Glucophage] 1,000 mg PO BIDWM 03/28/15 [History] Pravastatin Sodium [Pravachol] 20 mg PO DAILY 03/28/15 [History] Cetirizine HCl [Zyrtec] 10 mg PO DAILY 12/14/15 [History] Insulin Glargine,Hum.rec.anlog [Lantus Solostar] 65 unit SQ HS 03/15/16 [History ] Potassium Gluconate [Potassium] 99 mg PO DAILY 03/15/16 [History] Furosemide [Lasix] 20 mg PO DAILY #30 tablet 05/11/16 [Rx] Tizanidine HCl 2 mg PO BID 12/04/16 [History] Omeprazole [PriLOSEC] 40 mg PO DAILY #30 cap 12/09/16 [Rx] Sucralfate [Carafate] 1 gm PO QIDAC #120 tablet 12/09/16 [Rx] amLODIPine [Norvasc] 10 mg PO DAILY #30 tablet 12/09/16 [Rx] Aspirin [Lo-Dose Aspirin EC] 162 mg PO DAILY 08/22/17 [History] Calcium Carbonate [Calcium] 600 mg PO DAILY 08/22/17 [History] Gabapentin [Neurontin] 1,200 mg PO TID 08/22/17 [History] Metoprolol [Lopressor] 50 mg PO BID 08/22/17 [History] 3 Allergy/AdvReac Type Severity Reaction Status Date / Time glimepiride [From Amaryl] Allergy Unknown Itching Verified 05/07/16 04:39 glipizide Allergy Unknown Itching Verified 05/07/16 04:39 Sulfa (Sulfonamide Allergy Unknown Itching Verified 05/07/16 04:39 Antibiotics) latex Allergy Itching Verified 05/07/16 04:39 Latex, Natural Rubber Allergy Itching Verified 05/07/16 04:39 fentanyl AdvReac Unknown Vomiting Verified 05/07/16 04:39 and weakness promethazine AdvReac Unknown muscle Verified 05/07/16 04:39 spasms All Systems PM: A 10-system review of systems was performed and is negative for pertinent findings except as documented above in the HPI. - Constitutional Vitals: Temp Pulse Resp BP Pulse Ox 98.8 F 72 22 165/88 95 08/22/17 12:21 08/22/17 14:59 08/22/17 14:59 08/22/17 14:59 08/22/17 14:59 Exam: General - AAO x 3. Increase habitus Psych - Appropriate affect/speech. No agitation Eyes - BARBI. Eye lids intact. No scleral icterus Neuro - No gross peripheral or central neuro deficits on inspection Heart - Sinus. RRR. S1 and S2 present. No added HS/murmurs appreciated. No elevated JVD appreciated. Lung - Adequate air entry b/l, No crackles/wheezes appreciated GI - Soft, non-tender. No hepatosplenomegaly/ascites. BS+ - No CVA/suprapubic tenderness or palpable bladder distension Skin - Intact. No rash/petechiae/ecchymosis. +1 b/l LE edema Internal Med - H&P Results - Labs CBC & Chem 7: 08/22/17 12:39 08/22/17 12:39 - Assessment and plan (1) SOB (shortness of breath) Current Visit: Yes Status: Acute Assessment and plan: check TTE for LVEF and to r/o Pulm HTN - based on clinical exam - likely has LUCIUS /OHS lasix 40mg BID IV for now check RUQ US to r/o cirrhosis (2) Lactic acidosis Current Visit: Yes Status: Acute Assessment and plan: no evidence of sepsis trend lactate check RUQ US to ensure no overt evidence of liver disease hold metformin (3) Diabetes mellitus Current Visit: No Status: Chronic Assessment and plan: continue lantus add ISS given uncontrolled hyperglycemia check A1c Qualifiers: Diabetes mellitus type: type 2 Diabetes mellitus fdc insulin use: with fdc use Diabetes mellitus complication status: with hyperglycemia Qualified Code(s): E11.65 - Type 2 diabetes mellitus with hyperglycemia; 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
[2017-08-22] MEDS ORDERED: Naloxone 0.4 MG/ML INJ IVP PRN (17:41)
[2017-08-22] MEDS ORDERED: Dextrose Gel 15 GM/37.5 ML TUBE PO PRN ×2 (17:42)
[2017-08-22] MEDS ORDERED: D5% in Water 1,000 ML IVC PRN (17:42)
[2017-08-22] MEDS ORDERED: *HR* Dextrose 50 % in Water (Syg) 50 ML SYRINGE IVP PRN (17:42)
[2017-08-22] MEDS: Insulin LISPRO 300 UNITS/3 ML VIAL SQ SCH ×2 (18:25→18:26)
[2017-08-22] MEDS ORDERED: Insulin LISPRO 300 UNITS/3 ML VIAL SQ SCH (21:00)
[2017-08-22] MEDS: tiZANidine 4 MG TABLET PO SCH (21:33)
[2017-08-22] MEDS: Sucralfate 1 GM TABLET PO SCH (21:33)
[2017-08-22] MEDS: Insulin DETEMIR 100 UNIT/ML X5UNITS SQ SCH (21:34)
[2017-08-22] MEDS ORDERED: *HR* OxyCODONE/APAP 7.5/325 TABLET PO ONE (22:07)
[2017-08-23 04:33] LABS: BUN/Creatinine Ratio 20 (6-26); Blood Urea Nitrogen 19 mg/dL (8-23); Carbon Dioxide 26 mEq/L (23-29); Chloride 103 mEq/L (98-107); Glucose 295 mg/dL (70-105); Osmolality,Calculated 297 (280-300); Potassium 4.2 mEq/L (3.5-5.1); Sodium 137 mEq/L (136-145); eGFR For African Americans > 60 (> 60); eGFR For Non-African Americans 60 (> 60)
[2017-08-23 06:43] LABS: Estimated Average Glucose 298 mg/dl
[2017-08-23] MEDS: Insulin LISPRO 300 UNITS/3 ML VIAL SQ SCH ×7 (08:57→20:20)
[2017-08-23] MEDS: Gabapentin 400 MG CAPSULE PO SCH ×3 (08:57→20:10)
[2017-08-23] MEDS: Sucralfate 1 GM TABLET PO SCH ×4 (08:57→20:10)
[2017-08-23] MEDS: Aspirin Enteric Coated 81 MG Tablet PO SCH (08:58)
[2017-08-23] MEDS: tiZANidine 4 MG TABLET PO SCH ×2 (08:58→20:10)
[2017-08-23] MEDS: amLODIPine 5 MG TABLET PO SCH (08:58)
--- NOTE | 2017-08-23 10:48 | Electrocardiograph Report ---
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
--- NOTE | 2017-08-23 11:21 | Internal Med Progress Note ---
Date of Encounter: 08/23/17 Time of Encounter: 11:20 - Assessment and plan (1) SOB (shortness of breath) Current Visit: Yes Status: Acute Assessment and plan: Presented with shortness of breath CXR reveals mild pulmonary vascular congestion Appears to be fluid overloaded on exam, bilateral lower extremity nonpitting edema TTE obtained- LVEF 55%. Mild concentric left ventricular hypertrophy. Mild left ventricular diastolic dysfunction. Mildly dilated left atrium. Trace mitral regurgitation. Unable to estimate RVSP due to lack of TR jet. -Negative for pulmonary hypertension Continue twice a day diuretics for now, monitor renal function closely liver ultrasound obtained, mild hepatic steatosis, otherwise unremarkable Strict I and O Daily weight Continuous telemetry, continuous SPO2 monitoring O2 per nasal cannula titrate to maintain SPO2 greater than 92% Daily labs (2) Diabetes mellitus Current Visit: No Status: Chronic Assessment and plan: H/o DM, uncontrolled hemoglobin A1c 12 Mild hyperglycemia persists today continue basal insulin at current dose Increase sliding scale to medium coverage Closely monitor blood glucose before meals and at bedtime Qualifiers: Diabetes mellitus type: type 2 Diabetes mellitus senior living insulin use: with sound engineer audio control use Diabetes mellitus complication status: with hyperglycemia Qualified Code(s): E11.65 - Type 2 diabetes mellitus with hyperglycemia; Z79.4 - [facility] (current) use of insulin (3) HTN (hypertension) Current Visit: No Status: Chronic Assessment and plan: History of HTN, blood pressure slightly elevated today, continue anti-HTN med, add hydralazine IV push when necessary Qualifiers: Hypertension type: essential hypertension Qualified Code(s): I10 - Essential (primary) hypertension (4) Lactic acidosis Current Visit: Yes Status: Resolved Assessment and plan: Resolved no evidence of sepsis check RUQ US to ensure no overt evidence of liver disease Continue to hold metformin (5) Hypoventilation associated with obesity syndrome Current Visit: Yes Status: Acute Assessment and plan: See above - Time Spent With Patient Total time spent is greater than 50% in coordination of care (as documented) at patient's floor/unit and/or counseling patient: 25 - 35 minutes - Subjective Interval history: Patient seen and examined at bedside today. No acute changes overnight. Patient reporting that her shortness of breath is improving but she remains mildly short of breath with exertion. Discussed plan of care today, patient verbalizes understanding, denies any further questions. - Constitutional Vitals: Temp Pulse Resp BP Pulse Ox 98.4 F 74 18 166/91 91 08/23/17 11:09 08/23/17 11:09 08/23/17 11:09 08/23/17 11:09 08/23/17 11:09 General appearance: Present: A&O X 3 - Head Head exam: Present: atraumatic, normocephalic - Eye Eye exam: Present: PERRL, conjuntiva pink, sclera anicteric Pupils: Present: PERRL - Neck Neck exam general surgery: Present: supple, trachea midline. Absent: lymphadenopathy - Respiratory Respiratory exam: Present: decreased breath sounds, CTAB, prolonged expiratory phase. Absent: accessory muscle use, rales, respiratory distress, rhonchi, wheezes, tachypnea Additional comments: Mild conversational dyspnea, mild dyspnea with exertion - Cardiovascular Cardiovascular exam: Present: RRR, +S1, +S2. Absent: diastolic murmur, gallop, rubs, systolic murmur - GI/Abdominal GI/Abdominal exam: Present: normal bowel sounds, soft, no peritoneal signs. Absent: distended, tenderness - Extremities Exam Extremities exam: Present: normal capillary refill, normal inspection, warm, radial pulses palpable and symmetrical. Absent: calf tenderness, cyanotic, pedal edema Additional comments: BLE nonpitting edema - Neurological Exam Neurological exam: Present: CN II-XII intact, oriented X3, no focal deficits. Absent: pronater drift, facial droop, speech deficit - Skin Skin exam: Present: dry, intact Internal Medicine: Result - Labs CBC & Chem 7: 08/22/17 12:39 08/23/17 03:54 Labs: BMP 08/23/17 03:54 Sodium 137 Potassium 4.2 Chloride 103 Carbon Dioxide 26 BUN 19 Creatinine 0.93 Glucose 295 H Calcium 9.0 - ABG Interpretation ABG results: PT/INR, D-dimer D-Dimer 341 ng/mLFEU (0-500) 08/22/17 12:39 - Impressions Impressions Liver Ultrasound 08/23/17 07:00 IMPRESSION: 1. Mild hepatic steatosis. 2. Cholecystectomy. No significant biliary ductal dilatation. D/ / Leonardo Renteria MD / Leonardo Renteria MD Interpreting Provider: Leonardo Renteria MD Consult Discharge Plan - Plan Referrals: Abigail Greco CNP [Primary Care Provider] -
[2017-08-23] MEDS ORDERED: Ondansetron 4 MG/2 ML VIAL ONE (13:55)
[2017-08-23] MEDS ORDERED: Ondansetron 4 MG/2 ML VIAL IVP PRN (13:58)
[2017-08-23] MEDS: Furosemide 40 MG/4 ML VIAL IVP SCH ×2 (14:04→20:13)
[2017-08-23] MEDS: Insulin DETEMIR 100 UNIT/ML X5UNITS SQ SCH (20:20)
[2017-08-23] MEDS: Ibuprofen 400 MG TABLET PO PRN (20:33)
[2017-08-24] MEDS: Ibuprofen 400 MG TABLET PO PRN ×3 (04:30→22:36)
[2017-08-24 04:45] LABS: Basophils # 0.1 K/mcL (0.0-0.2); Basophils % 0.9 %; Eosinophils # 0.3 K/mcL (0.0-0.6); Eosinophils % 3.6 %; Hematocrit 40.9 % (35.3-44.9); Hemoglobin 12.3 g/dL (11.5-15.4); Immature Granulocytes % 0.3 % (0-4); Lymphocytes # 2.8 K/mcL (0.6-4.6); Lymphocytes % 28.8 %; Mean Corpuscular HGB Conc 30.1 g/dL (31.6-35.5); Mean Corpuscular Hemoglobin 26.9 pg (28.0-33.3); Mean Corpuscular Volume 89.5 fL (83.0-100.0); Mean Platelet Volume 10.9 fL (9.4-12.4); Monocytes % 10.4 %; Neutrophils # 5.4 K/mcL (1.6-8.9); Platelet Count 224 K/mcL (140-400); Red Blood Count 4.57 M/mcL (3.82-4.97); Red Cell Distribution Width 14.3 % (11.5-14.5)
[2017-08-24 05:11] LABS: Calcium 8.5 mg/dL (8.6-10.3); Potassium 4.2 mEq/L (3.5-5.1)
[2017-08-24] MEDS: Sucralfate 1 GM TABLET PO SCH ×4 (08:11→20:33)
[2017-08-24] MEDS: Aspirin Enteric Coated 81 MG Tablet PO SCH (08:11)
[2017-08-24] MEDS: Furosemide 40 MG/4 ML VIAL IVP SCH ×2 (08:12→20:34)
[2017-08-24] MEDS: tiZANidine 4 MG TABLET PO SCH (08:12)
[2017-08-24] MEDS: amLODIPine 5 MG TABLET PO SCH (08:12)
[2017-08-24] MEDS: Insulin LISPRO 300 UNITS/3 ML VIAL SQ SCH ×7 (08:13→20:41)
[2017-08-24] MEDS: Gabapentin 400 MG CAPSULE PO SCH (08:15)
--- NOTE | 2017-08-24 12:38 | Internal Med Progress Note ---
Date of Encounter: 08/24/17 Time of Encounter: 12:36 - Assessment and plan (1) SOB (shortness of breath) Current Visit: Yes Status: Acute Assessment and plan: Presented with shortness of breath CXR reveals mild pulmonary vascular congestion Appears to be euvolemic today, generalized BLE edema, improving Shortness of breath improving today however, still present with exertion Lungs clear/diminished AP and L, prolonged expiratory phase, 2.5 L NC Would benefit from IV diuresis an additional day Consider discharging on lisinopril/HCTZ as she does have uncontrolled HTN and recurrent extremity swelling TTE obtained- LVEF 55%. Mild concentric left ventricular hypertrophy. Mild left ventricular diastolic dysfunction. Mildly dilated left atrium. Trace mitral regurgitation. Unable to estimate RVSP due to lack of TR jet. -Negative for pulmonary hypertension Continue twice a day diuretics for now, monitor renal function closely liver ultrasound obtained, mild hepatic steatosis, otherwise unremarkable Strict I and O Daily weight Continuous telemetry, continuous SPO2 monitoring O2 per nasal cannula titrate to maintain SPO2 greater than 92% Daily labs (2) Diabetes mellitus Current Visit: No Status: Chronic Assessment and plan: H/o DM, uncontrolled hemoglobin A1c 12 Mild hyperglycemia persists today Increase basal insulin dose Increase sliding scale to medium coverage Closely monitor blood glucose before meals and at bedtime Qualifiers: Diabetes mellitus type: type 2 Diabetes mellitus [facility] insulin use: with extermination supervisor use Diabetes mellitus complication status: with hyperglycemia Qualified Code(s): E11.65 - Type 2 diabetes mellitus with hyperglycemia; Z79.4 - [facility] (current) use of insulin (3) HTN (hypertension) Current Visit: No Status: Chronic Assessment and plan: History of HTN, BP stable today, 08/24/17 continue current anti-HTN med, add hydralazine IV push when necessary Qualifiers: Hypertension type: essential hypertension Qualified Code(s): I10 - Essential (primary) hypertension (4) Lactic acidosis Current Visit: Yes Status: Resolved Assessment and plan: Resolved (5) Hypoventilation associated with obesity syndrome Current Visit: Yes Status: Acute Assessment and plan: Morbid obesity; I suspect she may have hypoventilation syndrome due to this Discussed lifestyle modifications, diet and weight loss Patient's body habitus contributing to shortness of breath See above (6) Polypharmacy Current Visit: Yes Status: Acute Assessment and plan: resulting in increased lethargy and decreased functional capacity patient has low activity threshold 2/2 pain with ambulation Taking high doses of Zanaflex and gabapentin I believe both of these medications are what is causing her decrease in functional capacity Patient and family are reporting that she is lethargic most of the time and is very inactive Decrease gabapentin to 600 mg 3 times a day, decrease Zanaflex to 2 mg twice a day when necessary (7) Decreased functional residual capacity Current Visit: Yes Status: Acute Assessment and plan: See above PT/OT consult to assess functional capacity Per my assessment the patient would benefit from inpatient rehabilitation Consult social security benefits interviewer - Time Spent With Patient Total time spent is greater than 50% in coordination of care (as documented) at patient's floor/unit and/or counseling patient: Greater than 35 minutes - Subjective Interval history: Patient seen and examined at bedside today. No acute changes overnight. Reporting she remains mildly short of breath. Also, reporting BLE generalized edema improving. Discussed plan of care today, patient verbalizes understanding , denies any further questions. - Constitutional Vitals: Temp Pulse Resp BP Pulse Ox 98.6 F 54 16 119/69 94 08/24/17 11:29 08/24/17 11:29 08/24/17 11:29 08/24/17 11:29 08/24/17 11:29 General appearance: Present: A&O X 3, morbidly obese, no acute distress, answers questions appropriately - Head Head exam: Present: atraumatic, normocephalic - Eye Eye exam: Present: EOMI, PERRL, conjuntiva pink, sclera anicteric Pupils: Present: PERRL - Neck Neck exam general surgery: Present: supple, trachea midline. Absent: lymphadenopathy - Respiratory Respiratory exam: Present: decreased breath sounds, CTAB, prolonged expiratory phase. Absent: accessory muscle use, rales, respiratory distress, rhonchi, wheezes, tachypnea - Cardiovascular Cardiovascular exam: Present: RRR, +S1, +S2. Absent: diastolic murmur, gallop, rubs, systolic murmur - GI/Abdominal GI/Abdominal exam: Present: normal bowel sounds, soft, no peritoneal signs. Absent: distended, tenderness - Extremities Exam Extremities exam: Present: normal capillary refill, warm, radial pulses palpable and symmetrical. Absent: calf tenderness, cyanotic, normal inspection , pedal edema Additional comments: BLE generalized edema - Neurological Exam Neurological exam: Present: alert, CN II-XII intact, oriented X3, no focal deficits. Absent: pronater drift, facial droop, speech deficit - Skin Skin exam: Present: dry, intact Internal Medicine: Result - Labs CBC & Chem 7: 08/24/17 04:28 08/24/17 04:28 Labs: Short CBC 08/24/17 Range/Units 04:28 WBC 9.6 (4.3-11.1) K/mcL Hgb 12.3 (11.5-15.4) g/dL Hct 40.9 (35.3-44.9) % Plt Count 224 (140-400) K/mcL Neutrophils # 5.4 (1.6-8.9) K/mcL BMP 08/24/17 04:28 Sodium 135 L Potassium 4.2 Chloride 101 Carbon Dioxide 27 BUN 25 H Creatinine 1.10 Glucose 279 H Calcium 8.5 L - ABG Interpretation ABG results: PT/INR, D-dimer D-Dimer 341 ng/mLFEU (0-500) 08/22/17 12:39 Consult Discharge Plan - Plan Referrals: Abigail Greco, MAINTENANCE MECHANIC HELPER [Primary Care Provider] -
[2017-08-24] MEDS ORDERED: tiZANidine 4 MG TABLET PO PRN (12:41)
[2017-08-24] MEDS: Gabapentin 300 MG CAPSULE PO SCH ×2 (14:14→20:34)
[2017-08-24] MEDS: Insulin DETEMIR 100 UNIT/ML X5UNITS SQ SCH (20:40)
[2017-08-25 04:48] LABS: Potassium 4.5 mEq/L (3.5-5.1)
[2017-08-25] MEDS: Sucralfate 1 GM TABLET PO SCH ×4 (11:05→20:44)
[2017-08-25] MEDS: amLODIPine 5 MG TABLET PO SCH (11:05)
[2017-08-25] MEDS: Aspirin Enteric Coated 81 MG Tablet PO SCH (11:05)
[2017-08-25] MEDS: Insulin LISPRO 300 UNITS/3 ML VIAL SQ SCH ×6 (11:06→16:47)
[2017-08-25] MEDS: Gabapentin 300 MG CAPSULE PO SCH ×3 (11:06→20:43)
[2017-08-25] MEDS: Ibuprofen 400 MG TABLET PO PRN ×2 (11:16→20:52)
--- NOTE | 2017-08-25 14:58 | Internal Med Progress Note ---
Date of Encounter: 08/25/17 Time of Encounter: 14:47 - Assessment and plan (1) SOB (shortness of breath) Current Visit: Yes Status: Acute Assessment and plan: Presented with shortness of breath 2/2 mild pulmonary vascular congestion TTE obtained and found- LVEF 55%. Mild concentric left ventricular hypertrophy. Mild left ventricular diastolic dysfunction. Mildly dilated left atrium. Trace mitral regurgitation. Unable to estimate RVSP due to lack of TR jet. -Negative for pulmonary hypertension euvolemic today edema resolved No longer short of breath Lungs clear/diminished AP and L, prolonged expiratory phase, on room air Consider discharging on lisinopril/HCTZ as she does have uncontrolled HTN and recurrent extremity swelling Did not add lisinopril/HCTZ today d/t NAOMIE, consider adding if renal function improves today Strict I and O Daily weight Continuous telemetry, continuous SPO2 monitoring O2 per nasal cannula titrate to maintain SPO2 greater than 92% Daily labs (2) Diabetes mellitus Current Visit: No Status: Chronic Assessment and plan: H/o DM, uncontrolled hemoglobin A1c 12 Mild hyperglycemia persists today Increase basal insulin dose Increase sliding scale to high coverage Closely monitor blood glucose before meals and at bedtime Qualifiers: Diabetes mellitus type: type 2 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 professor of 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 use Diabetes mellitus complication status: with hyperglycemia Qualified Code(s): E11.65 - Type 2 diabetes mellitus with hyperglycemia; Z79.4 - [facility] (current) use of insulin (3) HTN (hypertension) Current Visit: No Status: Chronic Assessment and plan: History of HTN, BP stable today, 08/25/17 continue current anti-HTN med, add hydralazine IV push when necessary Qualifiers: Hypertension type: essential hypertension Qualified Code(s): I10 - Essential (primary) hypertension (4) Lactic acidosis Current Visit: Yes Status: Resolved Assessment and plan: Resolved (5) Hypoventilation associated with obesity syndrome Current Visit: Yes Status: Acute Assessment and plan: Morbid obesity; I suspect she may have hypoventilation syndrome due to this Discussed lifestyle modifications, diet and weight loss Patient's body habitus contributing to shortness of breath See above (6) Polypharmacy Current Visit: Yes Status: Acute Assessment and plan: resulting in increased lethargy and decreased functional capacity patient has low activity threshold 2/2 pain with ambulation Taking high doses of Zanaflex and gabapentin I believe both of these medications are what is causing her decrease in functional capacity Patient and family are reporting that she is lethargic most of the time and is very inactive Decrease gabapentin to 600 mg 3 times a day yesterday, decrease Zanaflex to 2 mg twice a day when necessary Patient's mental status appears to have improved today also, improved activity tolerance today Counseling provided regarding polypharmacy and the need for down titration of gabapentin (7) Decreased functional residual capacity Current Visit: Yes Status: Acute Assessment and plan: See above PT/OT consult to assess functional capacity- rec home health with PT/OT at D/C Please give Rx for rollator at d/c micrographics services supervisor following consultation-please set up home health for PT/OT - Time Spent With Patient Total time spent is greater than 50% in coordination of care (as documented) at patient's floor/unit and/or counseling patient: Greater than 35 minutes - Subjective Interval history: Patient seen and examined at bedside today. No acute changes overnight. Reporting shortness of breath has markedly improved. BLE edema has resolved per patient. Discussed plan of care today, patient verbalizes understanding, denies any further questions. - Constitutional Vitals: Temp Pulse Resp BP Pulse Ox 98.1 F 79 16 169/72 92 08/25/17 11:28 08/25/17 11:28 08/25/17 11:28 08/25/17 11:28 08/25/17 11:28 General appearance: Present: A&O X 3, morbidly obese, no acute distress, answers questions appropriately - Head Head exam: Present: atraumatic, normocephalic - Eye Eye exam: Present: EOMI, PERRL, conjuntiva pink, sclera anicteric Pupils: Present: PERRL - Neck Neck exam general surgery: Present: supple, trachea midline. Absent: lymphadenopathy - Respiratory Respiratory exam: Present: CTAB. Absent: accessory muscle use, rales, rhonchi, wheezes - Cardiovascular Cardiovascular exam: Present: RRR, +S1, +S2. Absent: diastolic murmur, gallop, rubs, systolic murmur - GI/Abdominal GI/Abdominal exam: Present: normal bowel sounds, soft, no peritoneal signs. Absent: distended, tenderness - Extremities Exam Extremities exam: Present: warm, radial pulses palpable and symmetrical. Absent : calf tenderness, cyanotic, pedal edema - Neurological Exam Neurological exam: Present: CN II-XII intact, oriented X3, no focal deficits. Absent: pronater drift, facial droop, speech deficit - Skin Skin exam: Present: dry, intact Internal Medicine: Result - Labs CBC & Chem 7: 08/24/17 04:28 08/25/17 04:17 Labs: BMP 08/25/17 04:17 Sodium 135 L Potassium 4.5 Chloride 99 Carbon Dioxide 27 BUN 37 H Creatinine 1.39 H Glucose 351 H Calcium 9.0 - ABG Interpretation ABG results: PT/INR, D-dimer D-Dimer 341 ng/mLFEU (0-500) 08/22/17 12:39 Consult Discharge Plan - Plan Referrals: Abigail Greco CNP [Primary Care Provider] - 09/02/17 10:00 am
[2017-08-25] MEDS: Insulin DETEMIR 100 UNIT/ML X5UNITS SQ SCH (20:46)
[2017-08-25] MEDS ORDERED: Insulin LISPRO 300 UNITS/3 ML VIAL SQ SCH (21:00)
[2017-08-26] MEDS: Aspirin Enteric Coated 81 MG Tablet PO SCH (08:26)
[2017-08-26] MEDS: amLODIPine 5 MG TABLET PO SCH (08:26)
[2017-08-26] MEDS: Gabapentin 300 MG CAPSULE PO SCH (08:26)
[2017-08-26] MEDS: Sucralfate 1 GM TABLET PO SCH ×2 (08:26→12:40)
[2017-08-26] MEDS: Insulin LISPRO 300 UNITS/3 ML VIAL SQ SCH ×4 (08:27→12:40)
[2017-08-26 08:45] LABS: BUN/Creatinine Ratio 27 (6-26); Blood Urea Nitrogen 21 mg/dL (8-23); Calcium 9.3 mg/dL (8.6-10.3); Carbon Dioxide 27 mEq/L (23-29); Chloride 104 mEq/L (98-107); Glucose 274 mg/dL (70-105); Osmolality,Calculated 301 (280-300); Potassium 4.7 mEq/L (3.5-5.1); Sodium 139 mEq/L (136-145); eGFR For African Americans > 60 (> 60); eGFR For Non-African Americans > 60 (> 60)
[2017-08-26 08:50] LABS: Basophils # 0.1 K/mcL (0.0-0.2); Basophils % 0.8 %; Eosinophils # 0.3 K/mcL (0.0-0.6); Eosinophils % 3.8 %; Hematocrit 38.5 % (35.3-44.9); Hemoglobin 11.5 g/dL (11.5-15.4); Immature Granulocytes % 0.4 % (0-4); Lymphocytes # 1.9 K/mcL (0.6-4.6); Lymphocytes % 25.4 %; Mean Corpuscular HGB Conc 29.9 g/dL (31.6-35.5); Mean Corpuscular Volume 90.4 fL (83.0-100.0); Mean Platelet Volume 11.4 fL (9.4-12.4); Monocytes # 0.8 K/mcL (0.0-1.3); Neutrophils # 4.3 K/mcL (1.6-8.9); Platelet Count 182 K/mcL (140-400); Red Blood Count 4.26 M/mcL (3.82-4.97); Red Cell Distribution Width 14.2 % (11.5-14.5); Segmented Neutrophils % 58.6 %
[2017-08-26 12:01] VITALS: BP 142/70
--- NOTE | 2017-08-26 12:58 | Discharge Summary ---
- NOTES TO OUTPATIENT PROVIDER Notes to Outpatient Provider: Patient would benefit from sleep study-. Qualify for home O2. Decreased gabapentin as well as Zanaflex due to increased lethargy /sedation. 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 Clifford is a 66 year old female past medical history of diabetes type 2 hypertension hyperlipidemia GERD who presented to the ER with progressive shortness of breath which has been ongoing for approximately 1 month. Over the past 3-4 days she has been increasingly short of breath on exertion as well as experiencing worsening edema. Chest x-ray did not show mild pulmonary vascular congestion TTE with EF 55% mild concentric left ventricular hypertrophy mild left ventricular diastolic dysfunction mild dilated left atrium negative for pulmonary hypertension. Lab work did show some lactic acidosis which resolved after holding metformin. Due to her exacerbation of CHFshe required oxygen supplementation. There is concern for hypoventilation associated with obesity syndrome. Patient did qualify for home oxygen. Did discuss with patient sleep study as outpatient which she states she was not interested. Patient was diuresed with strict I&O's. Her creatinine did slightly elevated Patient was evaluated by PT and OT who recommended home health physical therapy. Patient declined and requested outpatient physical therapy. Patient is on sedating medications gabapentin and Zanaflex these have been reduced due to lethargy during admission. I did review and oars report, and she does have a recent prescription of gabapentin which was filled on 06/11 2017 on a day for 90 days. Advised patient to decrease gabapentin to twice a day and to follow-up with primary care physician since this provider knows her best and can adjust the medications accordingly. The patient is very adamant about continuing gabapentin 3 times a day explained to patient concerned about her being oversedated she feels that this works best for her in relieves her pain. Did explain to patient she will not receive any prescriptions for gabapentin or Zanaflex and can continue what she has at home until she sees her PCP Again advised the patient to follow-up with PCP next week so medications can be adjusted. I advised patient and the importance of monitoring fluid intake as well as daily weights. She will follow-up with primary care and have laboratory monitored as outpatient. I reviewed discharge instructions as well as home medications patient verbalized understanding she is hemodynamically stable at this time and ready for discharge. - Time Spent with Patient Total time spent providing and/or coordinating discharge services: - Discharge Medications Home Medications: Metformin HCl [Glucophage] 1,000 mg PO BIDWM 03/28/15 [History] Pravastatin Sodium [Pravachol] 20 mg PO DAILY 03/28/15 [History] Cetirizine HCl [Zyrtec] 10 mg PO DAILY 12/14/15 [History] Insulin Glargine,Hum.rec.anlog [Lantus Solostar] 65 unit SQ HS 03/15/16 [History ] Potassium Gluconate [Potassium] 99 mg PO DAILY 03/15/16 [History] Furosemide [Lasix] 20 mg PO DAILY #30 tablet 05/11/16 [Rx] Omeprazole [PriLOSEC] 40 mg PO DAILY #30 cap 12/09/16 [Rx] Sucralfate [Carafate] 1 gm PO QIDAC #120 tablet 12/09/16 [Rx] amLODIPine [Norvasc] 10 mg PO DAILY #30 tablet 12/09/16 [Rx] Aspirin [Lo-Dose Aspirin EC] 162 mg PO DAILY 08/22/17 [History] Calcium Carbonate [Calcium] 600 mg PO DAILY 08/22/17 [History] Metoprolol [Lopressor] 50 mg PO BID 08/22/17 [History] Gabapentin [Neurontin] 600 mg PO TID capsule 08/26/17 [Rx] Allergies/Adverse Reactions: 3 Allergy/AdvReac Type Severity Reaction Status Date / Time glimepiride [From Amaryl] Allergy Unknown Itching Verified 05/07/16 04:39 glipizide Allergy Unknown Itching Verified 05/07/16 04:39 Sulfa (Sulfonamide Allergy Unknown Itching Verified 05/07/16 04:39 Antibiotics) latex Allergy Itching Verified 05/07/16 04:39 Latex, Natural Rubber Allergy Itching Verified 05/07/16 04:39 fentanyl AdvReac Unknown Vomiting Verified 05/07/16 04:39 and weakness promethazine AdvReac Unknown muscle Verified 05/07/16 04:39 spasms Date of admission: 08/22/17 16:01 Primary care physician: Abigail Greco CNP Consults: 08/24/17 12:55 Consult to Occupational Therapy [CONS] Routine Comment: Evaluate, develop and implement POC Reason for Consult: Assessment functional capacity, potential inpatient rehabilitation Does patient have active BEDREST order?: No Is patient medically & hemodynamically stable?: Yes Patient assessed for mobility or mobilized this visit?: No Consult to Physical Therapy [CONS] Routine Comment: Evaluate, develop and implement POC Reason for Consult: Assessment functional capacity, potential inpatient rehabilitation placement need Does patient have active BEDREST order?: No Is patient medically & hemodynamically stable?: Yes Patient assessed for mobility or mobilized this visit?: No 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] Routine Reason for SW Consult: Potential inpatient rehabilitation need Discharging clinician: Alix Hutton Anticipated date of discharge: 08/26/17 - Constitutional Vitals: Temp Pulse Resp BP Pulse Ox 97.8 F 62 18 142/70 93 08/26/17 11:53 08/26/17 11:53 08/26/17 11:53 08/26/17 11:53 08/26/17 11:53 General appearance: Present: A&O X 3, morbidly obese, no acute distress, answers questions appropriately - Patient Status Disposition: Home, Self-Care Condition: Good Functional capacity at discharge: uses cane/walker Overall status at discharge: patient is back to baseline - Discharge Instructions Instructions: Gabapentin (By mouth), Tizanidine (By mouth), Heart Failure (DC) , Low Sodium Diet (DC), Fluid Restriction (DC) Follow Up With: Abigail Greco CNP [Primary Care Provider] - 09/02/17 10:00 am Additional Instructions: Weigh yourself daily and log your weight. Take the log to your follow up appointment Restrict your fluid intake to 1500 ml per day. Get labs re-drawn in 1 week. - Diet and Activity Activity: as per physical therapy, wear oxygen at all times Diet: diabetic diet, low salt diet
--- NOTE | 2017-08-26 16:50 | Physician Discharge Referral ---
Home Health/Hosp Referral Info Transfer to: Home Health Attending Provider: carlos Hutton Provider in Charge Post Discharge: PCP - Diagnosis (1) Diabetes mellitus Priority: Secondary Status: Chronic (2) HTN (hypertension) Priority: Secondary Status: Chronic (3) SOB (shortness of breath) Priority: Primary Status: Acute (4) Lactic acidosis Priority: Secondary Status: Resolved (5) Hypoventilation associated with obesity syndrome Priority: Secondary Status: Acute (6) Polypharmacy Priority: Secondary Status: Acute (7) Decreased functional residual capacity Priority: Secondary Status: Acute - Respiratory Orders Oxygen / L per min Smoking Cessation: Smoking cessation has been advised. For more information, call the [place] Tobacco Quit Line at 7-901-GWOS-NOW. - Diet/Nutrition Diet/Nutrition Orders: No Added Salt (ANUPAM), No Concentrated Sweets - Services Needed Following services are medically necessary services: Physical Therapy, Occupational Therapy - Transfer Medications Home Medications: Metformin HCl [Glucophage] 1,000 mg PO BIDWM 03/28/15 [History] Pravastatin Sodium [Pravachol] 20 mg PO DAILY 03/28/15 [History] Cetirizine HCl [Zyrtec] 10 mg PO DAILY 12/14/15 [History] Insulin Glargine,Hum.rec.anlog [Lantus Solostar] 65 unit SQ HS 03/15/16 [History ] Potassium Gluconate [Potassium] 99 mg PO DAILY 03/15/16 [History] Furosemide [Lasix] 20 mg PO DAILY #30 tablet 05/11/16 [Rx] Omeprazole [PriLOSEC] 40 mg PO DAILY #30 cap 12/09/16 [Rx] Sucralfate [Carafate] 1 gm PO QIDAC #120 tablet 12/09/16 [Rx] amLODIPine [Norvasc] 10 mg PO DAILY #30 tablet 12/09/16 [Rx] Aspirin [Lo-Dose Aspirin EC] 162 mg PO DAILY 08/22/17 [History] Calcium Carbonate [Calcium] 600 mg PO DAILY 08/22/17 [History] Metoprolol [Lopressor] 50 mg PO BID 08/22/17 [History] Gabapentin [Neurontin] 600 mg PO TID capsule 08/26/17 [Rx] Allergies/Adverse Reactions: 3 Allergy/AdvReac Type Severity Reaction Status Date / Time glimepiride [From Amaryl] Allergy Unknown Itching Verified 05/07/16 04:39 glipizide Allergy Unknown Itching Verified 05/07/16 04:39 Sulfa (Sulfonamide Allergy Unknown Itching Verified 05/07/16 04:39 Antibiotics) latex Allergy Itching Verified 05/07/16 04:39 Latex, Natural Rubber Allergy Itching Verified 05/07/16 04:39 fentanyl AdvReac Unknown Vomiting Verified 05/07/16 04:39 and weakness promethazine AdvReac Unknown muscle Verified 05/07/16 04:39 spasms Certification: Further, I certify that my clinical findings support that this patient is homebound (i.e. absences from home require considerable and taxing effort and are for medical reasons or alevism services or infrequently or short duration when for other reasons) because: Homebound Reason: Severity of cardiac or pulmonary status limits activity tolerance Attestation: My signature below is to certify that this patient is under my care and that I, or nurse practitioner, or a physician's anesthesiology physician assistant working with me, has a face-to -face encounter with this patient.
== END 2017-08-26 15:55 | disposition home or self-care (01) ==
LOC: EMEROO 12:13 → 3BNU 12:13
PROVIDERS: ADMIT Internal Medicine Hematology & Oncology; ATTEND Family Medicine

== ENCOUNTER 2018-01-30 05:56 | Inpatient (IN) ==
--- NOTE | 2018-01-30 06:25 | Emergency Department Note ---
Disposition Clinical Impression: Hypoxia Chest pain Qualifiers: Chest pain type: unspecified Qualified Code(s): R07.9 - Chest pain, unspecified Disposition: Admitted As Inpatient General Adult HPI - General Stated complaint: ROHAN Time Seen by Provider: 01/30/18 06:11 Source: patient Limitations: no limitations Nursing Notes Reviewed: Yes Vital Signs Reviewed: Yes - History of Present Illness HPI Narrative: 67 year old female with history of DM and CHF presents with shortness of breath. Pt stated she was struggling of breathing in the past two days. Associate with mild right chest uncomfortable. Pt stated she was in hospital three months ago for chest pain. She was diagnosed with early stage of CHF. Pt was prescribed home oxygen. But she returned it on [place] due to "no need" . Pt denied legs swelling or weight gain. Pt's O2 sat was 86 in room air in triage. No smoking. No history of COPD. Onset (ago): day(s) (2) Location: chest Radiation: non-radiation Pain Scale: 0 - Related Data Home Medications Medication Instructions Recorded Confirmed RX: Metformin HCl [Glucophage] 1,000 mg PO BIDWM 03/28/15 01/30/18 RX: Pravastatin Sodium [Pravachol] 20 mg PO DAILY 03/28/15 01/30/18 RX: Cetirizine HCl [Zyrtec] 10 mg PO DAILY 12/14/15 01/30/18 RX: Insulin Glargine,Hum.rec.anlog 69 unit SQ HS 03/15/16 01/30/18 [Lantus Solostar] RX: Potassium Gluconate [Potassium] 99 mg PO DAILY 03/15/16 01/30/18 RX: Aspirin [Lo-Dose Aspirin EC] 162 mg PO DAILY 08/22/17 01/30/18 RX: Calcium Carbonate [Calcium] 600 mg PO DAILY 08/22/17 01/30/18 RX: Metoprolol [Lopressor] 50 mg PO BID 08/22/17 01/30/18 Gabapentin [Neurontin] 1,200 mg PO TID 01/30/18 01/30/18 Tizanidine HCl 2 mg PO TID PRN 01/30/18 01/30/18 Previous Rx's Medication Instructions Recorded RX: Furosemide [Lasix] 20 mg PO DAILY #30 tablet 05/11/16 RX: Omeprazole [PriLOSEC] 40 mg PO DAILY #30 cap 12/09/16 RX: Sucralfate [Carafate] 1 gm PO QIDAC #120 tablet 12/09/16 RX: amLODIPine [Norvasc] 10 mg PO DAILY #30 tablet 12/09/16 Allergies Allergy/AdvReac Type Severity Reaction Status Date / Time glimepiride [From Amaryl] Allergy Unknown Itching Verified 01/30/18 06:21 glipizide Allergy Unknown Itching Verified 01/30/18 06:21 Sulfa (Sulfonamide Allergy Unknown Itching Verified 01/30/18 06:21 Antibiotics) latex Allergy Itching Verified 01/30/18 06:21 Latex, Natural Rubber Allergy Itching Verified 01/30/18 06:21 fentanyl AdvReac Unknown Vomiting Verified 01/30/18 06:21 and weakness promethazine AdvReac Unknown muscle Verified 01/30/18 06:21 spasms Constitutional: Denies: fever Eyes: Denies: eye pain ENT ED: Denies: ear pain Cardiovascular: Denies: chest pain Respiratory: Reports: dyspnea. Denies: cough Gastrointestinal: Denies: abdominal pain Genitourinary: Denies: urgency Musculoskeletal: Denies: back pain Integumentary: Denies: rash Neurological: Denies: headache Psychiatric: Denies: anxiety Endocrine: Denies: fatigue Hematological/Lymphatic: Denies: easy bleeding Allergic/Immunologic: Denies: facial swelling Past Medical History - Past Medical History Medical history: Reports: cancer, DVT, diabetes, hyperlipidemia, hypertension, kidney stones, renal disease, thyroid disease Surgical history: Reports: appendectomy, cholecystectomy, hysterectomy, other Psychiatric history: Reports: no psych 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 Absent: scleral icterus, conjunctival injection - ENT ENT exam: normal exam - Neck Neck exam: Present: normal inspection - Chest Chest inspection: Present: normal inspection, symmetric chest wall rise - Respiratory Respiratory exam: Present: normal lung sounds bilaterally. Absent: respiratory distress, wheezes - Cardiovascular Cardiovascular exam: Present: regular rate - Abdominal Exam Abdominal exam: Present: soft, Non-Tender - Extremities Exam Extremities exam: Present: normal inspection, full ROM. Absent: tenderness - Back Exam Back exam: Present: normal inspection, full ROM - Neurological Exam Neurological exam: Present: alert, oriented X3 - Psychiatric Psychiatric exam: Present: normal affect - Skin Skin exam: Present: warm Course Vital Signs Temperature 98.2 F 01/30/18 06:07 Pulse Rate 64 01/30/18 06:07 Respiratory Rate 24 01/30/18 06:07 Blood Pressure 160/92 01/30/18 06:07 O2 Sat by Pulse Oximetry 86 01/30/18 06:07 Temperature 97.8 F 01/31/18 11:16 Pulse Rate 78 01/31/18 11:16 Respiratory Rate 18 01/31/18 11:16 Blood Pressure 159/80 01/31/18 11:16 O2 Sat by Pulse Oximetry 96 01/31/18 11:16 Oxygen Delivery Oxygen Delivery Nasal Cannula Medical Decision Making - MDM Narrative Medical decision making narrative: 67 year old female with history of DM and CHF presents with shortness of breath. Pt stated she was struggling of breathing in the past two days. Associate with mild right chest uncomfortable. Labs; Negative troponin. BNP 120. xray unr emarkable. EKG unremarkable. pt's O2 sat was 86 in room air. 96 with 2 L NC. Pt's O2 sat dropped to 89 after activity. Associate with dyspnea. Casey Maxwell saw the patient. She agrees pt is not stable to be discharged home. Pt need be admitted to hospital for chest pain, hypoxia. Spoke with Hospitalist Dr. Pascal. Pt is accepted - Lab Data Lab results reviewed: Yes I reviewed the patient's lab results. Result diagrams: 01/31/18 04:07 01/31/18 04:07 Lab Results 01/30/18 01/30/18 01/30/18 Range/Units 06:47 06:47 06:47 WBC 7.6 (4.3-11.1) K/mcL RBC 4.76 (3.82-4.97) M/mcL Hgb 13.7 (11.5-15.4) g/dL Hct 42.5 (35.3-44.9) % MCV 89.3 (83.0-100.0) fL MCH 28.8 (28.0-33.3) pg MCHC 32.2 (31.6-35.5) g/dL RDW 14.3 (11.5-14.5) % Plt Count 194 (140-400) K/mcL MPV 11.0 (9.4-12.4) fL Immature Gran % 0.3 (0-4) % Seg Neutrophils % 63.2 % Lymphocytes % 26.1 % Monocytes % 8.3 % Eosinophils % 1.7 % Basophils % 0.4 % Neutrophils # 4.8 (1.6-8.9) K/mcL Lymphocytes # 2.0 (0.6-4.6) K/mcL Monocytes # 0.6 (0.0-1.3) K/mcL Eosinophils # 0.1 (0.0-0.6) K/mcL Basophils # 0.0 (0.0-0.2) K/mcL Sodium 135 L (136-145) mEq/L Potassium 4.3 (3.5-5.1) mEq/L Chloride 103 (98-107) mEq/L Carbon Dioxide 24 (23-29) mEq/L BUN 25 H (8-23) mg/dL Creatinine 0.88 (0.60-1.20) mg/dL Est GFR ( Amer) > 60 (> 60) Est GFR (Non-Af Amer) > 60 (> 60) BUN/Creatinine Ratio 28 H (6-26) Glucose 353 H (70-105) mg/dL Calculated Osmolality 299 (280-300) Calcium 9.4 (8.6-10.3) mg/dL Total Bilirubin 0.4 (0.3-1.0) mg/dL AST 15 (13-39) Units/L ALT 14 (7-52) Units/L Alkaline Phosphatase 46 (34-104) Units/L Troponin I < 0.03 (< 0.04) ng/mL B-Natriuretic Peptide 120 H (Less than 100) pg/mL Serum Total Protein 6.7 (6.4-8.9) g/dL Albumin 3.6 (3.5-5.7) g/dL Globulin 3.1 (2.4-3.5) g/dL Albumin/Globulin Ratio 1.2 (1.1-2.2) - Radiology Data Radiology results reviewed: Yes I reviewed the patient's radiology results. cc: Abigail Greco; Roberto Carlos Laureano; ~ EXAMINATION: TWO VIEWS OF THE CHEST 01/30/2018 6:38 am COMPARISON: Chest radiograph 05/08/2016 HISTORY: ORDERING SYSTEM PROVIDED HISTORY: shortness of breath FINDINGS: Decreased vascular congestion and edema compared with the prior exam. No pneumothorax or pleural effusion. No focal airspace consolidation. Stable mild cardiac enlargement. Normal bones. Thoracic spondylosis. XR/XR chest 2V IMPRESSION: Cardiomegaly with mild vascular congestion and borderline edema. D/ / Maicol Harden / Maicol Harden Interpreting Provider: Maicol Harden
[2018-01-30 07:03] LABS: Basophils % 0.4 %; Eosinophils # 0.1 K/mcL (0.0-0.6); Eosinophils % 1.7 %; Hematocrit 42.5 % (35.3-44.9); Hemoglobin 13.7 g/dL (11.5-15.4); Immature Granulocytes % 0.3 % (0-4); Lymphocytes % 26.1 %; Mean Corpuscular HGB Conc 32.2 g/dL (31.6-35.5); Mean Corpuscular Hemoglobin 28.8 pg (28.0-33.3); Mean Corpuscular Volume 89.3 fL (83.0-100.0); Monocytes # 0.6 K/mcL (0.0-1.3); Monocytes % 8.3 %; Neutrophils # 4.8 K/mcL (1.6-8.9); Platelet Count 194 K/mcL (140-400); Red Blood Count 4.76 M/mcL (3.82-4.97); Red Cell Distribution Width 14.3 % (11.5-14.5); Segmented Neutrophils % 63.2 %
[2018-01-30 07:20] LABS: Alanine Aminotransferase 14 Units/L (7-52); Albumin 3.6 g/dL (3.5-5.7); Albumin/Globulin Ratio 1.2 (1.1-2.2); Alkaline Phosphatase 46 Units/L (34-104); Aspartate Amino Transferase 15 Units/L (13-39); BUN/Creatinine Ratio 28 (6-26); Bilirubin,Total 0.4 mg/dL (0.3-1.0); Blood Urea Nitrogen 25 mg/dL (8-23); Calcium 9.4 mg/dL (8.6-10.3); Carbon Dioxide 24 mEq/L (23-29); Chloride 103 mEq/L (98-107); Globulin 3.1 g/dL (2.4-3.5); Glucose 353 mg/dL (70-105); Osmolality,Calculated 299 (280-300); Potassium 4.3 mEq/L (3.5-5.1); Sodium 135 mEq/L (136-145); Total Protein 6.7 g/dL (6.4-8.9); Troponin I < 0.03 ng/mL (< 0.04); eGFR For Non-African Americans > 60 (> 60)
[2018-01-30] MEDS ORDERED: Furosemide 20 MG/2 ML VIAL IVP ONE (07:55)
[2018-01-30] MEDS ORDERED: Ipratropium/Albuterol Neb 3 ML IH ONE (08:15)
[2018-01-30] MEDS ORDERED: methylPREDNISolone 125 MG/2 ML VIAL IVP ONE (08:15)
--- NOTE | 2018-01-30 09:24 | Emergency Department Note ---
Disposition Clinical Impression: Hypoxia Chest pain Qualifiers: Chest pain type: unspecified Qualified Code(s): R07.9 - Chest pain, unspecified Disposition: Admitted As Inpatient General Adult HPI - General Chief complaint: ED Shortness of Breath/Dyspnea Stated complaint: ROHAN Time Seen by Provider: 01/30/18 06:11 Source: patient Limitations: no limitations - History of Present Illness Location: chest Pain Scale: 0 - Related Data Home Medications Medication Instructions Recorded Confirmed Metformin HCl [Glucophage] 1,000 mg PO BIDWM 03/28/15 01/30/18 Pravastatin Sodium [Pravachol] 20 mg PO DAILY 03/28/15 01/30/18 Cetirizine HCl [Zyrtec] 10 mg PO DAILY 12/14/15 01/30/18 Insulin Glargine,Hum.rec.anlog 69 unit SQ HS 03/15/16 01/30/18 [Lantus Solostar] Potassium Gluconate [Potassium] 99 mg PO DAILY 03/15/16 01/30/18 Aspirin [Lo-Dose Aspirin EC] 162 mg PO DAILY 08/22/17 01/30/18 Calcium Carbonate [Calcium] 600 mg PO DAILY 08/22/17 01/30/18 Metoprolol [Lopressor] 50 mg PO BID 08/22/17 01/30/18 Gabapentin [Neurontin] 1,200 mg PO TID 01/30/18 01/30/18 Tizanidine HCl 2 mg PO TID PRN 01/30/18 01/30/18 Previous Rx's Medication Instructions Recorded Furosemide [Lasix] 20 mg PO DAILY #30 tablet 05/11/16 Omeprazole [PriLOSEC] 40 mg PO DAILY #30 cap 12/09/16 Sucralfate [Carafate] 1 gm PO QIDAC #120 tablet 12/09/16 amLODIPine [Norvasc] 10 mg PO DAILY #30 tablet 12/09/16 Allergies Allergy/AdvReac Type Severity Reaction Status Date / Time glimepiride [From Amaryl] Allergy Unknown Itching Verified 01/30/18 06:21 glipizide Allergy Unknown Itching Verified 01/30/18 06:21 Sulfa (Sulfonamide Allergy Unknown Itching Verified 01/30/18 06:21 Antibiotics) latex Allergy Itching Verified 01/30/18 06:21 Latex, Natural Rubber Allergy Itching Verified 01/30/18 06:21 fentanyl AdvReac Unknown Vomiting Verified 01/30/18 06:21 and weakness promethazine AdvReac Unknown muscle Verified 01/30/18 06:21 spasms Constitutional: Denies: fever Eyes: Denies: eye pain ENT ED: Denies: ear pain Cardiovascular: Denies: chest pain Respiratory: Reports: dyspnea. 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 - Social History Smoking Status: Never smoker Smokeless Tobacco Status: No Alcohol use: Reports: none Drug use: Reports: none Physical Exam - General Limitations: no limitations General appearance: alert Course Vital Signs Temperature 98.2 F 01/30/18 06:07 Pulse Rate 64 01/30/18 06:07 Respiratory Rate 24 01/30/18 06:07 Blood Pressure 160/92 01/30/18 06:07 O2 Sat by Pulse Oximetry 86 01/30/18 06:07 Temperature 98.2 F 01/30/18 06:07 Pulse Rate 62 01/30/18 08:39 Respiratory Rate 18 01/30/18 08:39 Blood Pressure 151/101 01/30/18 08:39 O2 Sat by Pulse Oximetry 98 01/30/18 08:39 Oxygen Delivery Oxygen Delivery Nasal Cannula Medical Decision Making - Lab Data Result diagrams: 01/30/18 06:47 01/30/18 06:47 Lab Results 01/30/18 01/30/18 01/30/18 Range/Units 06:47 06:47 06:47 WBC 7.6 (4.3-11.1) K/mcL RBC 4.76 (3.82-4.97) M/mcL Hgb 13.7 (11.5-15.4) g/dL Hct 42.5 (35.3-44.9) % MCV 89.3 (83.0-100.0) fL MCH 28.8 (28.0-33.3) pg MCHC 32.2 (31.6-35.5) g/dL RDW 14.3 (11.5-14.5) % Plt Count 194 (140-400) K/mcL MPV 11.0 (9.4-12.4) fL Immature Gran % 0.3 (0-4) % Seg Neutrophils % 63.2 % Lymphocytes % 26.1 % Monocytes % 8.3 % Eosinophils % 1.7 % Basophils % 0.4 % Neutrophils # 4.8 (1.6-8.9) K/mcL Lymphocytes # 2.0 (0.6-4.6) K/mcL Monocytes # 0.6 (0.0-1.3) K/mcL Eosinophils # 0.1 (0.0-0.6) K/mcL Basophils # 0.0 (0.0-0.2) K/mcL Sodium 135 L (136-145) mEq/L Potassium 4.3 (3.5-5.1) mEq/L Chloride 103 (98-107) mEq/L Carbon Dioxide 24 (23-29) mEq/L BUN 25 H (8-23) mg/dL Creatinine 0.88 (0.60-1.20) mg/dL Est GFR ( Amer) > 60 (> 60) Est GFR (Non-Af Amer) > 60 (> 60) BUN/Creatinine Ratio 28 H (6-26) Glucose 353 H (70-105) mg/dL Calculated Osmolality 299 (280-300) Calcium 9.4 (8.6-10.3) mg/dL Total Bilirubin 0.4 (0.3-1.0) mg/dL AST 15 (13-39) Units/L ALT 14 (7-52) Units/L Alkaline Phosphatase 46 (34-104) Units/L Troponin I < 0.03 (< 0.04) ng/mL B-Natriuretic Peptide 120 H (Less than 100) pg/mL Serum Total Protein 6.7 (6.4-8.9) g/dL Albumin 3.6 (3.5-5.7) g/dL Globulin 3.1 (2.4-3.5) g/dL Albumin/Globulin Ratio 1.2 (1.1-2.2) Attestation Statement - Attestation Attestation: I examined this patient and my medical decision-making was reviewed with the Resident Physician. I agree with the documented findings, disposition and treatment plan as described except to the extent set forth below. 67 year old dallin presents to the ED with complaints of ROHAN and refuses to use oxygen therapy at home and is now having exertinoal chest pain and has a history of CHF and was hypoxic to 86% and dropped to 89% on walk trial. We will admit to medicine for ACS and hypoxia
--- NOTE | 2018-01-30 10:02 | Internal Med History&Physical ---
Date of Encounter: 01/30/18 Time of Encounter: 08:00 Internal Medicine - H&P: HPI Chief complaint: Shortness of breath/chest pressure Admitted From: Home Plans for Post Hospital Care: Home History of present illness: Patient is a 67-year-old female with past medical history significant for diastolic heart failure, diabetes, hypothyroid, hypertension, obesity hypoventilation syndrome, pulmonary hypertension and LUCIUS who presents to the ER on 01/30/18 due to shortness of breath and chest pressure. Patient reports a 3 day history of progressively worsening shortness of breath with chest pressure. She also reports symptoms of orthopnea as she states that she was not able to lie down in the bed to sleep but after sitting up in a recliner, her symptoms improved and she was able to sleep. Patient denies any lower extremity edema or recent weight gain. Patient does report that she noticed her symptoms 2 days after Thanksgiving dinner not sure of her sodium intake during that meal. In the ER, patient was found to have a slightly elevated BNP at 120 with mild vascular congestion on chest x-ray. She was given a dose of IV Lasix 20 mg in the ER as well as methylprednisone and will be admitted to medical surgical floor for acute on chronic diastolic heart failure. Past Med Surg Social Fam HX - Past Medical History Medical history: cancer, DVT, diabetes, hyperlipidemia, hypertension, kidney stones, renal disease, thyroid disease Additional medical history: breast cancer. hypothyroidism. renal insuff. Psychiatric history: no psych history - Past Surgical History Surgical History: appendectomy, cholecystectomy, hysterectomy, other Additional surgical history: partial masectomy right breast. hernia repairs - Social History Smoking Status: Never smoker Smokeless Tobacco Status: No Alcohol use: none Drug use: none - Family History Mother Family Member Ethnicity: Non- Living Status: Hx Family Cardiac Disorders: Yes (DVTs) Hx Family Cancer: Yes (Breast) Brother Family Member Ethnicity: Non- Living Status: Hx Family Cardiac Disorders: Yes (CAD) Sister Family Member Ethnicity: Non- Living Status: Still Living Father Family Member Ethnicity: Non- Living Status: Hx Family Endocrine Disorder: Yes (Cirrhosis) Internal Medicine - H&P: Meds Metformin HCl [Glucophage] 1,000 mg PO BIDWM 03/28/15 [History] Pravastatin Sodium [Pravachol] 20 mg PO DAILY 03/28/15 [History] Cetirizine HCl [Zyrtec] 10 mg PO DAILY 12/14/15 [History] Insulin Glargine,Hum.rec.anlog [Lantus Solostar] 69 unit SQ HS 03/15/16 [History] Potassium Gluconate [Potassium] 99 mg PO DAILY 03/15/16 [History] Furosemide [Lasix] 20 mg PO DAILY #30 tablet 05/11/16 [Rx] Omeprazole [PriLOSEC] 40 mg PO DAILY #30 cap 12/09/16 [Rx] Sucralfate [Carafate] 1 gm PO QIDAC #120 tablet 12/09/16 [Rx] amLODIPine [Norvasc] 10 mg PO DAILY #30 tablet 12/09/16 [Rx] Aspirin [Lo-Dose Aspirin EC] 162 mg PO DAILY 08/22/17 [History] Calcium Carbonate [Calcium] 600 mg PO DAILY 08/22/17 [History] Metoprolol [Lopressor] 50 mg PO BID 08/22/17 [History] Gabapentin [Neurontin] 1,200 mg PO TID 01/30/18 [History] Tizanidine HCl 2 mg PO TID PRN 01/30/18 [History] Allergy/AdvReac Type Severity Reaction Status Date / Time glimepiride [From Amaryl] Allergy Unknown Itching Verified 01/30/18 06:21 glipizide Allergy Unknown Itching Verified 01/30/18 06:21 Sulfa (Sulfonamide Allergy Unknown Itching Verified 01/30/18 06:21 Antibiotics) latex Allergy Itching Verified 01/30/18 06:21 Latex, Natural Rubber Allergy Itching Verified 01/30/18 06:21 fentanyl AdvReac Unknown Vomiting Verified 01/30/18 06:21 and weakness promethazine AdvReac Unknown muscle Verified 01/30/18 06:21 spasms All Systems PM: A 10-system review of systems was performed and is negative for pertinent findings except as documented above in the HPI. - Constitutional Vitals: Temp Pulse Resp BP Pulse Ox 98.0 F 63 20 151/88 91 01/30/18 09:35 01/30/18 09:35 01/30/18 09:35 01/30/18 09:35 01/30/18 09:35 General appearance: Present: A&O X 3, no acute distress Exam: As above - Head Head exam: Present: normocephalic - Eye Eye exam: Present: normal appearance - ENT ENT exam: Present: mucous membranes moist - Respiratory Respiratory exam: Present: CTAB. Absent: accessory muscle use, rales, rhonchi, wheezes - Cardiovascular Cardiovascular exam: Present: RRR, +S1, +S2. Absent: diastolic murmur, gallop, rubs, systolic murmur - GI/Abdominal GI/Abdominal exam: Present: normal bowel sounds, soft, no peritoneal signs. Absent: distended, tenderness - Extremities Exam Extremities exam: Present: pedal edema - Neurological Exam Neurological exam: Present: alert, oriented X3 - Psychiatric Psychiatric exam: Present: normal mood - Skin Skin exam: Present: normal color Internal Med - H&P Results - Labs CBC & Chem 7: 01/30/18 06:47 01/30/18 06:47 Labs: Short CBC 01/30/18 Range/Units 06:47 WBC 7.6 (4.3-11.1) K/mcL Hgb 13.7 (11.5-15.4) g/dL Hct 42.5 (35.3-44.9) % Plt Count 194 (140-400) K/mcL Neutrophils # 4.8 (1.6-8.9) K/mcL BMP 01/30/18 06:47 Sodium 135 L Potassium 4.3 Chloride 103 Carbon Dioxide 24 BUN 25 H Creatinine 0.88 Glucose 353 H Calcium 9.4 Cardiac Enzymes 01/30/18 Range/Units 06:47 Troponin I < 0.03 (< 0.04) ng/mL Liver Function 01/30/18 Range/Units 06:47 Total Bilirubin 0.4 (0.3-1.0) mg/dL AST 15 (13-39) Units/L ALT 14 (7-52) Units/L Alkaline Phosphatase 46 (34-104) Units/L Albumin 3.6 (3.5-5.7) g/dL - Impressions ITS Impressions Chest X-Ray 01/30/18 06:14 IMPRESSION: Cardiomegaly with mild vascular congestion and borderline edema. D/ / Maicol Harden / Maicol Harden Interpreting Provider: Maicol Harden - Assessment and plan (1) Acute on chronic diastolic (congestive) heart failure Current Visit: Yes Status: Acute Assessment and plan: Patient with shortness of breath, chest pressure and orthopnea 2 days after Thanksgiving dinner suspect secondary to increased sodium intake. Educated patient and the importance of compliance with low sodium diet. Patient with slightly elevated BNP on admission at 120 with mild vascular congestion on chest x-ray. Initial dose of IV Lasix 20 mg was given in the ER. Will initiate IV Lasix is 20 mg twice daily in addition to fluid restriction and strict I's and O's and daily weights. 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 (3) HLD (hyperlipidemia) Current Visit: No Status: Chronic Assessment and plan: Continue patient's home dose of statin Qualifiers: Hyperlipidemia type: unspecified Qualified Code(s): E78.5 - Hyperlipidemia, unspecified (4) HTN (hypertension) Current Visit: No Status: Chronic Assessment and plan: /Patient's home dose of amlodipine and metoprolol Qualifiers: Hypertension type: essential hypertension Qualified Code(s): I10 - Essential (primary) hypertension (5) LUCIUS (obstructive sleep apnea) Current Visit: No Status: Chronic Assessment and plan: Patient to wear CPAP daily at bedtime (6) Obesity hypoventilation syndrome Current Visit: No Status: Chronic Assessment and plan: Patient to wear CPAP daily at bedtime as above (7) Secondary pulmonary hypertension Current Visit: No Status: Chronic Assessment and plan: Monitor on continuous pulse oximetry (8) DVT prophylaxis Current Visit: No Status: Acute Assessment and plan: Subcutaneous heparin - Time Spent With Patient Total time spent is greater than 50% in coordination of care (as documented) at patient's floor/unit and/or counseling patient:
--- NOTE | 2018-01-30 10:03 | Electrocardiograph Report ---
[place] [id number] Test Date: 2018-01-30 Pat Name: Alicja Clifford Department: [id number] Room: 3B65 Gender: F A/C Tech: : 1950 Requested By: Roberto Carlos Laureano Order Number: [id number] Reading MD: Wil Castellon Measurements Intervals [place] Rate: 67 P: 40 FL: 157 QRS: 7 QRSD: 109 T: 26 QT: 415 QTc: 439 Interpretive Statements Sinus rhythm Ventricular trigeminy Abnormal R-wave progression, late transition Electronically Signed On 01-30-2018 10:02:16 EST by Wil Castellon
[2018-01-30] MEDS ORDERED: tiZANidine 4 MG TABLET PO PRN (10:26)
[2018-01-30] MEDS ORDERED: Naloxone 0.4 MG/ML INJ IVP PRN (10:33)
[2018-01-30] MEDS: Sucralfate 1 GM TABLET PO SCH ×3 (13:01→20:09)
[2018-01-30] MEDS: Insulin LISPRO 300 UNITS/3 ML VIAL SQ SCH ×2 (13:01→16:54)
[2018-01-30] MEDS: Gabapentin 400 MG CAPSULE PO SCH ×2 (14:30→20:09)
[2018-01-30] MEDS: Furosemide 20 MG/2 ML VIAL IVP SCH (16:54)
[2018-01-30] MEDS: Insulin DETEMIR 100 UNIT/ML X5UNITS SQ SCH (20:09)
[2018-01-30] MEDS ORDERED: *HR* Dextrose 50 % in Water (Syg) 50 ML SYRINGE IVP PRN (20:15)
[2018-01-30] MEDS ORDERED: D5% in Water 1,000 ML IVC PRN (20:15)
[2018-01-30] MEDS ORDERED: Dextrose Gel 15 GM/37.5 ML TUBE PO PRN ×2 (20:15)
[2018-01-30] MEDS ORDERED: Insulin LISPRO 300 UNITS/3 ML VIAL SQ SCH (21:00)
[2018-01-30] MEDS ORDERED: Acetaminophen 325 MG TABLET PO PRN (21:58)
[2018-01-30] MEDS: *HR* HYDROcodone/Acet 5/325 mg TABLET PO PRN (23:09)
[2018-01-31] MEDS ORDERED: Insulin DETEMIR 100 UNIT/ML X5UNITS SQ ONE (00:08)
[2018-01-31 04:34] LABS: Basophils % 0.2 %; Hematocrit 40.3 % (35.3-44.9); Hemoglobin 12.9 g/dL (11.5-15.4); Immature Granulocytes % 0.4 % (0-4); Lymphocytes % 9.8 %; Mean Corpuscular Hemoglobin 28.4 pg (28.0-33.3); Mean Corpuscular Volume 88.6 fL (83.0-100.0); Mean Platelet Volume 11.5 fL (9.4-12.4); Monocytes # 0.6 K/mcL (0.0-1.3); Neutrophils # 8.2 K/mcL (1.6-8.9); Platelet Count 207 K/mcL (140-400); Red Blood Count 4.55 M/mcL (3.82-4.97); Red Cell Distribution Width 14.2 % (11.5-14.5); Segmented Neutrophils % 83.6 %
[2018-01-31] MEDS ORDERED: Nitroglycerin 0.4 MG TAB.SUBL SL PRN (04:48)
[2018-01-31 04:55] LABS: BUN/Creatinine Ratio 33 (6-26); Blood Urea Nitrogen 34 mg/dL (8-23); Calcium 9.5 mg/dL (8.6-10.3); Carbon Dioxide 23 mEq/L (23-29); Chloride 100 mEq/L (98-107); Glucose 479 mg/dL (70-105); Osmolality,Calculated 303 (280-300); Potassium 4.4 mEq/L (3.5-5.1); Sodium 132 mEq/L (136-145); eGFR For Non-African Americans 54 (> 60)
[2018-01-31 05:10] LABS: Troponin I < 0.03 ng/mL (< 0.04)
[2018-01-31] MEDS: Loratadine 10 MG TABLET PO SCH (08:10)
[2018-01-31] MEDS: Sucralfate 1 GM TABLET PO SCH ×4 (08:10→22:05)
[2018-01-31] MEDS: Furosemide 20 MG/2 ML VIAL IVP SCH ×2 (08:10→17:07)
[2018-01-31] MEDS: Aspirin Enteric Coated 81 MG Tablet PO SCH (08:10)
[2018-01-31] MEDS: Gabapentin 400 MG CAPSULE PO SCH ×3 (08:10→22:05)
[2018-01-31] MEDS: amLODIPine 5 MG TABLET PO SCH (08:10)
[2018-01-31] MEDS: Insulin LISPRO 300 UNITS/3 ML VIAL SQ SCH ×4 (08:10→22:03)
[2018-01-31] MEDS: (Potassium Gluconate [Potassium] 99 MG) PO SCH (08:11)
--- NOTE | 2018-01-31 11:57 | Internal Med Progress Note ---
Hospitalist Progress Note - Encounter Date of Encounter: 01/31/18 Time of Encounter: 11:57 - Subjective Interval History: Patient seen and examined at bedside, denies any chest pain or shortness of breath at this time - Exam Vitals: Temp Pulse Resp BP Pulse Ox 97.8 F 78 18 159/80 96 01/31/18 11:16 01/31/18 11:16 01/31/18 11:16 01/31/18 11:16 01/31/18 11:16 Exam: General appearance: Present: A&O X 3, no acute distress Exam: - Head Head exam: Present: normocephalic - Eye Eye exam: Present: normal appearance - ENT ENT exam: Present: mucous membranes moist - Respiratory Respiratory exam: Present: CTAB. Absent: accessory muscle use, rales, rhonchi, wheezes - Cardiovascular Cardiovascular exam: Present: RRR, +S1, +S2. Absent: diastolic murmur, gallop, rubs, systolic murmur - GI/Abdominal GI/Abdominal exam: Present: normal bowel sounds, soft, no peritoneal signs. Absent: distended, tenderness - Extremities Exam Extremities exam: Present: pedal edema - Neurological Exam Neurological exam: Present: alert, oriented X3 - Psychiatric Psychiatric exam: Present: normal mood - Skin Skin exam: Present: normal color - Assessment and Plan (1) Diabetes mellitus Current Visit: No Status: Chronic Assessment and Plan: Will hold patient's metformin but continue patient's home dose of Lantus 01/31 Is had elevated blood glucose 542 continue with Lantus as well as high sliding [id number] before meals and at bedtime (2) DVT prophylaxis Current Visit: No Status: Acute Assessment and Plan: Subcutaneous heparin (3) HLD (hyperlipidemia) Current Visit: No Status: Chronic Assessment and Plan: Continue patient's home dose of statin (4) LUCIUS (obstructive sleep apnea) Current Visit: No Status: Chronic Assessment and Plan: Patient to wear CPAP daily at bedtime 01/31 Patient refusing CPAP (5) Obesity hypoventilation syndrome Current Visit: No Status: Chronic Assessment and Plan: Patient to wear CPAP daily at bedtime as above 01/31 Patient has been refusing CPAP continue with oxygen (6) Secondary pulmonary hypertension Current Visit: No Status: Chronic Assessment and Plan: Monitor on continuous pulse oximetry 01/31 Continuous pulse ox oxygen as needed patient refusing CPAP (7) HTN (hypertension) Current Visit: No Status: Chronic Assessment and Plan: /Patient's home dose of amlodipine and metoprolol (8) Acute on chronic diastolic (congestive) heart failure Current Visit: Yes Status: Acute Assessment and Plan: Patient with shortness of breath, chest pressure and orthopnea 2 days after Thanksgiving dinner suspect secondary to increased sodium intake. Educated patient and the importance of compliance with low sodium diet. Patient with slightly elevated BNP on admission at 120 with mild vascular congestion on chest x-ray. Initial dose of IV Lasix 20 mg was given in the ER. Will initiate IV Lasix is 20 mg twice daily in addition to fluid restriction and strict I's and O's and daily weights. 01/31 No chest pain or shortness of breath this time we will continue to diurese Patient will require education concerning low-sodium diet Continue with IV Lasix fluid restriction and daily weights and strict diagnosed 6 minute walk for home O2 qualification - Time Spent with Patient Total time spent is greater than 50% in coordination of care (as documented) at patient's floor/unit and/or counseling patient: Internal Medicine: Result - Labs CBC & Chem 7: 01/31/18 04:07 01/31/18 04:07 Labs: Short CBC 01/31/18 Range/Units 04:07 WBC 9.8 (4.3-11.1) K/mcL Hgb 12.9 (11.5-15.4) g/dL Hct 40.3 (35.3-44.9) % Plt Count 207 (140-400) K/mcL Neutrophils # 8.2 (1.6-8.9) K/mcL BMP 01/31/18 04:07 Sodium 132 L Potassium 4.4 Chloride 100 Carbon Dioxide 23 BUN 34 H Creatinine 1.02 Glucose 479 H Calcium 9.5 Cardiac Enzymes 01/31/18 Range/Units 04:07 Troponin I < 0.03 (< 0.04) ng/mL Consult Discharge Plan - Plan Referrals: Abigail Greco, BRIM RAISER [Primary Care Provider] - (1) Diabetes mellitus Qualifiers: Diabetes mellitus type: type 2 Chronic kidney disease stage: unspecified stage (3) HLD (hyperlipidemia) Qualifiers: Hyperlipidemia type: unspecified Qualified Code(s): E78.5 - Hyperlipidemia, unspecified (7) HTN (hypertension) Qualifiers: Hypertension type: essential hypertension Qualified Code(s): I10 - Essential (primary) hypertension
[2018-01-31] MEDS: *HR* Heparin 5,000 UNIT/ML VIAL SQ SCH (17:54)
[2018-01-31] MEDS: Insulin DETEMIR 100 UNIT/ML X5UNITS SQ SCH (22:04)
[2018-01-31] MEDS: *HR* HYDROcodone/Acet 5/325 mg TABLET PO PRN (22:05)
[2018-02-01 03:26] LABS: Basophils % 0.4 %; Eosinophils # 0.2 K/mcL (0.0-0.6); Eosinophils % 1.4 %; Hematocrit 40.3 % (35.3-44.9); Hemoglobin 12.6 g/dL (11.5-15.4); Immature Granulocytes % 0.3 % (0-4); Lymphocytes # 3.9 K/mcL (0.6-4.6); Lymphocytes % 37.2 %; Mean Corpuscular HGB Conc 31.3 g/dL (31.6-35.5); Mean Corpuscular Hemoglobin 28.4 pg (28.0-33.3); Mean Platelet Volume 11.1 fL (9.4-12.4); Monocytes # 0.8 K/mcL (0.0-1.3); Monocytes % 7.3 %; Neutrophils # 5.6 K/mcL (1.6-8.9); Platelet Count 199 K/mcL (140-400); Red Blood Count 4.43 M/mcL (3.82-4.97); Red Cell Distribution Width 14.5 % (11.5-14.5); Segmented Neutrophils % 53.4 %
[2018-02-01 03:45] LABS: BUN/Creatinine Ratio 37 (6-26); Blood Urea Nitrogen 37 mg/dL (8-23); Calcium 8.6 mg/dL (8.6-10.3); Carbon Dioxide 25 mEq/L (23-29); Chloride 103 mEq/L (98-107); Glucose 271 mg/dL (70-105); Osmolality,Calculated 298 (280-300); Potassium 3.8 mEq/L (3.5-5.1); Sodium 135 mEq/L (136-145); eGFR For Non-African Americans 55 (> 60)
[2018-02-01] MEDS: *HR* HYDROcodone/Acet 5/325 mg TABLET PO PRN ×2 (05:52→14:46)
[2018-02-01] MEDS: *HR* Heparin 5,000 UNIT/ML VIAL SQ SCH ×2 (05:52→17:59)
[2018-02-01] MEDS: (Potassium Gluconate [Potassium] 99 MG) PO SCH (09:07)
[2018-02-01] MEDS: Aspirin Enteric Coated 81 MG Tablet PO SCH (09:08)
[2018-02-01] MEDS: Loratadine 10 MG TABLET PO SCH (09:10)
[2018-02-01] MEDS: Sucralfate 1 GM TABLET PO SCH ×4 (09:10→20:22)
[2018-02-01] MEDS: amLODIPine 5 MG TABLET PO SCH (09:10)
[2018-02-01] MEDS: Gabapentin 400 MG CAPSULE PO SCH ×3 (09:10→20:22)
[2018-02-01] MEDS: Insulin LISPRO 300 UNITS/3 ML VIAL SQ SCH ×4 (09:11→20:35)
--- NOTE | 2018-02-01 12:32 | Internal Med Progress Note ---
Hospitalist Progress Note - Encounter Date of Encounter: 02/01/18 Time of Encounter: 12:29 - Subjective Interval History: Patient seen and examined at bedside, denies any chest pain palpitations or shortness of breath at this time. I did review lab results and telemetry review from last night. We will order echocardiogram and consult cardiology updated patient concerning treatment plan who is agreeable to plan. - Exam Vitals: Temp Pulse Resp BP Pulse Ox 98.0 F 56 15 126/60 93 02/01/18 11:58 02/01/18 11:58 02/01/18 11:58 02/01/18 11:58 02/01/18 11:58 Exam: General appearance: Present: A&O X 3, no acute distress Exam: - Head Head exam: Present: normocephalic - Eye Eye exam: Present: normal appearance - ENT ENT exam: Present: mucous membranes moist - Respiratory Respiratory exam: Present: CTAB. Absent: accessory muscle use, rales, rhonchi, wheezes - Cardiovascular Cardiovascular exam: Present: RRR, +S1, +S2. Absent: diastolic murmur, gallop, rubs, systolic murmur - GI/Abdominal GI/Abdominal exam: Present: normal bowel sounds, soft, no peritoneal signs. Absent: distended, tenderness - Extremities Exam Extremities exam: Present: pedal edema - Neurological Exam Neurological exam: Present: alert, oriented X3 - Psychiatric Psychiatric exam: Present: normal mood - Skin Skin exam: Present: normal color - Assessment and Plan (1) Diabetes mellitus Current Visit: No Status: Chronic Assessment and Plan: Will hold patient's metformin but continue patient's home dose of Lantus 01/31 Is had elevated blood glucose 542 continue with Lantus as well as high sliding [id number] before meals and at bedtime 02/01 Glucose has improved continue with Lantus as well as highs sliding scale. Continue with Accu-Cheks before meals at bedtime and diabetic diet (2) DVT prophylaxis Current Visit: No Status: Acute Assessment and Plan: Subcutaneous heparin (3) HLD (hyperlipidemia) Current Visit: No Status: Chronic Assessment and Plan: Continue patient's home dose of statin (4) LUCIUS (obstructive sleep apnea) Current Visit: No Status: Chronic Assessment and Plan: Patient to wear CPAP daily at bedtime 01/31 Patient refusing CPAP 02/01 Patient refusing CPAP (5) Obesity hypoventilation syndrome Current Visit: No Status: Chronic Assessment and Plan: Patient to wear CPAP daily at bedtime as above 01/31 Patient has been refusing CPAP continue with oxygen 02/01 Continue with oxygen patient is refusing CPAP at this time (6) Secondary pulmonary hypertension Current Visit: No Status: Chronic Assessment and Plan: Monitor on continuous pulse oximetry 01/31 Continuous pulse ox oxygen as needed patient refusing CPAP (7) HTN (hypertension) Current Visit: No Status: Chronic Assessment and Plan: /Patient's home dose of amlodipine and metoprolol (8) Acute on chronic diastolic (congestive) heart failure Current Visit: Yes Status: Acute Assessment and Plan: Patient with shortness of breath, chest pressure and orthopnea 2 days after Thanksgiving dinner suspect secondary to increased sodium intake. Educated patient and the importance of compliance with low sodium diet. Patient with slightly elevated BNP on admission at 120 with mild vascular congestion on chest x-ray. Initial dose of IV Lasix 20 mg was given in the ER. Will initiate IV Lasix is 20 mg twice daily in addition to fluid restriction and strict I's and O's and daily weights. 01/31 No chest pain or shortness of breath this time we will continue to diurese Patient will require education concerning low-sodium diet Continue with IV Lasix fluid restriction and daily weights and strict diagnosed 6 minute walk for home O2 qualification 02/01 Patient does qualify for home O2 which we will continue Continue with fluid restriction daily weights and intake and output-1000 mL's yesterday We will switch IV Lasix to by mouth Obtain cardiac echo Previous echo completed Impressions: LVEF 55%. Mild concentric left ventricular hypertrophy. Mild left ventricular diastolic dysfunction. Mildly dilated left atrium. Trace mitral regurgitation. Unable to estimate RVSP due to lack of TR jet. (9) Frequent PVCs Current Visit: Yes Status: Acute Assessment and Plan: Patient has frequent PVCs occurring on telemetry overnight as well as on EKG. EKG did capture bigeminy as well as trigeminy. Patient reports chronic history of irregular rhythm and is on metoprolol however she has not seen a sql report writer in several years . 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 appreciate recommendations we will maintain potassium 4 and mag of 2 Continuous cardiac monitoring - Time Spent with Patient Total time spent is greater than 50% in coordination of care (as documented) at patient's floor/unit and/or counseling patient: Internal Medicine: Result - Labs CBC & Chem 7: 02/01/18 03:09 02/01/18 03:09 Labs: Short CBC 02/01/18 Range/Units 03:09 WBC 10.5 (4.3-11.1) K/mcL Hgb 12.6 (11.5-15.4) g/dL Hct 40.3 (35.3-44.9) % Plt Count 199 (140-400) K/mcL Neutrophils # 5.6 (1.6-8.9) K/mcL BMP 02/01/18 03:09 Sodium 135 L Potassium 3.8 Chloride 103 Carbon Dioxide 25 BUN 37 H Creatinine 1.00 Glucose 271 H Calcium 8.6 Consult Discharge Plan - Plan Referrals: Abigail Greco, [employer] [Primary Care Provider] - (1) Diabetes mellitus Qualifiers: Diabetes mellitus type: type 2 Chronic kidney disease stage: unspecified stage (3) HLD (hyperlipidemia) Qualifiers: Hyperlipidemia type: unspecified Qualified Code(s): E78.5 - Hyperlipidemia, unspecified (7) HTN (hypertension) Qualifiers: Hypertension type: essential hypertension Qualified Code(s): I10 - Essential (primary) hypertension
[2018-02-01] MEDS: *HR* OxyCODONE Immed Rel 5 MG TABLET PO PRN (19:14)
[2018-02-01] MEDS: Insulin DETEMIR 100 UNIT/ML X5UNITS SQ SCH (20:25)
[2018-02-02] MEDS: *HR* OxyCODONE Immed Rel 5 MG TABLET PO PRN ×3 (03:54→21:59)
[2018-02-02] MEDS: *HR* Heparin 5,000 UNIT/ML VIAL SQ SCH ×2 (05:03→17:02)
[2018-02-02 05:32] LABS: Basophils % 0.5 %; Eosinophils # 0.1 K/mcL (0.0-0.6); Eosinophils % 1.8 %; Hemoglobin 12.8 g/dL (11.5-15.4); Immature Granulocytes % 0.5 % (0-4); Lymphocytes # 2.6 K/mcL (0.6-4.6); Mean Corpuscular HGB Conc 30.5 g/dL (31.6-35.5); Mean Corpuscular Hemoglobin 28.1 pg (28.0-33.3); Mean Corpuscular Volume 92.3 fL (83.0-100.0); Mean Platelet Volume 11.2 fL (9.4-12.4); Monocytes # 0.7 K/mcL (0.0-1.3); Monocytes % 8.8 %; Neutrophils # 4.5 K/mcL (1.6-8.9); Platelet Count 182 K/mcL (140-400); Red Blood Count 4.55 M/mcL (3.82-4.97); Red Cell Distribution Width 14.4 % (11.5-14.5); Segmented Neutrophils % 56.4 %
[2018-02-02 05:48] LABS: BUN/Creatinine Ratio 33 (6-26); Blood Urea Nitrogen 30 mg/dL (8-23); Calcium 9.1 mg/dL (8.6-10.3); Carbon Dioxide 27 mEq/L (23-29); Chloride 104 mEq/L (98-107); Glucose 302 mg/dL (70-105); Osmolality,Calculated 299 (280-300); Potassium 4.4 mEq/L (3.5-5.1); Sodium 136 mEq/L (136-145); eGFR For Non-African Americans > 60 (> 60)
[2018-02-02] MEDS: Sucralfate 1 GM TABLET PO SCH ×4 (06:47→21:51)
[2018-02-02] MEDS: Insulin LISPRO 300 UNITS/3 ML VIAL SQ SCH ×4 (08:59→22:00)
[2018-02-02] MEDS: Gabapentin 400 MG CAPSULE PO SCH ×3 (09:00→21:51)
[2018-02-02] MEDS: amLODIPine 5 MG TABLET PO SCH (09:01)
[2018-02-02] MEDS: Furosemide 20 MG TABLET PO SCH (09:02)
[2018-02-02] MEDS: (Potassium Gluconate [Potassium] 99 MG) PO SCH (09:02)
[2018-02-02] MEDS: Aspirin Enteric Coated 81 MG Tablet PO SCH (09:02)
[2018-02-02] MEDS: Loratadine 10 MG TABLET PO SCH (09:02)
--- NOTE | 2018-02-02 10:47 | Cardiology Consult Note ---
Addendum entered and electronically signed by Lacho Peraza MD 02/02/18 13:40: I examined this patient and my medical decision-making was reviewed with the MEAT SERVICE TEAM MEMBER. I agree with the documented findings, disposition and treatment plan as described except to the extent set forth below. A/P: Bigeminy frequent PVC with multiple cv risk factors Acute on chronic diastolic CHF Recommend ischemic villeda, patient wants to stay for stress test Original Note: Date of Encounter: 02/02/18 Time of Encounter: 10:42 Assessment and Plan (1) Frequent PVCs Current Visit: Yes Status: Acute Consulted due to frequent PVCs--couplet PVC episodes noted and 3 beat runs NSVT, longest 3 beats. Pt reports hx of frequent PVCs diagnosed in 2009, managed with Lopressor 50mg BID since that time. Reports stress test in 2009, no ischemic eval since. TTE EF preserved 55-60%. Mild LVDD, mild TR, mild phtn est RVSP 41mmHg. K, Mag, TSH WNL. Risk factors for CAD include obesity, DM, HTN. Given chest pressure, dyspnea and frequent PVCs recommend stress test. 2 day based on BMI. Pt agrees and prefers to stay inpt for stress test. Further recs pending stress test. (2) Chest pain Current Visit: Yes Status: Acute Generalized chest pressure associated with dyspnea. Relief with supplemental O2. Troponins negative x 2. TTE EF preserved. As above, 2 day stress test. Qualifiers: Chest pain type: unspecified Qualified Code(s): R07.9 - Chest pain, unspecified (3) Acute on chronic diastolic (congestive) heart failure Current Visit: Yes Status: Acute Presented with dyspnea, chest pressure and orthopnea. TTE EF preserved, mild LVDD. BNP 120, CXR mild congestion. Given IV Lasix, now on PO Lasix 20mg daily. Recommend strict I/Os, Na and fluid restriction, daily weights. Discussion w patient/family: The assessment and plan as outlined above was discussed with the patient and/or family members who expressed understanding and agreement. All questions were answered. Thank you for involving us in the care of your patient. Please call with any questions. I will discuss all the above with Dr. Peraza and make changes as necessary. History of Present Illness Consult date: 02/02/18 Requesting physician: Alix Hutton Consult reason: PVCs Chief complaint: dyspnea, chest pressure History of present illness: Ms. Clifford is a 67 year old female with PMH significant for diastolic CHF, DM, hypothyroid, HTN, obesity hypoventilation syndrome, pulmonary hypertension, PVCs, breast ca s/p partial mastectomy and radiation, and LUCIUS who presents to the ER on 01/30/18 due to shortness of breath and chest pressure. Patient reports a 3 day history of progressively worsening shortness of breath with chest pressure, orthopnea. Denies lower extremity edema or recent weight gain. Reports that she noticed her symptoms 2 days after Thanksgiving dinner not sure of her sodium intake during that meal. Found to have a slightly elevated BNP at 120 with mild vascular congestion on CXR. Noted to have episodes of frequent PVCs, bigemy and trigeminy. Cardiology consulted for further recs. Pt reports symptom improvement with supplemental O2. Troponins negative x 2. TTE EF preserved. Past Med Surg Social Fam HX - Past Medical History Medical history: cancer, DVT, diabetes, hyperlipidemia, hypertension, kidney stones, renal disease, thyroid disease Additional medical history: breast cancer. hypothyroidism. renal insuff. Psychiatric history: no psych history - Past Surgical History Surgical History: appendectomy, cholecystectomy, hysterectomy, other Additional surgical history: partial masectomy right breast. hernia repairs - Social History Smoking Status: Never smoker Smokeless Tobacco Status: No Alcohol use: none Drug use: none - Family History Mother Family Member Ethnicity: Non- Living Status: Hx Family Cardiac Disorders: Yes (DVTs) Hx Family Cancer: Yes (Breast) Brother Family Member Ethnicity: Non- Living Status: Hx Family Cardiac Disorders: Yes (CAD) Sister Family Member Ethnicity: Non- Living Status: Still Living Father Family Member Ethnicity: Non- Living Status: Hx Family Endocrine Disorder: Yes (Cirrhosis) Medications and Allergies Metformin HCl [Glucophage] 1,000 mg PO BIDWM 03/28/15 [History] Pravastatin Sodium [Pravachol] 20 mg PO DAILY 03/28/15 [History] Cetirizine HCl [Zyrtec] 10 mg PO DAILY 12/14/15 [History] Insulin Glargine,Hum.rec.anlog [Lantus Solostar] 69 unit SQ HS 03/15/16 [H istory] Potassium Gluconate [Potassium] 99 mg PO DAILY 03/15/16 [History] Furosemide [Lasix] 20 mg PO DAILY #30 tablet 05/11/16 [Rx] Omeprazole [PriLOSEC] 40 mg PO DAILY #30 cap 12/09/16 [Rx] Sucralfate [Carafate] 1 gm PO QIDAC #120 tablet 12/09/16 [Rx] amLODIPine [Norvasc] 10 mg PO DAILY #30 tablet 12/09/16 [Rx] Aspirin [Lo-Dose Aspirin EC] 162 mg PO DAILY 08/22/17 [History] Calcium Carbonate [Calcium] 600 mg PO DAILY 08/22/17 [History] Metoprolol [Lopressor] 50 mg PO BID 08/22/17 [History] Gabapentin [Neurontin] 1,200 mg PO TID 01/30/18 [History] Tizanidine HCl 2 mg PO TID PRN 01/30/18 [History] Allergy/AdvReac Type Severity Reaction Status Date / Time glimepiride [From Amaryl] Allergy Unknown Itching Verified 01/30/18 06:21 glipizide Allergy Unknown Itching Verified 01/30/18 06:21 Sulfa (Sulfonamide Allergy Unknown Itching Verified 01/30/18 06:21 Antibiotics) latex Allergy Itching Verified 01/30/18 06:21 Latex, Natural Rubber Allergy Itching Verified 01/30/18 06:21 fentanyl AdvReac Unknown Vomiting Verified 01/30/18 06:21 and weakness promethazine AdvReac Unknown muscle Verified 01/30/18 06:21 spasms All Systems Review: The remainder of the systems were reviewed and are negative - Cardiovascular Cardiovascular: as per HPI, chest pain at rest, dyspnea at rest, dyspnea on exertion, orthopnea - Respiratory Respiratory: dyspnea Physical Examination Vital Signs, Last 4 Hours Temp Pulse Resp BP Pulse Ox 02/02/18 07:56 97.6 F 66 16 146/63 96 Vital Signs Temp Pulse Resp BP Pulse Ox 02/02/18 07:56 97.6 F 66 16 146/63 96 02/02/18 04:08 97.2 F L 64 16 159/75 96 02/02/18 00:09 98.6 F 65 15 160/80 96 02/01/18 19:11 98.3 F 71 14 145/50 94 02/01/18 14:47 97.8 F 57 16 109/73 96 02/01/18 11:58 98.0 F 56 15 126/60 93 Intake and Output 02/01/18 02/02/18 02/02/18 23:59 07:59 15:59 Intake Total 102 / 102 Output Total 150 / 150 300 / 300 Balance -48 / -48 -300 / -300 Intake: IV Fluids 102 / 102 Magnesium Sulfate 1 GM In 0.9 % 102 / 102 Sodium Chloride 100 ML @ 100 mls/hr IVPB ONCE ONE Rx#: [id number] Oral 0 / 0 Output: Urine 150 / 150 300 / 300 Other: Weight 133.6 kg Blood Glucose* 276 287 Patient Weight 02/02/18 23:59 Weight 133.6 kg General: Conversant, No Apparent Distress HEENT: Atraumatic, Normocephaly, Mucus Membranes Moist Neck: No JVD, Normal carotid pulses Cardiac: Reg Rate and Rhythm, Normal S1 and S2, No Murmur Lungs: Other (diminished) Neuro: Alert and responsive, No focal deficits noted Abdomen: Soft, Non-Tender Skin: No rashes noted on visualized skin Musculoskeletal: No Chest Wall Tenderness Extremities: No Clubbing, No Cyanosis, No Edema, Normal Pulses Results 02/02/18 05:12 02/02/18 05:12 Lab Results 02/02/18 02/02/18 02/02/18 05:12 05:12 05:12 WBC 8.0 Hgb 12.8 Hct 42.0 Plt Count 182 Sodium 136 Potassium 4.4 Chloride 104 Carbon Dioxide 27 BUN 30 H Creatinine 0.91 Glucose 302 H Calcium 9.1 Magnesium 2.1 Short CBC 02/02/18 Range/Units 05:12 WBC 8.0 (4.3-11.1) K/mcL Hgb 12.8 (11.5-15.4) g/dL Hct 42.0 (35.3-44.9) % Plt Count 182 (140-400) K/mcL Neutrophils # 4.5 (1.6-8.9) K/mcL BMP 02/02/18 Range/Units 05:12 Sodium 136 (136-145) mEq/L Potassium 4.4 (3.5-5.1) mEq/L Chloride 104 (98-107) mEq/L Carbon Dioxide 27 (23-29) mEq/L BUN 30 H (8-23) mg/dL Creatinine 0.91 (0.60-1.20) mg/dL Glucose 302 H (70-105) mg/dL Calcium 9.1 (8.6-10.3) mg/dL Impressions Echocardiogram 02/01/18 10:21 Impressions: LVEF 55-60%. Normal LV chamber size, wall thickness and function. Mild left ventricular diastolic dysfunction. Normal right ventricular structure and function. Mild tricuspid regurgitation. Mild pulmonary hypertension. Estimated RVSP is 41 mmHg. Left Ventricular Wall Motion: Rest Echo Findings All wall segments showed normal motion. Findings: Study Quality * Technically sub-optimal due to poor echocardiographic windows. ECG Findings * Normal sinus rhythm. Left Ventricle * LVEF 55-60%. * Normal LV chamber size, wall thickness and function. * Mild left ventricular diastolic dysfunction. Right Ventricle * Normal right ventricular structure and function. Left Atrium * Mild to moderately dilated left atrium. Right Atrium * Mildly dilated right atrium. Aortic Valve * Aortic valve not well visualized. * Grossly, focal areas of calcification. * No aortic regurgitation. * No aortic stenosis. Mitral Valve * Normal mitral valve structure and function. * No mitral regurgitation. * Trace mitral regurgitation. Tricuspid Valve * Normal tricuspid valve structure. * Mild tricuspid regurgitation. * Mild pulmonary hypertension. * Estimated RVSP is 41 mmHg. * Estimated RA pressure is 5 mmHg. Pulmonic Valve * Pulmonic valve not well visualized. Aorta * Normally sized aortic root. Pericardium * The pericardium appears normal. IVC * The IVC is not well evaluated. Pulmonary Artery * Normal visualized portions of the main pulmonary artery. Active Medications Acetaminophen (Tylenol) 650 mg PO Q6HR PRN PRN Reason: Mild Pain Stop: 08/01/18 21:59 Hydrocodone Bitart/Acetaminophen (Newell 5-325 Mg) 1 tab PO Q6H PRN PRN Reason: Moderate Pain Stop: 08/01/18 22:09 Last Admin: 02/01/18 14:46 Dose: 1 tab Amlodipine Besylate (Norvasc) 10 mg PO DAILY [facility]; Protocol Stop: 08/02/18 09:01 Last Admin: 02/02/18 09:01 Dose: 10 mg Aspirin (Aspirin Ec) 162 mg PO DAILY [facility] Stop: 08/02/18 09:01 Last Admin: 02/02/18 09:02 Dose: 162 mg Calcium Carbonate (Tums) 500 mg PO DAILY [facility] Stop: 08/02/18 09:01 Last Admin: 02/02/18 09:00 Dose: 500 mg Dextrose/Water (Dextrose 50% (Syg)) 25 ml IVP AD PRN PRN Reason: Hypoglycemia Stop: 08/01/18 20:16 Furosemide (Lasix) 20 mg PO DAILY [facility] Stop: 08/04/18 09:01 Last Admin: 02/02/18 09:02 Dose: 20 mg Gabapentin (Neurontin) 1,200 mg PO TID [facility] Stop: 08/01/18 15:01 Last Admin: 02/02/18 09:00 Dose: 1,200 mg Glucagon (Glucagen) 1 mg IM ONCE PRN PRN Reason: Hypoglycemia Stop: 08/01/18 20:16 Glucose (Gluctose) 15 gm PO ONCE PRN PRN Reason: Hypoglycemia Stop: 08/01/18 20:16 Glucose (Gluctose) 30 gm PO ONCE PRN PRN Reason: Hypoglycemia Stop: 08/01/18 20:16 Heparin Sodium (Porcine) (Heparin) 5,000 unit SQ Q12HCO [facility] Stop: 08/02/18 18:01 Last Admin: 02/02/18 05:03 Dose: 5,000 unit Dextrose (Dextrose 5%) 1,000 mls @ 100 mls/hr IVC .Q10H PRN PRN Reason: HYPOGLYCEMIA Stop: 08/01/18 20:16 Insulin Detemir (Levemir) 69 unit SQ HS [facility] Stop: 08/01/18 21:01 Last Admin: 02/01/18 20:25 Dose: 69 unit Insulin Human Lispro (Humalog) 0 units SQ HS [facility]; Protocol Stop: 08/01/18 21:01 Last Admin: 02/01/18 20:35 Dose: 12 units Insulin Human Lispro (Humalog) 0 units SQ TIDAC [facility]; Protocol Stop: 08/01/18 13:01 Last Admin: 02/02/18 08:59 Dose: 12 units Loratadine (Claritin) 10 mg PO DAILY [facility] Stop: 08/02/18 09:01 Last Admin: 02/02/18 09:02 Dose: 10 mg Metoprolol Tartrate (Lopressor) 50 mg PO BID [facility] Stop: 08/01/18 12:49 Last Admin: 02/02/18 09:00 Dose: 50 mg Naloxone HCl (Narcan) 0.4 mg IVP Q2MIN PRN PRN Reason: SEE COMMENTS Stop: 08/01/18 10:34 Nitroglycerin (Nitroglycerin) 0.4 mg SL Q5MIN PRN PRN Reason: Chest Pain Stop: 08/02/18 04:49 Omeprazole (Prilosec) 40 mg PO DAILY [facility] Stop: 08/02/18 09:01 Last Admin: 02/02/18 09:01 Dose: 40 mg Oxycodone HCl (Roxicodone) 10 mg PO Q6H PRN; Protocol PRN Reason: Severe Pain Stop: 08/01/18 22:10 Last Admin: 02/02/18 03:54 Dose: 10 mg Pharmacy Profile Note (Patient Taking Own Medication) 0 each PO DAILY [facility] Stop: 08/02/18 09:01 Last Admin: 02/02/18 09:02 Dose: Not Given Simvastatin (Zocor) 10 mg PO HS [facility] Stop: 08/02/18 21:01 Last Admin: 02/01/18 20:22 Dose: 10 mg Sucralfate (Carafate) 1 gm PO QIDAC [facility] Stop: 08/01/18 11:31 Last Admin: 02/02/18 06:47 Dose: 1 gm Tizanidine HCl (Zanaflex) 2 mg PO TID PRN PRN Reason: ACHES IN LEGS - Imaging and Cardiology Echo: report reviewed - EKG Interpretation EKG results cardiology: personally reviewed (SR with frequent PVCs), other (12 hr tele AVG HR 69, PVCs, couplet-triplets of PVCs noted) Consult Discharge Plan - Plan Referrals: Abigail Greco, ME[employer] SERVICE TEAM MEMBER [Primary Care Provider] - 02/06/18 9:00 am (Your appointment has been requested. our offices will call you with an appointmnt time and date. )
--- NOTE | 2018-02-02 11:34 | Internal Med Progress Note ---
Hospitalist Progress Note - Encounter Date of Encounter: 02/02/18 Time of Encounter: 11:31 - Subjective Interval History: Patient seen and examined at bedside, denies any chest pain palpitations or shortness of breath at this time. Patient was seen by cardiology she will undergo a 2 day stress test NPO at this time-reviewed treatment plan patient verbalized understanding - Exam Vitals: Temp Pulse Resp BP Pulse Ox 97.6 F 66 16 146/63 96 02/02/18 07:56 02/02/18 07:56 02/02/18 07:56 02/02/18 07:56 02/02/18 07:56 Exam: General appearance: Present: A&O X 3, no acute distress Exam: - Head Head exam: Present: normocephalic - Eye Eye exam: Present: normal appearance - ENT ENT exam: Present: mucous membranes moist - Respiratory Respiratory exam: Present: CTAB. Absent: accessory muscle use, rales, rhonchi, wheezes - Cardiovascular Cardiovascular exam: Present: RRR, +S1, +S2. Absent: diastolic murmur, gallop, rubs, systolic murmur - GI/Abdominal GI/Abdominal exam: Present: normal bowel sounds, soft, no peritoneal signs. Absent: distended, tenderness - Extremities Exam Extremities exam: No pedal edema - Neurological Exam Neurological exam: Present: alert, oriented X3 - Psychiatric Psychiatric exam: Present: normal mood - Skin Skin exam: Present: normal color - Assessment and Plan (1) Diabetes mellitus Current Visit: No Status: Chronic Assessment and Plan: Will hold patient's metformin but continue patient's home dose of Lantus 01/31 Is had elevated blood glucose 542 continue with Lantus as well as high sliding [id number] before meals and at bedtime 02/01 Glucose has improved continue with Lantus as well as highs sliding scale. Continue with Accu-Cheks before meals at bedtime and diabetic diet 02/02 Continue with Lantus as well as high sliding scale continue with Accu-Cheks before meals at bedtime as well as diabetic diet (2) DVT prophylaxis Current Visit: No Status: Acute Assessment and Plan: Subcutaneous heparin (3) HLD (hyperlipidemia) Current Visit: No Status: Chronic Assessment and Plan: Continue patient's home dose of statin (4) LUCIUS (obstructive sleep apnea) Current Visit: No Status: Chronic Assessment and Plan: Patient to wear CPAP daily at bedtime 01/31 Patient refusing CPAP 02/01 Patient refusing CPAP 02/02 patient continues to refuse CPAP (5) Obesity hypoventilation syndrome Current Visit: No Status: Chronic Assessment and Plan: Patient to wear CPAP daily at bedtime as above 01/31 Patient has been refusing CPAP continue with oxygen 02/01 Continue with oxygen patient is refusing CPAP at this time 02/02 continue with oxygen patient continues to refuse CPAP (6) Secondary pulmonary hypertension Current Visit: No Status: Chronic Assessment and Plan: Monitor on continuous pulse oximetry 01/31 Continuous pulse ox oxygen as needed patient refusing CPAP 02/02 Continue with oxygen refusing CPAP (7) HTN (hypertension) Current Visit: No Status: Chronic Assessment and Plan: /Patient's home dose of amlodipine and metoprolol (8) Acute on chronic diastolic (congestive) heart failure Current Visit: Yes Status: Acute Assessment and Plan: Patient with shortness of breath, chest pressure and orthopnea 2 days after Thanksgiving dinner suspect secondary to increased sodium intake. Educated patient and the importance of compliance with low sodium diet. Patient with slightly elevated BNP on admission at 120 with mild vascular congestion on chest x-ray. Initial dose of IV Lasix 20 mg was given in the ER. Will initiate IV Lasix is 20 mg twice daily in addition to fluid restriction and strict I's and O's and daily weights. 01/31 No chest pain or shortness of breath this time we will continue to diurese Patient will require education concerning low-sodium diet Continue with IV Lasix fluid restriction and daily weights and strict diagnosed 6 minute walk for home O2 qualification 02/01 Patient does qualify for home O2 which we will continue Continue with fluid restriction daily weights and intake and output-1000 mL's yesterday We will switch IV Lasix to by mouth Obtain cardiac echo Previous echo completed Impressions: LVEF 55%. Mild concentric left ventricular hypertrophy. Mild left ventricular diastolic dysfunction. Mildly dilated left atrium. Trace mitral regurgitation. Unable to estimate RVSP due to lack of TR jet. 02/02 Patient qualifies for home O2 which we will continue cont with fluid restriction and monitor intake output IV Lasix switched to oral Echo has been obtained see above Monitor weight (9) Frequent PVCs Current Visit: Yes Status: Acute Assessment and Plan: Patient has frequent PVCs occurring on telemetry overnight as well as on EKG. EKG did capture bigeminy as well as trigeminy. Patient reports chronic history of irregular rhythm and is on metoprolol however she has not seen a research and insights executive in several years . Denies any palpitation or chest pain at this time Potassium is 3.8 mag 1.9 TSH 5.212-we will obtain cardiac echo [place] [facility] cardiology appreciate recommendations we will maintain potassium 4 and mag of 2 Continuous cardiac monitoring 02/02 Continues to have frequent PVCs lab work unremarkable and stable at this time Vegetable Packer been consulted-nothing by mouth for 2 day stress test Continuous cardiac monitoring - Time Spent with Patient Total time spent is greater than 50% in coordination of care (as documented) at patient's floor/unit and/or counseling patient: Internal Medicine: Result - Labs CBC & Chem 7: 02/02/18 05:12 02/02/18 05:12 Labs: Short CBC 02/02/18 Range/Units 05:12 WBC 8.0 (4.3-11.1) K/mcL Hgb 12.8 (11.5-15.4) g/dL Hct 42.0 (35.3-44.9) % Plt Count 182 (140-400) K/mcL Neutrophils # 4.5 (1.6-8.9) K/mcL BMP 02/02/18 05:12 Sodium 136 Potassium 4.4 Chloride 104 Carbon Dioxide 27 BUN 30 H Creatinine 0.91 Glucose 302 H Calcium 9.1 - Impressions Impressions Echocardiogram 02/01/18 10:21 Impressions: LVEF 55-60%. Normal LV chamber size, wall thickness and function. Mild left ventricular diastolic dysfunction. Normal right ventricular structure and function. Mild tricuspid regurgitation. Mild pulmonary hypertension. Estimated RVSP is 41 mmHg. Left Ventricular Wall Motion: Rest Echo Findings All wall segments showed normal motion. Findings: Study Quality * Technically sub-optimal due to poor echocardiographic windows. ECG Findings * Normal sinus rhythm. Left Ventricle * LVEF 55-60%. * Normal LV chamber size, wall thickness and function. * Mild left ventricular diastolic dysfunction. Right Ventricle * Normal right ventricular structure and function. Left Atrium * Mild to moderately dilated left atrium. Right Atrium * Mildly dilated right atrium. Aortic Valve * Aortic valve not well visualized. * Grossly, focal areas of calcification. * No aortic regurgitation. * No aortic stenosis. Mitral Valve * Normal mitral valve structure and function. * No mitral regurgitation. * Trace mitral regurgitation. Tricuspid Valve * Normal tricuspid valve structure. * Mild tricuspid regurgitation. * Mild pulmonary hypertension. * Estimated RVSP is 41 mmHg. * Estimated RA pressure is 5 mmHg. Pulmonic Valve * Pulmonic valve not well visualized. Aorta * Normally sized aortic root. Pericardium * The pericardium appears normal. IVC * The IVC is not well evaluated. Pulmonary Artery * Normal visualized portions of the main pulmonary artery. Consult Discharge Plan - Plan Referrals: Abigail Greco CNP [Primary Care Provider] - 02/06/18 9:00 am (Your appointment has been requested. our offices will call you with an appointmnt time and date. ) (1) Diabetes mellitus Qualifiers: Diabetes mellitus type: type 2 Chronic kidney disease stage: unspecified stage (3) HLD (hyperlipidemia) Qualifiers: Hyperlipidemia type: unspecified Qualified Code(s): E78.5 - Hyperlipidemia, unspecified (7) HTN (hypertension) Qualifiers: Hypertension type: essential hypertension Qualified Code(s): I10 - Essential (primary) hypertension
--- NOTE | 2018-02-02 16:33 | Electrocardiograph Report ---
[address] [address] Test Date: 2018-01-31 Pat Name: Alicja Clifford Department: 113 Room: [facility] Gender: F Research Statistician: : 1950 Requested By: [id number] Order Number: [id number] Reading MD: Tommie Pelletier Measurements Intervals [place] Rate: 76 P: 72 OR: 169 QRS: 15 QRSD: 115 T: 14 QT: 397 QTc: 428 Interpretive Statements SINUS RHYTHM WITH FREQUENT VENTRICULAR PREMATURE COMPLEXES POSSIBLE LEFT ATRIAL ENLARGEMENT MODERATE INTRAVENTRICULAR CONDUCTION DELAY Electronically Signed On 02-02-2018 16:31:53 EST by Tommie Pelletier
--- NOTE | 2018-02-02 20:39 | Electrocardiograph Report ---
[address] [address] Test Date: 2018-01-31 Pat Name: Alicja Clifford Department: 113 Room: 3B Gender: F Key Attendant: : 1950 Requested By: Alix Hutton Order Number: [id number] Reading MD: Tommie Pelletier Measurements Intervals [place] Rate: 79 P: 67 [place]: 163 QRS: 11 QRSD: 111 T: 9 QT: 398 QTc: 432 Interpretive Statements SINUS RHYTHM WITH FREQUENT VENTRICULAR PREMATURE COMPLEXES MODERATE INTRAVENTRICULAR CONDUCTION DELAY Electronically Signed On 02-02-2018 20:37:20 EST by Tommie Pelletier
--- NOTE | 2018-02-02 21:28 | Electrocardiograph Report ---
[address] [place], [place] [address] Test Date: 2018-02-01 Pat Name: Alicja Clifford Department: 113 Room: 3B Gender: F Television Producer: : 1950 Requested By: Alix Hutton Order Number: [id number] Reading MD: Tommie Pelletier Measurements Intervals [place] Rate: 61 P: 71 [place]: 168 QRS: 17 QRSD: 109 T: 27 QT: 408 QTc: 411 Interpretive Statements SINUS RHYTHM POSSIBLE LEFT ATRIAL ENLARGEMENT MODERATE INTRAVENTRICULAR CONDUCTION DELAY Electronically Signed On 02-02-2018 21:26:23 EST by Tommie Pelletier
[2018-02-02] MEDS: Insulin DETEMIR 100 UNIT/ML X5UNITS SQ SCH (21:52)
[2018-02-03 04:16] LABS: Basophils % 0.4 %; Eosinophils # 0.1 K/mcL (0.0-0.6); Eosinophils % 1.3 %; Hemoglobin 13.2 g/dL (11.5-15.4); Immature Granulocytes % 0.7 % (0-4); Lymphocytes # 2.3 K/mcL (0.6-4.6); Lymphocytes % 27.1 %; Mean Corpuscular HGB Conc 30.7 g/dL (31.6-35.5); Mean Corpuscular Hemoglobin 28.4 pg (28.0-33.3); Mean Corpuscular Volume 92.7 fL (83.0-100.0); Mean Platelet Volume 11.1 fL (9.4-12.4); Monocytes # 0.8 K/mcL (0.0-1.3); Monocytes % 9.1 %; Neutrophils # 5.2 K/mcL (1.6-8.9); Platelet Count 189 K/mcL (140-400); Red Blood Count 4.64 M/mcL (3.82-4.97); Red Cell Distribution Width 14.3 % (11.5-14.5); Segmented Neutrophils % 61.4 %
[2018-02-03] MEDS: *HR* OxyCODONE Immed Rel 5 MG TABLET PO PRN ×2 (04:23→23:50)
[2018-02-03] MEDS: *HR* Heparin 5,000 UNIT/ML VIAL SQ SCH ×2 (04:24→17:55)
[2018-02-03 04:33] LABS: BUN/Creatinine Ratio 28 (6-26); Blood Urea Nitrogen 28 mg/dL (8-23); Calcium 9.2 mg/dL (8.6-10.3); Carbon Dioxide 26 mEq/L (23-29); Chloride 101 mEq/L (98-107); Glucose 280 mg/dL (70-105); Osmolality,Calculated 296 (280-300); Potassium 4.8 mEq/L (3.5-5.1); Sodium 135 mEq/L (136-145); eGFR For Non-African Americans 55 (> 60)
[2018-02-03] MEDS ORDERED: Regadenoson 0.4 MG/5 ML SYRINGE IVP ONE (05:53)
[2018-02-03] MEDS: Loratadine 10 MG TABLET PO SCH (10:08)
[2018-02-03] MEDS: Aspirin Enteric Coated 81 MG Tablet PO SCH (10:08)
[2018-02-03] MEDS: *HR* HYDROcodone/Acet 5/325 mg TABLET PO PRN (10:08)
[2018-02-03] MEDS: amLODIPine 5 MG TABLET PO SCH (10:08)
[2018-02-03] MEDS: Furosemide 20 MG TABLET PO SCH (10:08)
[2018-02-03] MEDS: Gabapentin 400 MG CAPSULE PO SCH ×3 (10:08→21:34)
[2018-02-03] MEDS: Sucralfate 1 GM TABLET PO SCH ×4 (10:08→21:34)
[2018-02-03] MEDS: Insulin LISPRO 300 UNITS/3 ML VIAL SQ SCH ×4 (10:11→21:35)
[2018-02-03] MEDS: (Potassium Gluconate [Potassium] 99 MG) PO SCH (10:13)
--- NOTE | 2018-02-03 11:56 | Event Note ---
Date of Encounter: 02/03/18 Time of Encounter: 11:54 - Cardiology Event Note 2 day stress test resulted--perfusion imaging showed evidence of beulah-infarct ischemia in the basal inferolateral segment. Pharmacologic ECG was non diagnostic for ischemia. Gated EF = 58%. The LV is dilated. There is no evidence of TID. Given abnormal stress test, frequent PVCs, risk factors and symptoms, recommend LHC to further evaluate. R/B/A discussed. Pt agreeable to proceed. LHC today.
[2018-02-03] MEDS ORDERED: ISOVUE-370 200 ML INFUS..BTL ONE (12:57)
[2018-02-03] MEDS ORDERED: 0.9 % Sodium Chloride 1,000 ML ONE ×2 (12:57→13:41)
[2018-02-03] MEDS ORDERED: Nitroglycerin 1,000 MCG/10 ML VIAL IV ONE (12:57)
[2018-02-03] MEDS ORDERED: Heparin 1,000 UNITS/500 mL 500 ML ONE (12:57)
[2018-02-03] MEDS ORDERED: *HR* Heparin 10,000 UNIT/10 ML VIAL ONE (12:57)
[2018-02-03] MEDS ORDERED: Naloxone 0.4 MG/ML INJ IVP PRN (13:33)
[2018-02-03] MEDS ORDERED: *HR* Midazolam HCl 2 MG/2 ML VIAL ONE (13:44)
[2018-02-03] MEDS ORDERED: *HR* FentaNYL (PF) 100 MCG/2 ML VIAL ONE (13:44)
--- NOTE | 2018-02-03 13:56 | Pre-Sedation Evaluation ---
Pre-sedation evaluation - Pre-sedation checklist Date of procedure: 02/03/18 Procedure: [facility] Recent Vitals: Last Vital Signs Temp 98.4 F 02/03/18 06:45 Pulse 55 02/03/18 06:45 Resp 16 02/03/18 06:45 BP 169/72 02/03/18 06:45 Pulse Ox 92 02/03/18 06:45 H&P (including ROS) documented in medical record: Yes Previous reaction to sedatives/anesthetics: No Dietary Status: NPO 6 hours prior to procedure Airway Assessment: Patient can open mouth completely, TMJ function normal, Micrognathia (under-bite, receding chin) absent, Neck with adequate range of motion Dentition: No loose teeth or bridges Possible difficult airway: Yes If Yes;: Morbid obesity ASA Classification *see protocol: CLASS II-Mild systemic disease Cardiac Registry (Cardio Only) - Functional Capacity Functional Capacity: < 4 METS - Clincal Frailty Scale Clinical Frailty Scale: Vulnerable
[2018-02-03] MEDS ORDERED: Naloxone 0.4 MG/ML INJ ONE (14:09)
--- NOTE | 2018-02-03 14:24 | Internal Med Progress Note ---
Hospitalist Progress Note - Encounter Date of Encounter: 02/03/18 Time of Encounter: 13:32 - Subjective Interval History: Seen and examined at bedside today. No acute changes overnight. - Exam Vitals: Temp Pulse Resp BP Pulse Ox 98.4 F 55 16 169/72 92 02/03/18 06:45 02/03/18 06:45 02/03/18 06:45 02/03/18 06:45 02/03/18 06:45 Exam: PHYSICAL EXAMINATION: GENERAL: The patient is an obese female, NAD, a and O 3 HEENT: Head is normocephalic and atraumatic. Extraocular muscles are intact. Pupils are equal, round, and reactive to light and accommodation. NECK: Supple. No carotid bruits. No lymphadenopathy or thyromegaly. LUNGS: Clear to auscultation B/L AP and L. HEART: Regular rate and rhythm, S1, S2 without murmur. ABDOMEN: Soft, nontender, and nondistended. Positive bowel sounds. No hepatosplenomegaly was noted. EXTREMITIES: Without any cyanosis, clubbing, rash, lesions or edema. NEUROLOGIC: Cranial nerves II through XII are grossly intact. SKIN: No ulceration or induration present. - Assessment and Plan (1) Acute on chronic diastolic (congestive) heart failure Current Visit: Yes Status: Acute Assessment and Plan: CHF exacerbation with mild vascular congestion continue diuretics continue I&O monitoring and daily weight repeat echo LVEF 55-60%. Normal LV chamber size, wall thickness and function. Mild left ventricular diastolic dysfunction. Normal right ventricular structure and function. Mild tricuspid regurgitation. Mild pulmonary hypertension. Estimated RVSP is 41 mmHg. (2) Diabetes mellitus Current Visit: No Status: Chronic Assessment and Plan: holding oral hypoglycemic agents continue basal insulin continue HSSIC (3) HLD (hyperlipidemia) Current Visit: No Status: Chronic Assessment and Plan: Continue STATIN (4) LUCIUS (obstructive sleep apnea) Current Visit: No Status: Chronic Assessment and Plan: refusing CPAP (5) Obesity hypoventilation syndrome Current Visit: No Status: Chronic Assessment and Plan: chronic; refusing CPAP (6) Secondary pulmonary hypertension Current Visit: No Status: Chronic (7) HTN (hypertension) Current Visit: No Status: Chronic Assessment and Plan: stable continue anti-HTN meds (8) Frequent PVCs Current Visit: Yes Status: Acute Assessment and Plan: Patient has frequent PVCs occurring on telemetry overnight as well as on EKG. EKG did capture bigeminy as well as trigeminy. Patient reports chronic history of irregular rhythm and is on metoprolol however she has not seen a office technologist in several years . Denies any palpitation or chest pain at this time Potassium is 3.8 mag 1.9 TSH 5.212-we will obtain cardiac echo Dresser Tender cardiology appreciate recommendations we will maintain potassium 4 and mag of 2 Continuous cardiac monitoring 02/02 Continues to have frequent PVCs lab work unremarkable and stable at this time Naval Architect Specialist been consulted-nothing by mouth for 2 day stress test Continuous cardiac monitoring 02/03--persistent LHC today patient drowsy s/p LHC; will remain for monitoring overnight (9) DVT prophylaxis Current Visit: No Status: Acute Assessment and Plan: Continue Subcutaneous heparin - Time Spent with Patient Total time spent is greater than 50% in coordination of care (as documented) at patient's floor/unit and/or counseling patient: less than 15 minutes Plan of Care Discussed with: patient Internal Medicine: Result - Labs CBC & Chem 7: 02/03/18 04:02 02/03/18 04:02 Labs: Short CBC 02/03/18 Range/Units 04:02 WBC 8.5 (4.3-11.1) K/mcL Hgb 13.2 (11.5-15.4) g/dL Hct 43.0 (35.3-44.9) % Plt Count 189 (140-400) K/mcL Neutrophils # 5.2 (1.6-8.9) K/mcL BMP 02/03/18 04:02 Sodium 135 L Potassium 4.8 Chloride 101 Carbon Dioxide 26 BUN 28 H Creatinine 1.00 Glucose 280 H Calcium 9.2 Consult Discharge Plan - Plan Referrals: Abigail Greco, [facility] [employer] [Primary Care Provider] - 02/06/18 9:00 am (Your appointment has been requested. our offices will call you with an appointmnt time and date. ) (2) Diabetes mellitus Qualifiers: Diabetes mellitus type: type 2 Chronic kidney disease stage: unspecified stage Qualified Code(s): E11.22 - Type 2 diabetes mellitus with diabetic chronic kidney disease; Z79.4 - parts counterman (current) use of insulin (3) HLD (hyperlipidemia) Qualifiers: Hyperlipidemia type: unspecified Qualified Code(s): E78.5 - Hyperlipidemia, unspecified (7) HTN (hypertension) Qualifiers: Hypertension type: essential hypertension Qualified Code(s): I10 - Essential (primary) hypertension
--- NOTE | 2018-02-03 14:35 | Event Note ---
Date of Encounter: 02/03/18 Time of Encounter: 14:34 - Cardiology Event Note [facility] completed--normal coronaries, no intervention warranted. Cardiology signing off. ReconsultPRN.
--- NOTE | 2018-02-03 14:42 | Invasive Diagnostic Lab Proc ---
Name: Alicja Clifford Date of Study: 02/03/2018 Date: 1950 Ht: 66.9in Medical Record#: [id number] Age: 67 Wt: 295.42lb Gender: Female BSA: 2.38 Order #: [id number] BMI: 46.37 Physicians Procedure Physician: Viviana Castellon MD, [facility] Referring MD: Referring MD: Staff Name Position Time In Sites, Sylwia RT (R) Monitor 01:46 PM Sylwia Mak RT (R) Scrub 01:47 PM Gennaro Reynoso RN Education Program Specialist 01:47 PM Indications Indication Abnormal Test - Stress Procedures Performed Procedure L HRT ARTERY/VENTRICLE ANGIO Pre-Procedure Checklist Informed consent is complete signed and on chart. H&P is on chart. ID band is on and ID verified with patient. Patient NPO for procedure The procedure was described for the patient and questions were answered. Blood Pressure: 169/72 ECG is on chart. Rhythm: NSR Plan of Care Patient will tolerate the procedure without complications. Adequate level of comfort will be maintained. Hemodynamics will remain stable Patient will recover from procedure without complications. Respiratory function will be maintained. Cardiac rhythm will remain stable. Patient temperature will be maintained. Patient and/or family have verbalized understanding of the procedure. Patient Education Chief Complaint/Reason for Test: Cardiac Cath Developmental Category: Geriatric (65+ years) Developmentally Appropriate for Age: Yes Learning Barriers: None Education Needs: Procedure Education Method: Verbal Information Taught: Cardiac Cath Educational Evaluation: Able to repeat information Intravenous Access Time IV Size Location DC'd Fluid/Drip Rate Units RN 20g 1 03/13" Patent On Arrival 0.9NaCl 50 ml/hr Gennaro Reynoso RN Allergies SULFA (sulfonamide) glimepiride glipizide promethazine Vital Signs Time BP (mmHg) HR (bpm) O2 Sat. RR (bpm) LOC 01:56 PM 147 / 82 62 86 % 02:01 PM 148 / 85 66 94 % 02:06 PM 147 / 93 79 87 % 29 02:11 PM 142 / 73 63 94 % 10 02:16 PM 138 / 78 68 96 % 11 02:21 PM 137 / 73 76 95 % 10 Procedural Medications Time Medication Dose Units Method Given By 01:47 PM Oxygen 2 L/min nasal cannula Gennaro Reynoso RN 01:59 PM Versed 2 mg Intravenous Gennaro Reynoso RN 01:59 PM Fentanyl 50 mcg Intravenous Gennaro Reynoso RN 02:14 PM Lidocaine 2% 19 ml Subcutaneous Viviana Castellon MD, [facility] ASA Classification: CLASS II- Mild systemic disease (i.e. well-controlled diabetes, hypertension, asthma, cigarette smoking) Belinda Score Preprocedure Postprocedure Activity 2- Moves 4 extremities sustained head lift Activity 2- Moves 4 extremities sustained head lift Circulation 2- SBP +/= 20 points of pre-anesthetic level Circulation 2- SBP +/= 20 points of pre-anesthetic level Consciousness 2- Awake and alert oriented x 3 Consciousness 2- Awake and alert oriented x 3 O2 Saturation 2- Able to maintain O2 satruation of 92% on room air O2 Saturation 2- Able to maintain O2 satruation of 92% on room air Respiratory 2- Able to deep breathe and cough well Respiratory 2- Able to deep breathe and cough well Total Score 10 Total Score 10 Contrast Agent: Isovue Diagnostic Contrast: 79 ml Total Contrast: 79 ml Fluoro Dose: 5915 mGy Procedure Log Time Note Enter By 01:27 PM CathStat 01:46 PM Pt arrived to laborer salvage 2 at 13:46 tsites 01:47 PM Sylwia Thorne RT (R) Position: Monitor Time in: 13:46 tsites 01:47 PM Sylwia Mak RT (R) Position: Scrub Time in: 13:47 tsites 01:47 PM Gennaro Reynoso RN Position: Education Program Specialist Time in: 13:47 tsites 01:47 PM Patient charges- Angio tray pack, Navilyst 3mm J, Pulse Oximetry and ACIST tubing and transducer tsites 01:47 PM Physician arrived 13:47 tsites 01:47 PM Meet and greet completed tsites 01:47 PM Sign in performed according to hospital policy. Informed consent was obtained. tsites 01:47 PM Procedure start 13:47 tsites 01:48 PM Time: 13:47 Oxygen on at 2 L/min per nasal cannula by Gennaro Reynoso RN tsites 01:55 PM Vitals capture started with the following parameters, Patient=Adult, Interval=5 min, Initial Zthaqhyr=283 mmHg, Deflation Rate=5 mmHg, Cuff placed on Right Arm 01:56 PM HR=62 bpm, GHUE=871/82 mmhg, SpO2=86.0 % 01:59 PM Hair removed from procedure site in holding area using clippers. Right groin prepped with Chloraprep by Sylwia Thorne (Talia), then patient was draped. Skin intact. tsites 01:59 PM Time: 13:59 Versed 2 mg Intravenous Given by Gennaro Reynoso RN tsites 01:59 PM Time: 13:59 Fentanyl 50 mcg Intravenous Given by Gennaro Reynoso RN tsites 02:00 PM Clinical Presentation: Unstable angina tsites 02:00 PM Pressure channel 1 zero failed. 02:00 PM Pressure channel 1 zeroed. 02:00 PM Recorded ECG: HR=64 Condition=Condition 1 02:01 PM HR=66 bpm, SLUW=682/85 mmhg, SpO2=94.0 % 02:06 PM HR=79 bpm, AAAW=285/93 mmhg, SpO2=87.0 %, Resp=29 B/min 02:11 PM HR=63 bpm, TPCI=031/73 mmhg, SpO2=94.0 %, Resp=10 B/min 02:12 PM Time out was performed according to hospital policy. Conscious sedation and anesthesia was achieved (see medication log with in this report above) tsites 02:14 PM Time: 14:14 19 ml Lidocaine 2% to right groin Subcutaneous Given by Viviana Castellon MD, [facility] tsites 02:16 PM HR=68 bpm, BRPX=143/78 mmhg, SpO2=96.0 %, Resp=11 B/min 02:17 PM Access obtained by percutaneous puncture. 5Fr 10cm Terumo [place] sheath placed in right Femoral artery. [id number] tsites 02:17 PM 5Fr FL 4 catheter inserted over the wire [facility] tsites 02:17 PM 0.035 145cm Navilyst 3mmJ wire [id number] tsites 02:18 PM LCA angiography performed in multiple views. tsites 02:18 PM Recorded Pressure: Ao, HR=67, Condition=Condition 1 (Aorta) Ao 107/65/84 02:19 PM wire reinserted catheter removed tsites 02:19 PM 5Fr FR 4 catheter inserted over the wire [facility] tsites 02:20 PM RCA angiography performed in multiple views. tsites 02:21 PM HR=76 bpm, PYGN=153/73 mmhg, SpO2=95.0 %, Resp=10 B/min 02:21 PM Recorded Pressure: Ao, HR=78, Condition=Condition 1 (Aorta) Ao 147/64/100 02:21 PM wire reinserted catheter removed tsites : PM 5Fr Pigtail catheter inserted over the wire [facility] tsites 02: PM Catheter crossed the aortic valve and was selectively placed in the left ventricle. Pressures recorded on pullback for left heart catheterization. tsites 02: PM Bolus angiogram of left Ventricle complete: 8 ml/sec for a total of 24 mls tsites 02: PM Pressure channel 1 zero failed. 02: PM Pressure channel 1 zeroed. 02:23 PM Recorded Pressure: LV, HR=77, Condition=Condition 1 (Left Ventricle) LV 136/-4/13 02:23 PM Recorded Pressure: LV, Ao, HR=70, Condition=Condition 1 (Left Ventricle) LV 97/22/33, (Aorta) Ao 93/33/63 02:24 PM wire reinserted catheter removed tsites 02: PM Physician reviewing films tsites : PM Bolus angiogram of right Femoral complete: 2 ml/sec for a total of 4 mls tsites 02:25 PM Procedure completed at 14:25 02/03/2018 tsites 02: PM Sign out completed: Radiation Dose 555 mGy, 5915 cGy/cm2 Fluoro Time: Isovue 370 - 200ml contrast 79 ml given by Viviana Castellon MD, [facility]. Complications: None. The patient was discharged out of the lab coordinator in stable condition. Cardiac Rehab Consult needed: NoConfirmed administered medications: Yes tsites 02: PM Isovue 370 - 200ml,1 Bottle(s) used. tsites 02: PM Coronary Dominance: right tsites 02: PM Arterial sheath pulled, Mynx closure device used and was Successful S/N. tsites 02: PM Estimated Blood Loss: minimal tsites 02: PM Post ECG NSR tsites 02: PM Post Blood Pressure 140/78 tsites 02: PM 14:26 Post Pulses Bilateral DP & PT 1+ tsites 02: PM Information taught Cardiac Cath and Mynx tsites 02:27 PM Education needs Procedure, Plan of Care, and Responsibilities of Patient in Care tsites 02: PM Learning barriers :None tsites 02:27 PM Education Methods Verbal tsites 02:27 PM Education evaluation Able to repeat information tsites 02:27 PM Site status No bleeding/hematoma - Rt Groin as reported by Sylwia Mak RT (R) at 14:27 tsites 02:27 PM Opsite applied tsites 02:27 PM Delay to floor No tsites 02:27 PM Patient out of room: 14:27 tsites 02:27 PM Family placed in consult room. tsites 02:27 PM Report given to natividad MCCORMICK Pt taken to 3B Room #65. 14:27 tsites Complications Complication None Hemodynamics Pressures Site Systolic/A Wave Diastolic/V Wave Mean AO 107 65 84 AO 147 64 100 LV 136 -4 13 LV 97 22 33 AO 93 33 63 Post Procedure Information Blood Pressure: 140/78 mmHg Rhythm: NSR Post procedural instructions were given Closure Device Time Device Success/Fail 02/03/2018 2:29:00 PM MynxGrip Successful Site Checks Time Location Status Staff Sheath In? Note 02:27 PM Rt Groin No bleeding/hematoma Sylwia Mak RT (R) Pulses Time Site Pre-Procedure Post-Procedure Note Bilateral DP & PT 2+ Bilateral radial 2+ 2:26:00 PM Bilateral DP & PT 1+ Updated by Sylwia Thorne RT (R) on 02/03/2018 2:31:47 PM Sylwia Thorne RT electronically signed on 02/03/2018 2:32:59 PM with status of Final
[2018-02-03] MEDS: Insulin DETEMIR 100 UNIT/ML X5UNITS SQ SCH (21:35)
[2018-02-04] MEDS: *HR* Heparin 5,000 UNIT/ML VIAL SQ SCH ×2 (05:38→18:02)
[2018-02-04] MEDS: Insulin LISPRO 300 UNITS/3 ML VIAL SQ SCH ×4 (08:53→21:23)
[2018-02-04] MEDS: amLODIPine 5 MG TABLET PO SCH (08:54)
[2018-02-04] MEDS: Gabapentin 400 MG CAPSULE PO SCH ×3 (08:54→21:24)
[2018-02-04] MEDS: Aspirin Enteric Coated 81 MG Tablet PO SCH (08:54)
[2018-02-04] MEDS: Loratadine 10 MG TABLET PO SCH (08:54)
[2018-02-04] MEDS: (Potassium Gluconate [Potassium] 99 MG) PO SCH (08:54)
[2018-02-04] MEDS: Sucralfate 1 GM TABLET PO SCH ×4 (08:54→21:24)
[2018-02-04] MEDS: Furosemide 20 MG TABLET PO SCH (08:54)
--- NOTE | 2018-02-04 10:00 | Discharge Summary ---
Orders not resulted at time of discharge: Pending orders 02/02/18 10:36 NM willi perf SPECT multi [NM] Routine Date of Encounter: 02/04/18 Time of Encounter: 09:58 - Discharge Diagnosis (1) Acute on chronic diastolic (congestive) heart failure Priority: Primary Status: Acute (2) Diabetes mellitus Priority: Secondary Status: Chronic Qualifiers: Diabetes mellitus type: type 2 Chronic kidney disease stage: unspecified stage Qualified Code(s): E11.22 - Type 2 diabetes mellitus with diabetic chronic kidney disease; Z79.4 - prison (current) use of insulin (3) HLD (hyperlipidemia) Priority: Secondary Status: Chronic Qualifiers: Hyperlipidemia type: unspecified Qualified Code(s): E78.5 - Hyperlipidemia, unspecified (4) LUCIUS (obstructive sleep apnea) Priority: Secondary Status: Chronic (5) Obesity hypoventilation syndrome Priority: Secondary Status: Chronic (6) Secondary pulmonary hypertension Priority: Secondary Status: Chronic (7) HTN (hypertension) Priority: Secondary Status: Chronic Qualifiers: Hypertension type: essential hypertension Qualified Code(s): I10 - Essential (primary) hypertension (8) Frequent PVCs Priority: Secondary Status: Acute (9) DVT prophylaxis Priority: Secondary Status: Acute Hospital course: Ms. Clifford is a 67 year old female Discharge discussed with: patient, nurse, solutions delivery consultant - Time Spent with Patient Total time spent providing and/or coordinating discharge services: Less than 30 minutes - Discharge Medications Home Medications: Metformin HCl [Glucophage] 1,000 mg PO BIDWM 03/28/15 [History] Pravastatin Sodium [Pravachol] 20 mg PO DAILY 03/28/15 [History] Cetirizine HCl [Zyrtec] 10 mg PO DAILY 12/14/15 [History] Insulin Glargine,Hum.rec.anlog [Lantus Solostar] 69 unit SQ HS 03/15/16 [Histor y] Potassium Gluconate [Potassium] 99 mg PO DAILY 03/15/16 [History] Furosemide [Lasix] 20 mg PO DAILY #30 tablet 05/11/16 [Rx] Omeprazole [PriLOSEC] 40 mg PO DAILY #30 cap 12/09/16 [Rx] Sucralfate [Carafate] 1 gm PO QIDAC #120 tablet 12/09/16 [Rx] amLODIPine [Norvasc] 10 mg PO DAILY #30 tablet 10/02/17 [Rx] Aspirin [Lo-Dose Aspirin EC] 162 mg PO DAILY 08/22/17 [History] Calcium Carbonate [Calcium] 600 mg PO DAILY 08/22/17 [History] Metoprolol [Lopressor] 50 mg PO BID 08/22/17 [History] Gabapentin [Neurontin] 1,200 mg PO TID 01/30/18 [History] Tizanidine HCl 2 mg PO TID PRN 01/30/18 [History] Allergies/Adverse Reactions: Allergy/AdvReac Type Severity Reaction Status Date / Time glimepiride [From Amaryl] Allergy Unknown Itching Verified 01/30/18 06:21 glipizide Allergy Unknown Itching Verified 01/30/18 06:21 Sulfa (Sulfonamide Allergy Unknown Itching Verified 01/30/18 06:21 Antibiotics) latex Allergy Itching Verified 01/30/18 06:21 Latex, Natural Rubber Allergy Itching Verified 01/30/18 06:21 fentanyl AdvReac Unknown Vomiting Verified 01/30/18 06:21 and weakness promethazine AdvReac Unknown muscle Verified 01/30/18 06:21 spasms Date of admission: 02/03/18 13:33 Primary care physician: Abigail Greco CNP Consults: 02/01/18 12:24 Consult to Cardiology [CONS] Routine Comment: Consulting Provider: Cardiology Yuki Reason for Consult: Bigeminy, trigeminy -frequent PVCs Time Notified: 12:25 Call Completed: Yes Discharging clinician: Dc English Anticipated date of discharge: 02/04/18 - Constitutional Vitals: Temp Pulse Resp BP Pulse Ox 97.9 F 54 18 178/66 97 02/04/18 07:45 02/04/18 07:45 02/04/18 07:45 02/04/18 07:45 02/04/18 07:45 General appearance: Present: A&O X 3, no acute distress - Discharge Instructions Follow Up With: Abigail Greco CNP [Primary Care Provider] - 02/06/18 9:00 am (Your appointment has been requested. our offices will call you with an appointmnt time and date. ) Forms: ED Satisfaction Letter
--- NOTE | 2018-02-04 14:30 | Internal Med Progress Note ---
Hospitalist Progress Note - Encounter Date of Encounter: 02/04/18 Time of Encounter: 14:16 - Subjective Interval History: Seen and examined at bedside today. She is reporting increased weakness and fatigue. No additional complaints at this time - Exam Vitals: Temp Pulse Resp BP Pulse Ox 97.9 F 89 18 137/79 96 02/04/18 10:37 02/04/18 10:37 02/04/18 10:37 02/04/18 10:37 02/04/18 10:37 Exam: PHYSICAL EXAMINATION: GENERAL: The patient is an obese female, NAD, a and O 3 HEENT: Head is normocephalic and atraumatic. EOMI, PERRLA NECK: Supple. No carotid bruits. No lymphadenopathy or thyromegaly. LUNGS: Clear/diminished to auscultation B/L AP and L without rhonchi, rales or wheezing. HEART: Regular rate and rhythm, S1, S2 without murmur. ABDOMEN: Soft, nontender, and nondistended. Positive bowel sounds. No hepatosplenomegaly was noted. EXTREMITIES: Without any cyanosis, clubbing, rash, lesions or edema. NEUROLOGIC: Cranial nerves II through XII are grossly intact. SKIN: No ulceration or induration present. - Assessment and Plan (1) Acute on chronic diastolic (congestive) heart failure Current Visit: Yes Status: Acute Assessment and Plan: CHF exacerbation with mild vascular congestion continue diuretics continue I&O monitoring and daily weight LHC yesterday revealing normal coronaries She does not appear to have volume overload Weight stable LVEF 55-60%. Normal LV chamber size, wall thickness and function. Mild left ventricular diastolic dysfunction. Normal right ventricular structure and function. Mild tricuspid regurgitation. Mild pulmonary hypertension. Estimated RVSP is 41 mmHg. (2) Diabetes mellitus Current Visit: No Status: Chronic Assessment and Plan: holding oral hypoglycemic agents continue basal insulin continue HSSIC (3) HLD (hyperlipidemia) Current Visit: No Status: Chronic Assessment and Plan: Continue STATIN (4) LUCIUS (obstructive sleep apnea) Current Visit: No Status: Chronic Assessment and Plan: refusing CPAP (5) Obesity hypoventilation syndrome Current Visit: No Status: Chronic Assessment and Plan: chronic; refusing CPAP (6) Secondary pulmonary hypertension Current Visit: No Status: Chronic Assessment and Plan: Monitor on continuous pulse oximetry 01/31 Continuous pulse ox oxygen as needed patient refusing CPAP 02/02 Continue with oxygen refusing CPAP (7) HTN (hypertension) Current Visit: No Status: Chronic Assessment and Plan: stable continue anti-HTN meds (8) Frequent PVCs Current Visit: Yes Status: Acute Assessment and Plan: Patient has frequent PVCs occurring on telemetry overnight as well as on EKG. EKG did capture bigeminy as well as trigeminy. Patient reports chronic history of irregular rhythm and is on metoprolol however she has not seen a environmental services worker in several years . Denies any palpitation or chest pain at this time Potassium is 3.8 mag 1.9 TSH 5.212-we will obtain cardiac echo Stable Cleaner cardiology appreciate recommendations we will maintain potassium 4 and mag of 2 Continuous cardiac monitoring 02/02 Continues to have frequent PVCs lab work unremarkable and stable at this time Rectifying Operator been consulted-nothing by mouth for 2 day stress test Continuous cardiac monitoring 02/04--continues to have PVCs on from frequency appears to be decreasing. Continue monitor her on telemetry overnight (9) Generalized weakness Current Visit: Yes Status: Acute Assessment and Plan: Patient reporting that she is having increasing weakness and fatigue today. PT/OT has been consulted and recommended in-home therapy at discharge. We took today. The patient around the unit and she made approximately 50 feet before SPO2 dropped to the 80's. She was placed on O2 and oxygen sats improved. She has qualified for home O2 and will discharge with this as well. Continue monitor overnight and plan a discharge with home O2, home health therapy with PT and OT. (10) DVT prophylaxis Current Visit: No Status: Acute Assessment and Plan: Continue Subcutaneous heparin - Time Spent with Patient Total time spent is greater than 50% in coordination of care (as documented) at patient's floor/unit and/or counseling patient: less than 15 minutes Plan of Care Discussed with: patient Internal Medicine: Result - Labs CBC & Chem 7: 02/03/18 04:02 02/03/18 04:02 Consult Discharge Plan - Plan Referrals: Abigail Greco, [employer]IVIST [employer] [Primary Care Provider] - 02/06/18 9:00 am (Your appointment has been requested. our offices will call you with an appointmnt time and date. ) (2) Diabetes mellitus Qualifiers: Diabetes mellitus type: type 2 Chronic kidney disease stage: unspecified stage Qualified Code(s): E11.22 - Type 2 diabetes mellitus with diabetic chronic kidney disease; Z79.4 - virologist (current) use of insulin (3) HLD (hyperlipidemia) Qualifiers: Hyperlipidemia type: unspecified Qualified Code(s): E78.5 - Hyperlipidemia, unspecified (7) HTN (hypertension) Qualifiers: Hypertension type: essential hypertension Qualified Code(s): I10 - Essential (primary) hypertension
[2018-02-04] MEDS: *HR* HYDROcodone/Acet 5/325 mg TABLET PO PRN ×2 (15:50→23:41)
[2018-02-04] MEDS: Insulin DETEMIR 100 UNIT/ML X5UNITS SQ SCH (21:23)
[2018-02-05] MEDS: *HR* Heparin 5,000 UNIT/ML VIAL SQ SCH (05:40)
[2018-02-05] MEDS: *HR* HYDROcodone/Acet 5/325 mg TABLET PO PRN (05:40)
[2018-02-05] MEDS: Loratadine 10 MG TABLET PO SCH (08:32)
[2018-02-05] MEDS: Gabapentin 400 MG CAPSULE PO SCH ×2 (08:32→16:31)
[2018-02-05] MEDS: Sucralfate 1 GM TABLET PO SCH ×3 (08:32→16:31)
[2018-02-05] MEDS: Furosemide 20 MG TABLET PO SCH (08:32)
[2018-02-05] MEDS: amLODIPine 5 MG TABLET PO SCH (08:32)
[2018-02-05] MEDS: Aspirin Enteric Coated 81 MG Tablet PO SCH (08:32)
[2018-02-05] MEDS: Insulin LISPRO 300 UNITS/3 ML VIAL SQ SCH ×2 (08:35→13:00)
[2018-02-05 11:57] VITALS: BP 138/64
--- NOTE | 2018-02-05 16:30 | Discharge Summary ---
- NOTES TO OUTPATIENT PROVIDER Notes to Outpatient Provider: No pending studies at time of discharge. Prescriptions for oxygen. Prescription for wheeled walker. 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 (3) HLD (hyperlipidemia) Priority: Secondary Status: Chronic Qualifiers: Hyperlipidemia type: unspecified Qualified Code(s): E78.5 - Hyperlipidemia, unspecified (4) LUCIUS (obstructive sleep apnea) Priority: Secondary Status: Chronic (5) Obesity hypoventilation syndrome Priority: Secondary Status: Chronic (6) Secondary pulmonary hypertension Priority: Secondary Status: Chronic (7) HTN (hypertension) Priority: Secondary Status: Chronic Qualifiers: Hypertension type: essential hypertension Qualified Code(s): I10 - Essential (primary) hypertension (8) Frequent PVCs Priority: Secondary Status: Acute (9) Generalized weakness Priority: Secondary Status: Acute (10) DVT prophylaxis Priority: Secondary Status: Acute Hospital course: Ms. Clifford is a 67 year old female admitted with episode acute on chronic diastolic heart failure. Chest x-ray shows mild vascular congestion. Even diuretics and responded favorably. Cardiology seen throughout stay with congestive heart failure and worsening shortness of breath left heart catheter performed. Findings of normal coronaries. Patient's shortness of breath is likely multifactorial with obesity hypoventilation syndrome, obstructive sleep apnea, pulmonary hypertension, and CHF. She is not qualified for home oxygen on multiple occasions throughout the past couple of admissions but has refused this in the oxygen back each time. We once again qualified her for home oxygen and sent her with prescriptions for oxygen and confirm delivery to home. She was also sent with oxygen tank. Additionally, she was qualified for a front wheeled walker to assist with gait. At time of discharge the patient was able to ambulate around the unit on 2 L nasal cannula and remained 98% without respiratory distress. She is instructed to follow-up with PCP within 1 week of discharge. She states that she currently has follow-up appointments cardiology in the outpatient statin. She is also instructed to continue to keep her cardiology follow-up appointments. Additionally, she has been counseled to lose weight. Discharge discussed with: patient, family, nurse - Time Spent with Patient Total time spent providing and/or coordinating discharge services: Less than 30 minutes - Discharge Medications Home Medications: Metformin HCl [Glucophage] 1,000 mg PO BIDWM 03/28/15 [History] Pravastatin Sodium [Pravachol] 20 mg PO DAILY 03/28/15 [History] Cetirizine HCl [Zyrtec] 10 mg PO DAILY 12/14/15 [History] Insulin Glargine,Hum.rec.anlog [Lantus Solostar] 69 unit SQ HS 03/15/16 [History] Potassium Gluconate [Potassium] 99 mg PO DAILY 03/15/16 [History] Furosemide [Lasix] 20 mg PO DAILY #30 tablet 05/11/16 [Rx] Omeprazole [PriLOSEC] 40 mg PO DAILY #30 cap 12/09/16 [Rx] Sucralfate [Carafate] 1 gm PO QIDAC #120 tablet 12/09/16 [Rx] amLODIPine [Norvasc] 10 mg PO DAILY #30 tablet 12/09/16 [Rx] Aspirin [Lo-Dose Aspirin EC] 162 mg PO DAILY 08/22/17 [History] Calcium Carbonate [Calcium] 600 mg PO DAILY 08/22/17 [History] Metoprolol [Lopressor] 50 mg PO BID 08/22/17 [History] Gabapentin [Neurontin] 1,200 mg PO TID 01/30/18 [History] Tizanidine HCl 2 mg PO TID PRN 01/30/18 [History] Allergies/Adverse Reactions: Allergy/AdvReac Type Severity Reaction Status Date / Time glimepiride [From Amaryl] Allergy Unknown Itching Verified 01/30/18 06:21 glipizide Allergy Unknown Itching Verified 01/30/18 06:21 Sulfa (Sulfonamide Allergy Unknown Itching Verified 01/30/18 06:21 Antibiotics) latex Allergy Itching Verified 01/30/18 06:21 Latex, Natural Rubber Allergy Itching Verified 01/30/18 06:21 fentanyl AdvReac Unknown Vomiting Verified 01/30/18 06:21 and weakness promethazine AdvReac Unknown muscle Verified 01/30/18 06:21 spasms Date of admission: 02/03/18 13:33 Primary care physician: Abigail Greco CNP Consults: 02/01/18 12:24 Consult to Cardiology [CONS] Routine Comment: Consulting Provider: Cardiology Yuki Reason for Consult: Bigeminy, trigeminy -frequent PVCs Time Notified: 12:25 Call Completed: Yes 02/04/18 10:33 Consult to Occupational Therapy [CONS] Routine Comment: Evaluate, develop and implement POC Reason for Consult: weakness Does patient have active BEDREST order?: No Is patient medically & hemodynamically stable?: Yes Consult to Physical Therapy [CONS] Routine Comment: Evaluate, develop and implement POC Reason for Consult: weakness Does patient have active BEDREST order?: No Is patient medically & hemodynamically stable?: Yes Discharging clinician: Dc English Anticipated date of discharge: 02/05/18 - Constitutional Vitals: Temp Pulse Resp BP Pulse Ox 98.2 F 61 18 138/64 94 02/05/18 11:55 02/05/18 11:55 02/05/18 11:55 02/05/18 11:55 02/05/18 11:55 General appearance: Present: A&O X 3, no acute distress Exam: PHYSICAL EXAMINATION: GENERAL: The patient is an obese female, NAD, a and O 3 HEENT: Head is normocephalic and atraumatic. EOMI, PERRLA NECK: Supple. No carotid bruits. No lymphadenopathy or thyromegaly. LUNGS: Clear/diminished to auscultation B/L AP and L without rhonchi, rales or wheezing. HEART: Regular rate and rhythm, S1, S2 without murmur rubs or gallops. ABDOMEN: Soft, nontender, and nondistended. Positive bowel sounds. No hepatosplenomegaly was noted. EXTREMITIES: Without any cyanosis, clubbing, rash, lesions or edema. NEUROLOGIC: Cranial nerves II through XII are grossly intact. SKIN: No ulceration or induration present. - Patient Status Disposition: Home, Self-Care Condition: Fair Functional capacity at discharge: independent ambulation Overall status at discharge: patient is not back to baseline - Discharge Instructions Instructions: Heart Failure (DC) Follow Up With: Abigail Greco CNP [Primary Care Provider] - 02/06/18 9:00 am (Your appointment has been requested. our offices will call you with an appointmnt time and date. ) Additional Instructions: Call [employer] when you get home to have them deliver oxygen equipment and rollator walker. [phone]. [facility] has been set up Physical therapy at home. They will contact you once you return home to set up admission date and time. If you need to contact them, the number is [phone]. - Diet and Activity Activity: increase activity as tolerated, resume usual activities as tolerated, wear oxygen at all times, wear oxygen at night Diet: diabetic diet, low fat, low cholesterol, low salt diet
--- NOTE | 2018-02-05 16:41 | Physician Discharge Referral ---
Home Health/Hosp Referral Info Transfer to: Home Health Provider in Charge Post Discharge: PCP - Diagnosis (1) Acute on chronic diastolic (congestive) heart failure Priority: Primary Status: Acute (2) Diabetes mellitus Priority: Secondary Status: Chronic (3) HLD (hyperlipidemia) Priority: Secondary Status: Chronic (4) LUCIUS (obstructive sleep apnea) Priority: Secondary Status: Chronic (5) Obesity hypoventilation syndrome Priority: Secondary Status: Chronic (6) Secondary pulmonary hypertension Priority: Secondary Status: Chronic (7) HTN (hypertension) Priority: Secondary Status: Chronic (8) Frequent PVCs Priority: Secondary Status: Acute (9) Generalized weakness Priority: Secondary Status: Acute (10) DVT prophylaxis Priority: Secondary Status: Acute - Respiratory Orders Smoking Cessation: Smoking cessation has been advised. For more information, call the [place] Tobacco Quit Line at 3-847-CWRO-NOW. - Diet/Nutrition Diet/Nutrition Orders: No Added Salt (ANUPAM), Cardiac, No Concentrated Sweets - Services Needed Following services are medically necessary services: Physical Therapy, O ccupational Therapy - Transfer Medications Home Medications: Metformin HCl [Glucophage] 1,000 mg PO BIDWM 03/28/15 [History] Pravastatin Sodium [Pravachol] 20 mg PO DAILY 03/28/15 [History] Cetirizine HCl [Zyrtec] 10 mg PO DAILY 12/14/15 [History] Insulin Glargine,Hum.rec.anlog [Lantus Solostar] 69 unit SQ HS 03/15/16 [History] Potassium Gluconate [Potassium] 99 mg PO DAILY 03/15/16 [History] Furosemide [Lasix] 20 mg PO DAILY #30 tablet 05/11/16 [Rx] Omeprazole [PriLOSEC] 40 mg PO DAILY #30 cap 12/09/16 [Rx] Sucralfate [Carafate] 1 gm PO QIDAC #120 tablet 12/09/16 [Rx] amLODIPine [Norvasc] 10 mg PO DAILY #30 tablet 12/09/16 [Rx] Aspirin [Lo-Dose Aspirin EC] 162 mg PO DAILY 08/22/17 [History] Calcium Carbonate [Calcium] 600 mg PO DAILY 08/22/17 [History] Metoprolol [Lopressor] 50 mg PO BID 08/22/17 [History] Gabapentin [Neurontin] 1,200 mg PO TID 01/30/18 [History] Tizanidine HCl 2 mg PO TID PRN 01/30/18 [History] Allergies/Adverse Reactions: Allergy/AdvReac Type Severity Reaction Status Date / Time glimepiride [From Amaryl] Allergy Unknown Itching Verified 01/30/18 06:21 glipizide Allergy Unknown Itching Verified 01/30/18 06:21 Sulfa (Sulfonamide Allergy Unknown Itching Verified 01/30/18 06:21 Antibiotics) latex Allergy Itching Verified 01/30/18 06:21 Latex, Natural Rubber Allergy Itching Verified 01/30/18 06:21 fentanyl AdvReac Unknown Vomiting Verified 01/30/18 06:21 and weakness promethazine AdvReac Unknown muscle Verified 01/30/18 06:21 spasms Certification: Further, I certify that my clinical findings support that this patient is homebound (i.e. absences from home require considerable and taxing effort and are for medical reasons or orthodoxy services or infrequently or short duration when for other reasons) because: Homebound Reason: Patient requires assistance of a person or device to safely leave home Attestation: My signature below is to certify that this patient is under my care and that I, or nurse practitioner, or a physician's lpn medical assistant working with me, has a [id number] encounter with this patient.
== END 2018-02-05 17:20 | disposition home or self-care (01) | DRG 286 ==
LOC: 3BNU 05:56 → EMEROOARM 05:56 → SUATTDRO 08:43 → 3BNU 09:09
PROVIDERS: ADMIT Hospitalist; ATTEND Nurse Practitioner

== ENCOUNTER 2018-04-28 14:03 | Observation (INO) ==
--- NOTE | 2018-04-28 15:41 | Emergency Department Note ---
Disposition Clinical Impression: Nausea, Abnormal EKG Abdominal pain Qualifiers: Abdominal location: unspecified location Qualified Code(s): R10.9 - Unspecified abdominal pain Disposition: Admitted As Inpatient Condition: Good Time of Disposition: 20:04 Abdominal Pain HPI - General Chief Complaint: ED Abdominal Pain Stated Complaint: N/V/D, ABD Pain Time Seen by Provider: 04/28/18 15:40 Source: patient Mode of arrival: ambulatory Limitations: no limitations Nursing Notes Reviewed: Yes Vital Signs Reviewed: Yes - History of Present Illness HPI Narrative: Patient is a 67-year-old female past medical history of hypertension, hyperlipidemia, previous cancer, DVT, pancreatitis, cholecystectomy, appendectomy, previous nephrostomy tube placement due to stone versus mass. She presented today due to concern for nausea, diarrhea, abdominal pain. Denies any blood in the stool. She states that the symptoms began about 4-5 days ago. Denies any fevers. Denies any cough, shortness of breath, dysuria, hematuria. She was treated with antibiotic last week for UTI. She currently denies any urinary symptoms. She also states that last summer she was admitted due to pancreatitis. She currently denies any alcohol use or previous. Levels of triglycerides. She has not taken anything home. She says that she has been nauseous but has not actually vomited. She also admits that she had some mild centered chest discomfort yesterday that lasted for a few minutes and then went away. Denied any sweating, shortness of breath during that episode. No previous IN or stents. Pain Scale: 8 - Related Data Home Medications Medication Instructions Recorded Confirmed Metformin HCl [Glucophage] 1,000 mg PO BIDWM 03/28/15 01/30/18 Pravastatin Sodium [Pravachol] 20 mg PO DAILY 03/28/15 01/30/18 Cetirizine HCl [Zyrtec] 10 mg PO DAILY 12/14/15 01/30/18 Insulin Glargine,Hum.rec.anlog 69 unit SQ HS 03/15/16 01/30/18 [Lantus Solostar] Potassium Gluconate [Potassium] 99 mg PO DAILY 03/15/16 01/30/18 Aspirin [Lo-Dose Aspirin EC] 162 mg PO DAILY 08/22/17 01/30/18 Calcium Carbonate [Calcium] 600 mg PO DAILY 08/22/17 01/30/18 Metoprolol [Lopressor] 50 mg PO BID 08/22/17 01/30/18 Gabapentin [Neurontin] 1,200 mg PO TID 01/30/18 01/30/18 Tizanidine HCl 2 mg PO TID PRN 01/30/18 01/30/18 Previous Rx's Medication Instructions Recorded Furosemide [Lasix] 20 mg PO DAILY #30 tablet 05/11/16 Omeprazole [PriLOSEC] 40 mg PO DAILY #30 cap 12/09/16 Sucralfate [Carafate] 1 gm PO QIDAC #120 tablet 12/09/16 amLODIPine [Norvasc] 10 mg PO DAILY #30 tablet 12/09/16 Allergies Allergy/AdvReac Type Severity Reaction Status Date / Time glimepiride [From Amaryl] Allergy Unknown Itching Verified 01/30/18 06:21 glipizide Allergy Unknown Itching Verified 01/30/18 06:21 Sulfa (Sulfonamide Allergy Unknown Itching Verified 01/30/18 06:21 Antibiotics) latex Allergy Itching Verified 01/30/18 06:21 Latex, Natural Rubber Allergy Itching Verified 01/30/18 06:21 fentanyl AdvReac Unknown Vomiting Verified 01/30/18 06:21 and weakness promethazine AdvReac Unknown muscle Verified 01/30/18 06:21 spasms All systems ED: reviewed and negative except as stated. Constitutional: Denies: fever Cardiovascular: Reports: chest pain Respiratory: Denies: dyspnea Gastrointestinal: Reports: abdominal pain, nausea, diarrhea. 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 Psychiatric history: Reports: no psych history - Social History Smoking status: Never smoker Alcohol use: Reports: none Drug use: Reports: none Physical Exam - General Limitations: no limitations General appearance: alert, in no apparent distress - Head Head exam: atraumatic, normocephalic, normal inspection - Eye Eye exam: Present: normal appearance, PERRL, EOMI - ENT ENT exam: normal exam, normal oropharynx, mucous membranes moist - Neck Neck exam: Present: normal inspection, full ROM, trachea midline - Chest Chest inspection: Present: normal inspection, symmetric chest wall rise - Respiratory Respiratory exam: Present: normal lung sounds bilaterally - Cardiovascular Cardiovascular exam: Present: regular rate, normal rhythm, normal heart sounds - Abdominal Exam Abdominal exam: Present: soft, tenderness (Generalized tenderness, worse in bilateral lower quadrants.). Absent: distention, guarding, rebound, rigidity, Singh's sign, Rovsing's sign, tenderness at McBurney's Point - Extremities Exam Extremities exam: Present: normal inspection, full ROM. Absent: tenderness, pedal edema - Neurological Exam Neurological exam: Present: alert, oriented X3 - Psychiatric Psychiatric exam: Present: normal affect, normal mood - Skin Skin exam: Present: warm, dry, intact, normal color Course Course Narrative: Patient has generalized abdominal tenderness. She has a history of multiple abdominal surgeries. She also has a history of pancreatitis. She also has a recent UTI was treated with antibiotic. We will perform CT abdomen and pelvis without contrast. We will also obtain GC, BMP, LFTs, lipase, urinalysis for further assessment. We will give the patient Zofran for nausea. We will also give the patient Dilaudid for rate control. She states that she has allergies to morphine and fentanyl. 20:01 labs show negative troponin, negative lipase no signs of UTI. Chest x-ray shows pulmonary vascular congestion. CT abdomen and pelvis shows fat-containing hernia without any evidence of any complication, no other acute abnormality. EKG showed bigeminy on first EKG. EKG was repeated and showed continued frequent PVCs. No acute ST elevation or depression. Patient states that she has continued abdominal pain and nausea despite medications. I do believe that patient's illness is likely viral in nature. However, she has abnormal EKG changes. We will draw a magnesium level. We will admit for abnormal EKG, nausea, abdominal pain that is intractable. Abdomen/Pelvis CT 04/28/18 16:18 IMPRESSION: Midline ventral fat-containing hernia without evidence of acute hernia complication. No acute evidence of bowel obstruction. No evidence of urinary tract stones or hydronephrosis. Extensive diverticulosis without evidence of acute diverticulitis. D/ : / 04/28/2018 16:51:50 Smooth Kerns MD / marcello Interpreting Provider: Smooth Kerns MD Chest X-Ray 04/28/18 16:20 IMPRESSION: Pulmonary vascular congestion. D/ / Home Emmanuel MD / Home Emmanuel MD Interpreting Provider: Home Emmanuel MD Vital Signs Temperature 98.0 F 04/28/18 14:08 Pulse Rate 70 04/28/18 14:08 Respiratory Rate 18 04/28/18 14:08 Blood Pressure 181/81 04/28/18 14:08 O2 Sat by Pulse Oximetry 88 04/28/18 14:08 Temperature 98.8 F 04/28/18 23:19 Pulse Rate 63 04/28/18 23:19 Respiratory Rate 15 04/28/18 23:19 Blood Pressure 166/78 04/28/18 23:19 O2 Sat by Pulse Oximetry 95 04/28/18 23:19 Oxygen Delivery Oxygen Delivery Nasal Cannula Abdominal Pain - MDM Narrative Medical decision making narrative: Patient has generalized abdominal tenderness. She has a history of multiple abdominal surgeries. She also has a history of pancreatitis. She also has a recent UTI was treated with antibiotic. We will perform CT abdomen and pelvis without contrast. We will also obtain GC, BMP, LFTs, lipase, urinalysis for further assessment. We will give the patient Zofran for nausea. We will also give the patient Dilaudid for rate control. She states that she has allergies to morphine and fentanyl. 20:01 labs show negative troponin, negative lipase no signs of UTI. Chest x-ray shows pulmonary vascular congestion. CT abdomen and pelvis shows fat-containing hernia without any evidence of any complication, no other acute abnormality. EKG showed bigeminy on first EKG. EKG was repeated and showed continued frequent PVCs. No acute ST elevation or depression. Patient states that she has continued abdominal pain and nausea despite medications. I do believe that patient's illness is likely viral in nature. However, she has abnormal EKG changes. We will draw a magnesium level. We will admit for abnormal EKG, nausea, abdominal pain that is intractable. - Medical Records Medical records reviewed: Yes I reviewed the patient's medical records. - Lab Data Lab results reviewed: Yes I reviewed the patient's lab results. Result diagrams: 04/28/18 17:02 04/28/18 17:02 Lab Results 04/28/18 04/28/18 04/28/18 Range/Units 15:46 17:02 17:02 WBC 9.3 (4.3-11.1) K/mcL RBC 4.81 (3.82-4.97) M/mcL Hgb 13.7 (11.5-15.4) g/dL Hct 43.4 (35.3-44.9) % MCV 90.2 (83.0-100.0) fL MCH 28.5 (28.0-33.3) pg MCHC 31.6 (31.6-35.5) g/dL RDW 14.3 (11.5-14.5) % Plt Count 185 (140-400) K/mcL MPV 11.2 (9.4-12.4) fL Immature Gran % 0.2 (0-4) % Seg Neutrophils % 71.6 % Lymphocytes % 20.0 % Monocytes % 6.1 % Eosinophils % 1.7 % Basophils % 0.4 % Neutrophils # 6.7 (1.6-8.9) K/mcL Lymphocytes # 1.9 (0.6-4.6) K/mcL Monocytes # 0.6 (0.0-1.3) K/mcL Eosinophils # 0.2 (0.0-0.6) K/mcL Basophils # 0.0 (0.0-0.2) K/mcL Sodium 138 (136-145) mEq/L Potassium 4.0 (3.5-5.1) mEq/L Chloride 98 (98-107) mEq/L Carbon Dioxide 33 H (23-29) mEq/L BUN 14 (8-23) mg/dL Creatinine 0.82 (0.60-1.20) mg/dL Est GFR ( Amer) > 60 (> 60) Est GFR (Non-Af Amer) > 60 (> 60) BUN/Creatinine Ratio 17 (6-26) Glucose 331 H (70-105) mg/dL Calculated Osmolality 299 (280-300) Calcium 10.2 (8.6-10.3) mg/dL Magnesium 1.5 L (1.6-2.6) mg/dL Total Bilirubin 0.5 (0.3-1.0) mg/dL Direct Bilirubin 0.1 (0.0-0.2) mg/dL Indirect Bilirubin 0.4 (0.0-1.2) mg/dL AST 20 (13-39) Units/L ALT 21 (7-52) Units/L Alkaline Phosphatase 76 (34-104) Units/L Troponin I < 0.03 (< 0.04) ng/mL Serum Total Protein 7.5 (6.4-8.9) g/dL Albumin 3.9 (3.5-5.7) g/dL Globulin 3.6 H (2.4-3.5) g/dL Albumin/Globulin Ratio 1.1 (1.1-2.2) Lipase 30 (11-82) Units/L Urine Color Yellow (Yellow) Urine Clarity Clear (Clear) Urine pH 6.0 (5.0-8.0) pH Units Ur Specific [place] 1.029 H (1.010-1.025) Urine Protein 30 H (Neg-Trace) mg/dL Urine Glucose (UA) >=1000 H (Normal) mg/dL Urine Ketones Trace H (Negative) mg/dL Urine Blood Negative (Negative) Urine Nitrite Negative (Negative) Urine Bilirubin Negative (Negative) Urine Urobilinogen Normal (Normal) mg/dL Ur Leukocyte Esterase Small H (Negative) Urine Microscopic RBC 0-3 (0-3) per hpf Urine Microscopic WBC 15-30 H (0-3) per hpf Ur Squamous Epith Cells Many H (None-Few) per lpf Urine Bacteria None Seen (None-Few) per hpf Hyaline Casts None Seen (None-Few) per lpf Ur Culture Indicated? NO. A (NO) - Radiology Data Radiology results reviewed: Yes I reviewed the patient's radiology results. Abdomen/Pelvis CT 04/28/18 16:18 IMPRESSION: Midline ventral fat-containing hernia without evidence of acute hernia complication. No acute evidence of bowel obstruction. No evidence of urinary tract stones or hydronephrosis. Extensive diverticulosis without evidence of acute diverticulitis. D/ / 04/28/2018 16:51:50 Smooth Kerns MD / swalters Interpreting Provider: Smooth Kerns MD Chest X-Ray 04/28/18 16:20 IMPRESSION: Pulmonary vascular congestion. D/ / Home Emmanuel MD / Home Emmanuel MD Interpreting Provider: Home Emmanuel MD - EKG Data EKG attestation: Yes I reviewed and interpreted this EKG. EKG results narrative: 04/28/2018 at 16:50. Rate 89. MS 163. QRS 108. QTC 400. Left axis deviation. No acute ST elevation or depression. Bigeminy. EKG #2. 04/28/2018 at 19:31. Sinus rhythm with frequent PVCs. Heart rate 81. MS 158. QRS 107. QTC 429. Normal axis. No acute ST elevation or depression. S.B.A.R. - S.B.A.R. Situation: Demographics, MOA Background: Presenting Complaint, Relevant PMH, Meds, & Allergies Assessment: Vital Signs, Course and respsone to treatment, Exam Concerns, Patient/Family Expectation, Pertinant Lab Results Recommendation: Barrier(s) to disposition, Recommendation based on pending studies, treatments, or consults S.B.A.R. Report Given to: Dr. Eid Attestation Statement - Attestation Attestation: I, Wil Santo, examined this patient and my medical decision-making was reviewed with the [employer] CAMERA OPERATOR/PA/Advanced Practice Nurse/Resident Physician. I agree with the documented findings, disposition and treatment plan as described except to the extent set forth below. 67-year-old female presents emergency Department with concerns of weakness, fatigue, nausea, vomiting, diarrhea. Patient states her symptoms and worsening over the past few days. Patient has a fluttering in her chest. EKG showed a bigeminal pattern with multiple PVCs. Patient states that she had felt near syncopal during the day. Initial troponin negative. CT did not have evidence of acute surgical pathology. Patient will be admitted to the hospitalist for further care and evaluation of her weakness and fatigue with her palpitations.
[2018-04-28] MEDS ORDERED: *HR* HYDROmorphone (PF) 1 MG/ML SYRINGE IVP ONE (16:19)
[2018-04-28] MEDS ORDERED: 0.9 % Sodium Chloride 1,000 ML IVC ONE (16:19)
[2018-04-28] MEDS ORDERED: Ondansetron 4 MG/2 ML VIAL IVP ONE (16:19)
[2018-04-28 16:20] LABS: Bacteria,Urine None Seen per hpf (None-Few); Bilirubin,Urine Negative (Negative); Blood,Urine Negative (Negative); Clarity,Urine Clear (Clear); Color,Urine Yellow (Yellow); Glucose,Urine (UA) >=1000 mg/dL (Normal); Hyaline Casts,Urine None Seen per lpf (None-Few); Ketones,Urine Trace mg/dL (Negative); Leukocyte Esterase,Urine Small (Negative); Nitrite,Urine Negative (Negative); Protein,Urine 30 mg/dL (Neg-Trace); RBC,Urine 0-3 per hpf (0-3); Specific Gravity,Urine 1.029 (1.010-1.025); Squamous Epithelial Cell,Urine Many per lpf (None-Few); Urobilinogen,Urine Normal (Normal); WBC,Urine 15-30 per hpf (0-3)
[2018-04-28 17:29] LABS: Basophils % 0.4 %; Eosinophils # 0.2 K/mcL (0.0-0.6); Eosinophils % 1.7 %; Hematocrit 43.4 % (35.3-44.9); Hemoglobin 13.7 g/dL (11.5-15.4); Immature Granulocytes % 0.2 % (0-4); Lymphocytes # 1.9 K/mcL (0.6-4.6); Mean Corpuscular HGB Conc 31.6 g/dL (31.6-35.5); Mean Corpuscular Hemoglobin 28.5 pg (28.0-33.3); Mean Corpuscular Volume 90.2 fL (83.0-100.0); Mean Platelet Volume 11.2 fL (9.4-12.4); Monocytes # 0.6 K/mcL (0.0-1.3); Monocytes % 6.1 %; Neutrophils # 6.7 K/mcL (1.6-8.9); Platelet Count 185 K/mcL (140-400); Red Blood Count 4.81 M/mcL (3.82-4.97); Red Cell Distribution Width 14.3 % (11.5-14.5); Segmented Neutrophils % 71.6 %
[2018-04-28 17:50] LABS: Troponin I < 0.03 ng/mL (< 0.04)
[2018-04-28 17:51] LABS: Alanine Aminotransferase 21 Units/L (7-52); Albumin 3.9 g/dL (3.5-5.7); Albumin/Globulin Ratio 1.1 (1.1-2.2); Alkaline Phosphatase 76 Units/L (34-104); Aspartate Amino Transferase 20 Units/L (13-39); BUN/Creatinine Ratio 17 (6-26); Bilirubin,Direct 0.1 mg/dL (0.0-0.2); Bilirubin,Indirect 0.4 mg/dL (0.0-1.2); Bilirubin,Total 0.5 mg/dL (0.3-1.0); Blood Urea Nitrogen 14 mg/dL (8-23); Calcium 10.2 mg/dL (8.6-10.3); Carbon Dioxide 33 mEq/L (23-29); Chloride 98 mEq/L (98-107); Globulin 3.6 g/dL (2.4-3.5); Glucose 331 mg/dL (70-105); Lipase 30 Units/L (11-82); Osmolality,Calculated 299 (280-300); Sodium 138 mEq/L (136-145); Total Protein 7.5 g/dL (6.4-8.9); eGFR For Non-African Americans > 60 (> 60)
[2018-04-28] MEDS ORDERED: Aspirin 325 MG TABLET PO ONE (19:14)
[2018-04-28 20:20] LABS: Magnesium 1.5 mg/dL (1.6-2.6)
[2018-04-29] MEDS ORDERED: Ondansetron 4 MG/2 ML VIAL IVP PRN (02:43)
[2018-04-29] MEDS ORDERED: Naloxone 0.4 MG/ML INJ IVP PRN (02:43)
[2018-04-29] MEDS ORDERED: Dextrose 4 GM Chewable Tablets PO PRN ×2 (02:50)
[2018-04-29] MEDS ORDERED: Dextrose Gel 15 GM/37.5 ML TUBE PO PRN ×2 (02:50)
[2018-04-29] MEDS ORDERED: D5% in Water 1,000 ML IVC PRN (02:50)
[2018-04-29] MEDS ORDERED: *HR* Dextrose 50 % in Water (Syg) 50 ML SYRINGE IVP PRN (02:50)
--- NOTE | 2018-04-29 03:05 | Internal Med History&Physical ---
<PamelaalexisDonte N - Last Filed: 04/29/18 03:42> Date of Encounter: 04/29/18 Time of Encounter: 02:54 Internal Medicine - H&P: HPI Chief complaint: abdominal pain, chest pain History of present illness: Ms. Clifford is a 67 year old female with a history of diabetes, congestive heart failure, frequent PVCs, and recent UTI who presented to the hospital with a 4 day history of nausea, abdominal pain, and diarrhea. Patient was recently treated for a urinary tract infection, urinary cultures from 04/09/2018 grew Klebsiella. Patient does not recall the name of the antibiotic. She states that her symptoms were acute in onset associated with nausea but no vomiting. She has had soft stool but denies large liquid stools. She states decreased appetite secondary to nausea, but is currently feeling subjectively improved and asking for food. Patient states that she also experienced chest pain yesterday which is located substernally and radiated to the left chest wall. No associated shortness of breath or diaphoresis. Lab workup in the emergency department was large unremarkable aside from low magnesium at 1.5. Chest x-ray was unremarkable and abdominal pelvis CT was only remarkable for a midline ventral fat-containing hernia, negative for acute surgical pathology. Patient had a left heart catheter performed in January 2018 which revealed angiograp hically normal coronary arteries and the left ventricular contractility EF of 55%. EKG in the emergency department discovered frequent PVCs which were not seen on prior EKGs. She was given Dilaudid in the emergency department with little relief. Patient was admitted to the hospital with intractable abdominal pain and new EKG findings of PVCs. Upon chart review patient does have a recorded history of bigeminy with frequent PVCs per cardiology consultation in January 2018. At that time she underwent stress testing and left heart catheterization which revealed normal coronary arteries. Past Med Surg Social Fam HX - Past Medical History Medical history: cancer, DVT, diabetes, hyperlipidemia, hypertension, kidney stones, renal disease, thyroid disease Additional medical history: breast cancer. hypothyroidism. renal insuff. Psychiatric history: no psych history - Past Surgical History Surgical History: appendectomy, cholecystectomy, hysterectomy, other Additional surgical history: partial masectomy right breast. hernia repairs - Social History Smoking Status: Never smoker Smokeless Tobacco Status: No Alcohol use: none Drug use: none - Family History Mother Family Member Ethnicity: Non- Living Status: Hx Family Cardiac Disorders: Yes (DVTs) Hx Family Cancer: Yes (Breast) Brother Family Member Ethnicity: Non- Living Status: Hx Family Cardiac Disorders: Yes (CAD) Sister Family Member Ethnicity: Non- Living Status: Still Living Father Family Member Ethnicity: Non- Living Status: Hx Family Endocrine Disorder: Yes (Cirrhosis) Internal Medicine - H&P: Meds Metformin HCl [Glucophage] 1,000 mg PO BIDWM 03/28/15 [History] Pravastatin Sodium [Pravachol] 20 mg PO DAILY 03/28/15 [History] Cetirizine HCl [Zyrtec] 10 mg PO DAILY 12/14/15 [History] Insulin Glargine,Hum.rec.anlog [Lantus Solostar] 69 unit SQ HS 03/15/16 [History] Potassium Gluconate [Potassium] 99 mg PO DAILY 03/15/16 [History] Furosemide [Lasix] 20 mg PO DAILY #30 tablet 05/11/16 [Rx] Omeprazole [PriLOSEC] 40 mg PO DAILY #30 cap 12/09/16 [Rx] Sucralfate [Carafate] 1 gm PO QIDAC #120 tablet 12/09/16 [Rx] amLODIPine [Norvasc] 10 mg PO DAILY #30 tablet 12/09/16 [Rx] Aspirin [Lo-Dose Aspirin EC] 162 mg PO DAILY 08/22/17 [History] Calcium Carbonate [Calcium] 600 mg PO DAILY 08/22/17 [History] Metoprolol [Lopressor] 50 mg PO BID 08/22/17 [History] Gabapentin [Neurontin] 1,200 mg PO TID 01/30/18 [History] Tizanidine HCl 2 mg PO TID PRN 01/30/18 [History] Allergy/AdvReac Type Severity Reaction Status Date / Time glimepiride [From Amaryl] Allergy Unknown Itching Verified 01/30/18 06:21 glipizide Allergy Unknown Itching Verified 01/30/18 06:21 Sulfa (Sulfonamide Allergy Unknown Itching Verified 01/30/18 06:21 Antibiotics) latex Allergy Itching Verified 01/30/18 06:21 Latex, Natural Rubber Allergy Itching Verified 01/30/18 06:21 fentanyl AdvReac Unknown Vomiting Verified 01/30/18 06:21 and weakness promethazine AdvReac Unknown muscle Verified 01/30/18 06:21 spasms All Systems PM: A 10-system review of systems was performed and is negative for pertinent find ings except as documented above in the HPI. - Constitutional Constitutional: no fever(s) - EENT Eyes: no change in vision Ears: no decreased hearing - Cardiovascular Cardiovascular ROS IM: chest pain - Respiratory Respiratory: dyspnea - Gastrointestinal Gastrointestinal: abdominal pain, diarrhea, no hematochezia, no melena - Genitourinary Genitourinary: no dysuria - Musculoskeletal Musculoskeletal ROS IM: no muscle weakness - Integumentary Integumentary IM: no rash - Neurological Neurological ROS: headache(s) - Psychiatric Psychiatric: no confusion - Constitutional Vitals: Temp Pulse Resp BP Pulse Ox 98.8 F 63 15 166/78 95 04/28/18 23:19 04/28/18 23:19 04/28/18 23:19 04/28/18 23:19 04/28/18 23:19 Exam: Constitutional: Laying in bed, no acute distress HEENT: PERRLA, EOMI, oropharynx moist, no intraoral lesions. External ears and nares patent. Neck: No JVD, trachea midline Chest: Symmetrical chest wall rise, no tenderness to palpation Cardiovascular: Irregular rhythm with regular rate. There is a systolic murmur auscultated. Respiratory: Clear to auscultation bilaterally Abdomen: Soft, minimally tender, no guarding or rigidity. Nonsurgical abdomen. Extremities: No cyanosis clubbing. Mild edema of the lower extremities Psych: Appropriate mood and affect Neurological: Alert and oriented 3, no obvious focal neurological deficits Internal Med - H&P Results - Labs CBC & Chem 7: 04/28/18 17:02 04/28/18 17:02 Labs: Short CBC 04/28/18 Range/Units 17:02 WBC 9.3 (4.3-11.1) K/mcL Hgb 13.7 (11.5-15.4) g/dL Hct 43.4 (35.3-44.9) % Plt Count 185 (140-400) K/mcL Neutrophils # 6.7 (1.6-8.9) K/mcL BMP 04/28/18 17:02 Sodium 138 Potassium 4.0 Chloride 98 Carbon Dioxide 33 H BUN 14 Creatinine 0.82 Glucose 331 H Calcium 10.2 Cardiac Enzymes 04/28/18 Range/Units 17:02 Troponin I < 0.03 (< 0.04) ng/mL Liver Function 04/28/18 Range/Units 17:02 Total Bilirubin 0.5 (0.3-1.0) mg/dL Direct Bilirubin 0.1 (0.0-0.2) mg/dL AST 20 (13-39) Units/L ALT 21 (7-52) Units/L Alkaline Phosphatase 76 (34-104) Units/L Albumin 3.9 (3.5-5.7) g/dL Urine 04/28/18 Range/Units 15:46 Urine Color Yellow (Yellow) Urine Clarity Clear (Clear) Urine pH 6.0 (5.0-8.0) pH Units Ur Specific [place] 1.029 H (1.010-1.025) Urine Protein 30 H (Neg-Trace) mg/dL Urine Glucose (UA) >=1000 H (Normal) mg/dL - Impressions ITS Impressions Abdomen/Pelvis CT 04/28/18 16:18 IMPRESSION: Midline ventral fat-containing hernia without evidence of acute hernia complication. No acute evidence of bowel obstruction. No evidence of urinary tract stones or hydronephrosis. Extensive diverticulosis without evidence of acute diverticulitis. D/ / 04/28/2018 16:51:50 Smooth Kerns MD / [facility] Interpreting Provider: Smooth Kerns MD Chest X-Ray 04/28/18 16:20 IMPRESSION: Pulmonary vascular congestion. D/ / Home Emmanuel MD / Home Emmanuel MD Interpreting Provider: Home Emmanuel MD - Assessment and plan (1) Abdominal pain Current Visit: No Status: Acute Assessment and plan: 4 day history of intractable abdominal pain in the setting of recent antibiotic use for UTI CT scan does not show any evidence for acute abdominal pathology, negative for pancreatitis Labs generally unremarkable aside from hyperglycemia and hypomagnesemia -We will obtain C. difficile toxin if patient has diarrhea -Physical examination reveals nonsurgical abdomen with mild tenderness to palpation -We will control pain and keep NPO at this time -Repeat labs and lipase in AM Qualifiers: Abdominal location: generalized Qualified Code(s): R10.84 - Generalized abdominal pain (2) Frequent PVCs Current Visit: No Status: Acute Assessment and plan: EKG changes in the emergency department revealed bigeminy with frequent PVCs. Per chart review of prior admission patient had cardiology consultation for the same complaint Patient underwent stress testing and left heart catheterization which revealed a normal coronary arteries She is on aspirin daily and received a loading dose of aspirin in the emergency department today Patient admits to chest pain radiating the left yesterday -Cardiac monitoring overnight -Troponin negative 1, trend 2 more troponins -No T-wave changes on EKG reported -Repeat EKG in AM -Repleted magnesium -Repeat labs in AM -Patient recently underwent cardiology workup in January 2018, will observe patient overnight for active chest pain (3) Congestive heart failure Current Visit: No Status: Acute Assessment and plan: LVEF 55-60% on echo performed in January 2018. Mild left ventricular diastolic dysfunction. Mild pulmonary hypertension -Currently not exacerbation -Continue home dose Lasix Qualifiers: Heart failure type: other Qualified Code(s): I50.9 - Heart failure, unspecified (4) HLD (hyperlipidemia) Current Visit: No Status: Chronic Assessment and plan: Continue home statin Qualifiers: Hyperlipidemia type: unspecified Qualified Code(s): E78.5 - Hyperlipidemia, unspecified (5) HTN (hypertension) Current Visit: No Status: Chronic Assessment and plan: Vital signs stable, continue home antihypertensive treatment Qualifiers: Hypertension type: essential hypertension Qualified Code(s): I10 - Essential (primary) hypertension (6) Hypoventilation associated with obesity syndrome Current Visit: No Status: Acute Assessment and plan: Patient states that she is on bedtime oxygen Continuous pulse ox, O2 supplementation as needed (7) Diabetes mellitus Current Visit: No Status: Chronic Assessment and plan: Will initiate low dose sliding scale insulin A1c in December 2017 was 11.3, increased sliding scale insulin as needed Qualifiers: Diabetes mellitus type: type 2 Diabetes mellitus superintendent container terminal insulin use: with superintendent container terminal use Diabetes mellitus complication status: with unspecified complications Qualified Code(s): E11.8 - Type 2 diabetes mellitus with unspecified complications; Z79.4 - FDC (current) use of insulin (8) DVT prophylaxis Current Visit: No Status: Acute Assessment and plan: Heparin 5000 units subcutaneous every 12 hours - Time Spent With Patient Total time spent is greater than 50% in coordination of care (as documented) at patient's floor/unit and/or counseling patient: <Sarbjit Eid - Last Filed: 04/29/18 05:19> Date of Encounter: 04/29/18 Time of Encounter: 04:00 - Constitutional Constitutional: no chills, no fever(s), no night sweats - EENT Eyes: no change in vision Nose, mouth and throat: no nasal congestion, no sore throat - Cardiovascular Cardiovascular ROS IM: chest pain, no dyspnea, no dyspnea on exertion, no edema, no orthopnea, no syncope - Respiratory Respiratory: no cough, no chest congestion, no excessive phlegm production, no change in phlegm color - Gastrointestinal Gastrointestinal: abdominal pain, dyspepsia, early satiety, heartburn, nausea, no hematemesis, no hematochezia, no melena, no vomiting - Genitourinary Genitourinary: no dysuria, no flank pain, no hematuria - Musculoskeletal Musculoskeletal ROS IM: no arthralgias, no back pain - Integumentary Integumentary IM: no rash, no jaundice - Neurological Neurological ROS: no dizziness, no focal weakness, no frequent falls, no headache(s) - Psychiatric Psychiatric: no anxiety, no depression - Endocrine Endocrine IM: no cold intolerance, no heat intolerance, no polydipsia, no polyuria - Allergic/Immunologic Allergic/Immunologic: GI upset with certain foods - Constitutional Vitals: Temp Pulse Resp BP Pulse Ox 98.7 F 90 15 186/74 94 04/29/18 04:12 04/29/18 04:12 04/29/18 04:12 04/29/18 04:12 04/29/18 04:12 General appearance: Present: cooperative, A&O X 3, morbidly obese, no acute distress - Eye Eye exam: Present: PERRL. Absent: scleral icterus - ENT ENT exam: Present: mucous membranes dry, normal exam, normal oropharynx - Neck Neck exam general surgery: Present: supple - Respiratory Respiratory exam: Present: CTAB. Absent: rales, rhonchi, wheezes - Cardiovascular Cardiovascular exam: Present: distant heart sounds, RRR, +S1, +S2. Absent: diastolic murmur, systolic murmur - GI/Abdominal GI/Abdominal exam: Present: normal bowel sounds, tenderness (epigastric), no peritoneal signs. Absent: guarding, hepatomegaly, mass, rebound, splenomegaly - Extremities Exam Extremities exam: Present: full ROM, warm, radial pulses palpable and symmetrical. Absent: calf tenderness, pedal edema, tenderness - Back Exam Back exam: Absent: CVA tenderness (L), CVA tenderness (R) - Neurological Exam Neurological exam: Present: alert, CN II-XII intact, oriented X3, no focal deficits - Psychiatric Psychiatric exam: Present: normal affect, normal mood - Skin Skin exam: Present: dry, intact, warm Internal Med - H&P Results - Labs CBC & Chem 7: 04/29/18 03:00 04/29/18 03:00 Labs: Short CBC 04/28/18 04/29/18 Range/Units 17:02 03:00 WBC 9.3 10.6 (4.3-11.1) K/mcL Hgb 13.7 14.2 (11.5-15.4) g/dL Hct 43.4 46.2 H (35.3-44.9) % Plt Count 185 215 (140-400) K/mcL Neutrophils # 6.7 7.6 (1.6-8.9) K/mcL BMP 04/28/18 04/29/18 17:02 03:00 Sodium 138 139 Potassium 4.0 3.9 Chloride 98 104 Carbon Dioxide 33 H 27 BUN 14 11 Creatinine 0.82 0.81 Glucose 331 H 210 H Calcium 10.2 9.7 Cardiac Enzymes 04/28/18 04/29/18 Range/Units 17:02 03:00 Troponin I < 0.03 0.03 (< 0.04) ng/mL Liver Function 04/28/18 Range/Units 17:02 Total Bilirubin 0.5 (0.3-1.0) mg/dL Direct Bilirubin 0.1 (0.0-0.2) mg/dL AST 20 (13-39) Units/L ALT 21 (7-52) Units/L Alkaline Phosphatase 76 (34-104) Units/L Albumin 3.9 (3.5-5.7) g/dL Urine 04/28/18 Range/Units 15:46 Urine Color Yellow (Yellow) Urine Clarity Clear (Clear) Urine pH 6.0 (5.0-8.0) pH Units Ur Specific [place] 1.029 H (1.010-1.025) Urine Protein 30 H (Neg-Trace) mg/dL Urine Glucose (UA) >=1000 H (Normal) mg/dL - EKG Data -: EKG Interpreted by Myself - EKG Data Prior EKG available for review: no EKG comments: 04/29/18 05:12 Sinus rhythm with frequent PVC's and occasional runs of bigeminy - Impressions ITS Impressions Abdomen/Pelvis CT 04/28/18 16:18 IMPRESSION: Midline ventral fat-containing hernia without evidence of acute hernia complication. No acute evidence of bowel obstruction. No evidence of urinary tract stones or hydronephrosis. Extensive diverticulosis without evidence of acute diverticulitis. D/ / 04/28/2018 16:51:50 Smooth Kerns MD / [facility] Interpreting Provider: Smooth Kerns MD Chest X-Ray 04/28/18 16:20 IMPRESSION: Pulmonary vascular congestion. D/ / Home Emmanuel MD / Home Emmanuel MD Interpreting Provider: Home Emmanuel MD - Diagnostic Studies Chest x-ray Status: image reviewed by me (vascular congestion) - Time Spent With Patient Total time spent is greater than 50% in coordination of care (as documented) at patient's floor/unit and/or counseling patient: - Attending Attestation I discussed the patient YOMBA SHOSHONE, past medical history, review of systems, lab data, imaging findings, and exam findings with Dr. Berry. I then saw and examined patient independently as well. Patient denies any chest pain presently. However, she did have chest pain yesterday. Based on history and exam, it appears that her chest pain is actually GI in nature as it originated in her epigastrium and radiates to her chest. Upon presentation to the ER, her pain was mostly in her epigastrium. ER reported to me that she has had recurrent pancreatitis. However, upon my personal interview with patient, she only notes that she had pancreatitis one time. She denies any heavy alcohol use or abuse. She has had prior cholecystectomy. However, she does state that she was diagnosed with two ulcers during the same hospital admission of her pancreatitis. I reviewed her old records and note that she had 2 duodenal ulcers at that time. I am concerned that her abdominal and chest pain are likely referred pain from her peptic ulcer disease. She states she has been taking her PPI and Carafate regularly and has not missed many doses. However, she has been using some NSAIDs lately for headaches which are migraine in nature. Given her symptoms and complaints, I recommend GI consultation as she may need repeat EGD. She has had a full cardiac workup just 3 months ago including left heart catheterization revealing normal coronary arteries. I would simply trend her troponins and EKGs. If these are negative, I do not feel that she needs any further cardiac workup at this time. Other than my comments above and noted exam findings, I agree with Dr. Berry's assessment and plan.
[2018-04-29] MEDS ORDERED: Acetaminophen 325 MG TABLET PO PRN (03:11)
[2018-04-29] MEDS: *HR* OxyCODONE Immed Rel 5 MG TABLET PO PRN ×3 (03:36→22:15)
[2018-04-29 04:10] LABS: Basophils # 0.1 K/mcL (0.0-0.2); Basophils % 0.5 %; Eosinophils # 0.2 K/mcL (0.0-0.6); Eosinophils % 1.7 %; Hematocrit 46.2 % (35.3-44.9); Hemoglobin 14.2 g/dL (11.5-15.4); Immature Granulocytes % 0.3 % (0-4); Lymphocytes # 2.1 K/mcL (0.6-4.6); Lymphocytes % 19.8 %; Mean Corpuscular HGB Conc 30.7 g/dL (31.6-35.5); Mean Corpuscular Hemoglobin 28.2 pg (28.0-33.3); Mean Corpuscular Volume 91.7 fL (83.0-100.0); Mean Platelet Volume 11.2 fL (9.4-12.4); Monocytes # 0.7 K/mcL (0.0-1.3); Monocytes % 6.4 %; Neutrophils # 7.6 K/mcL (1.6-8.9); Platelet Count 215 K/mcL (140-400); Red Blood Count 5.04 M/mcL (3.82-4.97); Red Cell Distribution Width 14.6 % (11.5-14.5); Segmented Neutrophils % 71.3 %
[2018-04-29 04:13] LABS: INR 1.1; Prothrombin Time 12.2 Seconds (9.4-12.1)
[2018-04-29 04:16] LABS: Activated Partial Thrombo Time 32.3 Seconds (26.0-36.0)
[2018-04-29 04:25] LABS: BUN/Creatinine Ratio 14 (6-26); Blood Urea Nitrogen 11 mg/dL (8-23); Calcium 9.7 mg/dL (8.6-10.3); Carbon Dioxide 27 mEq/L (23-29); Chloride 104 mEq/L (98-107); Chol/HDL Ratio 3.9 (0-4.9); Cholesterol 203 mg/dL (< 200); Glucose 210 mg/dL (70-105); HDL Cholesterol 52 mg/dL (40-59); LDL Cholesterol,Calculated 110 mg/dL (0-99); Lipase 28 Units/L (11-82); Osmolality,Calculated 294 (280-300); Potassium 3.9 mEq/L (3.5-5.1); Sodium 139 mEq/L (136-145); Triglycerides 206 mg/dL (< 150); Troponin I 0.03 ng/mL (< 0.04); eGFR For Non-African Americans > 60 (> 60)
[2018-04-29] MEDS ORDERED: tiZANidine 4 MG TABLET PO PRN (05:45)
[2018-04-29] MEDS: *HR* Heparin 5,000 UNIT/ML VIAL SQ SCH ×2 (06:11→16:50)
[2018-04-29] MEDS: Insulin LISPRO 300 UNITS/3 ML VIAL SQ SCH ×4 (06:12→22:08)
[2018-04-29] MEDS ORDERED: *HR* Metoprolol 5 MG/5 ML VIAL IVP ONE (08:49)
--- NOTE | 2018-04-29 09:20 | Electrocardiograph Report ---
[address] [place] [address] Test Date: 2018-04-28 Pat Name: Alicja Clifford Department: EXAM1 Room: 3A22 Gender: F Insect Control Aide: : 1950 Requested By: Loki Mondragon Order Number: [id number] Reading MD: Geraldine Smith Measurements Intervals [place] Rate: 89 P: 61 AK: 163 QRS: 11 QRSD: 108 T: 33 QT: 418 QTc: 400 Interpretive Statements Sinus rhythm Ventricular bigeminy LAE, consider biatrial enlargement Left ventricular hypertrophy Electronically Signed On 04-29-2018 9:19:29 EST by Geraldine Smith
--- NOTE | 2018-04-29 09:21 | Electrocardiograph Report ---
[address] [place], [place] [address] Test Date: 2018-04-28 Pat Name: Alicja Clifford Department: EXAM1 Room: 3A22 Gender: F Liner Checker: : 1950 Requested By: Loki Mondragon Order Number: [id number] Reading MD: Geraldine Smith Measurements Intervals [place] Rate: 81 P: 59 IA: 158 QRS: 7 QRSD: 107 T: 60 QT: 369 QTc: 429 Interpretive Statements Sinus rhythm Ventricular bigeminy Probable left atrial enlargement Left ventricular hypertrophy Electronically Signed On 04-29-2018 9:19:45 EST by Geraldine Smith
[2018-04-29] MEDS: Furosemide 20 MG TABLET PO SCH (09:53)
[2018-04-29] MEDS: Aspirin Enteric Coated 81 MG Tablet PO SCH (09:53)
[2018-04-29] MEDS: amLODIPine 5 MG TABLET PO SCH (09:53)
[2018-04-29] MEDS: Loratadine 10 MG TABLET PO SCH (09:53)
[2018-04-29] MEDS: Gabapentin 400 MG CAPSULE PO SCH ×3 (09:53→22:05)
[2018-04-29] MEDS: Sucralfate 1 GM TABLET PO SCH ×4 (10:02→22:06)
--- NOTE | 2018-04-29 10:08 | Internal Med Progress Note ---
<Madie Ascencio - Last Filed: 04/29/18 12:19> Hospitalist Progress Note - Encounter Date of Encounter: 04/29/18 - Exam Vitals: Temp Pulse Resp BP Pulse Ox 98.8 F 77 14 184/63 93 04/29/18 06:33 04/29/18 11:13 04/29/18 06:33 04/29/18 11:13 04/29/18 06:33 - Time Spent with Patient Total time spent is greater than 50% in coordination of care (as documented) at patient's floor/unit and/or counseling patient: Internal Medicine: Result - Labs CBC & Chem 7: 04/29/18 03:00 04/29/18 03:00 Labs: Short CBC 04/28/18 04/29/18 Range/Units 17:02 03:00 WBC 9.3 10.6 (4.3-11.1) K/mcL Hgb 13.7 14.2 (11.5-15.4) g/dL Hct 43.4 46.2 H (35.3-44.9) % Plt Count 185 215 (140-400) K/mcL Neutrophils # 6.7 7.6 (1.6-8.9) K/mcL BMP 04/28/18 04/29/18 17:02 03:00 Sodium 138 139 Potassium 4.0 3.9 Chloride 98 104 Carbon Dioxide 33 H 27 BUN 14 11 Creatinine 0.82 0.81 Glucose 331 H 210 H Calcium 10.2 9.7 Cardiac Enzymes 04/28/18 04/29/18 04/29/18 Range/Units 17:02 03:00 09:29 Troponin I < 0.03 0.03 < 0.03 (< 0.04) ng/mL Liver Function 04/28/18 Range/Units 17:02 Total Bilirubin 0.5 (0.3-1.0) mg/dL Direct Bilirubin 0.1 (0.0-0.2) mg/dL AST 20 (13-39) Units/L ALT 21 (7-52) Units/L Alkaline Phosphatase 76 (34-104) Units/L Albumin 3.9 (3.5-5.7) g/dL Urine 04/28/18 Range/Units 15:46 Urine Color Yellow (Yellow) Urine Clarity Clear (Clear) Urine pH 6.0 (5.0-8.0) pH Units Ur Specific [place] 1.029 H (1.010-1.025) Urine Protein 30 H (Neg-Trace) mg/dL Urine Glucose (UA) >=1000 H (Normal) mg/dL - ABG Interpretation ABG results: PT/INR, D-dimer PT 12.2 Seconds (9.4-12.1) H 04/29/18 03:00 - Impressions Impressions Abdomen/Pelvis CT 04/28/18 16:18 IMPRESSION: Midline ventral fat-containing hernia without evidence of acute hernia complication. No acute evidence of bowel obstruction. No evidence of urinary tract stones or hydronephrosis. Extensive diverticulosis without evidence of acute diverticulitis. D/ / 04/28/2018 16:51:50 Smooth Kerns MD / [facility] Interpreting Provider: Smooth Kerns MD Chest X-Ray 04/28/18 16:20 IMPRESSION: Pulmonary vascular congestion. D/ / Home Emmanuel MD / Home Emmanuel MD Interpreting Provider: Home Emmanuel MD Consult Discharge Plan - Plan Referrals: Abigail Greco, HEEL TRIMMER [Primary Care Provider] - - Attending Attestation The history, physical exam, and medical decision making was performed by medical student Chucky either while I was physically present and actively involved or I personally re-performed the exam and medical decision making. I have verified the accuracy of the medical student's documentation with regards to the history, physical exam findings, and medical decision making. Ms Clifford is being observed for abd pain and chest pain. Awake, in bed. lower cramping abd pain. no nausea or emesis. + liquid bms this morning. denies fevers or chills. Denies any chest pain, pressure, sob. gen- alert, awake,appears stated age, obese eyes- pupils equal round cv- reg rate and rhythm, normal s1,s2, no murmurs appreciated, no le edema lungs- ctabl, no wheezing, rhonchi or crackles, normal resp effort on o2 nc abd- soft, non tender, non distended, + bs neuro- AAOx3 Abd pain/Diarrhea suspect 2/2 CDiff and/or possible recurrence of ulcer- recent abx use and then developed sxs, initial cdiff lab +, begin oral Vanco, monitor output and lytes, CT a/p did not demonstrate colitis, GI consulted given ulcer hx and plan to scope, keep npo, cont carafate and PPI Chest Pain, resolved- suspect was more likely gi related given clean cath reported in 2018-trops neg x3, ekgs ersonally reviewed, NSR with PVCs and without acute ischemic changes,a t this time cont home asa + statin pending scope results HLD- will discuss lipid panel results with patient and determine prior statin hx, npo at this time HTN, uncontrolled- cont home meds, dosing as discussed with pharmacy as npo, will require cont monitoring and outpt fu on dc DM on Lantus at home- as is npo and penidng scope result and diet recs, decrease from 69 units to 30 units tonight + SSI and prn hypoglycemics Hx PVCs and Bigeminy per report- IV mag today, goal is 2, monitor lytes, tele <Timmy Locke - Last Filed: 04/29/18 17:59> Hospitalist Progress Note - Encounter Date of Encounter: 04/29/18 Time of Encounter: 10:02 - Subjective Interval History: Patient is lying on back watching television upon entering the room. Patient admits mild abdominal tenderness and headache. Patient denies SOA, blurry/double vision, hematuria, hematochezia, melena. Patient was scheduled for EGD later in the day and was asking when she would be able to eat. Admits loose bowel movements - Exam Vitals: Temp Pulse Resp BP Pulse Ox 98.8 F 100 14 191/71 93 04/29/18 06:33 04/29/18 06:33 04/29/18 06:33 04/29/18 06:33 04/29/18 06:33 Exam: Gen: A & Ox3, NAD Head: normocephalic, atraumatic Eyes: EOMI, PERRLA, no conjuctival pallor Neck: No JVD, trachea midline Cardiovascular: Irregular rhythm with regular rate. +murmur, no rubs, gallops Respiratory: Wheezing, symmetric chest expansion, fair air entry Abdomen: soft, non distended with mild diffuse tenderness most prominent in epigastric Extremities: No cyanosis, clubbing. LE edema (mild) Psych: Appropriate mood and affect Neurological: no facial droop, no dysarthrias, symmetric UE and LE strength - Assessment and Plan (1) Abdominal pain Current Visit: Yes Status: Acute Assessment and Plan: -4 day history of intractable abdominal pain in the setting of recent antibiotic use for UTI -CT scan shows midline ventral hernia, no obstruction, extensive diverticulosis. Does not show any evidence for acute abdominal pathology, negative for pancreatitis -C. difficile PCR positive and toxin is negative. Due to patient having loose stool PO Vanc started -EGD on 12/06/2016 Dr. Mixon with LA grade A reflux esophagitis, small hiatal hernia, and 2 nonbleeding duodeal ulcers. -EGD on 04/29/2018 demonstrated normal esophagus, gastritis which was biopsied, normal duodenum. Awaiting patholgy results. -GI following with recommendations to continue daily PPI and educated patient on lifestyle modifications including: (1) avoidance of foods that may precipitate reflux (eg, coffee, alcohol, vaibhav late, fatty foods). (2) avoidance of acidic foods that may precipitate heartburn (eg, citrus, carbo nated drinks, spicy foods). (3) adoption of behaviors that may reduce esophageal acid exposure (see weight loss, smoking cessation, raising the head of the bed, and avoiding recumbency for 2-3 hours after meals). (2) Frequent PVCs Current Visit: No Status: Acute Assessment and Plan: EKG changes in the ED revealed bigeminy with frequent PVCs. Chart review shows cardio consult for same complaint during prior admission. -Patient underwent stress testing and left heart cath which showed normal sorenson ry arteries. -Continue daily aspirin -Troponins <0.03, <0.03, and awaiting third result -No ST changes on EKG -Mag 1.6 today, replenish and check again tomorrow (3) Congestive heart failure Current Visit: No Status: Acute Assessment and Plan: LVEF 55-60% on echo performed in January 2018. Mild left ventricular diastolic dysfunction. Mild pulmonary hypertension -Currently not exacerbation -Continue home dose Lasix (4) Hypoventilation associated with obesity syndrome Current Visit: No Status: Acute Assessment and Plan: Continue bedtime oxygen, supplement as needed continue pulse ox (5) Diabetes mellitus Current Visit: No Status: Chronic Assessment and Plan: December 2017 A1C 11.3, continue SSI and increase sliding scale as needed. (6) HLD (hyperlipidemia) Current Visit: No Status: Chronic Assessment and Plan: Calculated ASCVD risk recommends treatment with high intensity statin. Increase home simvastatin to 20mg (7) HTN (hypertension) Current Visit: No Status: Chronic Assessment and Plan: BP increased this morning due to patient being NPO before EGD. After procedure BP's of 142/68 and 153/76 Continue home antihypertensives - Time Spent with Patient Total time spent is greater than 50% in coordination of care (as documented) at patient's floor/unit and/or counseling patient: Internal Medicine: Result - Labs CBC & Chem 7: 04/29/18 03:00 04/29/18 03:00 Labs: Short CBC 04/28/18 04/29/18 Range/Units 17:02 03:00 WBC 9.3 10.6 (4.3-11.1) K/mcL Hgb 13.7 14.2 (11.5-15.4) g/dL Hct 43.4 46.2 H (35.3-44.9) % Plt Count 185 215 (140-400) K/mcL Neutrophils # 6.7 7.6 (1.6-8.9) K/mcL BMP 04/28/18 04/29/18 17:02 03:00 Sodium 138 139 Potassium 4.0 3.9 Chloride 98 104 Carbon Dioxide 33 H 27 BUN 14 11 Creatinine 0.82 0.81 Glucose 331 H 210 H Calcium 10.2 9.7 Cardiac Enzymes 04/28/18 04/29/18 Range/Units 17:02 03:00 Troponin I < 0.03 0.03 (< 0.04) ng/mL Liver Function 04/28/18 Range/Units 17:02 Total Bilirubin 0.5 (0.3-1.0) mg/dL Direct Bilirubin 0.1 (0.0-0.2) mg/dL AST 20 (13-39) Units/L ALT 21 (7-52) Units/L Alkaline Phosphatase 76 (34-104) Units/L Albumin 3.9 (3.5-5.7) g/dL Urine 04/28/18 Range/Units 15:46 Urine Color Yellow (Yellow) Urine Clarity Clear (Clear) Urine pH 6.0 (5.0-8.0) pH Units Ur Specific [place] 1.029 H (1.010-1.025) Urine Protein 30 H (Neg-Trace) mg/dL Urine Glucose (UA) >=1000 H (Normal) mg/dL - ABG Interpretation ABG results: PT/INR, D-dimer PT 12.2 Seconds (9.4-12.1) H 04/29/18 03:00 - Impressions Impressions Abdomen/Pelvis CT 04/28/18 16:18 IMPRESSION: Midline ventral fat-containing hernia without evidence of acute hernia complication. No acute evidence of bowel obstruction. No evidence of urinary tract stones or hydronephrosis. Extensive diverticulosis without evidence of acute diverticulitis. D/ / 04/28/2018 16:51:50 Smooth Kerns MD / [facility] Interpreting Provider: Smooth Kerns MD Chest X-Ray 04/28/18 16:20 IMPRESSION: Pulmonary vascular congestion. D/ / Home Emmanuel MD / Home Emmanuel MD Interpreting Provider: Home Emmanuel MD <Timmy Locke - Last Filed: 04/29/18 17:59> (1) Abdominal pain Qualifiers: Abdominal location: unspecified location Qualified Code(s): R10.9 - Unspecified abdominal pain (3) Congestive heart failure Qualifiers: Heart failure type: other Qualified Code(s): I50.9 - Heart failure, unspecified (5) Diabetes mellitus Qualifiers: Diabetes mellitus type: type 2 Diabetes mellitus senior care insulin use: with senior care use Diabetes mellitus complication status: with unspecified co mplications Qualified Code(s): E11.8 - Type 2 diabetes mellitus with unspe cified complications; 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
--- NOTE | 2018-04-29 11:38 | Gastroenterology Consult Note ---
<Jaskaran Tovar Maxime - Last Filed: 04/29/18 11:36> Date of Encounter: 04/29/18 Time of Encounter: 10:00 - Assessment and plan (1) Abdominal pain Current Visit: No Status: Acute Assessment and plan: CT A/P on admission showed midline ventral that containing hernia, no obstruction, extensive diverticulosis. EGD 12/06/2016 Dr. Mixon with LA grade A reflux esophagitis, small hiatal hernia, and 2 nonbleeding duodenal ulcers. Continue PPI. Plan for EGD today to r/o esophagitis, gastritis, duodenitis, PUD, MW tear, or AVM. Keep patient NPO for now. Patient educated regarding lifestyle modifications including: (1) avoidance of foods that may precipitate reflux (eg, coffee, alcohol, chocolate, fatty foods). (2) avoidance of acidic foods that may precipitate heartburn (eg, citrus, carbonated drinks, spicy foods). (3) adoption of behaviors that may reduce esophageal acid exposure (see weight loss, smoking cessation, raising the head of the bed, and avoiding recumbency for 2-3 hours after meals). Qualifiers: Abdominal location: epigastric Qualified Code(s): R10.13 - Epigastric pain (2) Nausea Current Visit: Yes Status: Acute Assessment and plan: Continue antiemetic and PPI. Plan for EGD today. - Time Spent With Patient Total time spent is greater than 50% in coordination of care (as documented) at patient's floor/unit and/or counseling patient: GI History of Present Illness - Data of Consult Patient: known to practice within the last 3 years Consult date: 04/29/18 Requesting Physician: Madie Ascencio - Consult Narrative Reason for consult: Peptic ulcer History of present illness: Ms. Clifford is a 67 year old female with PMHx of breast cancer, DM, DVT, HLD, HTN, kidney stones, duodenal ulcers presented to the hospital with four day history of abdominal pain, nausea, and diarrhea. She denies any vomiting. She reports having loose stools as well as watery diarrhea. She denies melena or hematochezia. Patient had EGD November 2016 with 2 duodenal ulcers noted and LA grade A esophagitis. CT A/P on admission showed midline ventral that containing hernia, no obstruction, extensive diverticulosis. Procedures: EGD 12/06/2016 Dr. Mixon: LA grade A reflux esophagitis, small hiatal hernia, 2 nonbleeding duodenal ulcers. EGD 12/23/2003 Dr. Gonzalez: Mild chronic gastritis. Colonoscopy 03/23/2003 Dr. Brandon: Mild chronic nonspecific inflammation. Colonoscopy 12/14/1999 Gonzalez: Nonspecific inflammation, hyperplastic polyp. NSAIDs: ASA Anticoagulation: None Past Med Surg Social Fam HX - Past Medical History Medical history: cancer, DVT, diabetes, hyperlipidemia, hypertension, kidney stones, renal disease, thyroid disease Additional medical history: breast cancer. hypothyroidism. renal insuff. Psychiatric history: no psych history - Past Surgical History Surgical History: appendectomy, cholecystectomy, hysterectomy, other Additional surgical history: partial masectomy right breast. hernia repairs - Social History Smoking Status: Never smoker Smokeless Tobacco Status: No Alcohol use: none Drug use: none - Family History Mother Family Member Ethnicity: Non- Living Status: Hx Family Cardiac Disorders: Yes (DVTs) Hx Family Cancer: Yes (Breast) Brother Family Member Ethnicity: Non- Living Status: Hx Family Cardiac Disorders: Yes (CAD) Sister Family Member Ethnicity: Non- Living Status: Still Living Father Family Member Ethnicity: Non- Living Status: Hx Family Endocrine Disorder: Yes (Cirrhosis) - Gastrointestinal Gastrointestinal: Present: as per HPI - Constitutional Constitutional: as per HPI - EENT Eyes: as per HPI Ears: Present: as per HPI Nose, mouth and throat: Present: as per HPI - Cardiovascular Cardiovascular ROS: Present: as per HPI - Respiratory Respiratory IM: Present: as per HPI - Genitourinary Genitourinary: Absent: change in color, Urinary frequency - Neurological ROS Neurological GI: Present: as per HPI - Hematologic/Lymphatic Hematologic/Lymphatic pediatric: Present: as per HPI - Musculoskeletal Musculoskeletal ROS GI: Present: as per HPI - Integumentary Integumentary GI: Present: as per HPI - Psychiatric ROS Psychiatric GI: Present: as per HPI - Endocrine Endocrine IM: Present: as per HPI - Constitutional Vitals: Temp Pulse Resp BP Pulse Ox 98.8 F 77 14 184/63 93 04/29/18 06:33 04/29/18 11:13 04/29/18 06:33 04/29/18 11:13 04/29/18 06:33 General appearance: Present: cooperative, A&O X 3, no acute distress, answers questions appropriately - Head Head exam: Present: atraumatic, normocephalic - Eye Eye exam: Present: normal appearance, sclera anicteric - ENT ENT exam: Present: mucous membranes dry - Neck Neck exam general surgery: Present: normal inspection, trachea midline - Respiratory Respiratory exam: Present: decreased breath sounds, CTAB. Absent: rales, r honchi - Cardiovascular Cardiovascular exam: Present: RRR, +S1, +S2 - GI/Abdominal GI/Abdominal exam: Present: normal bowel sounds, soft, tenderness (epigastric), no peritoneal signs. Absent: distended, firm, guarding - Rectal Rectal exam: Present: deferred - Extremities Exam Extremities exam: Present: warm - Neurological Exam Neurological exam: Present: no focal deficits - Psychiatric Psychiatric exam: Present: normal affect, normal mood - Skin Skin exam: Present: dry, intact, normal color, warm Results - Labs CBC & Chem 7: 04/29/18 03:00 04/29/18 03:00 Labs: Last Result Calcium 9.7 mg/dL (8.6-10.3) 04/29/18 03:00 Troponin I < 0.03 ng/mL (< 0.04) 04/29/18 09:29 Triglycerides 206 mg/dL (< 150) H 04/29/18 03:00 Entire Visit Hgb 14.2 g/dL (11.5-15.4) 04/29/18 03:00 Hct 46.2 % (35.3-44.9) H 04/29/18 03:00 PT 12.2 Seconds (9.4-12.1) H 04/29/18 03:00 Total Bilirubin 0.5 mg/dL (0.3-1.0) 04/28/18 17:02 AST 20 Units/L (13-39) 04/28/18 17:02 ALT 21 Units/L (7-52) 04/28/18 17:02 Lipase 28 Units/L (11-82) 04/29/18 03:00 - ABG ABG results: PT/INR, D-dimer PT 12.2 Seconds (9.4-12.1) H 04/29/18 03:00 - Impressions Impressions Abdomen/Pelvis CT 04/28/18 16:18 IMPRESSION: Midline ventral fat-containing hernia without evidence of acute hernia complication. No acute evidence of bowel obstruction. No evidence of urinary tract stones or hydronephrosis. Extensive diverticulosis without evidence of acute diverticulitis. D/ / 04/28/2018 16:51:50 Smooth Kerns MD / [facility] Interpreting Provider: Smooth Kerns MD Chest X-Ray 04/28/18 16:20 IMPRESSION: Pulmonary vascular congestion. D/ / Home Emmanuel MD / Home Emmanuel MD Interpreting Provider: Home Emmanuel MD Consult Discharge Plan - Plan Referrals: Abigail Greco, SUPERVISOR SAW[employer]LL [Primary Care Provider] - <Alec Dunbar - Last Filed: 04/29/18 13:43> Date of Encounter: 04/29/18 Time of Encounter: 11:30 - Time Spent With Patient Total time spent is greater than 50% in coordination of care (as documented) at patient's floor/unit and/or counseling patient: GI History of Present Illness - Data of Consult Requesting Physician: Madie Ascencio - Consult Narrative History of present illness: Ms. Clifford is a 67 year old female - Constitutional Vitals: Temp Pulse Resp BP Pulse Ox 98.8 F 77 14 184/63 93 04/29/18 06:33 04/29/18 11:13 04/29/18 06:33 04/29/18 11:13 04/29/18 06:33 Results - Labs CBC & Chem 7: 04/29/18 03:00 04/29/18 03:00 Labs: Last Result Calcium 9.7 mg/dL (8.6-10.3) 04/29/18 03:00 Troponin I < 0.03 ng/mL (< 0.04) 04/29/18 09:29 Triglycerides 206 mg/dL (< 150) H 04/29/18 03:00 Entire Visit Hgb 14.2 g/dL (11.5-15.4) 04/29/18 03:00 Hct 46.2 % (35.3-44.9) H 04/29/18 03:00 PT 12.2 Seconds (9.4-12.1) H 04/29/18 03:00 Total Bilirubin 0.5 mg/dL (0.3-1.0) 04/28/18 17:02 AST 20 Units/L (13-39) 04/28/18 17:02 ALT 21 Units/L (7-52) 04/28/18 17:02 Lipase 28 Units/L (11-82) 04/29/18 03:00 - ABG ABG results: PT/INR, D-dimer PT 12.2 Seconds (9.4-12.1) H 04/29/18 03:00 - Impressions Impressions Abdomen/Pelvis CT 04/28/18 16:18 IMPRESSION: Midline ventral fat-containing hernia without evidence of acute hernia complication. No acute evidence of bowel obstruction. No evidence of urinary tract stones or hydronephrosis. Extensive diverticulosis without evidence of acute diverticulitis. D/ / 04/28/2018 16:51:50 Smooth Kerns MD / [email or web address] Interpreting Provider: Smooth Kerns MD Chest X-Ray 04/28/18 16:20 IMPRESSION: Pulmonary vascular congestion. D/ / Home Emmanuel MD / Home Emmanuel MD Interpreting Provider: Home Emmanuel MD - Attending Attestation I have personally performed a face to face evaluation on this patient. I have reviewed and agree with the care plan. History and Exam by me shows: Patient seen . patient with the abdominal pain and nausea. Examination abdomen is soft mild tenderness in the midabdomen. Assessment: Patient with abdominal pain does has a history of peptic ulcer disease in the past. Recommendation: EGD tomorrow
[2018-04-29] MEDS: Vancomycin Oral Soln 125 MG/2.5 ML UDC PO SCH ×3 (12:21→22:05)
--- NOTE | 2018-04-29 14:11 | Anesthesia Evaluation PreOp ---
Date of Encounter: 04/29/18 Time of Encounter: 14:09 - Past History Planned Operation: EGD Cardiac History: CHF, HTN, Hyperlipidemia, Other (H/O DVT) Pulmonary History: Snore, LUCIUS Dx (home O2 qhs) BANDOLEER PACKER History: Denies Any Significant HX Other Medical History: Renal (kidney stones), Diabetes Type II, GERD, Other (H/O right breast CA S/P partial mestectomy/XRT, obesity BMI=44.7) Anesthesia History: No Prior Anesthetic Complications, Past Anesthesia Alcohol Use: none Drug use: none Medications and Allergies Metformin HCl [Glucophage] 1,000 mg PO BIDWM 03/28/15 [History] Pravastatin Sodium [Pravachol] 20 mg PO DAILY 03/28/15 [History] Cetirizine HCl [Zyrtec] 10 mg PO DAILY 12/14/15 [History] Insulin Glargine,Hum.rec.anlog [Lantus Solostar] 69 unit SQ HS 03/15/16 [History] Potassium Gluconate [Potassium] 99 mg PO DAILY 03/15/16 [History] Furosemide [Lasix] 20 mg PO DAILY #30 tablet 05/11/16 [Rx] Omeprazole [PriLOSEC] 40 mg PO DAILY #30 cap 12/09/16 [Rx] Sucralfate [Carafate] 1 gm PO QIDAC #120 tablet 12/09/16 [Rx] amLODIPine [Norvasc] 10 mg PO DAILY #30 tablet 12/09/16 [Rx] Aspirin [Lo-Dose Aspirin EC] 162 mg PO DAILY 08/22/17 [History] Calcium Carbonate [Calcium] 600 mg PO DAILY 08/22/17 [History] Metoprolol [Lopressor] 50 mg PO BID 08/22/17 [History] Gabapentin [Neurontin] 1,200 mg PO TID 01/30/18 [History] Tizanidine HCl 2 mg PO TID PRN 01/30/18 [History] Allergy/AdvReac Type Severity Reaction Status Date / Time glimepiride [From Amaryl] Allergy Unknown Itching Verified 01/30/18 06:21 glipizide Allergy Unknown Itching Verified 01/30/18 06:21 Sulfa (Sulfonamide Allergy Unknown Itching Verified 01/30/18 06:21 Antibiotics) latex Allergy Itching Verified 01/30/18 06:21 Latex, Natural Rubber Allergy Itching Verified 01/30/18 06:21 fentanyl AdvReac Unknown Vomiting Verified 01/30/18 06:21 and weakness promethazine AdvReac Unknown muscle Verified 01/30/18 06:21 spasms - Meds/Allergy Pre-op Review Medications Reviewed: Yes Allergies Reviewed: Yes Beta Blockers on Current Med List: Yes If Beta Blockers taken, Date/Time (Last Dose taken): 04/29/2018 at 0952 Anesthesia Results - Labs 04/29/18 03:00 04/29/18 03:00 - Imaging EKG: report reviewed (04/28/2018 Sinus rhythm Ventricular bigeminy Probable left atrial enlargement Left ventricular hypertrophy) Additional studies: LEFT HEART CATH Indications: Abnormal Test - Stress Suspected CAD Impressions: Coronary arteries are angiographically normal. The left ventricle is normal and has normal contractility EF 55% Recommendations: Optimal medical therapy of patient's disease. Aggressive risk factor modification 02/02/2018 Stress Impression: Perfusion imaging showed evidence of beulah-infarct ischemia in the basal inferolateral segment. Pharmacologic ECG was non diagnostic for ischemia. Gated EF = 58%. The LV is dilated. There is no evidence of TID. Findings communicated with cardiology consulting team 02/01/2018 Echo Impressions: LVEF 55-60%. Normal LV chamber size, wall thickness and function. Mild left ventricular diastolic dysfunction. Normal right ventricular structure and function. Mild tricuspid regurgitation. Mild pulmonary hypertension. Estimated RVSP is 41 mmHg. Anesthesia Exam Vital Signs/O2 Sat/Glucose, Most Recent Temp Pulse Resp BP Pulse Ox 98.8 F 77 14 184/63 93 04/29/18 06:33 04/29/18 11:13 04/29/18 06:33 04/29/18 11:13 04/29/18 06:33 Blood Glucose* 208 Height: 5'7''/1.7m Weight: 285 lbs/129.4 kg NPO (# of Hours): 8 Pain Scale: 0 Pain Scale Used: Numeric (1 - 10) - HEENT Pupil (Motor): EOMI Mallampati: III Teeth: Normal Oral Opening: Greater than 3 - BANDOLEER PACKER LOC: Oriented BANDOLEER PACKER Motor: Normal RUE, Normal LUE, Normal RLE, Normal LLE, Normal Face BANDOLEER PACKER Sensory: Normal: RUE, LUE, Face, Deficit: RLE, LLE - Cardiac Rhythm: Regular Murmur: Systolic - Pulmonary Breath Sounds: bilateral Clear Respiratory Effort: Symmetrical Anesthesia Assess/Plan ASA Score: 4 Level of consciousness: Cooperative, Oriented, Tranquil Anesthetic Plan: MAC Monitoring Plan: Standard Monitors
[2018-04-29] MEDS ORDERED: *HR* Propofol 200 MG/20 ML VIAL IVP ONE (14:40)
[2018-04-29] MEDS ORDERED: Lidocaine -MPF 2% 2 ML VIAL ONE (14:41)
[2018-04-29] MEDS ORDERED: Insulin DETEMIR 100 UNIT/ML X5UNITS SQ SCH (21:00)
[2018-04-30 03:45] LABS: Basophils % 0.4 %; Eosinophils # 0.2 K/mcL (0.0-0.6); Eosinophils % 2.2 %; Hemoglobin 12.3 g/dL (11.5-15.4); Immature Granulocytes % 0.5 % (0-4); Lymphocytes # 2.3 K/mcL (0.6-4.6); Mean Corpuscular Hemoglobin 27.8 pg (28.0-33.3); Mean Corpuscular Volume 92.8 fL (83.0-100.0); Monocytes # 0.9 K/mcL (0.0-1.3); Monocytes % 8.9 %; Neutrophils # 6.9 K/mcL (1.6-8.9); Platelet Count 174 K/mcL (140-400); Red Blood Count 4.42 M/mcL (3.82-4.97); Red Cell Distribution Width 14.6 % (11.5-14.5)
[2018-04-30 03:59] LABS: BUN/Creatinine Ratio 14 (6-26); Blood Urea Nitrogen 11 mg/dL (8-23); Calcium 8.8 mg/dL (8.6-10.3); Carbon Dioxide 29 mEq/L (23-29); Chloride 101 mEq/L (98-107); Glucose 283 mg/dL (70-105); Osmolality,Calculated 296 (280-300); Potassium 4.1 mEq/L (3.5-5.1); Sodium 138 mEq/L (136-145); eGFR For Non-African Americans > 60 (> 60)
[2018-04-30] MEDS: *HR* Heparin 5,000 UNIT/ML VIAL SQ SCH ×2 (06:03→17:35)
[2018-04-30] MEDS: Sucralfate 1 GM TABLET PO SCH ×4 (09:53→23:04)
[2018-04-30] MEDS: amLODIPine 5 MG TABLET PO SCH (09:58)
[2018-04-30] MEDS: Gabapentin 400 MG CAPSULE PO SCH ×3 (09:58→23:03)
[2018-04-30] MEDS: Loratadine 10 MG TABLET PO SCH (09:58)
[2018-04-30] MEDS: Furosemide 20 MG TABLET PO SCH (09:58)
[2018-04-30] MEDS: Aspirin Enteric Coated 81 MG Tablet PO SCH (09:58)
[2018-04-30] MEDS: Insulin LISPRO 300 UNITS/3 ML VIAL SQ SCH ×4 (09:59→23:02)
[2018-04-30] MEDS: Insulin DETEMIR 100 UNIT/ML X5UNITS SQ SCH ×2 (09:59→23:03)
--- NOTE | 2018-04-30 10:11 | Internal Med Progress Note ---
<Gino Walters Deborah - Last Filed: 04/30/18 15:54> Hospitalist Progress Note - Encounter Date of Encounter: 04/30/18 Time of Encounter: 10:11 - Subjective Interval History: Ms. Clifford is a 67F with PMH of DM 2, CHF, frequent PVCs, and recent UTI treated at the beginning of this month. She was admitted on 04/29/18 complaining of epigastric abdominal pain. She completed a 10 day course of Ceftin ear for the UTI with urine cultures grew Klebsiella. Patient also states that after antibiotic treatment she developed vaginal candidiasis and took a dose of Diflucan 2 days prior to admission. During this admission she underwent EGD w hich revealed gastritis, no ulcers noted. GI team recommended continuing daily PPI. Patient also complained of large loose bowel movements on admission. C. difficile positive. Patient seen and examined at bedside today patient states she feels generally unwell, but will not elaborate during questioning. She denies any subjective fever or chills. Denies any further chest pain, shortness of breath, nausea, vomiting, headaches, numbness, tingling. - Exam Vitals: Temp Pulse Resp BP Pulse Ox 97.6 F 79 15 163/76 91 04/30/18 05:15 04/30/18 05:15 04/30/18 05:15 04/30/18 05:15 04/30/18 05:15 Exam: Constitutional: Obese female in mild distress Head: Normocephalic, atraumatic Eyes: PERRL, EOMI, conjunctiva pink, sclera anicteric Neck: Supple, trachea midline, no lymphadenopathy Lungs: Clear to auscultation bilaterally. Nonlabored breathing. No wheezes, rales, or rhonchi noted. Cardiac: Irregular rhythm +S1 + S2 No murmurs, clicks, or rubs noted. GI: Abdomen soft, nontender, nondistended. Normoactive bowel sounds Extremities: Warm, radial pulses palpable and symmetrical. No cyanosis, pedal edema, or calf tenderness. Neuro: Alert and oriented 3. No focal deficits. Normal speech. Skin: Warm, dry, and intact. - Assessment and Plan (1) Abdominal pain Current Visit: Yes Status: Acute Assessment and Plan: Presented with 4 day history of intractable abdominal pain with recent antibiotic use for UTI CT scan revealed midline ventral hernia without obstruction, and extensive diverticulosis without diverticulitis. Negative for pancreatitis. UA from the ED revealed small leukocyte esterase, greater than 1000 glucose, and trace ketones. Nonsuggestive of refractory UTI. C. difficile PCR positive and toxin negative. EGD on 12/06/[address] Mixon revealed grade a reflux esophagitis, small hiatal hernia, and 2 nonbleeding duodenal ulcers. EGD on 04/29/2018 demonstrated normal esophagus, and gastritis, with normal duodenum. Awaiting pathology results from stomach biopsies. GI following, appreciate recommendations of continuing daily PPI and lifestyle modifications Day 2 of PO Vanc for C diff colitis (2) C. difficile diarrhea Current Visit: Yes Status: Acute Assessment and Plan: Recently completed a ten-day course of Cefdinir for Klebsiella UTI Plating of a large loose bowel movements on admission C. difficile PCR positive Today 2 of PO Vanc with plans for 14 day course per GI recommendations (3) Yeast infection of the vagina Current Visit: Yes Status: Acute Assessment and Plan: Complaining of vaginal pruritus and burning during urination Received 1 dose of Diflucan at home prior to admission per PCP One-time dose of 150 mg Diflucan (4) Diabetes mellitus Current Visit: Yes Status: Chronic Assessment and Plan: Hemoglobin A1c from 12/2017 was 11.3 ACHS accuchecks Diabetic diet SSI 60u Levemir daily (5) HLD (hyperlipidemia) Current Visit: Yes Status: Chronic Assessment and Plan: Calculated ASCVD risk recommends treatment with high intensity statin. Started atorvastatin 40 mg daily (6) HTN (hypertension) Current Visit: Yes Status: Chronic Assessment and Plan: Uncontrolled on arrival with SBP in 180s Improved today at 151/67 Continue Norvasc 10mg daily and Metoprolol 50mg BID Continue to monitor (7) Frequent PVCs Current Visit: Yes Status: Chronic Assessment and Plan: EKG changes in the ED revealed bigeminy with frequent PVCs. Chart review shows cardio consult for same complaint during prior admission. 02/03/2018 - underwent stress testing and left heart cath which showed normal coronary arteries. Denies chest pain Serial troponins negative Repeat EKG showed no significant changes Continue daily aspirin (8) Obesity hypoventilation syndrome Current Visit: Yes Status: Chronic Assessment and Plan: On home O2 at night Continue supplemental O2 (9) Congestive heart failure Current Visit: Yes Status: Chronic Assessment and Plan: Not in acute exacerbation Most recent echo from 01/2018 showed LVEF 55-60% with mild LV diastolic dysfunction and mild pulmonary HTN Continue home Lasix DVT Prophylaxis: SQ Heparin - Time Spent with Patient Total time spent is greater than 50% in coordination of care (as documented) at patient's floor/unit and/or counseling patient: Internal Medicine: Result - Labs CBC & Chem 7: 04/30/18 02:53 04/30/18 02:53 Labs: Short CBC 04/30/18 Range/Units 02:53 WBC 10.4 (4.3-11.1) K/mcL Hgb 12.3 D (11.5-15.4) g/dL Hct 41.0 (35.3-44.9) % Plt Count 174 (140-400) K/mcL Neutrophils # 6.9 (1.6-8.9) K/mcL BMP 04/30/18 02:53 Sodium 138 Potassium 4.1 Chloride 101 Carbon Dioxide 29 BUN 11 Creatinine 0.79 Glucose 283 H Calcium 8.8 - ABG Interpretation ABG results: PT/INR, D-dimer PT 12.2 Seconds (9.4-12.1) H 04/29/18 03:00 - Impressions Impressions Abdomen/Pelvis CT 04/28/18 16:18 IMPRESSION: Midline ventral fat-containing hernia without evidence of acute hernia complication. No acute evidence of bowel obstruction. No evidence of urinary tract stones or hydronephrosis. Extensive diverticulosis without evidence of acute diverticulitis. D/ / 04/28/2018 16:51:50 Smooth Kerns MD / marcello Interpreting Provider: Smooth Kerns MD Consult Discharge Plan - Plan Referrals: Abigail Greco, ASSEMBLY REPAIRER [Primary Care Provider] - <Madie Ascencio - Last Filed: 05/01/18 07:28> Hospitalist Progress Note - Encounter Date of Encounter: 05/01/18 - Exam Vitals: Temp Pulse Resp BP Pulse Ox 98.1 F 69 18 151/67 93 04/30/18 11:12 04/30/18 11:12 04/30/18 11:12 04/30/18 11:12 04/30/18 11:12 - Time Spent with Patient Total time spent is greater than 50% in coordination of care (as documented) at patient's floor/unit and/or counseling patient: Internal Medicine: Result - Labs CBC & Chem 7: 05/01/18 03:50 05/01/18 03:50 Labs: Short CBC 04/30/18 Range/Units 02:53 WBC 10.4 (4.3-11.1) K/mcL Hgb 12.3 D (11.5-15.4) g/dL Hct 41.0 (35.3-44.9) % Plt Count 174 (140-400) K/mcL Neutrophils # 6.9 (1.6-8.9) K/mcL BMP 04/30/18 02:53 Sodium 138 Potassium 4.1 Chloride 101 Carbon Dioxide 29 BUN 11 Creatinine 0.79 Glucose 283 H Calcium 8.8 - ABG Interpretation ABG results: PT/INR, D-dimer PT 12.2 Seconds (9.4-12.1) H 04/29/18 03:00 - Attending Attestation I examined this patient and my medical [facility]. I agree with the documented findings, disposition and treatment plan as described except to the extent set forth below. Ms Clifford is being observed for C diff. Awake, in bed. overall feeling fatigued. one loose bm thus far this morning. mild cramping abd pain, no n/v fevers/chills. No cp, pressure, palpitations. Denies sob or cough. gen- alert, awake,appears stated age, obese cv- reg rate and rhythm, normal s1,s2, no murmurs appreciated, no le edema lungs- ctabl, no wheezing, rhonchi or crackles, normal resp effort on o2 nc abd- soft, non tender, non distended, + bs neuro- AAOx3 Abd pain/Diarrhea 2/2 CDiff -c diff pcr +, toxin neg, given clinical picutre, cont oral vanc x14d as per gi , egd with gastritis cont carafate and PPI Chest Pain, resolved- suspect was more likely gi related given clean cath reported in 2018-trops neg x3, ekgs without acute ischemic changes HLD-given ten year risk would benefit from high intensity statin, dc home simvastatin, begin atorvastatin, fu with pcp outpt HTN, BP elevated above goal- cont home meds, uptitrate to goal, will require cont monitoring and outpt fu on dc DM on Lantus at home- long acting+ SSI and prn hypoglycemics, transition back to home dosing Hx PVCs and Bigeminy -monitor lytes, tele Chronic stable diastolic CHF- cont home gonzalo refused eval by pt/ot to assess any home needs as she would refuse Home health states she ambulates with home cane without problem and lives with SW onfirmed she is rx 3L cont o2 at home further diagnoses and plan as noted by resident <Gino Walters - Last Filed: 04/30/18 15:54> (1) Abdominal pain Qualifiers: Abdominal location: epigastric Qualified Code(s): R10.13 - Epigastric pain (4) Diabetes mellitus Qualifiers: Diabetes mellitus type: type 2 Diabetes mellitus mcc insulin use: with exterminator use Diabetes mellitus complication status: with unspecified complications Qualified Code(s): E11.8 - Type 2 diabetes mellitus with unspecified complications; Z79.4 - retirement (current) use of insulin (5) HLD (hyperlipidemia) Qualifiers: Hyperlipidemia type: unspecified Qualified Code(s): E78.5 - Hyperlipidemia, unspecified (6) HTN (hypertension) Qualifiers: Hypertension type: essential hypertension Qualified Code(s): I10 - Essential (primary) hypertension (9) Congestive heart failure Qualifiers: Heart failure type: diastolic Heart failure chronicity: chronic Qualified Code(s): I50.32 - Chronic diastolic (congestive) heart failure
[2018-04-30] MEDS: Vancomycin Oral Soln 125 MG/2.5 ML UDC PO SCH ×4 (10:18→23:02)
--- NOTE | 2018-04-30 11:17 | Gastroenterology Progress Note ---
<TovarJaskaran Maxime - Last Filed: 04/30/18 11:21> Date of Encounter: 04/30/18 Time of Encounter: 09:40 - Assessment and plan (1) Abdominal pain Current Visit: No Status: Acute Assessment and plan: EGD yesterday showed gastritis, no ulcers noted. Continue PPI daily. Patient educated regarding lifestyle modifications including: (1) avoidance of foods that may precipitate reflux (eg, coffee, alcohol, chocolate, fatty foods). (2) avoidance of acidic foods that may precipitate heartburn (eg, citrus, carbonated drinks, spicy foods). (3) adoption of behaviors that may reduce esophageal acid exposure (see weight l oss, smoking cessation, raising the head of the bed, and avoiding recumbency for 2-3 hours after meals). Qualifiers: Abdominal location: epigastric Qualified Code(s): R10.13 - Epigastric pain (2) C. difficile diarrhea Current Visit: Yes Status: Acute Assessment and plan: C diff positive. Continue PO Vancomycin to complete 14 day course. (3) Nausea Current Visit: Yes Status: Acute Assessment and plan: Improved. Continue antiemetic and PPI. - Time Spent With Patient Total time spent is greater than 50% in coordination of care (as documented) at patient's floor/unit and/or counseling patient: - Subjective Interval history: Patient is resting in bed and reports feeling better today. She continues to admit loose bowel movements. - Constitutional Vitals: Temp Pulse Resp BP Pulse Ox 97.6 F 79 15 163/76 91 04/30/18 05:15 04/30/18 05:15 04/30/18 05:15 04/30/18 05:15 04/30/18 05:15 General appearance: Present: cooperative, A&O X 3, no acute distress, answers questions appropriately - Head Head exam: Present: atraumatic, normocephalic - Eye Eye exam: Present: normal appearance, sclera anicteric - ENT ENT exam: Present: mucous membranes moist - Neck Neck exam general surgery: Present: normal inspection, trachea midline - Respiratory Respiratory exam: Present: decreased breath sounds, CTAB - Cardiovascular Cardiovascular exam: Present: RRR, +S1, +S2 - GI/Abdominal GI/Abdominal exam: Present: soft, tenderness (mild), no peritoneal signs. Absent: distended, firm, guarding - Rectal Rectal exam: Present: deferred - Extremities Exam Extremities exam: Present: warm - Neurological Exam Neurological exam: Present: no focal deficits - Psychiatric Psychiatric exam: Present: normal affect, normal mood - Skin Skin exam: Present: dry, intact, normal color, warm Results - Labs CBC & Chem 7: 04/30/18 02:53 04/30/18 02:53 Labs: Last Result Calcium 8.8 mg/dL (8.6-10.3) 04/30/18 02:53 Troponin I < 0.03 ng/mL (< 0.04) 04/29/18 09:29 Triglycerides 206 mg/dL (< 150) H 04/29/18 03:00 Entire Visit Hgb 12.3 g/dL (11.5-15.4) D 04/30/18 02:53 Hct 41.0 % (35.3-44.9) 04/30/18 02:53 PT 12.2 Seconds (9.4-12.1) H 04/29/18 03:00 Total Bilirubin 0.5 mg/dL (0.3-1.0) 04/28/18 17:02 AST 20 Units/L (13-39) 04/28/18 17:02 ALT 21 Units/L (7-52) 04/28/18 17:02 Lipase 28 Units/L (11-82) 04/29/18 03:00 - ABG ABG results: PT/INR, D-dimer PT 12.2 Seconds (9.4-12.1) H 04/29/18 03:00 Consult Discharge Plan - Plan Referrals: Abigail Greco, AIR TRANSPORTATION PROVIDER [Primary Care Provider] - <Alec Dunbar - Last Filed: 04/30/18 16:24> Date of Encounter: 04/30/18 Time of Encounter: 11:00 - Time Spent With Patient Total time spent is greater than 50% in coordination of care (as documented) at patient's floor/unit and/or counseling patient: - Constitutional Vitals: Temp Pulse Resp BP Pulse Ox 98.5 F 73 18 162/79 92 04/30/18 15:30 04/30/18 15:30 04/30/18 15:30 04/30/18 15:30 04/30/18 15:30 Results - Labs CBC & Chem 7: 04/30/18 02:53 04/30/18 02:53 Labs: Last Result Calcium 8.8 mg/dL (8.6-10.3) 04/30/18 02:53 Troponin I < 0.03 ng/mL (< 0.04) 04/29/18 09:29 Triglycerides 206 mg/dL (< 150) H 04/29/18 03:00 Entire Visit Hgb 12.3 g/dL (11.5-15.4) D 04/30/18 02:53 Hct 41.0 % (35.3-44.9) 04/30/18 02:53 PT 12.2 Seconds (9.4-12.1) H 04/29/18 03:00 Total Bilirubin 0.5 mg/dL (0.3-1.0) 04/28/18 17:02 AST 20 Units/L (13-39) 04/28/18 17:02 ALT 21 Units/L (7-52) 04/28/18 17:02 Lipase 28 Units/L (11-82) 04/29/18 03:00 - ABG ABG results: PT/INR, D-dimer PT 12.2 Seconds (9.4-12.1) H 04/29/18 03:00 - Attending Attestation I have personally performed a face to face evaluation on this patient. I have reviewed and agree with the care plan. History and Exam by me shows: Patient seen at the bedside. Per patient abdominal pain is better. On examination: Abdomen is soft. Recommendation: #1 C. difficile colitis #2 gastritis. Recommendation: Continue by mouth vancomycin and by mouth PPI
[2018-04-30] MEDS ORDERED: Fluconazole 100 MG TABLET PO ONE (11:18)
[2018-04-30] MEDS: *HR* OxyCODONE Immed Rel 5 MG TABLET PO PRN (19:04)
--- NOTE | 2018-04-30 21:09 | Electrocardiograph Report ---
[address] [address] Test Date: 2018-04-29 Pat Name: Alicja Clifford Department: 115 Room: 3A22 Gender: F Binder Selector: : 1950 Requested By: Madie Ascencio Order Number: [id number] Reading MD: Geraldine Smith Measurements Intervals [employer] Rate: 94 P: 67 MN: 160 QRS: 5 QRSD: 109 T: 42 QT: 383 QTc: 435 Interpretive Statements SINUS RHYTHM WITH FREQUENT VENTRICULAR PREMATURE COMPLEXES IN A BIGEMINAL PATTERN MINIMAL VOLTAGE CRITERIA FOR LVH, CONSIDER NORMAL VARIANT NONSPECIFIC ST & T-WAVE ABNORMALITY ABNORMAL RHYTHM ECG Electronically Signed On 04-30-2018 21:08:11 EST by Geraldine Smith
[2018-04-30] MEDS: tiZANidine 4 MG TABLET PO PRN (23:11)
[2018-05-01] MEDS: *HR* OxyCODONE Immed Rel 5 MG TABLET PO PRN ×3 (01:15→20:41)
[2018-05-01 04:23] LABS: Basophils # 0.1 K/mcL (0.0-0.2); Basophils % 0.5 %; Eosinophils # 0.2 K/mcL (0.0-0.6); Eosinophils % 2.3 %; Hematocrit 43.1 % (35.3-44.9); Hemoglobin 13.1 g/dL (11.5-15.4); Immature Granulocytes % 0.6 % (0-4); Lymphocytes # 2.7 K/mcL (0.6-4.6); Lymphocytes % 26.8 %; Mean Corpuscular HGB Conc 30.4 g/dL (31.6-35.5); Mean Corpuscular Hemoglobin 28.7 pg (28.0-33.3); Mean Corpuscular Volume 94.3 fL (83.0-100.0); Monocytes # 0.8 K/mcL (0.0-1.3); Monocytes % 7.8 %; Neutrophils # 6.2 K/mcL (1.6-8.9); Platelet Count 169 K/mcL (140-400); Red Blood Count 4.57 M/mcL (3.82-4.97); Red Cell Distribution Width 14.2 % (11.5-14.5)
[2018-05-01 04:41] LABS: BUN/Creatinine Ratio 17 (6-26); Blood Urea Nitrogen 15 mg/dL (8-23); Calcium 9.5 mg/dL (8.6-10.3); Carbon Dioxide 32 mEq/L (23-29); Chloride 100 mEq/L (98-107); Glucose 279 mg/dL (70-105); Magnesium 1.9 mg/dL (1.6-2.6); Osmolality,Calculated 299 (280-300); Potassium 4.2 mEq/L (3.5-5.1); Sodium 139 mEq/L (136-145); eGFR For Non-African Americans > 60 (> 60)
[2018-05-01] MEDS: *HR* Heparin 5,000 UNIT/ML VIAL SQ SCH ×2 (05:35→17:17)
[2018-05-01 05:58] LABS: Bilirubin,Urine Negative (Negative); Blood,Urine Trace (Negative); Clarity,Urine Cloudy (Clear); Color,Urine Yellow (Yellow); Glucose,Urine (UA) >=1000 mg/dL (Normal); Ketones,Urine Negative (Negative); Leukocyte Esterase,Urine Small (Negative); Nitrite,Urine Negative (Negative); Protein,Urine 30 mg/dL (Neg-Trace); Specific Gravity,Urine 1.026 (1.010-1.025); Urobilinogen,Urine Normal (Normal)
[2018-05-01 06:00] LABS: Bacteria,Urine None Seen per hpf (None-Few); Hyaline Casts,Urine None Seen per lpf (None-Few); Squamous Epithelial Cell,Urine Many per lpf (None-Few); WBC,Urine 30-50 per hpf (0-3)
[2018-05-01] MEDS: Loratadine 10 MG TABLET PO SCH (08:27)
[2018-05-01] MEDS: Aspirin Enteric Coated 81 MG Tablet PO SCH (08:27)
[2018-05-01] MEDS: Gabapentin 400 MG CAPSULE PO SCH ×3 (08:27→20:40)
[2018-05-01] MEDS: Furosemide 20 MG TABLET PO SCH (08:28)
[2018-05-01] MEDS: Sucralfate 1 GM TABLET PO SCH ×4 (08:28→20:40)
[2018-05-01] MEDS: Insulin LISPRO 300 UNITS/3 ML VIAL SQ SCH ×4 (08:28→20:42)
[2018-05-01] MEDS: amLODIPine 5 MG TABLET PO SCH (08:28)
[2018-05-01] MEDS: Vancomycin Oral Soln 125 MG/2.5 ML UDC PO SCH ×4 (08:28→20:42)
--- NOTE | 2018-05-01 08:32 | Internal Med Progress Note ---
<Madie Ascencio - Last Filed: 05/01/18 12:11> Hospitalist Progress Note - Encounter Date of Encounter: 05/01/18 - Exam Vitals: Temp Pulse Resp BP Pulse Ox 97.4 F L 61 18 121/74 92 05/01/18 10:46 05/01/18 10:46 05/01/18 10:46 05/01/18 10:46 05/01/18 10:46 - Time Spent with Patient Total time spent is greater than 50% in coordination of care (as documented) at patient's floor/unit and/or counseling patient: Internal Medicine: Result - Labs CBC & Chem 7: 05/01/18 03:50 05/01/18 03:50 Labs: Short CBC 05/01/18 Range/Units 03:50 WBC 9.9 (4.3-11.1) K/mcL Hgb 13.1 (11.5-15.4) g/dL Hct 43.1 (35.3-44.9) % Plt Count 169 (140-400) K/mcL Neutrophils # 6.2 (1.6-8.9) K/mcL BMP 05/01/18 03:50 Sodium 139 Potassium 4.2 Chloride 100 Carbon Dioxide 32 H BUN 15 Creatinine 0.90 Glucose 279 H Calcium 9.5 Urine 05/01/18 Range/Units 05:15 Urine Color Yellow (Yellow) Urine Clarity Cloudy A (Clear) Urine pH 6.0 (5.0-8.0) pH Units Ur Specific [place] 1.026 H (1.010-1.025) Urine Protein 30 H (Neg-Trace) mg/dL Urine Glucose (UA) >=1000 H (Normal) mg/dL - ABG Interpretation ABG results: PT/INR, D-dimer PT 12.2 Seconds (9.4-12.1) H 04/29/18 03:00 Consult Discharge Plan - Plan Referrals: Abigail Greco, RO[facility] [Primary Care Provider] - 05/06/18 9:00 am (Follow up as scheduled. ) - Attending Attestation I examined this patient and my medical decision-making was reviewed with the Resident Physician Dr Walters. I agree with the documented findings, disposition and treatment plan as described except to the extent set forth below. Ms Clifford is being observed for C diff. Awake, in bed. Beginning to ahve slowing down of diarrhea, remains loose/watery. abd pain improving. eating and drinking, no fevers, chills, n/v. She had no palpitations, sob, or chest pain with increased rate pvcs/couplets as noted on tele last night. She denies any rash today or itching. tele personally reviewed and freq pvcs with couplets noted, this morning NSR and infrequent pvcs gen- alert, awake,appears stated age, obese cv- reg rate and rhythm, normal s1,s2, no murmurs appreciated lungs- ctabl, no wheezing, rhonchi or crackles, normal resp effort on o2 nc abd- soft, non tender, non distended, + bs neuro- AAOx3 Abd pain/Diarrhea 2/2 CDiff -c diff pcr +, toxin neg, given clinical picture cont oral vanc x14d as per gi , egd with gastritis cont carafate and PPI, outpt fu on dc for bx results with gi Chest Pain, resolved- suspect was gi related given clean cath reported in 2018- trops neg x3, ekgs without acute ischemic changes HLD-cont atorvastatin, fu with pcp outpt HTN, Bp improved- cont home meds, uptitrate as needed, will require cont monitoring and outpt fu on dc DM on Lantus at home- long acting+ SSI and prn hypoglycemics, adjusting insulin asneeded, will cont home regimen upon dc Hx PVCs and Bigeminy -increased freq overnight, team discussed with cards and rec for holter monitor and outt fu, monitor lytes, tele while inpt Chronic stable diastolic CHF- cont home gonzalo refused eval by pt/ot to assess any home needs as she would refuse Home health states she ambulates with home cane without problem and lives with SW confirmed she is rx 3L cont o2 at home further diagnoses and plan as noted by resident anticipate will be able to dc to home in next 24-48hrs <Gino Walters - Last Filed: 05/01/18 16:44> Hospitalist Progress Note - Encounter Date of Encounter: 05/01/18 Time of Encounter: 10:20 - Subjective Interval History: Ms. Clifford is a 67F with PMH of DM 2, CHF, frequent PVCs, and recent UTI treated at the beginning of this month. She was admitted on 04/29/18 complaining of epigastric abdominal pain. She completed a 10 day course of Ceftin ear for the UTI with urine cultures grew Klebsiella. Patient also states that after antibiotic treatment she developed vaginal candidiasis and took a dose of Diflucan 2 days prior to admission. During this admission she underwent EGD which revealed gastritis, no ulcers noted. GI team recommended continuing daily PPI. Patient also complained of large loose bowel movements on admission. C. difficile positive. Patient seen and examined at bedside today patient states she feels about the same. States she doesn't understand "why everyone was getting so excited about my heart last night". Denies having any chest pain or increased shortness of breath. She denies any subjective fever or chills. Denies any nausea, vomiting, headaches, numbness, tingling. States diarrhea has "slowed down". - Exam Vitals: Temp Pulse Resp BP Pulse Ox 97.7 F 62 18 155/67 97 05/01/18 07:03 05/01/18 07:03 05/01/18 07:03 05/01/18 07:03 05/01/18 07:03 Exam: Constitutional: Obese female in no acute distress Head: Normocephalic, atraumatic Eyes: PERRL, EOMI, conjunctiva pink, sclera anicteric Neck: Supple, trachea midline, no lymphadenopathy Lungs: Clear to auscultation bilaterally. Nonlabored breathing. No wheezes, rales, or rhonchi noted. Cardiac: Irregular rhythm +S1 + S2 No murmurs, clicks, or rubs noted. GI: Abdomen soft, nontender, nondistended. Normoactive bowel sounds Extremities: Warm, radial pulses palpable and symmetrical. No cyanosis, pedal edema, or calf tenderness. Neuro: Alert and oriented 3. No focal deficits. Normal speech. Skin: Warm, dry, and intact. - Assessment and Plan (1) C. difficile diarrhea Current Visit: Yes Status: Acute Assessment and Plan: Recently completed a ten-day course of Cefdinir for Klebsiella UTI Complaining of large loose bowel movements on admission Presented with 4 day history of intractable abdominal pain CT scan showed midline ventral hernia, no obstruction, extensive diverticulosis. Does not show any evidence for acute abdominal pathology, negative for pancr eatitis C. difficile PCR positive and toxin is negative EGD on 12/06/2016 Dr. Mixon with LA grade A reflux esophagitis, small hiatal hernia, and 2 nonbleeding duodeal ulcers. EGD on 04/29/2018 demonstrated normal esophagus, gastritis which was biopsied, normal duodenum. Awaiting patholgy results. -GI following with recommendations to continue daily PPI and educated patient on lifestyle modifications including: (1) avoidance of foods that may precipitate reflux (eg, coffee, alcohol, chocolate, fatty foods). (2) avoidance of acidic foods that may precipitate heartburn (eg, citrus, carbonated drinks, spicy foods). (3) adoption of behaviors that may reduce esophageal acid exposure (see weight loss, smoking cessation, raising the head of the bed, and avoiding recumbency for 2-3 hours after meals). In the setting of multiple large loose bowel movements, decided to treat with po Vanc No longer complaining of abdominal pain Day 3 of PO Vanc with plans for 14 day course per GI recommendations (2) Frequent PVCs Current Visit: Yes Status: Chronic Assessment and Plan: EKG changes in the ED revealed bigeminy with frequent PVCs. Chart review shows cardio consult for same complaint during prior admission. 02/01/18 - Echo showed mild diastolic dysfunction, mild tricuspid regurgitation, and mild pulmonary HTN 02/03/2018 - underwent stress testing and left heart cath which showed normal coronary arteries. Denies chest pain Serial troponins negative Repeat EKG showed no significant changes Continue daily aspirin 400mg Mag po Due to many PVCs overnight with mismatch in palpable pulse and telemetry, spoke with Dr Pelletier and Lizette Perea of cardiology who reviewed pt's chart and recommended Holter monitor at discharge and outpatient follow up. (3) Yeast infection of the vagina Current Visit: Yes Status: Resolved Assessment and Plan: Complaining of vaginal pruritus and burning during urination - resolved today Received 1 dose of Diflucan at home prior to admission per PCP One-time dose of 150 mg Diflucan on 04/30 Continue to monitor (4) HLD (hyperlipidemia) Current Visit: Yes Status: Chronic Assessment and Plan: Calculated ASCVD risk recommends treatment with high intensity statin. Continue atorvastatin 40 mg daily (5) Obesity hypoventilation syndrome Current Visit: Yes Status: Chronic Assessment and Plan: On home O2 continuously Continue supplemental O2 (6) HTN (hypertension) Current Visit: Yes Status: Chronic Assessment and Plan: Uncontrolled on arrival with SBP in 180s Improved today at 155/67 Continue Norvasc 10mg daily and Metoprolol 50mg BID Continue to monitor (7) Congestive heart failure Current Visit: Yes Status: Chronic Assessment and Plan: Not in acute exacerbation Most recent echo from 01/2018 showed LVEF 55-60% with mild LV diastolic dysfunction and mild pulmonary HTN Continue home Lasix (8) Diabetes mellitus Current Visit: Yes Status: Chronic Assessment and Plan: Hemoglobin A1c from 12/2017 was 11.3 ACHS accuchecks Diabetic diet SSI 60u Levemir daily DVT Prophylaxis: SQ Heparin - Time Spent with Patient Total time spent is greater than 50% in coordination of care (as documented) at patient's floor/unit and/or counseling patient: Internal Medicine: Result - Labs CBC & Chem 7: 05/01/18 03:50 05/01/18 03:50 Labs: Short CBC 05/01/18 Range/Units 03:50 WBC 9.9 (4.3-11.1) K/mcL Hgb 13.1 (11.5-15.4) g/dL Hct 43.1 (35.3-44.9) % Plt Count 169 (140-400) K/mcL Neutrophils # 6.2 (1.6-8.9) K/mcL BMP 05/01/18 03:50 Sodium 139 Potassium 4.2 Chloride 100 Carbon Dioxide 32 H BUN 15 Creatinine 0.90 Glucose 279 H Calcium 9.5 Urine 05/01/18 Range/Units 05:15 Urine Color Yellow (Yellow) Urine Clarity Cloudy A (Clear) Urine pH 6.0 (5.0-8.0) pH Units Ur Specific [place] 1.026 H (1.010-1.025) Urine Protein 30 H (Neg-Trace) mg/dL Urine Glucose (UA) >=1000 H (Normal) mg/dL - ABG Interpretation ABG results: PT/INR, D-dimer PT 12.2 Seconds (9.4-12.1) H 04/29/18 03:00 <Gino Walters A - Last Filed: 05/01/18 16:44> (4) HLD (hyperlipidemia) Qualifiers: Hyperlipidemia type: unspecified Qualified Code(s): E78.5 - Hyperlipidemia, unspecified (6) HTN (hypertension) Qualifiers: Hypertension type: essential hypertension Qualified Code(s): I10 - Essential (primary) hypertension (7) Congestive heart failure Qualifiers: Heart failure type: diastolic Heart failure chronicity: chronic Qualified Code(s): I50.32 - Chronic diastolic (congestive) heart failure (8) Diabetes mellitus Qualifiers: Diabetes mellitus type: type 2 Diabetes mellitus custodial insulin use: with intermediate designer use Diabetes mellitus complication status: with unspecified complications Qualified Code(s): E11.8 - Type 2 diabetes mellitus with unspecified complications; Z79.4 - nursing home (current) use of insulin
[2018-05-01] MEDS: tiZANidine 4 MG TABLET PO PRN ×2 (09:30→20:41)
[2018-05-01] MEDS ORDERED: Magnesium Oxide 400 MG TABLET PO ONE (11:32)
[2018-05-01] MEDS ORDERED: Insulin DETEMIR 100 UNIT/ML X5UNITS SQ SCH (21:00)
[2018-05-02 03:55] LABS: Basophils # 0.1 K/mcL (0.0-0.2); Basophils % 0.5 %; Eosinophils # 0.2 K/mcL (0.0-0.6); Eosinophils % 2.2 %; Hematocrit 40.2 % (35.3-44.9); Hemoglobin 12.3 g/dL (11.5-15.4); Immature Granulocytes % 0.5 % (0-4); Lymphocytes # 1.8 K/mcL (0.6-4.6); Mean Corpuscular HGB Conc 30.6 g/dL (31.6-35.5); Mean Corpuscular Hemoglobin 28.7 pg (28.0-33.3); Mean Corpuscular Volume 93.7 fL (83.0-100.0); Monocytes # 0.9 K/mcL (0.0-1.3); Monocytes % 8.5 %; Neutrophils # 7.1 K/mcL (1.6-8.9); Platelet Count 175 K/mcL (140-400); Red Blood Count 4.29 M/mcL (3.82-4.97); Red Cell Distribution Width 14.1 % (11.5-14.5); Segmented Neutrophils % 70.3 %
[2018-05-02 04:12] LABS: BUN/Creatinine Ratio 20 (6-26); Blood Urea Nitrogen 17 mg/dL (8-23); Calcium 9.3 mg/dL (8.6-10.3); Carbon Dioxide 31 mEq/L (23-29); Chloride 100 mEq/L (98-107); Glucose 271 mg/dL (70-105); Magnesium 1.8 mg/dL (1.6-2.6); Osmolality,Calculated 301 (280-300); Potassium 4.5 mEq/L (3.5-5.1); Sodium 140 mEq/L (136-145); eGFR For Non-African Americans > 60 (> 60)
[2018-05-02] MEDS: *HR* Heparin 5,000 UNIT/ML VIAL SQ SCH (05:14)
[2018-05-02] MEDS: *HR* OxyCODONE Immed Rel 5 MG TABLET PO PRN ×2 (05:14→12:40)
--- NOTE | 2018-05-02 08:35 | Discharge Summary ---
- NOTES TO OUTPATIENT PROVIDER Notes to Outpatient Provider: Ms Clifford was diagnosed with C Diff diarrhea. She is being discharged to home with oral Vanco to complete course. She had EGD done this admit for epigastric pain and found to have gastritis. She should cont PPI and carafate and follow up with GI for results of biopsies taken during procedure. She declined pt/ot eval and any home needs with her in agreement. It is recommended that her statin be changed to a high intensity statin given her 10 yr risk and elevated lipids. Defer to PCP Orders not resulted at time of discharge: Pending orders 05/01/18 09:00 ECG 48 holter monitor setup [ECG] Stat Date of Encounter: 05/02/18 Time of Encounter: 10:20 - Discharge Diagnosis (1) Abdominal pain Priority: Primary Status: Resolved Assessment and Plan: Abd pain/Diarrhea 2/2 CDiff -c diff pcr +, toxin neg, given clinical picture oral vanc x14d as per gi , egd with gastritis cont carafate and PPI, outpt fu on dc for bx results with gi Qualifiers: Abdominal location: unspecified location Qualified Code(s): R10.9 - Unspecified abdominal pain (2) C. difficile diarrhea Priority: Secondary Status: Acute Assessment and Plan: as above (3) Congestive heart failure Priority: Secondary Status: Chronic Assessment and Plan: Chronic stable diastolic CHF- cont home lasix Qualifiers: Heart failure type: diastolic Heart failure chronicity: chronic Qualified Code(s): I50.32 - Chronic diastolic (congestive) heart failure (4) Diabetes mellitus Priority: Secondary Status: Chronic Assessment and Plan: DM on Lantus at home- long acting+ SSI and prn hypoglycemics inpt, resume home regimen on dc, fu with pcp Qualifiers: Diabetes mellitus type: type 2 Diabetes mellitus vermin exterminator insulin use: with alf use Diabetes mellitus complication status: with unspecified complications Qualified Code(s): E11.8 - Type 2 diabetes mellitus with unspecified complications; Z79.4 - vermin exterminator (current) use of insulin (5) Frequent PVCs Priority: Secondary Status: Chronic Assessment and Plan: Hx PVCs and Bigeminy -team discussed with cards and rec for holter monitor (set up by Lizette Perea of cards) and outpt fu (6) HLD (hyperlipidemia) Priority: Secondary Status: Chronic Assessment and Plan: cont statin, fu with pcp outpt as it is recommended she be increased to high intensity statin, noted in dc instructions and PCP follow up on dc summary Qualifiers: Hyperlipidemia type: unspecified Qualified Code(s): E78.5 - Hyperlipidemia, unspecified (7) HTN (hypertension) Priority: Secondary Status: Chronic Assessment and Plan: cont home meds, will require cont monitoring and outpt fu on dc Qualifiers: Hypertension type: essential hypertension Qualified Code(s): I10 - Essential (primary) hypertension (8) Obesity hypoventilation syndrome Priority: Secondary Status: Chronic Assessment and Plan: cont home 3L NC continuously (9) Yeast infection of the vagina Priority: Secondary Status: Resolved Assessment and Plan: status post diflucan (10) Chest pain Priority: Secondary Status: Resolved Assessment and Plan: Chest Pain, resolved- suspect was gi related given clean cath reported in 2018- trops neg x3, ekgs without acute ischemic changes, cards will see her outpt for pvcs as above, recommend high intensity statin as above Qualifiers: Chest pain type: unspecified Qualified Code(s): R07.9 - Chest pain, unspecified Hospital course: Ms. Clifford is a 67 year old female with PMH of DM 2, CHF, frequent PVCs, and recent UTI treated at the beginning of this month. She was admitted on 04/29/18 complaining of epigastric abdominal pain and diarrhea. She completed a 10 day course of abx for the UTI recently. Patient also states that after antibiotic treatment she developed vaginal candidiasis and took a dose of Diflucan 2 days prior to admission. During this admission she underwent EGD which revealed gastritis, no ulcers noted. GI team recommended continuing daily PPI and will see her outpt for biopsy follow up. Patient also complained of large loose b owel movements on admission. C. difficile positive this admission and treated with oral vanc with resolution of diarrhea. She did demonstrate freq pvcs and couplets on tele at times this admission. Cardiology was contacted as they had seen her in past for same. CHURCH WORKER discussed case and arranged for outpt Holter. Dr Pelletier will see her in office outpt as pt was asx and hemodynamically stable. She did have deconditioning from her deconditioned baseline but adamantly refused PT/OT eval, home pt/ot or inpt rehab if warranted. This was discussed in detail personally by myself with her Marcus prior ot DC and he noted he felt totally comfortable with her dc to home, has dealt with her deconditioned state for a long time, has everything they need at home and understands her being a fall risk. She is discharged to home in stable condition with outpt fu in the care of her . Discharge discussed with: patient, family, nurse - Time Spent with Patient Total time spent providing and/or coordinating discharge services: Greater than 30 minutes (40 min) - Discharge Medications Prescriptions: New Vancomycin Oral Soln [Firvanq] 125 mg PO QID 11 Days #44 udc Continue Metformin HCl [Glucophage] 1,000 mg PO BIDWM Pravastatin Sodium [Pravachol] 20 mg PO DAILY Cetirizine HCl [Zyrtec] 10 mg PO DAILY Insulin Glargine,Hum.rec.anlog [Lantus Solostar] 69 unit SQ HS Potassium Gluconate [Potassium] 99 mg PO DAILY Furosemide [Lasix] 20 mg PO DAILY #30 tablet Omeprazole [PriLOSEC] 40 mg PO DAILY #30 cap Sucralfate [Carafate] 1 gm PO QIDAC #120 tablet amLODIPine [Norvasc] 10 mg PO DAILY #30 tablet Aspirin [Lo-Dose Aspirin EC] 162 mg PO DAILY Calcium Carbonate [Calcium] 600 mg PO DAILY Tizanidine HCl 2 mg PO TID PRN PRN Reason: Muscle Spasm Gabapentin [Neurontin] 1,200 mg PO TID Metoprolol Tartrate [Lopressor] 50 mg PO BID Home Medications: Metformin HCl [Glucophage] 1,000 mg PO BIDWM 03/28/15 [History] Pravastatin Sodium [Pravachol] 20 mg PO DAILY 03/28/15 [History] Cetirizine HCl [Zyrtec] 10 mg PO DAILY 12/14/15 [History] Insulin Glargine,Hum.rec.anlog [Lantus Solostar] 69 unit SQ HS 03/15/16 [History] Potassium Gluconate [Potassium] 99 mg PO DAILY 03/15/16 [History] Furosemide [Lasix] 20 mg PO DAILY #30 tablet 05/11/16 [Rx] Omeprazole [PriLOSEC] 40 mg PO DAILY #30 cap 10/02/17 [Rx] Sucralfate [Carafate] 1 gm PO QIDAC #120 tablet 12/09/16 [Rx] amLODIPine [Norvasc] 10 mg PO DAILY #30 tablet 12/09/16 [Rx] Aspirin [Lo-Dose Aspirin EC] 162 mg PO DAILY 08/22/17 [History] Calcium Carbonate [Calcium] 600 mg PO DAILY 08/22/17 [History] Gabapentin [Neurontin] 1,200 mg PO TID 01/30/18 [History] Tizanidine HCl 2 mg PO TID PRN 01/30/18 [History] Metoprolol Tartrate [Lopressor] 50 mg PO BID 04/29/18 [History] Vancomycin Oral Soln [Firvanq] 125 mg PO QID 11 Days #44 udc 05/02/18 [Rx] Allergies/Adverse Reactions: Allergy/AdvReac Type Severity Reaction Status Date / Time glimepiride [From Amaryl] Allergy Unknown Itching Verified 01/30/18 06:21 glipizide Allergy Unknown Itching Verified 01/30/18 06:21 Sulfa (Sulfonamide Allergy Unknown Itching Verified 01/30/18 06:21 Antibiotics) latex Allergy Itching Verified 01/30/18 06:21 Latex, Natural Rubber Allergy Itching Verified 01/30/18 06:21 fentanyl AdvReac Unknown Vomiting Verified 01/30/18 06:21 and weakness promethazine AdvReac Unknown muscle Verified 01/30/18 06:21 spasms Date of admission: 04/28/18 20:32 Primary care physician: Abigail Greco CNP Consults: 04/29/18 05:08 Consult to Gastroenterology [CONS] Routine Consulting Provider: [facility] Reason for Consult: peptic ulcer disease; abdominal pain Call Completed: No Discharging clinician: Madie Ascencio - Constitutional Vitals: Temp Pulse Resp BP Pulse Ox 98.8 F 84 20 146/86 93 05/02/18 07:10 05/02/18 07:10 05/02/18 07:10 05/02/18 07:10 05/02/18 07:10 Exam: awake, pleasant, feeling much better. eager for dc to home. no diarrhea today, no abd pain, n/v. eating and drinking without difficulty. no cp, pressure, sob, or palpitations. no fevers or chills. refusing pt/ot eval. I discussed with and he sees no need and has no concerns with her discharging to home with him today gen- alert, awake,appears stated age, obese cv- reg rate and rhythm, normal s1,s2, no murmurs appreciated, no le edema lungs- ctabl, no wheezing, rhonchi or crackles, normal resp effort on o2 nc abd- soft, non tender, non distended, + bs neuro- AAOx3 - Patient Status Disposition: Home, Self-Care Condition: Good Overall status at discharge: patient is progressing back to baseline - Discharge Instructions Follow Up With: Abigail Greco CNP [Primary Care Provider] - 05/06/18 9:00 am (Follow up as scheduled. ) Alec Dunbar MD [Partnered Physician] - (web-requested, the office will call the patient to schedule a follow up appointment. ) Tommie Pelletier MD [Non-Partnered Physician] - (holter monitor follow up as ordered by Lizette Perea) Additional Instructions: Follow-up appointments: If there is not an appointment listed below, please call your physician and schedule a follow-up appointment. If you have congestive heart failure and your symptoms return, make an appointment with your physician. Medication List: Carry an up to date list of medications you are taking at all time. We have given you an updated medication list including any new medications that you have been prescribed. Please provide that list to your primary provider Symptoms: If your condition changes or you experience any of the following symptoms, notify your physician immediately: Unusual or worsening pain, fever, persistent nausea and vomiting, bleeding, increase in swelling (especially in your legs), sudden weight gain, extreme dizziness, chest pain, increased drainage or redness from a wound or incision. Go to the emergency department if you experience a problem with breathing. Weights: If you have a history of swelling or shortness of breath, weigh yourself daily and notify your physician if you have a weight gain of two or more pounds in one day or 5 or more pounds in a week. If you experience any of the warning signs for stroke: Sudden numbness or weakness of the face, arm or leg; especially on one side of the body, sudden confusion, trouble speaking or understanding, sudden trouble seeing in one or both eyes, sudden trouble walking, dizziness, loss of balance or coordination, sudden sever headache with no cause; Call 911 or go to the emergency room. Stroke is a medical emergency. Some risk factors for stroke: Age, cigarette smoking, diabetes, excessive alcohol consumption, family history, high blood pressure, overweight, physical inactivity, prior stroke, heart attack, diagnosis of carotid artery stenosis or other artery disease. If you smoke, STOP: Smoking or tobacco use significantly increases your risk of heart and lung disease. Your chance of disease greatly increases if you continue to smoke. For more information, call the [employer] quit line for smoking cessation 6-734-RTHO-NOW ( ) It is recommended your cholesterol medication be increased. Discuss this with your primary care doctor - Diet and Activity Activity: ambulate only with your walker, increase activity as tolerated, resume usual activities as tolerated, wear oxygen at all times Diet: diabetic diet, low fat, low cholesterol, low salt diet
[2018-05-02] MEDS: Vancomycin Oral Soln 125 MG/2.5 ML UDC PO SCH ×2 (08:58→12:42)
[2018-05-02] MEDS: Gabapentin 400 MG CAPSULE PO SCH (09:00)
[2018-05-02] MEDS: Sucralfate 1 GM TABLET PO SCH ×2 (09:00→12:40)
[2018-05-02] MEDS: Loratadine 10 MG TABLET PO SCH (09:01)
[2018-05-02] MEDS: Furosemide 20 MG TABLET PO SCH (09:01)
[2018-05-02] MEDS: amLODIPine 5 MG TABLET PO SCH (09:01)
[2018-05-02] MEDS: Aspirin Enteric Coated 81 MG Tablet PO SCH (09:01)
[2018-05-02] MEDS: Insulin LISPRO 300 UNITS/3 ML VIAL SQ SCH ×2 (09:02→12:40)
[2018-05-02] MEDS: tiZANidine 4 MG TABLET PO PRN (09:12)
[2018-05-02 10:53] VITALS: BP 146/73
--- NOTE | 2018-05-02 20:36 | Electrocardiograph Report ---
[address] [address] Test Date: 2018-05-01 Pat Name: Alicja Clifford Department: 115 Room: 3A22 Gender: F Tamale Maker: : [id number] Requested By: Brandin Al Order Number: [id number] Reading MD: Tommie Pelletier Measurements Intervals Coker Rate: 86 P: 60 NE: 157 QRS: 70 QRSD: 113 T: 57 QT: 379 QTc: 422 Interpretive Statements SINUS RHYTHM WITH FREQUENT VENTRICULAR PREMATURE COMPLEXES MODERATE INTRAVENTRICULAR CONDUCTION DELAY MODERATE ST DEPRESSION Electronically Signed On 05-02-2018 20:35:09 EST by Tommie Pelletier
== END 2018-05-02 13:25 | disposition home or self-care (01) ==
LOC: 3ANU 14:03 → EMEROOARM 14:03 → SUATTDRO 20:32 → 3ANU 21:19
PROVIDERS: ADMIT Pediatrics; ATTEND Internal Medicine
PROC: ENDOEBX (2018-04-29 14:00)

== ENCOUNTER 2018-09-07 14:15 | Inpatient (IN) ==
[2018-09-07] MEDS ORDERED: Ketorolac 15 MG/ML VIAL IVP ONE (14:48)
[2018-09-07] MEDS ORDERED: Ondansetron 4 MG/2 ML VIAL IVP PRN ×2 (14:53→18:29)
[2018-09-07] MEDS ORDERED: Ketorolac 15 MG/ML VIAL IM ONE (14:56)
[2018-09-07] MEDS ORDERED: Ondansetron ODT 4 MG TAB.RAPDIS SL ONE (15:03)
[2018-09-07 15:51] LABS: Bilirubin,Urine Negative (Negative); Blood,Urine Negative (Negative); Clarity,Urine Cloudy (Clear); Color,Urine Yellow (Yellow); Glucose,Urine (UA) 250 mg/dL (Normal); Ketones,Urine Negative (Negative); Leukocyte Esterase,Urine Moderate (Negative); Nitrite,Urine Negative (Negative); Protein,Urine 100 mg/dL (Neg-Trace); Specific Gravity,Urine 1.024 (1.010-1.025); Urobilinogen,Urine Normal (Normal)
[2018-09-07 15:53] LABS: Bacteria,Urine None Seen per hpf (None-Few); Hyaline Casts,Urine None Seen per lpf (None-Few); RBC,Urine 0-3 per hpf (0-3); Squamous Epithelial Cell,Urine Many per lpf (None-Few); WBC,Urine 30-50 per hpf (0-3)
[2018-09-07 16:05] LABS: Basophils % 0.4 %; Eosinophils # 0.1 K/mcL (0.0-0.6); Eosinophils % 1.5 %; Hematocrit 36.9 % (35.3-44.9); Hemoglobin 11.7 g/dL (11.5-15.4); Immature Granulocytes % 0.4 % (0-4); Lymphocytes # 2.1 K/mcL (0.6-4.6); Lymphocytes % 24.2 %; Mean Corpuscular HGB Conc 31.7 g/dL (31.6-35.5); Mean Corpuscular Hemoglobin 28.7 pg (28.0-33.3); Mean Corpuscular Volume 90.7 fL (83.0-100.0); Mean Platelet Volume 10.5 fL (9.4-12.4); Monocytes # 0.7 K/mcL (0.0-1.3); Monocytes % 8.1 %; Neutrophils # 5.6 K/mcL (1.6-8.9); Platelet Count 192 K/mcL (140-400); Red Blood Count 4.07 M/mcL (3.82-4.97); Red Cell Distribution Width 14.4 % (11.5-14.5); Segmented Neutrophils % 65.4 %; White Blood Count 8.6 K/mcL (4.3-11.1)
[2018-09-07 16:27] LABS: Alanine Aminotransferase 14 Units/L (7-52); Albumin 3.7 g/dL (3.5-5.7); Albumin/Globulin Ratio 1.2 (1.1-2.2); Alkaline Phosphatase 52 Units/L (34-104); Aspartate Amino Transferase 13 Units/L (13-39); BUN/Creatinine Ratio 27 (6-26); Bilirubin,Direct 0.1 mg/dL (0.0-0.2); Bilirubin,Indirect 0.3 mg/dL (0.0-1.2); Bilirubin,Total 0.4 mg/dL (0.3-1.0); Blood Urea Nitrogen 23 mg/dL (8-23); Calcium 9.2 mg/dL (8.6-10.3); Carbon Dioxide 32 mEq/L (23-29); Chloride 102 mEq/L (98-107); Globulin 3.1 g/dL (2.4-3.5); Glucose 169 mg/dL (70-105); Lipase 37 Units/L (11-82); Osmolality,Calculated 294 (280-300); Potassium 4.6 mEq/L (3.5-5.1); Sodium 138 mEq/L (136-145); Total Protein 6.8 g/dL (6.4-8.9); eGFR For African Americans > 60 (> 60); eGFR For Non-African Americans > 60 (> 60)
[2018-09-07] MEDS ORDERED: Morphine Sulfate 2 MG/ML SYRINGE IVP ONE (16:53)
[2018-09-07 18:08] LABS: Troponin I < 0.03 ng/mL (< 0.04)
[2018-09-07] MEDS ORDERED: *HR* Dextrose 50 % in Water (Syg) 50 ML SYRINGE IVP PRN (18:29)
[2018-09-07] MEDS ORDERED: Acetaminophen 325 MG TABLET PO PRN (18:29)
[2018-09-07] MEDS ORDERED: D5% in Water 1,000 ML IVC PRN (18:29)
[2018-09-07] MEDS ORDERED: Ketorolac 15 MG/ML VIAL IVP PRN (18:29)
[2018-09-07] MEDS ORDERED: Dextrose Gel 15 GM/37.5 ML TUBE PO PRN ×2 (18:29)
[2018-09-07] MEDS ORDERED: Naloxone 0.4 MG/ML INJ IVP PRN (18:29)
[2018-09-07] MEDS: Gabapentin 400 MG CAPSULE PO SCH (23:27)
[2018-09-07] MEDS: Sucralfate 1 GM TABLET PO SCH (23:27)
[2018-09-07] MEDS: *HR* Heparin 5,000 UNIT/ML VIAL SQ SCH (23:28)
[2018-09-08] MEDS: Insulin LISPRO 300 UNITS/3 ML VIAL SQ SCH ×5 (01:35→21:39)
[2018-09-08] MEDS: Insulin DETEMIR 100 UNIT/ML X5UNITS SQ SCH ×2 (01:35→21:41)
[2018-09-08] MEDS: *HR* OxyCODONE Immed Rel 5 MG TABLET PO PRN ×2 (01:41→12:27)
[2018-09-08] MEDS: *HR* Heparin 5,000 UNIT/ML VIAL SQ SCH ×3 (04:34→21:41)
[2018-09-08 06:35] LABS: Hematocrit 38.2 % (35.3-44.9); Hemoglobin 11.7 g/dL (11.5-15.4); Mean Corpuscular HGB Conc 30.6 g/dL (31.6-35.5); Mean Corpuscular Hemoglobin 28.5 pg (28.0-33.3); Mean Corpuscular Volume 92.9 fL (83.0-100.0); Mean Platelet Volume 10.9 fL (9.4-12.4); Platelet Count 214 K/mcL (140-400); Red Blood Count 4.11 M/mcL (3.82-4.97); Red Cell Distribution Width 14.5 % (11.5-14.5); White Blood Count 8.9 K/mcL (4.3-11.1)
[2018-09-08 06:57] LABS: BUN/Creatinine Ratio 26 (6-26); Blood Urea Nitrogen 21 mg/dL (8-23); Calcium 9.2 mg/dL (8.6-10.3); Carbon Dioxide 28 mEq/L (23-29); Chloride 101 mEq/L (98-107); Glucose 135 mg/dL (70-105); Magnesium 1.6 mg/dL (1.6-2.6); Osmolality,Calculated 293 (280-300); Phosphorous 3.9 mg/dL (2.7-4.5); Potassium 4.4 mEq/L (3.5-5.1); Sodium 139 mEq/L (136-145); Troponin I < 0.03 ng/mL (< 0.04); eGFR For African Americans > 60 (> 60); eGFR For Non-African Americans > 60 (> 60)
[2018-09-08] MEDS: Gabapentin 400 MG CAPSULE PO SCH ×3 (08:06→21:39)
[2018-09-08] MEDS: amLODIPine 5 MG TABLET PO SCH (08:06)
[2018-09-08] MEDS: Furosemide 20 MG TABLET PO SCH (08:07)
[2018-09-08] MEDS: Sucralfate 1 GM TABLET PO SCH ×4 (08:07→21:40)
[2018-09-08] MEDS: Aspirin Enteric Coated 81 MG Tablet PO SCH (08:10)
[2018-09-08] MEDS: Ibuprofen 600 MG TABLET PO SCH ×2 (15:55→21:41)
[2018-09-08] MEDS ORDERED: Metoprolol 100 MG TABLET PO SCH (21:00)
[2018-09-09] MEDS: *HR* OxyCODONE Immed Rel 5 MG TABLET PO PRN ×2 (02:41→16:50)
[2018-09-09] MEDS: *HR* Heparin 5,000 UNIT/ML VIAL SQ SCH ×3 (05:08→21:39)
[2018-09-09] MEDS: Insulin LISPRO 300 UNITS/3 ML VIAL SQ SCH ×4 (07:45→20:31)
[2018-09-09] MEDS: Aspirin Enteric Coated 81 MG Tablet PO SCH (08:15)
[2018-09-09] MEDS: Furosemide 20 MG TABLET PO SCH (08:16)
[2018-09-09] MEDS: Sucralfate 1 GM TABLET PO SCH ×4 (08:16→20:33)
[2018-09-09] MEDS: Gabapentin 400 MG CAPSULE PO SCH ×3 (08:16→20:32)
[2018-09-09] MEDS: Ibuprofen 600 MG TABLET PO SCH (08:16)
[2018-09-09] MEDS: amLODIPine 5 MG TABLET PO SCH (08:17)
[2018-09-09] MEDS: cefTRIAXone 1,000 MG in Water for inj. (sterile) 10 ML IVP SCH (18:35)
[2018-09-09] MEDS: Insulin DETEMIR 100 UNIT/ML X5UNITS SQ SCH (20:33)
[2018-09-10] MEDS: *HR* OxyCODONE Immed Rel 5 MG TABLET PO PRN ×2 (00:23→11:17)
[2018-09-10] MEDS: *HR* Heparin 5,000 UNIT/ML VIAL SQ SCH (06:15)
[2018-09-10] MEDS: Sucralfate 1 GM TABLET PO SCH ×2 (07:40→11:49)
[2018-09-10] MEDS: Insulin LISPRO 300 UNITS/3 ML VIAL SQ SCH ×2 (07:40→11:49)
[2018-09-10 10:41] VITALS: BP 205/67
[2018-09-10] MEDS: cefTRIAXone 1,000 MG in Water for inj. (sterile) 10 ML IVP SCH (11:09)
[2018-09-10] MEDS: Furosemide 20 MG TABLET PO SCH (11:10)
[2018-09-10] MEDS: Gabapentin 400 MG CAPSULE PO SCH (11:10)
[2018-09-10] MEDS: amLODIPine 5 MG TABLET PO SCH (11:10)
[2018-09-10] MEDS: Aspirin Enteric Coated 81 MG Tablet PO SCH (11:11)
== END 2018-09-10 14:10 | disposition home or self-care (01) | DRG 392 ==
LOC: EMEROOARM 14:15 → 3ANU 14:15 → SUATTDRO 18:39 → 3ANU 19:23
PROVIDERS: ADMIT Internal Medicine Nephrology; ATTEND Student in an Organized Health Care Education/Training Program

== ENCOUNTER 2019-03-10 04:56 | Observation (INO) ==
[2019-03-10 06:00] LABS: Hematocrit 43.5 % (35.3-44.9); Hemoglobin 14.6 g/dL (11.5-15.4); Mean Corpuscular HGB Conc 33.6 g/dL (31.6-35.5); Mean Corpuscular Hemoglobin 30.2 pg (28.0-33.3); Mean Corpuscular Volume 90.1 fL (83.0-100.0); Mean Platelet Volume 10.6 fL (9.4-12.4); Platelet Count 231 K/mcL (140-400); Red Blood Count 4.83 M/mcL (3.82-4.97); Red Cell Distribution Width 14.2 % (11.5-14.5); White Blood Count 11.6 K/mcL (4.3-11.1)
[2019-03-10 06:20] LABS: Alanine Aminotransferase 26 Units/L (7-52); Albumin 3.6 g/dL (3.5-5.7); Alkaline Phosphatase 75 Units/L (34-104); Aspartate Amino Transferase 24 Units/L (13-39); BUN/Creatinine Ratio 21 (6-26); Bilirubin,Total 0.4 mg/dL (0.3-1.0); Blood Urea Nitrogen 22 mg/dL (8-23); Calcium 10.1 mg/dL (8.6-10.3); Carbon Dioxide 24 mEq/L (23-29); Chloride 97 mEq/L (98-107); Globulin 3.7 g/dL (2.4-3.5); Glucose 444 mg/dL (70-105); Osmolality,Calculated 303 (280-300); Potassium 4.4 mEq/L (3.5-5.1); Sodium 135 mEq/L (136-145); Total Protein 7.3 g/dL (6.4-8.9); eGFR For African Americans > 60 (> 60); eGFR For Non-African Americans 51 (> 60)
[2019-03-10 06:47] LABS: Troponin I 0.03 ng/mL (< 0.04)
[2019-03-10] MEDS ORDERED: Furosemide 40 MG in 0.9 % Sodium Chloride 50 ML IVPB ONE (06:58)
[2019-03-10 07:04] LABS: Bilirubin,Urine Negative (Negative); Blood,Urine Large (Negative); Clarity,Urine Cloudy (Clear); Color,Urine Yellow (Yellow); Glucose,Urine (UA) >=1000 mg/dL (Normal); Ketones,Urine Negative (Negative); Leukocyte Esterase,Urine Moderate (Negative); Nitrite,Urine Negative (Negative); Protein,Urine 100 mg/dL (Neg-Trace); Specific Gravity,Urine 1.029 (1.010-1.025); Urobilinogen,Urine Normal (Normal)
[2019-03-10 07:06] LABS: Bacteria,Urine Moderate per hpf (None-Few); Hyaline Casts,Urine None Seen per lpf (None-Few); RBC,Urine TNTC per hpf (0-3); Squamous Epithelial Cell,Urine Many per lpf (None-Few); WBC,Urine TNTC per hpf (0-3)
[2019-03-10] MEDS ORDERED: Furosemide 40 MG/4 ML VIAL IVP ONE ×2 (07:41→17:00)
[2019-03-10] MEDS ORDERED: Naloxone 0.4 MG/ML INJ IVP PRN (08:07)
[2019-03-10] MEDS ORDERED: Ondansetron ODT 4 MG TAB.RAPDIS SL PRN ×2 (08:07→08:11)
[2019-03-10] MEDS ORDERED: Insulin Human Regular 10 UNIT in 0.9 % Sodium Chloride 10 ML IV ONE (08:13)
[2019-03-10] MEDS ORDERED: D5% in Water 1,000 ML IVC PRN (08:14)
[2019-03-10] MEDS ORDERED: Dextrose Gel 15 GM/37.5 ML TUBE PO PRN ×2 (08:14)
[2019-03-10] MEDS ORDERED: *HR* Dextrose 50 % in Water (Syg) 50 ML SYRINGE IVP PRN (08:14)
[2019-03-10 08:19] LABS: VBG HCO3 26 mEq/L (21-27); VBG PCO2 42 mmHg (41-51); VBG PH 7.39 pH Units (7.32-7.42); VBG PO2 198 mmHg (25-50)
[2019-03-10] MEDS ORDERED: Nitroglycerin 0.4 MG TAB.SUBL SL PRN (08:56)
[2019-03-10] MEDS ORDERED: Perflutren Lipid Microsphere 1.3 ML in 0.9 % Sodium Chloride 8.7 ML IVP ONE (09:23)
[2019-03-10] MEDS: Furosemide 40 MG/4 ML VIAL IVP SCH (09:37)
[2019-03-10] MEDS: amLODIPine 5 MG TABLET PO SCH (10:13)
[2019-03-10] MEDS: Gabapentin 400 MG CAPSULE PO SCH ×3 (10:14→21:47)
[2019-03-10] MEDS: Aspirin Enteric Coated 81 MG Tablet PO SCH (10:14)
[2019-03-10] MEDS: Metoprolol 100 MG TABLET PO SCH ×2 (10:14→21:45)
[2019-03-10] MEDS: Sucralfate 1 GM TABLET PO SCH ×3 (10:14→21:47)
[2019-03-10] MEDS ORDERED: Acetaminophen 325 MG TABLET PO PRN (12:07)
[2019-03-10] MEDS: Insulin LISPRO 300 UNITS/3 ML VIAL SQ SCH ×2 (12:58→17:16)
[2019-03-10 20:16] LABS: Basophils # 0.1 K/mcL (0.0-0.2); Basophils % 0.4 %; Eosinophils # 0.2 K/mcL (0.0-0.6); Eosinophils % 1.1 %; Hematocrit 43.2 % (35.3-44.9); Hemoglobin 14.4 g/dL (11.5-15.4); Immature Granulocytes % 0.4 % (0-4); Lymphocytes # 3.3 K/mcL (0.6-4.6); Mean Corpuscular HGB Conc 33.3 g/dL (31.6-35.5); Mean Corpuscular Hemoglobin 30.3 pg (28.0-33.3); Mean Corpuscular Volume 90.8 fL (83.0-100.0); Mean Platelet Volume 10.7 fL (9.4-12.4); Monocytes # 1.1 K/mcL (0.0-1.3); Monocytes % 7.2 %; Neutrophils # 10.3 K/mcL (1.6-8.9); Platelet Count 252 K/mcL (140-400); Red Blood Count 4.76 M/mcL (3.82-4.97); Red Cell Distribution Width 14.4 % (11.5-14.5); Segmented Neutrophils % 68.9 %; White Blood Count 14.9 K/mcL (4.3-11.1)
[2019-03-10 20:38] LABS: Albumin 3.5 g/dL (3.5-5.7); Albumin/Globulin Ratio 1.1 (1.1-2.2); Bilirubin,Total 0.4 mg/dL (0.3-1.0); Calcium 10.3 mg/dL (8.6-10.3); Globulin 3.3 g/dL (2.4-3.5); Magnesium 1.8 mg/dL (1.6-2.6); Potassium 4.4 mEq/L (3.5-5.1); Total Protein 6.8 g/dL (6.4-8.9)
[2019-03-10 20:46] LABS: Troponin I 0.04 ng/mL (< 0.04)
[2019-03-10] MEDS ORDERED: Insulin LISPRO 300 UNITS/3 ML VIAL SQ SCH (21:00)
[2019-03-10] MEDS ORDERED: Insulin DETEMIR 100 UNIT/ML X5UNITS SQ SCH (21:00)
[2019-03-10 21:07] LABS: ABG Base Excess 1 mEq/L (-2 to 3); ABG HCO3 26 mEq/L (21-27); ABG Oxygen Saturation 97 % (95-98); ABG PCO2 42 mmHg (35-45); ABG PH 7.39 pH Units (7.32-7.45); ABG PO2 90 mmHg (85-104); ABG TCO2 27 mEq/L (20-26)
[2019-03-10] MEDS: Nystatin POWDER 30 GM BOTTLE TP SCH (22:58)
[2019-03-11 06:58] LABS: Hemoglobin 13.7 g/dL (11.5-15.4); Mean Corpuscular HGB Conc 32.6 g/dL (31.6-35.5); Mean Corpuscular Hemoglobin 29.8 pg (28.0-33.3); Mean Corpuscular Volume 91.5 fL (83.0-100.0); Mean Platelet Volume 10.8 fL (9.4-12.4); Platelet Count 224 K/mcL (140-400); Red Blood Count 4.59 M/mcL (3.82-4.97); Red Cell Distribution Width 14.6 % (11.5-14.5); White Blood Count 13.4 K/mcL (4.3-11.1)
[2019-03-11 07:20] LABS: Potassium 4.6 mEq/L (3.5-5.1)
[2019-03-11] MEDS: amLODIPine 5 MG TABLET PO SCH (08:19)
[2019-03-11] MEDS: Gabapentin 400 MG CAPSULE PO SCH ×2 (08:19→14:31)
[2019-03-11] MEDS: Aspirin Enteric Coated 81 MG Tablet PO SCH (08:19)
[2019-03-11] MEDS: Furosemide 40 MG/4 ML VIAL IVP SCH (08:19)
[2019-03-11] MEDS: Sucralfate 1 GM TABLET PO SCH ×2 (08:20→12:18)
[2019-03-11] MEDS: Insulin LISPRO 300 UNITS/3 ML VIAL SQ SCH ×2 (08:20→12:15)
[2019-03-11] MEDS: Nystatin POWDER 30 GM BOTTLE TP SCH (08:20)
[2019-03-11] MEDS: Metoprolol 100 MG TABLET PO SCH (08:20)
[2019-03-11 09:12] LABS: Estimated Average Glucose 240 mg/dl
[2019-03-11 14:37] VITALS: BP 122/62
== END 2019-03-11 15:50 | disposition other institution (70) ==
LOC: EMEROOARM 04:56 → 3NENU 04:56 → ICNU 20:32
PROVIDERS: ADMIT Family Medicine; ATTEND Family Medicine

== ENCOUNTER 2019-08-26 16:43 | Observation (INO) ==
[2019-08-26] MEDS ORDERED: Isovue-370 500 ML BOTTLE IVP ONE ×2 (17:04→19:29)
[2019-08-26] MEDS ORDERED: Morphine Sulfate 2 MG/ML SYRINGE IVP ONE (17:06)
[2019-08-26] MEDS ORDERED: Ondansetron 4 MG/2 ML VIAL IVP STA (17:07)
[2019-08-26 17:52] LABS: Alanine Aminotransferase 20 Units/L (7-52); Albumin 4.3 g/dL (3.5-5.7); Albumin/Globulin Ratio 1.2 (1.1-2.2); Alkaline Phosphatase 69 Units/L (34-104); Aspartate Amino Transferase 18 Units/L (13-39); BUN/Creatinine Ratio 18 (6-26); Bilirubin,Total 0.6 mg/dL (0.3-1.0); Blood Urea Nitrogen 17 mg/dL (8-23); Calcium 10.8 mg/dL (8.6-10.3); Carbon Dioxide 27 mEq/L (23-29); Chloride 99 mEq/L (98-107); Globulin 3.6 g/dL (2.4-3.5); Glucose 173 mg/dL (70-105); Osmolality,Calculated 290 (280-300); Potassium 4.1 mEq/L (3.5-5.1); Sodium 137 mEq/L (136-145); Total Protein 7.9 g/dL (6.4-8.9); eGFR For African Americans > 60 (> 60); eGFR For Non-African Americans > 60 (> 60)
[2019-08-26 18:03] LABS: Basophils # 0.1 K/mcL (0.0-0.2); Basophils % 0.7 %; Eosinophils # 0.2 K/mcL (0.0-0.6); Eosinophils % 1.5 %; Hematocrit 47.3 % (35.3-44.9); Hemoglobin 15.5 g/dL (11.5-15.4); Immature Granulocytes % 0.3 % (0-4); Lymphocytes # 2.3 K/mcL (0.6-4.6); Lymphocytes % 19.9 %; Mean Corpuscular HGB Conc 32.8 g/dL (31.6-35.5); Mean Corpuscular Hemoglobin 30.2 pg (28.0-33.3); Monocytes # 0.8 K/mcL (0.0-1.3); Monocytes % 6.8 %; Neutrophils # 8.3 K/mcL (1.6-8.9); Platelet Count 242 K/mcL (140-400); Red Blood Count 5.14 M/mcL (3.82-4.97); Red Cell Distribution Width 13.9 % (11.5-14.5); Segmented Neutrophils % 70.8 %; White Blood Count 11.7 K/mcL (4.3-11.1)
[2019-08-26] MEDS ORDERED: Metoclopramide 10 MG in 0.9 % Sodium Chloride 50 ML IVPB ONE (18:13)
[2019-08-26 18:31] LABS: Magnesium 1.4 mg/dL (1.6-2.6)
[2019-08-26] MEDS ORDERED: Ondansetron ODT 4 MG TAB.RAPDIS SL ONE (18:34)
[2019-08-26 20:25] LABS: Bacteria,Urine Few per hpf (None-Few); Bilirubin,Urine Negative (Negative); Blood,Urine Small (Negative); Clarity,Urine Clear (Clear); Color,Urine Light-Yellow (Yellow); Glucose,Urine (UA) Normal (Normal); Ketones,Urine Negative (Negative); Leukocyte Esterase,Urine Negative (Negative); Mucus,Urine Few per lpf (None-Few); Nitrite,Urine Negative (Negative); Protein,Urine >=300 mg/dL (Neg-Trace); Specific Gravity,Urine > 1.030 (1.010-1.025); Squamous Epithelial Cell,Urine Few per hpf (None-Few); Urobilinogen,Urine Normal (Normal); WBC,Urine 0-3 per hpf (0-3)
[2019-08-26] MEDS ORDERED: Dexamethasone 4 MG/ML VIAL IVP ONE (20:27)
[2019-08-26] MEDS ORDERED: *HR* Metoprolol 5 MG/5 ML VIAL IVP ONE (21:18)
[2019-08-26] MEDS ORDERED: D5% in Water 1,000 ML IVC PRN (22:32)
[2019-08-26] MEDS ORDERED: Ondansetron 4 MG/2 ML VIAL IVP PRN (22:32)
[2019-08-26] MEDS ORDERED: Acetaminophen 325 MG TABLET PO PRN (22:32)
[2019-08-26] MEDS ORDERED: *HR* Dextrose 50 % in Water (Vial) 50 ML VIAL IVP PRN (22:32)
[2019-08-26] MEDS ORDERED: Naloxone 0.4 MG/ML INJ IVP PRN (22:32)
[2019-08-26] MEDS ORDERED: Dextrose Gel 15 GM/37.5 ML TUBE PO PRN ×2 (22:32)
[2019-08-26] MEDS ORDERED: 0.9 % Sodium Chloride 1,000 ML IVC SCH (22:45)
[2019-08-26] MEDS: Metoprolol 100 MG TABLET PO SCH (23:17)
[2019-08-27] MEDS ORDERED: Insulin LISPRO 300 UNITS/3 ML VIAL SQ SCH
[2019-08-27 00:36] LABS: Hematocrit 47.4 % (35.3-44.9); Hemoglobin 15.6 g/dL (11.5-15.4); Mean Corpuscular HGB Conc 32.9 g/dL (31.6-35.5); Mean Corpuscular Hemoglobin 29.5 pg (28.0-33.3); Mean Corpuscular Volume 89.8 fL (83.0-100.0); Mean Platelet Volume 10.8 fL (9.4-12.4); Platelet Count 205 K/mcL (140-400); Red Blood Count 5.28 M/mcL (3.82-4.97); White Blood Count 11.9 K/mcL (4.3-11.1)
[2019-08-27] MEDS ORDERED: *HR* Metoprolol 5 MG/5 ML VIAL IVP ONE (02:11)
[2019-08-27] MEDS ORDERED: Ondansetron 4 MG/2 ML VIAL ONE (02:51)
[2019-08-27] MEDS: Ondansetron 4 MG/2 ML VIAL IVP PRN ×2 (02:55→09:50)
[2019-08-27] MEDS: Insulin LISPRO 300 UNITS/3 ML VIAL SQ SCH ×3 (06:07→16:54)
[2019-08-27] MEDS: *HR* Heparin 5,000 UNIT/ML VIAL SQ SCH ×3 (06:08→20:24)
[2019-08-27] MEDS: Pantoprazole 40 MG VIAL IVP SCH ×2 (06:08→16:50)
[2019-08-27 06:09] LABS: INR 1.1; Prothrombin Time 12.3 Seconds (9.4-12.1)
[2019-08-27 06:30] LABS: BUN/Creatinine Ratio 18 (6-26); Blood Urea Nitrogen 17 mg/dL (8-23); Calcium 9.9 mg/dL (8.6-10.3); Carbon Dioxide 23 mEq/L (23-29); Chloride 98 mEq/L (98-107); Chol/HDL Ratio 4.5 (0-4.9); Cholesterol 243 mg/dL (< 200); Glucose 321 mg/dL (70-105); HDL Cholesterol 54 mg/dL (40-59); LDL Cholesterol,Calculated 158 mg/dL (0-99); Magnesium 1.8 mg/dL (1.6-2.6); Osmolality,Calculated 296 (280-300); Potassium 4.4 mEq/L (3.5-5.1); Sodium 136 mEq/L (136-145); Triglycerides 157 mg/dL (< 150); eGFR For African Americans > 60 (> 60); eGFR For Non-African Americans 57 (> 60)
[2019-08-27] MEDS: Metoprolol 100 MG TABLET PO SCH ×2 (07:56→20:23)
[2019-08-27] MEDS: Aspirin Enteric Coated 81 MG Tablet PO SCH (07:56)
[2019-08-27] MEDS: Gabapentin 400 MG CAPSULE PO SCH ×3 (07:56→20:23)
[2019-08-27] MEDS: Sucralfate 1 GM TABLET PO SCH ×4 (07:56→20:23)
[2019-08-27] MEDS ORDERED: Perflutren Lipid Microsphere 1.3 ML in 0.9 % Sodium Chloride 8.7 ML IVP ONE (08:37)
[2019-08-27] MEDS ORDERED: Furosemide 40 MG/4 ML VIAL IVP ONE (12:46)
[2019-08-27] MEDS ORDERED: Insulin DETEMIR 100 UNIT/ML X5UNITS SQ SCH (21:00)
[2019-08-28] MEDS: Insulin LISPRO 300 UNITS/3 ML VIAL SQ SCH ×2 (01:23→06:33)
[2019-08-28 02:43] LABS: Mean Corpuscular HGB Conc 31.8 g/dL (31.6-35.5); Mean Corpuscular Volume 94.6 fL (83.0-100.0); Mean Platelet Volume 11.4 fL (9.4-12.4); Platelet Count 204 K/mcL (140-400); Red Blood Count 4.23 M/mcL (3.82-4.97); Red Cell Distribution Width 14.4 % (11.5-14.5); White Blood Count 16.2 K/mcL (4.3-11.1)
[2019-08-28 02:44] LABS: Hemoglobin 12.7 g/dL (11.5-15.4)
[2019-08-28 03:02] LABS: BUN/Creatinine Ratio 21 (6-26); Blood Urea Nitrogen 22 mg/dL (8-23); Calcium 9.1 mg/dL (8.6-10.3); Carbon Dioxide 28 mEq/L (23-29); Chloride 98 mEq/L (98-107); Glucose 229 mg/dL (70-105); Osmolality,Calculated 293 (280-300); Potassium 4.3 mEq/L (3.5-5.1); Sodium 136 mEq/L (136-145); eGFR For African Americans > 60 (> 60); eGFR For Non-African Americans 52 (> 60)
[2019-08-28] MEDS: *HR* Heparin 5,000 UNIT/ML VIAL SQ SCH (06:37)
[2019-08-28] MEDS: Pantoprazole 40 MG VIAL IVP SCH (06:37)
[2019-08-28] MEDS: Metoprolol 100 MG TABLET PO SCH (07:40)
[2019-08-28] MEDS: Gabapentin 400 MG CAPSULE PO SCH (07:40)
[2019-08-28] MEDS: Sucralfate 1 GM TABLET PO SCH ×2 (07:40→12:09)
[2019-08-28] MEDS: Aspirin Enteric Coated 81 MG Tablet PO SCH (07:40)
[2019-08-28] MEDS ORDERED: amLODIPine 5 MG TABLET PO SCH (09:00)
[2019-08-28 09:22] LABS: Basophils # 0.1 K/mcL (0.0-0.2); Basophils % 0.4 %; Eosinophils # 0.1 K/mcL (0.0-0.6); Eosinophils % 0.4 %; Hematocrit 40.2 % (35.3-44.9); Hemoglobin 12.8 g/dL (11.5-15.4); Immature Granulocytes % 0.4 % (0-4); Lymphocytes # 2.9 K/mcL (0.6-4.6); Lymphocytes % 17.8 %; Mean Corpuscular HGB Conc 31.8 g/dL (31.6-35.5); Mean Corpuscular Hemoglobin 30.6 pg (28.0-33.3); Mean Corpuscular Volume 96.2 fL (83.0-100.0); Mean Platelet Volume 11.8 fL (9.4-12.4); Monocytes # 1.4 K/mcL (0.0-1.3); Monocytes % 8.7 %; Neutrophils # 11.7 K/mcL (1.6-8.9); Nucleated Red Blood Cells 0.2 /100 WBC (0); Platelet Count 195 K/mcL (140-400); Red Blood Count 4.18 M/mcL (3.82-4.97); Red Cell Distribution Width 14.4 % (11.5-14.5); Segmented Neutrophils % 72.3 %; White Blood Count 16.2 K/mcL (4.3-11.1)
[2019-08-28 10:43] LABS: Bilirubin,Urine Negative (Negative); Blood,Urine Negative (Negative); Clarity,Urine Clear (Clear); Color,Urine Light-Yellow (Yellow); Glucose,Urine (UA) Normal (Normal); Ketones,Urine Negative (Negative); Leukocyte Esterase,Urine Negative (Negative); Mucus,Urine Few per lpf (None-Few); Nitrite,Urine Negative (Negative); Protein,Urine 30 mg/dL (Neg-Trace); RBC,Urine 0-3 per hpf (0-3); Specific Gravity,Urine 1.016 (1.010-1.025); Urobilinogen,Urine Normal (Normal)
[2019-08-28 11:18] VITALS: BP 164/76
[2019-08-28] MEDS ORDERED: Insulin LISPRO 300 UNITS/3 ML VIAL SQ SCH (16:30)
[2019-08-30 12:16] LABS: Urine Collection Volume RANDOM mL
[2019-09-01 09:30] LABS: Metanephrine, Plasma 0.18 nmol/L (0.00-0.49)
== END 2019-08-28 14:22 | disposition home or self-care (01) ==
LOC: 2NNU 16:43 → EMEROOARM 16:43 → SUATTDRO 21:23 → 2NNU 21:49
PROVIDERS: ADMIT Internal Medicine; ATTEND Family Medicine

== ENCOUNTER 2019-08-30 20:34 | Observation (INO) ==
[2019-08-30] MEDS ORDERED: Isovue-370 500 ML BOTTLE IVP ONE (21:09)
[2019-08-30 21:53] LABS: Basophils % 0.4 %; Eosinophils # 0.1 K/mcL (0.0-0.6); Eosinophils % 1.2 %; Hematocrit 46.7 % (35.3-44.9); Immature Granulocytes % 0.4 % (0-4); Lymphocytes # 2.5 K/mcL (0.6-4.6); Lymphocytes % 22.2 %; Mean Corpuscular HGB Conc 32.3 g/dL (31.6-35.5); Mean Corpuscular Hemoglobin 29.2 pg (28.0-33.3); Mean Corpuscular Volume 90.3 fL (83.0-100.0); Mean Platelet Volume 10.6 fL (9.4-12.4); Monocytes # 0.9 K/mcL (0.0-1.3); Neutrophils # 7.7 K/mcL (1.6-8.9); Platelet Count 251 K/mcL (140-400); Red Blood Count 5.17 M/mcL (3.82-4.97); Red Cell Distribution Width 13.7 % (11.5-14.5); Segmented Neutrophils % 67.8 %; White Blood Count 11.3 K/mcL (4.3-11.1)
[2019-08-30 21:54] LABS: Hemoglobin 15.1 g/dL (11.5-15.4)
[2019-08-30 22:12] LABS: Bacteria,Urine Moderate per hpf (None-Few); Bilirubin,Urine Negative (Negative); Blood,Urine Negative (Negative); Clarity,Urine Turbid (Clear); Color,Urine Yellow (Yellow); Glucose,Urine (UA) 150 mg/dL (Normal); Hyaline Casts,Urine Moderate per lpf (None Seen); Ketones,Urine Trace mg/dL (Negative); Leukocyte Esterase,Urine Moderate (Negative); Mucus,Urine Few per lpf (None-Few); Nitrite,Urine Negative (Negative); Protein,Urine >=300 mg/dL (Neg-Trace); Specific Gravity,Urine 1.029 (1.010-1.025); Squamous Epithelial Cell,Urine Moderate per hpf (None-Few); Urobilinogen,Urine Normal (Normal); WBC,Urine 15-30 per hpf (0-3)
[2019-08-30] MEDS ORDERED: 0.9 % Sodium Chloride 1,000 ML IVC STA ×2 (22:15→23:43)
[2019-08-30 22:16] LABS: BUN/Creatinine Ratio 27 (6-26); Blood Urea Nitrogen 24 mg/dL (8-23); Calcium 10.2 mg/dL (8.6-10.3); Carbon Dioxide 28 mEq/L (23-29); Chloride 92 mEq/L (98-107); Glucose 286 mg/dL (70-105); Lipase 35 Units/L (11-82); Magnesium 1.2 mg/dL (1.6-2.6); Osmolality,Calculated 286 (280-300); Potassium 3.9 mEq/L (3.5-5.1); Sodium 131 mEq/L (136-145); Troponin I 0.03 ng/mL (< 0.04); eGFR For African Americans > 60 (> 60); eGFR For Non-African Americans > 60 (> 60)
[2019-08-30] MEDS ORDERED: Magnesium Sulfate 1 GM/102 ML PIGGYBACK IVPB ONE (23:35)
[2019-08-30] MEDS ORDERED: cefTRIAXone 1,000 MG in Water for inj. (sterile) 10 ML IVP ONE (23:38)
[2019-08-31] MEDS ORDERED: Naloxone 0.4 MG/ML INJ IVP PRN (00:48)
[2019-08-31] MEDS ORDERED: 0.9 % Sodium Chloride 1,000 ML IVC SCH (01:00)
[2019-08-31] MEDS ORDERED: *HR* Labetalol 20 MG/4 ML SYRINGE IVP ONE (01:40)
[2019-08-31 02:24] LABS: Basophils # 0.1 K/mcL (0.0-0.2); Basophils % 0.5 %; Eosinophils # 0.1 K/mcL (0.0-0.6); Eosinophils % 1.2 %; Hematocrit 44.7 % (35.3-44.9); Hemoglobin 14.4 g/dL (11.5-15.4); Immature Granulocytes % 0.4 % (0-4); Lymphocytes % 26.7 %; Mean Corpuscular HGB Conc 32.2 g/dL (31.6-35.5); Mean Corpuscular Hemoglobin 29.3 pg (28.0-33.3); Mean Corpuscular Volume 90.9 fL (83.0-100.0); Mean Platelet Volume 10.5 fL (9.4-12.4); Monocytes # 0.9 K/mcL (0.0-1.3); Monocytes % 7.7 %; Neutrophils # 7.1 K/mcL (1.6-8.9); Platelet Count 215 K/mcL (140-400); Red Blood Count 4.92 M/mcL (3.82-4.97); Red Cell Distribution Width 13.7 % (11.5-14.5); Segmented Neutrophils % 63.5 %; White Blood Count 11.2 K/mcL (4.3-11.1)
[2019-08-31 02:26] LABS: INR 1.1; Prothrombin Time 12.6 Seconds (9.4-12.1)
[2019-08-31 02:29] LABS: Alanine Aminotransferase 12 Units/L (7-52); Albumin 3.6 g/dL (3.5-5.7); Albumin/Globulin Ratio 1.1 (1.1-2.2); Alkaline Phosphatase 62 Units/L (34-104); Aspartate Amino Transferase 12 Units/L (13-39); BUN/Creatinine Ratio 28 (6-26); Bilirubin,Total 0.5 mg/dL (0.3-1.0); Blood Urea Nitrogen 22 mg/dL (8-23); Calcium 9.4 mg/dL (8.6-10.3); Carbon Dioxide 25 mEq/L (23-29); Chloride 97 mEq/L (98-107); Globulin 3.2 g/dL (2.4-3.5); Glucose 200 mg/dL (70-105); Osmolality,Calculated 287 (280-300); Potassium 3.6 mEq/L (3.5-5.1); Sodium 134 mEq/L (136-145); Total Protein 6.8 g/dL (6.4-8.9); Troponin I < 0.03 ng/mL (< 0.04); eGFR For African Americans > 60 (> 60); eGFR For Non-African Americans > 60 (> 60)
[2019-08-31] MEDS ORDERED: *HR* Heparin 5,000 UNIT/ML VIAL IVP PRN ×2 (03:42)
[2019-08-31] MEDS ORDERED: *HR* Heparin 5,000 UNIT/ML VIAL IVP ONE (03:42)
[2019-08-31] MEDS ORDERED: tiZANidine 4 MG TABLET PO PRN (03:43)
[2019-08-31] MEDS ORDERED: Ondansetron 4 MG/2 ML VIAL IVP PRN (03:55)
[2019-08-31] MEDS ORDERED: Dextrose Gel 15 GM/37.5 ML TUBE PO PRN ×2 (03:56)
[2019-08-31] MEDS ORDERED: *HR* Dextrose 50 % in Water (Vial) 50 ML VIAL IVP PRN (03:56)
[2019-08-31] MEDS ORDERED: D5% in Water 1,000 ML IVC PRN (03:56)
[2019-08-31] MEDS ORDERED: Insulin LISPRO 300 UNITS/3 ML VIAL SQ SCH ×2 (04:00→12:00)
[2019-08-31] MEDS: Insulin DETEMIR 100 UNIT/ML X5UNITS SQ SCH ×2 (05:51→21:59)
[2019-08-31] MEDS ORDERED: DilTIAZem 50 MG/50 ML IV.SOLN IVC SCH (06:30)
[2019-08-31] MEDS: Heparin 25,000 UNIT/250 ML D5W 25,000 UNIT/250 ML IV.SOLN IVC SCH ×2 (07:35→23:29)
[2019-08-31] MEDS: Gabapentin 400 MG CAPSULE PO SCH ×3 (08:36→21:57)
[2019-08-31] MEDS: Sucralfate 1 GM TABLET PO SCH ×4 (08:36→21:57)
[2019-08-31] MEDS: amLODIPine 5 MG TABLET PO SCH (08:36)
[2019-08-31] MEDS: Aspirin Enteric Coated 81 MG Tablet PO SCH (08:36)
[2019-08-31] MEDS ORDERED: (Potassium Gluconate [Potassium] 99 MG) PO SCH (09:00)
[2019-08-31] MEDS ORDERED: Metoprolol 100 MG TABLET PO SCH (09:00)
[2019-08-31] MEDS: Insulin LISPRO 300 UNITS/3 ML VIAL SQ SCH ×3 (11:44→21:59)
[2019-08-31 14:24] LABS: INR 1.2; Prothrombin Time 13.1 Seconds (9.4-12.1)
[2019-08-31] MEDS ORDERED: cefTRIAXone 1,000 MG in Water for inj. (sterile) 10 ML IVPB SCH (18:00)
[2019-08-31] MEDS ORDERED: Warfarin perPT PO PRN (18:00)
[2019-08-31] MEDS ORDERED: *HR* Warfarin 2.5 MG TABLET PO ONE (18:00)
[2019-08-31] MEDS ORDERED: Apixaban 5 MG TABLET PO SCH (21:00)
[2019-08-31] MEDS: Metoprolol 100 MG TABLET PO SCH (21:58)
[2019-09-01 05:38] LABS: Basophils # 0.1 K/mcL (0.0-0.2); Basophils % 0.5 %; Eosinophils # 0.3 K/mcL (0.0-0.6); Eosinophils % 2.5 %; Hematocrit 40.2 % (35.3-44.9); Hemoglobin 13.2 g/dL (11.5-15.4); Immature Granulocytes % 0.5 % (0-4); Lymphocytes # 3.5 K/mcL (0.6-4.6); Mean Corpuscular HGB Conc 32.8 g/dL (31.6-35.5); Mean Corpuscular Hemoglobin 30.2 pg (28.0-33.3); Mean Platelet Volume 10.8 fL (9.4-12.4); Neutrophils # 6.1 K/mcL (1.6-8.9); Platelet Count 210 K/mcL (140-400); Red Blood Count 4.37 M/mcL (3.82-4.97); Red Cell Distribution Width 14.3 % (11.5-14.5); Segmented Neutrophils % 55.5 %; White Blood Count 11.1 K/mcL (4.3-11.1)
[2019-09-01 05:45] LABS: Heparin anti-factor XA UFH 0.46 IU/mL (0.30-0.70); INR 1.1; Prothrombin Time 12.2 Seconds (9.4-12.1)
[2019-09-01 05:50] LABS: Calcium 9.2 mg/dL (8.6-10.3); Potassium 3.5 mEq/L (3.5-5.1)
[2019-09-01] MEDS: Aspirin Enteric Coated 81 MG Tablet PO SCH (08:47)
[2019-09-01] MEDS: Gabapentin 400 MG CAPSULE PO SCH ×3 (08:47→21:07)
[2019-09-01] MEDS: Sucralfate 1 GM TABLET PO SCH ×4 (08:47→21:07)
[2019-09-01] MEDS: amLODIPine 5 MG TABLET PO SCH (08:48)
[2019-09-01] MEDS: Metoprolol 100 MG TABLET PO SCH ×2 (08:48→21:07)
[2019-09-01] MEDS: Insulin LISPRO 300 UNITS/3 ML VIAL SQ SCH ×4 (08:49→21:08)
[2019-09-01] MEDS ORDERED: *HR* Warfarin 5 MG TABLET PO ONE (18:00)
[2019-09-01] MEDS: Insulin DETEMIR 100 UNIT/ML X5UNITS SQ SCH (21:07)
[2019-09-01] MEDS: Heparin 25,000 UNIT/250 ML D5W 25,000 UNIT/250 ML IV.SOLN IVC SCH (21:08)
[2019-09-01] MEDS ORDERED: *HR* OxyCODONE Immed Rel 5 MG TABLET PO STA (23:47)
[2019-09-02 07:38] VITALS: BP 116/77
[2019-09-02] MEDS: amLODIPine 5 MG TABLET PO SCH (08:04)
[2019-09-02] MEDS: Metoprolol 100 MG TABLET PO SCH (08:05)
[2019-09-02] MEDS: Aspirin Enteric Coated 81 MG Tablet PO SCH (08:05)
[2019-09-02] MEDS: Gabapentin 400 MG CAPSULE PO SCH (08:05)
[2019-09-02] MEDS: Sucralfate 1 GM TABLET PO SCH (08:05)
[2019-09-02] MEDS: Insulin LISPRO 300 UNITS/3 ML VIAL SQ SCH (08:05)
[2019-09-02 09:50] LABS: INR 1.1; Prothrombin Time 12.2 Seconds (9.4-12.1)
== END 2019-09-02 11:55 | disposition home or self-care (01) ==
LOC: EMEROOARM 20:34 → 2NNU 20:34 → SUATTDRO 08-31 00:15 → 2NNU 08-31 00:51 → 2ANU 08-31 15:23
PROVIDERS: ADMIT Internal Medicine; ATTEND Internal Medicine

== ENCOUNTER 2020-02-23 12:21 | Inpatient (IN) ==
[2020-02-23 13:19] LABS: Basophils % 0.5 %; Eosinophils # 0.2 K/mcL (0.0-0.6); Eosinophils % 1.7 %; Hemoglobin 11.5 g/dL (11.5-15.4); Immature Granulocytes % 0.3 % (0-4); Lymphocytes # 1.9 K/mcL (0.6-4.6); Lymphocytes % 22.6 %; Mean Corpuscular HGB Conc 30.3 g/dL (31.6-35.5); Mean Corpuscular Volume 92.7 fL (83.0-100.0); Monocytes # 0.7 K/mcL (0.0-1.3); Neutrophils # 5.7 K/mcL (1.6-8.9); Platelet Count 203 K/mcL (140-400); Red Cell Distribution Width 13.5 % (11.5-14.5); Segmented Neutrophils % 66.9 %; White Blood Count 8.6 K/mcL (4.3-11.1)
[2020-02-23 13:39] LABS: BUN/Creatinine Ratio 23 (6-26); Blood Urea Nitrogen 17 mg/dL (8-23); Calcium 9.3 mg/dL (8.6-10.3); Carbon Dioxide 32 mEq/L (23-29); Chloride 101 mEq/L (98-107); Glucose 134 mg/dL (70-105); Osmolality,Calculated 290 (280-300); Potassium 4.3 mEq/L (3.5-5.1); Sodium 138 mEq/L (136-145); eGFR For African Americans > 60 (> 60); eGFR For Non-African Americans > 60 (> 60)
[2020-02-23 13:47] LABS: Troponin I < 0.03 ng/mL (< 0.04)
[2020-02-23 14:27] LABS: Adenovirus Not Detected (Not Detect); Bordetella Pertussis Not Detected (Not Detect); Chlamydophila pneumoniae Not Detected (Not Detect); Coronavirus 229E Not Detected (Not Detect); Coronavirus HKU1 Not Detected (Not Detect); Coronavirus NL63 Not Detected (Not Detect); Coronavirus OC43 Not Detected (Not Detect); Human Metapneumovirus Not Detected (Not Detect); Human Rhinovirus/Enterovirus Not Detected (Not Detect); Influenza A Subtype 2009 H1 Not Detected (Not Detect); Influenza B Not Detected (Not Detect); Mycoplasma pneumoniae Not Detected (Not Detect); Parainfluenza Virus 1 Not Detected (Not Detect); Parainfluenza Virus 2 Not Detected (Not Detect); Parainfluenza Virus 3 Not Detected (Not Detect); Parainfluenza Virus 4 Not Detected (Not Detect); Respiratory Syncytial Virus Not Detected (Not Detect); SARS-CoV-2 Not Detected (Not Detect)
[2020-02-23] MEDS ORDERED: predniSONE 20 MG TABLET PO ONE (14:48)
[2020-02-23] MEDS ORDERED: Azithromycin 250 MG TABLET PO STA (14:49)
[2020-02-23] MEDS ORDERED: Ipratropium/Albuterol Neb 3 ML IH ONE (15:08)
[2020-02-23] MEDS ORDERED: Naloxone 0.4 MG/ML INJ IVP PRN (16:35)
[2020-02-23] MEDS ORDERED: Dextrose Gel 15 GM/37.5 ML TUBE PO PRN ×2 (16:35)
[2020-02-23] MEDS ORDERED: Ondansetron ODT 4 MG TAB.RAPDIS SL PRN (16:35)
[2020-02-23] MEDS ORDERED: D5% in Water 1,000 ML IVC PRN (16:35)
[2020-02-23] MEDS ORDERED: *HR* Dextrose 50 % in Water (Vial) 50 ML VIAL IVP PRN (16:35)
[2020-02-23 17:06] LABS: INR 2.1; Prothrombin Time 23.7 Seconds (9.4-12.1)
[2020-02-23 17:09] LABS: Alanine Aminotransferase 14 Units/L (7-52); Albumin 3.8 g/dL (3.5-5.7); Albumin/Globulin Ratio 1.2 (1.1-2.2); Alkaline Phosphatase 56 Units/L (34-104); Aspartate Amino Transferase 16 Units/L (13-39); Bilirubin,Direct 0.1 mg/dL (0.0-0.2); Bilirubin,Indirect 0.5 mg/dL (0.0-1.0); Bilirubin,Total 0.6 mg/dL (0.3-1.0); Globulin 3.1 g/dL (2.4-3.5); Magnesium 1.7 mg/dL (1.6-2.6); Phosphorous 2.8 mg/dL (2.7-4.5); Total Protein 6.9 g/dL (6.4-8.9)
[2020-02-23] MEDS ORDERED: *HR* Warfarin 2 MG TABLET PO ONE (18:00)
[2020-02-23] MEDS ORDERED: *HR* Warfarin 3 MG TABLET PO ONE (18:00)
[2020-02-23] MEDS ORDERED: Warfarin perPT PO PRN (18:00)
[2020-02-23] MEDS: Furosemide 40 MG TABLET PO SCH (18:37)
[2020-02-23] MEDS: Ipratropium/Albuterol Neb 3 ML IH SCH ×2 (19:45→23:48)
[2020-02-23] MEDS: MethylPREDNISolone 40 MG/ML VIAL IVP SCH ×2 (19:51→23:52)
[2020-02-23] MEDS ORDERED: Insulin LISPRO 300 UNITS/3 ML VIAL SUBQ SCH (21:00)
[2020-02-23] MEDS: Insulin DETEMIR 100 UNIT/ML X5UNITS SUBQ SCH (22:04)
[2020-02-23] MEDS: Metoprolol 100 MG TABLET PO SCH (22:05)
[2020-02-23] MEDS ORDERED: Acetaminophen IV 1,000 MG/100 ML BAG IVPB ONE (23:11)
[2020-02-24] MEDS: Ipratropium/Albuterol Neb 3 ML IH SCH ×6 (03:59→22:55)
[2020-02-24 06:38] LABS: Hematocrit 40.4 % (35.3-44.9); Hemoglobin 12.9 g/dL (11.5-15.4); Mean Corpuscular HGB Conc 31.9 g/dL (31.6-35.5); Mean Corpuscular Hemoglobin 29.1 pg (28.0-33.3); Mean Platelet Volume 11.1 fL (9.4-12.4); Platelet Count 239 K/mcL (140-400); Red Blood Count 4.44 M/mcL (3.82-4.97); Red Cell Distribution Width 13.3 % (11.5-14.5); White Blood Count 10.5 K/mcL (4.3-11.1)
[2020-02-24 06:47] LABS: INR 1.9; Prothrombin Time 21.1 Seconds (9.4-12.1)
[2020-02-24] MEDS ORDERED: Insulin LISPRO 300 UNITS/3 ML VIAL SUBQ SCH (07:30)
[2020-02-24] MEDS: Budesonide/Formoterol 160/4.5 1 PUFF INH IH SCH ×2 (07:52→20:24)
[2020-02-24] MEDS: MethylPREDNISolone 40 MG/ML VIAL IVP SCH ×2 (08:22→17:13)
[2020-02-24] MEDS: Metoprolol 100 MG TABLET PO SCH ×2 (08:22→22:20)
[2020-02-24] MEDS: Furosemide 40 MG TABLET PO SCH (08:23)
[2020-02-24] MEDS: Azithromycin 250 MG TABLET PO SCH (08:23)
[2020-02-24] MEDS: Aspirin Enteric Coated 81 MG Tablet PO SCH (08:23)
[2020-02-24 08:37] LABS: BUN/Creatinine Ratio 25 (6-26); Blood Urea Nitrogen 22 mg/dL (8-23); Calcium 10.2 mg/dL (8.6-10.3); Carbon Dioxide 26 mEq/L (23-29); Chloride 94 mEq/L (98-107); Glucose 359 mg/dL (70-105); Osmolality,Calculated 298 (280-300); Sodium 135 mEq/L (136-145); eGFR For African Americans > 60 (> 60); eGFR For Non-African Americans > 60 (> 60)
[2020-02-24] MEDS ORDERED: predniSONE 20 MG TABLET PO SCH (09:00)
[2020-02-24] MEDS ORDERED: Acetaminophen IV 1,000 MG/100 ML BAG IVPB ONE (09:42)
[2020-02-24] MEDS ORDERED: methocarbamoL 750 MG TABLET PO SCH (10:15)
[2020-02-24] MEDS: Insulin LISPRO 300 UNITS/3 ML VIAL SUBQ SCH ×2 (11:19→17:14)
[2020-02-24] MEDS: Gabapentin 300 MG CAPSULE PO SCH ×2 (14:37→22:19)
[2020-02-24] MEDS ORDERED: *HR* Warfarin 5 MG TABLET PO ONE (18:00)
[2020-02-24] MEDS ORDERED: Ketorolac 15 MG/ML VIAL IVP ONE (21:40)
[2020-02-24] MEDS: Insulin DETEMIR 100 UNIT/ML X5UNITS SUBQ SCH (22:20)
[2020-02-25] MEDS: Ipratropium/Albuterol Neb 3 ML IH SCH ×6 (03:43→23:02)
[2020-02-25 07:26] LABS: INR 1.8; Prothrombin Time 20.7 Seconds (9.4-12.1)
[2020-02-25] MEDS: Budesonide/Formoterol 160/4.5 1 PUFF INH IH SCH ×2 (07:30→20:09)
[2020-02-25 07:36] LABS: Hematocrit 38.1 % (35.3-44.9); Mean Corpuscular HGB Conc 31.5 g/dL (31.6-35.5); Mean Corpuscular Hemoglobin 28.8 pg (28.0-33.3); Mean Corpuscular Volume 91.4 fL (83.0-100.0); Mean Platelet Volume 11.3 fL (9.4-12.4); Platelet Count 245 K/mcL (140-400); Red Blood Count 4.17 M/mcL (3.82-4.97); Red Cell Distribution Width 13.7 % (11.5-14.5)
[2020-02-25 07:59] LABS: White Blood Count 17.1 K/mcL (4.3-11.1)
[2020-02-25] MEDS: predniSONE 20 MG TABLET PO SCH (08:28)
[2020-02-25] MEDS: Gabapentin 300 MG CAPSULE PO SCH ×3 (08:28→21:39)
[2020-02-25] MEDS: Azithromycin 250 MG TABLET PO SCH (08:28)
[2020-02-25] MEDS: Furosemide 40 MG TABLET PO SCH (08:28)
[2020-02-25] MEDS: Aspirin Enteric Coated 81 MG Tablet PO SCH (08:28)
[2020-02-25] MEDS: Metoprolol 100 MG TABLET PO SCH ×2 (08:29→21:39)
[2020-02-25] MEDS: Insulin LISPRO 300 UNITS/3 ML VIAL SUBQ SCH ×3 (08:29→16:26)
[2020-02-25] MEDS ORDERED: Furosemide 40 MG TABLET PO SCH (17:00)
[2020-02-25] MEDS ORDERED: *HR* Warfarin 5 MG TABLET PO ONE (18:00)
[2020-02-25] MEDS ORDERED: Acetaminophen IV 1,000 MG/100 ML BAG IVPB ONE (20:43)
[2020-02-25] MEDS: Insulin DETEMIR 100 UNIT/ML X5UNITS SUBQ SCH (21:39)
[2020-02-26] MEDS: Ipratropium/Albuterol Neb 3 ML IH SCH ×6 (03:43→23:08)
[2020-02-26 04:03] LABS: Basophils % 0.2 %; Eosinophils # 0.1 K/mcL (0.0-0.6); Eosinophils % 0.4 %; Hematocrit 40.3 % (35.3-44.9); Hemoglobin 12.5 g/dL (11.5-15.4); Immature Granulocytes % 0.3 % (0-4); Immature Platelets 5.8 % (1.1-6.1); Lymphocytes # 2.5 K/mcL (0.6-4.6); Lymphocytes % 15.6 %; Mean Corpuscular Hemoglobin 28.5 pg (28.0-33.3); Mean Platelet Volume 11.4 fL (9.4-12.4); Monocytes # 1.3 K/mcL (0.0-1.3); Monocytes % 8.1 %; Neutrophils # 11.8 K/mcL (1.6-8.9); Platelet Count 244 K/mcL (140-400); Red Blood Count 4.38 M/mcL (3.82-4.97); Red Cell Distribution Width 13.8 % (11.5-14.5); Segmented Neutrophils % 75.4 %; White Blood Count 15.7 K/mcL (4.3-11.1)
[2020-02-26 04:05] LABS: INR 1.8; Prothrombin Time 20.9 Seconds (9.4-12.1)
[2020-02-26 04:18] LABS: Potassium 3.9 mEq/L (3.5-5.1)
[2020-02-26] MEDS: Budesonide/Formoterol 160/4.5 1 PUFF INH IH SCH ×2 (07:29→23:09)
[2020-02-26] MEDS: Aspirin Enteric Coated 81 MG Tablet PO SCH (08:14)
[2020-02-26] MEDS: Azithromycin 250 MG TABLET PO SCH (08:14)
[2020-02-26] MEDS: Metoprolol 100 MG TABLET PO SCH ×2 (08:15→21:30)
[2020-02-26] MEDS: predniSONE 20 MG TABLET PO SCH (08:15)
[2020-02-26] MEDS: Gabapentin 300 MG CAPSULE PO SCH ×3 (08:15→21:29)
[2020-02-26] MEDS: Insulin LISPRO 300 UNITS/3 ML VIAL SUBQ SCH ×3 (08:16→16:32)
[2020-02-26] MEDS ORDERED: *HR* Warfarin 5 MG TABLET PO ONE (18:00)
[2020-02-26] MEDS ORDERED: Acetaminophen IV 1,000 MG/100 ML BAG IVPB ONE (18:37)
[2020-02-26] MEDS: Insulin DETEMIR 100 UNIT/ML X5UNITS SUBQ SCH (21:30)
[2020-02-27] MEDS: Ipratropium/Albuterol Neb 3 ML IH SCH ×5 (03:43→20:17)
[2020-02-27 06:11] LABS: Basophils % 0.1 %; Eosinophils # 0.1 K/mcL (0.0-0.6); Eosinophils % 0.7 %; Hematocrit 40.3 % (35.3-44.9); Hemoglobin 12.6 g/dL (11.5-15.4); Immature Granulocytes % 0.4 % (0-4); Lymphocytes # 2.6 K/mcL (0.6-4.6); Lymphocytes % 22.1 %; Mean Corpuscular HGB Conc 31.3 g/dL (31.6-35.5); Mean Corpuscular Hemoglobin 29.2 pg (28.0-33.3); Mean Corpuscular Volume 93.3 fL (83.0-100.0); Mean Platelet Volume 10.9 fL (9.4-12.4); Monocytes % 8.8 %; Platelet Count 235 K/mcL (140-400); Red Blood Count 4.32 M/mcL (3.82-4.97); Red Cell Distribution Width 13.6 % (11.5-14.5); Segmented Neutrophils % 67.9 %; White Blood Count 11.7 K/mcL (4.3-11.1)
[2020-02-27 06:19] LABS: INR 1.9; Prothrombin Time 21.6 Seconds (9.4-12.1)
[2020-02-27 06:36] LABS: Calcium 9.8 mg/dL (8.6-10.3)
[2020-02-27] MEDS: Metoprolol 100 MG TABLET PO SCH ×2 (08:42→21:57)
[2020-02-27] MEDS: predniSONE 20 MG TABLET PO SCH (08:42)
[2020-02-27] MEDS: Gabapentin 300 MG CAPSULE PO SCH ×3 (08:42→21:57)
[2020-02-27] MEDS: Azithromycin 250 MG TABLET PO SCH (08:42)
[2020-02-27] MEDS: Aspirin Enteric Coated 81 MG Tablet PO SCH (08:42)
[2020-02-27] MEDS: Insulin LISPRO 300 UNITS/3 ML VIAL SUBQ SCH ×3 (08:43→16:50)
[2020-02-27] MEDS: Budesonide/Formoterol 160/4.5 1 PUFF INH IH SCH ×2 (11:28→20:17)
[2020-02-27] MEDS: Furosemide 40 MG TABLET PO SCH (13:14)
[2020-02-27] MEDS ORDERED: *HR* Warfarin 7.5 MG TABLET PO ONE (18:00)
[2020-02-27] MEDS ORDERED: Acetaminophen IV 1,000 MG/100 ML BAG IVPB ONE (21:40)
[2020-02-27] MEDS: Insulin DETEMIR 100 UNIT/ML X5UNITS SUBQ SCH (21:56)
[2020-02-28] MEDS: Ipratropium/Albuterol Neb 3 ML IH SCH ×4 (00:24→11:16)
[2020-02-28 05:17] LABS: Basophils % 0.1 %; Eosinophils # 0.1 K/mcL (0.0-0.6); Eosinophils % 0.4 %; Hematocrit 39.9 % (35.3-44.9); Hemoglobin 12.4 g/dL (11.5-15.4); Immature Granulocytes % 0.3 % (0-4); Lymphocytes # 2.2 K/mcL (0.6-4.6); Lymphocytes % 18.7 %; Mean Corpuscular HGB Conc 31.1 g/dL (31.6-35.5); Mean Corpuscular Volume 93.2 fL (83.0-100.0); Mean Platelet Volume 10.9 fL (9.4-12.4); Monocytes # 0.9 K/mcL (0.0-1.3); Monocytes % 7.8 %; Neutrophils # 8.5 K/mcL (1.6-8.9); Platelet Count 229 K/mcL (140-400); Red Blood Count 4.28 M/mcL (3.82-4.97); Red Cell Distribution Width 13.5 % (11.5-14.5); Segmented Neutrophils % 72.7 %; White Blood Count 11.7 K/mcL (4.3-11.1)
[2020-02-28 05:18] LABS: INR 2.1; Prothrombin Time 23.6 Seconds (9.4-12.1)
[2020-02-28 05:44] LABS: Calcium 9.4 mg/dL (8.6-10.3)
[2020-02-28] MEDS: Gabapentin 300 MG CAPSULE PO SCH (07:09)
[2020-02-28] MEDS: predniSONE 20 MG TABLET PO SCH (07:09)
[2020-02-28] MEDS: Azithromycin 250 MG TABLET PO SCH (07:09)
[2020-02-28] MEDS: Aspirin Enteric Coated 81 MG Tablet PO SCH (07:09)
[2020-02-28] MEDS: Metoprolol 100 MG TABLET PO SCH (07:09)
[2020-02-28] MEDS: Furosemide 40 MG TABLET PO SCH (07:09)
[2020-02-28] MEDS: Budesonide/Formoterol 160/4.5 1 PUFF INH IH SCH (07:50)
[2020-02-28] MEDS: Insulin LISPRO 300 UNITS/3 ML VIAL SUBQ SCH ×2 (08:24→12:38)
[2020-02-28 11:53] VITALS: BP 155/84
[2020-02-28] MEDS ORDERED: *HR* Warfarin 5 MG TABLET PO ONE (18:00)
== END 2020-02-28 14:45 | disposition home or self-care (01) ==
LOC: 3ANU 12:21 → EMEROOARM 12:21 → 3ANU 17:04 → SUATTDRO 02-24 13:07
PROVIDERS: ADMIT Student in an Organized Health Care Education/Training Program; ATTEND Family Medicine

== ENCOUNTER 2020-04-04 10:37 | Inpatient (IN) ==
[2020-04-04 11:16] LABS: Basophils # 0.1 K/mcL (0.0-0.2); Basophils % 0.6 %; Eosinophils # 0.1 K/mcL (0.0-0.6); Eosinophils % 1.1 %; Hematocrit 36.5 % (35.3-44.9); Hemoglobin 11.1 g/dL (11.5-15.4); Immature Granulocytes % 0.3 % (0-4); Lymphocytes # 1.6 K/mcL (0.6-4.6); Lymphocytes % 17.8 %; Mean Corpuscular HGB Conc 30.4 g/dL (31.6-35.5); Mean Corpuscular Hemoglobin 28.2 pg (28.0-33.3); Mean Corpuscular Volume 92.9 fL (83.0-100.0); Mean Platelet Volume 10.8 fL (9.4-12.4); Monocytes # 0.8 K/mcL (0.0-1.3); Monocytes % 8.9 %; Neutrophils # 6.4 K/mcL (1.6-8.9); Platelet Count 191 K/mcL (140-400); Red Blood Count 3.93 M/mcL (3.82-4.97); Red Cell Distribution Width 14.2 % (11.5-14.5); Segmented Neutrophils % 71.3 %; White Blood Count 8.9 K/mcL (4.3-11.1)
[2020-04-04 11:23] LABS: INR 1.9; Prothrombin Time 21.2 Seconds (9.4-12.1)
[2020-04-04 12:02] LABS: Bacteria,Urine Few per hpf (None-Few); Bilirubin,Urine Negative (Negative); Blood,Urine Moderate (Negative); Clarity,Urine Clear (Clear); Color,Urine Light-Yellow (Yellow); Glucose,Urine (UA) >=1000 mg/dL (Normal); Ketones,Urine Negative (Negative); Leukocyte Esterase,Urine Large (Negative); Mucus,Urine Few per lpf (None-Few); Nitrite,Urine Negative (Negative); Protein,Urine 200 mg/dL (Neg-Trace); RBC,Urine 15-30 per hpf (0-3); Squamous Epithelial Cell,Urine Moderate per hpf (None-Few); Transitional Epi Cells,Urine Few per hpf (None-Few); Urobilinogen,Urine Normal (Normal); WBC,Urine 30-50 per hpf (0-3)
[2020-04-04] MEDS ORDERED: Furosemide 40 MG/4 ML VIAL IVP ONE ×2 (12:14→15:19)
[2020-04-04] MEDS ORDERED: cefTRIAXone 1,000 MG in 0.9 % Sodium Chloride Mini Bag 100 ML IVPB ONE (12:14)
[2020-04-04] MEDS ORDERED: CefTRIAXone 1,000 MG VIAL ONE (12:51)
[2020-04-04 13:37] LABS: Adenovirus Not Detected (Not Detect); Bordetella Pertussis Not Detected (Not Detect); Chlamydophila pneumoniae Not Detected (Not Detect); Coronavirus 229E Not Detected (Not Detect); Coronavirus HKU1 Not Detected (Not Detect); Coronavirus NL63 Not Detected (Not Detect); Coronavirus OC43 Not Detected (Not Detect); Human Metapneumovirus Not Detected (Not Detect); Human Rhinovirus/Enterovirus Not Detected (Not Detect); Influenza A Subtype 2009 H1 Not Detected (Not Detect); Influenza B Not Detected (Not Detect); Mycoplasma pneumoniae Not Detected (Not Detect); Parainfluenza Virus 1 Not Detected (Not Detect); Parainfluenza Virus 2 Not Detected (Not Detect); Parainfluenza Virus 3 Not Detected (Not Detect); Parainfluenza Virus 4 Not Detected (Not Detect); Respiratory Syncytial Virus Not Detected (Not Detect); SARS-CoV-2 Not Detected (Not Detect)
[2020-04-04 14:03] LABS: BUN/Creatinine Ratio 29 (6-26); Blood Urea Nitrogen 21 mg/dL (8-23); Calcium 9.4 mg/dL (8.6-10.3); Carbon Dioxide 27 mEq/L (23-29); Chloride 106 mEq/L (98-107); Glucose 167 mg/dL (70-105); Osmolality,Calculated 297 (280-300); Potassium 4.4 mEq/L (3.5-5.1); Sodium 140 mEq/L (136-145); eGFR For African Americans > 60 (> 60); eGFR For Non-African Americans > 60 (> 60)
[2020-04-04] MEDS ORDERED: *HR* HYDROcodone/Acet 5/325 mg TABLET PO ONE (14:31)
[2020-04-04] MEDS ORDERED: Naloxone 0.4 MG/ML INJ IVP PRN (15:17)
[2020-04-04] MEDS ORDERED: Ondansetron 4 MG/2 ML VIAL IVP PRN (15:17)
[2020-04-04] MEDS ORDERED: Ipratropium/Albuterol Neb 3 ML IH PRN (15:19)
[2020-04-04] MEDS: Ipratropium/Albuterol Neb 3 ML IH SCH ×2 (16:20→21:24)
[2020-04-04] MEDS ORDERED: D5% in Water 1,000 ML IVC PRN (16:22)
[2020-04-04] MEDS ORDERED: *HR* Dextrose 50 % in Water (Vial) 50 ML VIAL IVP PRN (16:22)
[2020-04-04] MEDS ORDERED: Dextrose Gel 15 GM/37.5 ML TUBE PO PRN ×2 (16:22)
[2020-04-04] MEDS: Insulin LISPRO 300 UNITS/3 ML VIAL SUBQ SCH ×3 (16:52→20:29)
[2020-04-04] MEDS: predniSONE 20 MG TABLET PO SCH (17:26)
[2020-04-04] MEDS: Azithromycin 250 MG TABLET PO SCH (17:26)
[2020-04-04] MEDS: Furosemide 40 MG/4 ML VIAL IVP SCH (17:26)
[2020-04-04 17:27] LABS: Estimated Average Glucose 209 mg/dl; Hemoglobin A1C 8.9 %
[2020-04-04] MEDS: Metoprolol 100 MG TABLET PO SCH (20:29)
[2020-04-04] MEDS: Gabapentin 300 MG CAPSULE PO SCH (20:29)
[2020-04-04] MEDS: Insulin DETEMIR 100 UNIT/ML X5UNITS SUBQ SCH (20:35)
[2020-04-04] MEDS: Budesonide/Formoterol 160/4.5 1 PUFF INH IH SCH (21:24)
[2020-04-04] MEDS: Acetaminophen 325 MG TABLET PO PRN (23:00)
[2020-04-04] MEDS ORDERED: *HR* Warfarin 5 MG TABLET PO ONE (23:15)
[2020-04-05 03:19] LABS: INR 1.9; Prothrombin Time 21.7 Seconds (9.4-12.1)
[2020-04-05 03:20] LABS: Basophils % 0.3 %; Eosinophils % 0.1 %; Hemoglobin 12.3 g/dL (11.5-15.4); Immature Granulocytes % 0.5 % (0-4); Lymphocytes # 0.8 K/mcL (0.6-4.6); Lymphocytes % 6.1 %; Mean Corpuscular HGB Conc 30.8 g/dL (31.6-35.5); Mean Corpuscular Volume 91.1 fL (83.0-100.0); Mean Platelet Volume 11.3 fL (9.4-12.4); Monocytes # 0.3 K/mcL (0.0-1.3); Monocytes % 2.1 %; Neutrophils # 11.7 K/mcL (1.6-8.9); Platelet Count 247 K/mcL (140-400); Red Blood Count 4.39 M/mcL (3.82-4.97); Red Cell Distribution Width 14.2 % (11.5-14.5); Segmented Neutrophils % 90.9 %; White Blood Count 12.9 K/mcL (4.3-11.1)
[2020-04-05] MEDS: Ipratropium/Albuterol Neb 3 ML IH SCH ×4 (03:36→22:52)
[2020-04-05 03:43] LABS: Alanine Aminotransferase 13 Units/L (7-52); Albumin/Globulin Ratio 1.2 (1.1-2.2); Alkaline Phosphatase 58 Units/L (34-104); Aspartate Amino Transferase 13 Units/L (13-39); BUN/Creatinine Ratio 26 (6-26); Bilirubin,Total 0.4 mg/dL (0.3-1.0); Blood Urea Nitrogen 24 mg/dL (8-23); Calcium 9.7 mg/dL (8.6-10.3); Carbon Dioxide 26 mEq/L (23-29); Chloride 97 mEq/L (98-107); Chol/HDL Ratio 3.3 (0-4.9); Cholesterol 196 mg/dL (< 200); Globulin 3.4 g/dL (2.4-3.5); Glucose 380 mg/dL (70-105); HDL Cholesterol 60 mg/dL (40-59); LDL Cholesterol,Calculated 100 mg/dL (< 100); Magnesium 1.3 mg/dL (1.6-2.6); Osmolality,Calculated 302 (280-300); Phosphorous 3.2 mg/dL (2.7-4.5); Potassium 4.2 mEq/L (3.5-5.1); Sodium 136 mEq/L (136-145); Total Protein 7.4 g/dL (6.4-8.9); Triglycerides 180 mg/dL (< 150); eGFR For African Americans > 60 (> 60); eGFR For Non-African Americans 59 (> 60)
[2020-04-05] MEDS: Acetaminophen 325 MG TABLET PO PRN ×3 (05:36→20:26)
[2020-04-05] MEDS ORDERED: Magnesium Sulfate 1 GM/102 ML PIGGYBACK IVPB ONE (07:54)
[2020-04-05] MEDS ORDERED: NON-FORMULARY MEDICATION 1 EACH EACH (Pravastatin Sodium [Pravachol] 20 MG) PO SCH (09:00)
[2020-04-05] MEDS: Metoprolol 100 MG TABLET PO SCH ×2 (09:34→20:26)
[2020-04-05] MEDS: Gabapentin 300 MG CAPSULE PO SCH ×3 (09:34→20:26)
[2020-04-05] MEDS: Aspirin Enteric Coated 81 MG Tablet PO SCH (09:35)
[2020-04-05] MEDS: predniSONE 20 MG TABLET PO SCH (09:35)
[2020-04-05] MEDS: Insulin LISPRO 300 UNITS/3 ML VIAL SUBQ SCH ×7 (09:37→20:29)
[2020-04-05] MEDS: Furosemide 40 MG/4 ML VIAL IVP SCH (09:40)
[2020-04-05] MEDS: cefTRIAXone 1,000 MG in 0.9 % Sodium Chloride Mini Bag 100 ML IVPB SCH (09:43)
[2020-04-05] MEDS: Budesonide/Formoterol 160/4.5 1 PUFF INH IH SCH ×2 (10:41→22:52)
[2020-04-05] MEDS: Azithromycin 250 MG TABLET PO SCH (16:35)
[2020-04-05] MEDS ORDERED: *HR* Warfarin 5 MG TABLET PO ONE (18:00)
[2020-04-05] MEDS ORDERED: Warfarin perPT PO PRN (18:00)
[2020-04-05] MEDS: Insulin DETEMIR 100 UNIT/ML X5UNITS SUBQ SCH (20:32)
[2020-04-06] MEDS: Ipratropium/Albuterol Neb 3 ML IH SCH ×4 (03:34→22:26)
[2020-04-06] MEDS: Acetaminophen 325 MG TABLET PO PRN ×2 (05:59→22:07)
[2020-04-06 06:01] LABS: Basophils # 0.1 K/mcL (0.0-0.2); Basophils % 0.4 %; Eosinophils # 0.1 K/mcL (0.0-0.6); Eosinophils % 0.5 %; Hematocrit 36.8 % (35.3-44.9); Hemoglobin 11.4 g/dL (11.5-15.4); INR 1.7; Immature Granulocytes % 0.6 % (0-4); Lymphocytes # 2.7 K/mcL (0.6-4.6); Lymphocytes % 20.2 %; Mean Corpuscular Hemoglobin 28.6 pg (28.0-33.3); Mean Corpuscular Volume 92.2 fL (83.0-100.0); Mean Platelet Volume 10.8 fL (9.4-12.4); Monocytes # 1.3 K/mcL (0.0-1.3); Monocytes % 9.6 %; Neutrophils # 9.1 K/mcL (1.6-8.9); Platelet Count 201 K/mcL (140-400); Prothrombin Time 18.9 Seconds (9.4-12.1); Red Blood Count 3.99 M/mcL (3.82-4.97); Red Cell Distribution Width 14.3 % (11.5-14.5); Segmented Neutrophils % 68.7 %; White Blood Count 13.3 K/mcL (4.3-11.1)
[2020-04-06 06:21] LABS: BUN/Creatinine Ratio 31 (6-26); Blood Urea Nitrogen 25 mg/dL (8-23); Calcium 9.2 mg/dL (8.6-10.3); Carbon Dioxide 32 mEq/L (23-29); Chloride 99 mEq/L (98-107); Glucose 237 mg/dL (70-105); Osmolality,Calculated 296 (280-300); Potassium 3.9 mEq/L (3.5-5.1); Sodium 137 mEq/L (136-145); eGFR For African Americans > 60 (> 60); eGFR For Non-African Americans > 60 (> 60)
[2020-04-06] MEDS: Budesonide/Formoterol 160/4.5 1 PUFF INH IH SCH ×2 (09:23→22:26)
[2020-04-06] MEDS: Insulin LISPRO 300 UNITS/3 ML VIAL SUBQ SCH ×7 (10:55→22:05)
[2020-04-06] MEDS: Aspirin Enteric Coated 81 MG Tablet PO SCH (10:59)
[2020-04-06] MEDS: Furosemide 40 MG/4 ML VIAL IVP SCH (11:00)
[2020-04-06] MEDS: predniSONE 20 MG TABLET PO SCH (11:01)
[2020-04-06] MEDS: Gabapentin 300 MG CAPSULE PO SCH ×3 (11:01→22:07)
[2020-04-06] MEDS: cefTRIAXone 1,000 MG in 0.9 % Sodium Chloride Mini Bag 100 ML IVPB SCH (11:01)
[2020-04-06] MEDS: Metoprolol 100 MG TABLET PO SCH ×2 (11:18→22:08)
[2020-04-06] MEDS: Azithromycin 250 MG TABLET PO SCH (16:42)
[2020-04-06] MEDS: amLODIPine 5 MG TABLET PO SCH (17:44)
[2020-04-06] MEDS ORDERED: *HR* Warfarin 7.5 MG TABLET PO ONE (18:00)
[2020-04-06] MEDS: Insulin DETEMIR 100 UNIT/ML X5UNITS SUBQ SCH (22:07)
[2020-04-07 01:18] LABS: Basophils % 0.3 %; Eosinophils % 0.1 %; Hematocrit 37.7 % (35.3-44.9); Hemoglobin 11.4 g/dL (11.5-15.4); Immature Granulocytes % 0.4 % (0-4); Lymphocytes # 1.5 K/mcL (0.6-4.6); Lymphocytes % 10.4 %; Mean Corpuscular HGB Conc 30.2 g/dL (31.6-35.5); Mean Corpuscular Hemoglobin 27.9 pg (28.0-33.3); Mean Corpuscular Volume 92.2 fL (83.0-100.0); Mean Platelet Volume 10.9 fL (9.4-12.4); Monocytes # 1.1 K/mcL (0.0-1.3); Monocytes % 7.6 %; Neutrophils # 11.7 K/mcL (1.6-8.9); Platelet Count 204 K/mcL (140-400); Red Blood Count 4.09 M/mcL (3.82-4.97); Red Cell Distribution Width 14.4 % (11.5-14.5); Segmented Neutrophils % 81.2 %; White Blood Count 14.4 K/mcL (4.3-11.1)
[2020-04-07 01:21] LABS: INR 1.6; Prothrombin Time 18.1 Seconds (9.4-12.1)
[2020-04-07 01:31] LABS: Calcium 9.1 mg/dL (8.6-10.3); Potassium 4.1 mEq/L (3.5-5.1)
[2020-04-07] MEDS: Ipratropium/Albuterol Neb 3 ML IH SCH ×4 (03:27→22:56)
[2020-04-07] MEDS: amLODIPine 5 MG TABLET PO SCH (07:40)
[2020-04-07] MEDS: Aspirin Enteric Coated 81 MG Tablet PO SCH (07:41)
[2020-04-07] MEDS: Insulin LISPRO 300 UNITS/3 ML VIAL SUBQ SCH ×7 (07:41→21:07)
[2020-04-07] MEDS: predniSONE 20 MG TABLET PO SCH (07:41)
[2020-04-07] MEDS: Gabapentin 300 MG CAPSULE PO SCH ×3 (07:41→21:05)
[2020-04-07] MEDS: Furosemide 40 MG/4 ML VIAL IVP SCH (07:42)
[2020-04-07] MEDS: Metoprolol 100 MG TABLET PO SCH ×2 (07:44→21:06)
[2020-04-07] MEDS: Acetaminophen 325 MG TABLET PO PRN ×2 (10:43→21:05)
[2020-04-07] MEDS: Budesonide/Formoterol 160/4.5 1 PUFF INH IH SCH ×2 (10:53→22:56)
[2020-04-07] MEDS: Azithromycin 250 MG TABLET PO SCH (15:19)
[2020-04-07] MEDS ORDERED: 0.9 % Sodium Chloride 250 ML IVC SCH (17:15)
[2020-04-07] MEDS ORDERED: *HR* Warfarin 7.5 MG TABLET PO ONE (18:00)
[2020-04-07] MEDS: Insulin DETEMIR 100 UNIT/ML X5UNITS SUBQ SCH (21:07)
[2020-04-08] MEDS: Ipratropium/Albuterol Neb 3 ML IH SCH ×4 (04:30→21:48)
[2020-04-08 06:10] LABS: Basophils # 0.1 K/mcL (0.0-0.2); Basophils % 0.4 %; Eosinophils # 0.1 K/mcL (0.0-0.6); Eosinophils % 0.7 %; Hematocrit 37.7 % (35.3-44.9); Hemoglobin 11.6 g/dL (11.5-15.4); Immature Granulocytes % 0.4 % (0-4); Lymphocytes # 2.7 K/mcL (0.6-4.6); Lymphocytes % 20.7 %; Mean Corpuscular HGB Conc 30.8 g/dL (31.6-35.5); Mean Corpuscular Hemoglobin 28.7 pg (28.0-33.3); Mean Corpuscular Volume 93.3 fL (83.0-100.0); Monocytes # 1.1 K/mcL (0.0-1.3); Monocytes % 8.6 %; Platelet Count 196 K/mcL (140-400); Red Blood Count 4.04 M/mcL (3.82-4.97); Red Cell Distribution Width 14.3 % (11.5-14.5); Segmented Neutrophils % 69.2 %
[2020-04-08 06:13] LABS: INR 1.9; Prothrombin Time 21.8 Seconds (9.4-12.1)
[2020-04-08 06:26] LABS: BUN/Creatinine Ratio 37 (6-26); Blood Urea Nitrogen 32 mg/dL (8-23); Calcium 9.1 mg/dL (8.6-10.3); Carbon Dioxide 29 mEq/L (23-29); Chloride 101 mEq/L (98-107); Glucose 209 mg/dL (70-105); Osmolality,Calculated 297 (280-300); Potassium 4.3 mEq/L (3.5-5.1); Sodium 137 mEq/L (136-145); eGFR For African Americans > 60 (> 60); eGFR For Non-African Americans > 60 (> 60)
[2020-04-08] MEDS: amLODIPine 5 MG TABLET PO SCH (09:26)
[2020-04-08] MEDS: predniSONE 20 MG TABLET PO SCH (09:26)
[2020-04-08] MEDS: Aspirin Enteric Coated 81 MG Tablet PO SCH (09:26)
[2020-04-08] MEDS: Gabapentin 300 MG CAPSULE PO SCH ×3 (09:27→20:13)
[2020-04-08] MEDS: Metoprolol 100 MG TABLET PO SCH ×2 (09:27→20:12)
[2020-04-08] MEDS: Insulin LISPRO 300 UNITS/3 ML VIAL SUBQ SCH ×7 (09:29→20:14)
[2020-04-08] MEDS: Budesonide/Formoterol 160/4.5 1 PUFF INH IH SCH ×2 (10:42→21:49)
[2020-04-08] MEDS: Azithromycin 250 MG TABLET PO SCH (16:34)
[2020-04-08] MEDS ORDERED: *HR* Warfarin 7.5 MG TABLET PO ONE (18:00)
[2020-04-08] MEDS: Insulin DETEMIR 100 UNIT/ML X5UNITS SUBQ SCH (20:15)
[2020-04-08] MEDS: Acetaminophen 325 MG TABLET PO PRN (22:08)
[2020-04-09] MEDS: Ipratropium/Albuterol Neb 3 ML IH SCH ×2 (03:35→10:10)
[2020-04-09 05:24] LABS: Basophils % 0.2 %; Eosinophils # 0.1 K/mcL (0.0-0.6); Eosinophils % 0.4 %; Hematocrit 38.2 % (35.3-44.9); Hemoglobin 11.6 g/dL (11.5-15.4); Immature Granulocytes % 0.5 % (0-4); Lymphocytes # 2.1 K/mcL (0.6-4.6); Lymphocytes % 15.2 %; Mean Corpuscular HGB Conc 30.4 g/dL (31.6-35.5); Mean Corpuscular Hemoglobin 27.8 pg (28.0-33.3); Mean Corpuscular Volume 91.4 fL (83.0-100.0); Mean Platelet Volume 10.9 fL (9.4-12.4); Monocytes % 7.5 %; Neutrophils # 10.6 K/mcL (1.6-8.9); Platelet Count 203 K/mcL (140-400); Red Blood Count 4.18 M/mcL (3.82-4.97); Red Cell Distribution Width 14.3 % (11.5-14.5); Segmented Neutrophils % 76.2 %; White Blood Count 13.9 K/mcL (4.3-11.1)
[2020-04-09 05:28] LABS: INR 2.1; Prothrombin Time 24.2 Seconds (9.4-12.1)
[2020-04-09 05:40] LABS: BUN/Creatinine Ratio 32 (6-26); Blood Urea Nitrogen 29 mg/dL (8-23); Carbon Dioxide 28 mEq/L (23-29); Chloride 102 mEq/L (98-107); Glucose 209 mg/dL (70-105); Osmolality,Calculated 294 (280-300); Potassium 4.8 mEq/L (3.5-5.1); Sodium 136 mEq/L (136-145); eGFR For African Americans > 60 (> 60); eGFR For Non-African Americans > 60 (> 60)
[2020-04-09] MEDS: Insulin LISPRO 300 UNITS/3 ML VIAL SUBQ SCH ×4 (09:36→13:24)
[2020-04-09] MEDS: Metoprolol 100 MG TABLET PO SCH (09:37)
[2020-04-09] MEDS: Aspirin Enteric Coated 81 MG Tablet PO SCH (09:37)
[2020-04-09] MEDS: amLODIPine 5 MG TABLET PO SCH (09:37)
[2020-04-09] MEDS: Gabapentin 300 MG CAPSULE PO SCH (09:38)
[2020-04-09] MEDS: predniSONE 20 MG TABLET PO SCH (09:38)
[2020-04-09] MEDS: Budesonide/Formoterol 160/4.5 1 PUFF INH IH SCH (10:10)
[2020-04-09 12:28] VITALS: BP 158/82
[2020-04-09] MEDS ORDERED: *HR* Warfarin 7.5 MG TABLET PO ONE (18:00)
== END 2020-04-09 14:35 | disposition home or self-care (01) | DRG 291 ==
LOC: 3BNU 10:37 → EMEROOARM 10:37 → SUATTDRO 15:01 → 3BNU 16:33
PROVIDERS: ADMIT Internal Medicine; ATTEND Internal Medicine

== ENCOUNTER 2020-05-03 12:01 | Inpatient (IN) ==
[2020-05-03 12:50] LABS: Basophils # 0.1 K/mcL (0.0-0.2); Basophils % 0.5 %; Eosinophils # 0.2 K/mcL (0.0-0.6); Eosinophils % 1.4 %; Hemoglobin 10.3 g/dL (11.5-15.4); Immature Granulocytes % 0.6 % (0-4); Lymphocytes # 1.5 K/mcL (0.6-4.6); Lymphocytes % 13.4 %; Mean Corpuscular HGB Conc 30.3 g/dL (31.6-35.5); Mean Corpuscular Hemoglobin 28.1 pg (28.0-33.3); Mean Corpuscular Volume 92.6 fL (83.0-100.0); Mean Platelet Volume 10.8 fL (9.4-12.4); Monocytes # 0.9 K/mcL (0.0-1.3); Neutrophils # 8.4 K/mcL (1.6-8.9); Platelet Count 227 K/mcL (140-400); Red Blood Count 3.67 M/mcL (3.82-4.97); Red Cell Distribution Width 14.4 % (11.5-14.5); Segmented Neutrophils % 76.1 %
[2020-05-03] MEDS ORDERED: Furosemide 40 MG/4 ML VIAL IVP ONE (13:03)
[2020-05-03] MEDS ORDERED: Nitroglycerin 0.4 MG TAB.SUBL SL STA (13:03)
[2020-05-03 13:16] LABS: BUN/Creatinine Ratio 18 (6-26); Blood Urea Nitrogen 15 mg/dL (8-23); Calcium 9.3 mg/dL (8.6-10.3); Carbon Dioxide 30 mEq/L (23-29); Chloride 100 mEq/L (98-107); Glucose 385 mg/dL (70-105); Osmolality,Calculated 301 (280-300); Potassium 4.6 mEq/L (3.5-5.1); Sodium 137 mEq/L (136-145); Troponin I 0.03 ng/mL (< 0.04); eGFR For African Americans > 60 (> 60); eGFR For Non-African Americans > 60 (> 60)
[2020-05-03] MEDS ORDERED: Naloxone 0.4 MG/ML INJ IVP PRN (17:25)
[2020-05-03] MEDS ORDERED: Ondansetron 4 MG/2 ML VIAL IVP PRN (17:25)
[2020-05-03] MEDS ORDERED: Dextrose Gel 15 GM/37.5 ML TUBE PO PRN ×2 (17:30)
[2020-05-03] MEDS ORDERED: D5% in Water 1,000 ML IVC PRN (17:30)
[2020-05-03] MEDS ORDERED: *HR* Dextrose 50 % in Water (Vial) 50 ML VIAL IVP PRN (17:30)
[2020-05-03] MEDS ORDERED: Ipratropium/Albuterol Neb 3 ML IH PRN (17:34)
[2020-05-03] MEDS ORDERED: Warfarin perPT PO PRN (18:00)
[2020-05-03 18:29] LABS: INR 2.3; Prothrombin Time 25.6 Seconds (9.4-12.1)
[2020-05-03] MEDS: Insulin LISPRO 300 UNITS/3 ML VIAL SUBQ SCH ×2 (19:39→20:03)
[2020-05-03] MEDS: Furosemide 40 MG/4 ML VIAL IVP SCH (20:03)
[2020-05-03] MEDS ORDERED: *HR* Warfarin 5 MG TABLET PO ONE (20:11)
[2020-05-03] MEDS: Nystatin POWDER 30 GM BOTTLE TP SCH (21:42)
[2020-05-04 01:15] LABS: VBG HCO3 34 mEq/L (21-27); VBG PCO2 56 mmHg (41-51); VBG PH 7.39 pH Units (7.32-7.42); VBG PO2 131 mmHg (25-50)
[2020-05-04 01:22] LABS: Basophils % 0.4 %; Eosinophils # 0.2 K/mcL (0.0-0.6); Eosinophils % 1.9 %; Hematocrit 34.1 % (35.3-44.9); Hemoglobin 10.1 g/dL (11.5-15.4); Immature Granulocytes % 0.6 % (0-4); Lymphocytes # 1.8 K/mcL (0.6-4.6); Lymphocytes % 16.7 %; Mean Corpuscular HGB Conc 29.6 g/dL (31.6-35.5); Mean Corpuscular Hemoglobin 27.5 pg (28.0-33.3); Mean Corpuscular Volume 92.9 fL (83.0-100.0); Mean Platelet Volume 10.2 fL (9.4-12.4); Monocytes # 0.9 K/mcL (0.0-1.3); Monocytes % 8.8 %; Neutrophils # 7.6 K/mcL (1.6-8.9); Platelet Count 213 K/mcL (140-400); Red Blood Count 3.67 M/mcL (3.82-4.97); Red Cell Distribution Width 14.4 % (11.5-14.5); Segmented Neutrophils % 71.6 %; White Blood Count 10.7 K/mcL (4.3-11.1)
[2020-05-04 01:32] LABS: INR 2.5; Prothrombin Time 27.7 Seconds (9.4-12.1)
[2020-05-04 01:43] LABS: % Iron Saturation 8 % (15-50); BUN/Creatinine Ratio 16 (6-26); Blood Urea Nitrogen 16 mg/dL (8-23); Calcium 9.2 mg/dL (8.6-10.3); Carbon Dioxide 31 mEq/L (23-29); Chloride 99 mEq/L (98-107); Glucose 287 mg/dL (70-105); Iron 36 mcg/dL (50-170); Osmolality,Calculated 298 (280-300); Potassium 4.1 mEq/L (3.5-5.1); Sodium 138 mEq/L (136-145); Transferrin 333 mg/dL (203-362); eGFR For African Americans > 60 (> 60); eGFR For Non-African Americans 55 (> 60)
[2020-05-04 01:44] LABS: Estimated Average Glucose 226 mg/dl; Hemoglobin A1C 9.5 %
[2020-05-04 01:55] LABS: Thyroid Stimulating Hormone 1.833 mcIU/mL (0.340-5.600)
[2020-05-04 01:56] LABS: Triiodothyronine (T3) Free 3.1 pg/mL (2.50-3.90)
[2020-05-04 02:01] LABS: Ferritin 34 ng/mL (10-120)
[2020-05-04 02:05] LABS: Folate 19.1 ng/mL (3.0-16.0)
[2020-05-04] MEDS: Acetaminophen 325 MG TABLET PO PRN (04:10)
[2020-05-04] MEDS ORDERED: Cyanocobalamin (B-12) 1,000 MCG/ML VIAL SQ ONE (07:20)
[2020-05-04] MEDS: Furosemide 40 MG/4 ML VIAL IVP SCH ×2 (08:06→21:28)
[2020-05-04] MEDS: Insulin DETEMIR 100 UNIT/ML X5UNITS SUBQ SCH (08:07)
[2020-05-04] MEDS: Insulin LISPRO 300 UNITS/3 ML VIAL SUBQ SCH ×4 (08:07→21:28)
[2020-05-04] MEDS: Gabapentin 300 MG CAPSULE PO SCH ×3 (08:08→21:28)
[2020-05-04] MEDS: amLODIPine 5 MG TABLET PO SCH (08:08)
[2020-05-04] MEDS: Aspirin Enteric Coated 81 MG Tablet PO SCH (08:08)
[2020-05-04] MEDS: Nystatin POWDER 30 GM BOTTLE TP SCH ×3 (08:09→22:13)
[2020-05-04] MEDS ORDERED: Metoprolol 100 MG TABLET PO SCH (09:00)
[2020-05-04] MEDS: Iron Sucrose Complex 250 MG in 0.9 % Sodium Chloride 250 ML IVPB SCH (09:58)
[2020-05-04] MEDS: carvediloL 6.25 MG TABLET PO SCH (16:29)
[2020-05-04] MEDS ORDERED: *HR* Warfarin 5 MG TABLET PO ONE (18:00)
[2020-05-05 02:18] LABS: Basophils % 0.4 %; Eosinophils # 0.2 K/mcL (0.0-0.6); Hemoglobin 10.5 g/dL (11.5-15.4); Immature Granulocytes % 0.3 % (0-4); Lymphocytes # 1.4 K/mcL (0.6-4.6); Lymphocytes % 13.6 %; Mean Corpuscular Hemoglobin 27.9 pg (28.0-33.3); Mean Corpuscular Volume 92.8 fL (83.0-100.0); Mean Platelet Volume 10.6 fL (9.4-12.4); Monocytes # 0.9 K/mcL (0.0-1.3); Monocytes % 8.8 %; Neutrophils # 7.6 K/mcL (1.6-8.9); Platelet Count 228 K/mcL (140-400); Red Blood Count 3.77 M/mcL (3.82-4.97); Red Cell Distribution Width 14.2 % (11.5-14.5); Segmented Neutrophils % 74.9 %; White Blood Count 10.1 K/mcL (4.3-11.1)
[2020-05-05 02:23] LABS: INR 2.8
[2020-05-05 02:37] LABS: BUN/Creatinine Ratio 22 (6-26); Blood Urea Nitrogen 21 mg/dL (8-23); Calcium 9.1 mg/dL (8.6-10.3); Carbon Dioxide 34 mEq/L (23-29); Chloride 95 mEq/L (98-107); Glucose 270 mg/dL (70-105); Magnesium 1.5 mg/dL (1.6-2.6); Osmolality,Calculated 291 (280-300); Potassium 3.9 mEq/L (3.5-5.1); Sodium 134 mEq/L (136-145); eGFR For African Americans > 60 (> 60); eGFR For Non-African Americans 57 (> 60)
[2020-05-05] MEDS: carvediloL 6.25 MG TABLET PO SCH ×2 (08:06→16:31)
[2020-05-05] MEDS: Insulin LISPRO 300 UNITS/3 ML VIAL SUBQ SCH ×4 (08:07→19:56)
[2020-05-05] MEDS: amLODIPine 5 MG TABLET PO SCH (10:56)
[2020-05-05] MEDS: Gabapentin 300 MG CAPSULE PO SCH ×3 (11:02→19:55)
[2020-05-05] MEDS: Aspirin Enteric Coated 81 MG Tablet PO SCH (11:03)
[2020-05-05] MEDS: Magnesium Oxide 400 MG TABLET PO SCH ×2 (11:03→19:55)
[2020-05-05] MEDS: Furosemide 40 MG/4 ML VIAL IVP SCH ×2 (11:04→19:55)
[2020-05-05] MEDS: Insulin DETEMIR 100 UNIT/ML X5UNITS SUBQ SCH (11:04)
[2020-05-05] MEDS: Iron Sucrose Complex 250 MG in 0.9 % Sodium Chloride 250 ML IVPB SCH (11:05)
[2020-05-05] MEDS: Nystatin POWDER 30 GM BOTTLE TP SCH ×3 (11:07→19:56)
[2020-05-05] MEDS: Cyanocobalamin (B-12) 1,000 MCG TABLET PO SCH (11:09)
[2020-05-05] MEDS ORDERED: *HR* Warfarin 5 MG TABLET PO ONE (18:00)
[2020-05-05] MEDS: Acetaminophen 325 MG TABLET PO PRN (20:06)
[2020-05-06] MEDS: Acetaminophen 325 MG TABLET PO PRN ×2 (02:34→20:10)
[2020-05-06 03:14] LABS: Basophils % 0.4 %; Eosinophils # 0.3 K/mcL (0.0-0.6); Eosinophils % 2.8 %; Hematocrit 33.8 % (35.3-44.9); Hemoglobin 10.1 g/dL (11.5-15.4); Immature Granulocytes % 0.4 % (0-4); Lymphocytes # 2.1 K/mcL (0.6-4.6); Mean Corpuscular HGB Conc 29.9 g/dL (31.6-35.5); Mean Corpuscular Hemoglobin 28.1 pg (28.0-33.3); Mean Corpuscular Volume 93.9 fL (83.0-100.0); Mean Platelet Volume 10.4 fL (9.4-12.4); Monocytes # 0.9 K/mcL (0.0-1.3); Monocytes % 9.4 %; Neutrophils # 5.9 K/mcL (1.6-8.9); Nucleated Red Blood Cells 0.3 /100 WBC (0); Platelet Count 230 K/mcL (140-400); Red Cell Distribution Width 14.3 % (11.5-14.5); White Blood Count 9.2 K/mcL (4.3-11.1)
[2020-05-06 03:30] LABS: INR 2.8
[2020-05-06 03:37] LABS: Calcium 9.2 mg/dL (8.6-10.3); Magnesium 1.9 mg/dL (1.6-2.6); Potassium 4.2 mEq/L (3.5-5.1)
[2020-05-06] MEDS: carvediloL 6.25 MG TABLET PO SCH ×2 (07:23→16:33)
[2020-05-06] MEDS: Aspirin Enteric Coated 81 MG Tablet PO SCH (07:24)
[2020-05-06] MEDS: Nystatin POWDER 30 GM BOTTLE TP SCH ×3 (07:24→20:12)
[2020-05-06] MEDS: Magnesium Oxide 400 MG TABLET PO SCH ×2 (07:24→20:11)
[2020-05-06] MEDS: amLODIPine 5 MG TABLET PO SCH (07:24)
[2020-05-06] MEDS: Cyanocobalamin (B-12) 1,000 MCG TABLET PO SCH (07:24)
[2020-05-06] MEDS: Gabapentin 300 MG CAPSULE PO SCH ×3 (07:24→20:11)
[2020-05-06] MEDS: Insulin LISPRO 300 UNITS/3 ML VIAL SUBQ SCH ×3 (07:25→15:59)
[2020-05-06] MEDS: Insulin DETEMIR 100 UNIT/ML X5UNITS SUBQ SCH (07:25)
[2020-05-06 08:20] LABS: Thyroglobulin Antibody 27.1 IU/mL (0.0-4.0)
[2020-05-06] MEDS ORDERED: *HR* Warfarin 4 MG TABLET PO ONE (18:00)
[2020-05-06] MEDS ORDERED: Insulin DETEMIR 100 UNIT/ML X5UNITS SUBQ SCH (21:00)
[2020-05-07 03:11] LABS: Basophils # 0.1 K/mcL (0.0-0.2); Basophils % 0.6 %; Eosinophils # 0.2 K/mcL (0.0-0.6); Eosinophils % 2.3 %; Hematocrit 31.4 % (35.3-44.9); Hemoglobin 9.7 g/dL (11.5-15.4); Immature Granulocytes % 0.6 % (0-4); Lymphocytes # 1.8 K/mcL (0.6-4.6); Lymphocytes % 20.4 %; Mean Corpuscular HGB Conc 30.9 g/dL (31.6-35.5); Mean Corpuscular Hemoglobin 27.9 pg (28.0-33.3); Mean Corpuscular Volume 90.2 fL (83.0-100.0); Mean Platelet Volume 10.2 fL (9.4-12.4); Monocytes # 0.9 K/mcL (0.0-1.3); Neutrophils # 5.7 K/mcL (1.6-8.9); Nucleated Red Blood Cells 0.2 /100 WBC (0); Platelet Count 210 K/mcL (140-400); Red Blood Count 3.48 M/mcL (3.82-4.97); Red Cell Distribution Width 14.5 % (11.5-14.5); Segmented Neutrophils % 66.1 %; White Blood Count 8.6 K/mcL (4.3-11.1)
[2020-05-07 03:22] LABS: INR 2.6; Prothrombin Time 29.4 Seconds (9.4-12.1)
[2020-05-07 03:33] LABS: BUN/Creatinine Ratio 32 (6-26); Blood Urea Nitrogen 33 mg/dL (8-23); Carbon Dioxide 32 mEq/L (23-29); Chloride 97 mEq/L (98-107); Glucose 333 mg/dL (70-105); Magnesium 1.7 mg/dL (1.6-2.6); Osmolality,Calculated 300 (280-300); Potassium 4.5 mEq/L (3.5-5.1); Sodium 135 mEq/L (136-145); eGFR For African Americans > 60 (> 60); eGFR For Non-African Americans 52 (> 60)
[2020-05-07] MEDS ORDERED: Insulin DETEMIR 100 UNIT/ML X5UNITS SUBQ SCH (09:00)
[2020-05-07] MEDS: Magnesium Oxide 400 MG TABLET PO SCH ×2 (09:33→21:43)
[2020-05-07] MEDS: Cyanocobalamin (B-12) 1,000 MCG TABLET PO SCH (09:33)
[2020-05-07] MEDS: amLODIPine 5 MG TABLET PO SCH (09:34)
[2020-05-07] MEDS: carvediloL 6.25 MG TABLET PO SCH ×2 (09:34→15:48)
[2020-05-07] MEDS: Gabapentin 300 MG CAPSULE PO SCH ×3 (09:34→21:43)
[2020-05-07] MEDS: Aspirin Enteric Coated 81 MG Tablet PO SCH (09:34)
[2020-05-07] MEDS: Nystatin POWDER 30 GM BOTTLE TP SCH ×3 (09:37→21:44)
[2020-05-07] MEDS: Insulin LISPRO 300 UNITS/3 ML VIAL SUBQ SCH ×3 (09:37→15:48)
[2020-05-07] MEDS: Acetaminophen 325 MG TABLET PO PRN (14:10)
[2020-05-07] MEDS ORDERED: Insulin DETEMIR 100 UNIT/ML X5UNITS SUBQ ONE (16:07)
[2020-05-07] MEDS ORDERED: *HR* Warfarin 5 MG TABLET PO ONE (18:00)
[2020-05-07] MEDS: Insulin DETEMIR 100 UNIT/ML X5UNITS SUBQ SCH (21:47)
[2020-05-08 06:37] LABS: Basophils % 0.5 %; Eosinophils # 0.2 K/mcL (0.0-0.6); Eosinophils % 2.4 %; Hematocrit 32.4 % (35.3-44.9); Hemoglobin 9.8 g/dL (11.5-15.4); Immature Granulocytes % 0.8 % (0-4); Lymphocytes # 1.6 K/mcL (0.6-4.6); Lymphocytes % 20.1 %; Mean Corpuscular HGB Conc 30.2 g/dL (31.6-35.5); Mean Corpuscular Hemoglobin 28.6 pg (28.0-33.3); Mean Corpuscular Volume 94.5 fL (83.0-100.0); Mean Platelet Volume 10.8 fL (9.4-12.4); Monocytes # 0.8 K/mcL (0.0-1.3); Monocytes % 9.9 %; Neutrophils # 5.2 K/mcL (1.6-8.9); Platelet Count 212 K/mcL (140-400); Red Blood Count 3.43 M/mcL (3.82-4.97); Red Cell Distribution Width 14.5 % (11.5-14.5); Segmented Neutrophils % 66.3 %; White Blood Count 7.8 K/mcL (4.3-11.1)
[2020-05-08 06:44] LABS: INR 2.6; Prothrombin Time 28.8 Seconds (9.4-12.1)
[2020-05-08 06:58] LABS: BUN/Creatinine Ratio 29 (6-26); Blood Urea Nitrogen 25 mg/dL (8-23); Carbon Dioxide 33 mEq/L (23-29); Chloride 99 mEq/L (98-107); Glucose 242 mg/dL (70-105); Magnesium 1.7 mg/dL (1.6-2.6); Osmolality,Calculated 296 (280-300); Potassium 4.6 mEq/L (3.5-5.1); Sodium 137 mEq/L (136-145); eGFR For African Americans > 60 (> 60); eGFR For Non-African Americans > 60 (> 60)
[2020-05-08] MEDS: Insulin LISPRO 300 UNITS/3 ML VIAL SUBQ SCH ×3 (07:44→17:03)
[2020-05-08] MEDS: Insulin DETEMIR 100 UNIT/ML X5UNITS SUBQ SCH ×2 (07:44→19:58)
[2020-05-08] MEDS: Magnesium Oxide 400 MG TABLET PO SCH ×2 (07:45→19:58)
[2020-05-08] MEDS: Furosemide 40 MG TABLET PO SCH (07:45)
[2020-05-08] MEDS: Aspirin Enteric Coated 81 MG Tablet PO SCH (07:45)
[2020-05-08] MEDS: Gabapentin 300 MG CAPSULE PO SCH ×3 (07:45→19:58)
[2020-05-08] MEDS: Cyanocobalamin (B-12) 1,000 MCG TABLET PO SCH (07:45)
[2020-05-08] MEDS: amLODIPine 5 MG TABLET PO SCH (07:45)
[2020-05-08] MEDS: carvediloL 6.25 MG TABLET PO SCH ×2 (07:45→17:04)
[2020-05-08] MEDS: Nystatin POWDER 30 GM BOTTLE TP SCH ×3 (07:46→19:58)
[2020-05-08] MEDS ORDERED: D5% in Water 1,000 ML IVC PRN (13:22)
[2020-05-08] MEDS ORDERED: *HR* Dextrose 50 % in Water (Vial) 50 ML VIAL IVP PRN (13:22)
[2020-05-08] MEDS ORDERED: Dextrose Gel 15 GM/37.5 ML TUBE PO PRN ×2 (13:22)
[2020-05-08] MEDS ORDERED: *HR* Warfarin 5 MG TABLET PO ONE (18:00)
[2020-05-09 01:26] LABS: Basophils % 0.4 %; Eosinophils # 0.3 K/mcL (0.0-0.6); Eosinophils % 2.5 %; Hematocrit 31.4 % (35.3-44.9); Hemoglobin 9.4 g/dL (11.5-15.4); Immature Granulocytes % 0.8 % (0-4); Lymphocytes # 2.1 K/mcL (0.6-4.6); Lymphocytes % 20.8 %; Mean Corpuscular HGB Conc 29.9 g/dL (31.6-35.5); Mean Corpuscular Hemoglobin 27.7 pg (28.0-33.3); Mean Corpuscular Volume 92.6 fL (83.0-100.0); Mean Platelet Volume 10.4 fL (9.4-12.4); Monocytes % 9.6 %; Neutrophils # 6.6 K/mcL (1.6-8.9); Nucleated Red Blood Cells 0.2 /100 WBC (0); Platelet Count 199 K/mcL (140-400); Red Blood Count 3.39 M/mcL (3.82-4.97); Red Cell Distribution Width 14.7 % (11.5-14.5); Segmented Neutrophils % 65.9 %
[2020-05-09 01:32] LABS: INR 2.4; Prothrombin Time 27.2 Seconds (9.4-12.1)
[2020-05-09 02:16] LABS: BUN/Creatinine Ratio 26 (6-26); Blood Urea Nitrogen 23 mg/dL (8-23); Carbon Dioxide 29 mEq/L (23-29); Chloride 99 mEq/L (98-107); Glucose 261 mg/dL (70-105); Magnesium 1.7 mg/dL (1.6-2.6); Osmolality,Calculated 293 (280-300); Potassium 4.4 mEq/L (3.5-5.1); Sodium 135 mEq/L (136-145); eGFR For African Americans > 60 (> 60); eGFR For Non-African Americans > 60 (> 60)
[2020-05-09] MEDS: Insulin LISPRO 300 UNITS/3 ML VIAL SUBQ SCH ×2 (07:31→11:34)
[2020-05-09] MEDS ORDERED: carvediloL 6.25 MG TABLET PO SCH (08:00)
[2020-05-09] MEDS ORDERED: NIFEdipine XL (24 HR) 60 MG TAB.ER.24 PO SCH (09:00)
[2020-05-09] MEDS: Aspirin Enteric Coated 81 MG Tablet PO SCH (10:28)
[2020-05-09] MEDS: Cyanocobalamin (B-12) 1,000 MCG TABLET PO SCH (10:29)
[2020-05-09] MEDS: Magnesium Oxide 400 MG TABLET PO SCH (10:29)
[2020-05-09] MEDS: Gabapentin 300 MG CAPSULE PO SCH (10:31)
[2020-05-09] MEDS: Furosemide 40 MG TABLET PO SCH (10:32)
[2020-05-09 11:02] VITALS: BP 149/71
[2020-05-09] MEDS: Insulin DETEMIR 100 UNIT/ML X5UNITS SUBQ SCH (11:33)
[2020-05-09] MEDS: Nystatin POWDER 30 GM BOTTLE TP SCH (12:30)
[2020-05-09] MEDS ORDERED: *HR* Warfarin 5 MG TABLET PO ONE (18:00)
== END 2020-05-09 15:14 | disposition home health service (06) | DRG 291 ==
LOC: SUATTDRO → EMEROOARM 12:01 → 2ANU 12:01 → SUATTDRO 18:06 → 2ANU 18:48
PROVIDERS: ADMIT Pharmacist; ATTEND Pharmacist

== ENCOUNTER 2020-05-20 08:10 | Observation (INO) ==
[2020-05-20 09:12] LABS: Basophils # 0.1 K/mcL (0.0-0.2); Basophils % 0.5 %; Eosinophils # 0.2 K/mcL (0.0-0.6); Eosinophils % 1.6 %; Hematocrit 38.8 % (35.3-44.9); Hemoglobin 11.7 g/dL (11.5-15.4); Immature Granulocytes % 0.5 % (0-4); Lymphocytes # 1.8 K/mcL (0.6-4.6); Lymphocytes % 16.7 %; Mean Corpuscular HGB Conc 30.2 g/dL (31.6-35.5); Mean Corpuscular Volume 92.8 fL (83.0-100.0); Mean Platelet Volume 11.1 fL (9.4-12.4); Monocytes # 0.9 K/mcL (0.0-1.3); Monocytes % 8.3 %; Neutrophils # 7.9 K/mcL (1.6-8.9); Platelet Count 238 K/mcL (140-400); Red Blood Count 4.18 M/mcL (3.82-4.97); Red Cell Distribution Width 15.8 % (11.5-14.5); Segmented Neutrophils % 72.4 %; White Blood Count 10.9 K/mcL (4.3-11.1)
[2020-05-20 09:28] LABS: Albumin 3.9 g/dL (3.5-5.7); Albumin/Globulin Ratio 1.1 (1.1-2.2); Bilirubin,Total 0.6 mg/dL (0.3-1.0); Calcium 9.9 mg/dL (8.6-10.3); Globulin 3.4 g/dL (2.4-3.5); Potassium 4.8 mEq/L (3.5-5.1); Total Protein 7.3 g/dL (6.4-8.9); Troponin I 0.03 ng/mL (< 0.04)
[2020-05-20 10:01] LABS: Estimated Average Glucose 240 mg/dl
[2020-05-20] MEDS ORDERED: Furosemide 40 MG/4 ML VIAL IVP ONE (10:13)
[2020-05-20] MEDS ORDERED: Perflutren Lipid Microsphere 1.3 ML in 0.9 % Sodium Chloride 8.7 ML IVP PRN (12:20)
[2020-05-20] MEDS ORDERED: D5% in Water 1,000 ML IVC PRN (13:08)
[2020-05-20] MEDS ORDERED: *HR* Dextrose 50 % in Water (Vial) 50 ML VIAL IVP PRN (13:08)
[2020-05-20] MEDS ORDERED: Dextrose Gel 15 GM/37.5 ML TUBE PO PRN ×2 (13:08)
[2020-05-20] MEDS ORDERED: Ondansetron 4 MG/2 ML VIAL IVP PRN (13:14)
[2020-05-20] MEDS ORDERED: Acetaminophen 325 MG TABLET PO PRN (13:14)
[2020-05-20] MEDS ORDERED: Naloxone 0.4 MG/ML INJ IVP PRN (13:14)
[2020-05-20 13:56] LABS: Bilirubin,Urine Negative (Negative); Blood,Urine Negative (Negative); Clarity,Urine Clear (Clear); Color,Urine Light-Yellow (Yellow); Glucose,Urine (UA) 200 mg/dL (Normal); Hyaline Casts,Urine Many per lpf (None Seen); Ketones,Urine Negative (Negative); Leukocyte Esterase,Urine Trace (Negative); Mucus,Urine Few per lpf (None-Few); Nitrite,Urine Negative (Negative); PH,Urine 5.5 pH Units (5.0-8.0); Protein,Urine Trace mg/dL (Neg-Trace); RBC,Urine 0-3 per hpf (0-3); Specific Gravity,Urine 1.014 (1.010-1.025); Squamous Epithelial Cell,Urine Few per hpf (None-Few); Urobilinogen,Urine Normal (Normal)
[2020-05-20] MEDS ORDERED: Furosemide 20 MG TABLET PO SCH (17:00)
[2020-05-20] MEDS: Insulin LISPRO 300 UNITS/3 ML VIAL SUBQ SCH ×2 (17:32→21:52)
[2020-05-20] MEDS: carvediloL 6.25 MG TABLET PO SCH (17:54)
[2020-05-20] MEDS: Gabapentin 300 MG CAPSULE PO SCH ×2 (17:54→20:35)
[2020-05-20] MEDS ORDERED: Warfarin perPT PO PRN (18:00)
[2020-05-20] MEDS ORDERED: *HR* Warfarin 7.5 MG TABLET PO ONE (18:00)
[2020-05-20] MEDS: Magnesium Oxide 400 MG TABLET PO SCH (20:35)
[2020-05-21 04:35] LABS: Hematocrit 35.7 % (35.3-44.9); Hemoglobin 10.9 g/dL (11.5-15.4); Mean Corpuscular HGB Conc 30.5 g/dL (31.6-35.5); Mean Corpuscular Hemoglobin 28.3 pg (28.0-33.3); Mean Corpuscular Volume 92.7 fL (83.0-100.0); Mean Platelet Volume 12.1 fL (9.4-12.4); Platelet Count 175 K/mcL (140-400); Red Blood Count 3.85 M/mcL (3.82-4.97); Red Cell Distribution Width 15.7 % (11.5-14.5); White Blood Count 11.1 K/mcL (4.3-11.1)
[2020-05-21 04:42] LABS: Prothrombin Time 22.7 Seconds (9.4-12.1)
[2020-05-21 04:44] LABS: Activated Partial Thrombo Time 34.1 Seconds (26.0-36.0)
[2020-05-21 04:56] LABS: BUN/Creatinine Ratio 24 (6-26); Blood Urea Nitrogen 26 mg/dL (8-23); Calcium 9.2 mg/dL (8.6-10.3); Carbon Dioxide 31 mEq/L (23-29); Chloride 97 mEq/L (98-107); Chol/HDL Ratio 4.1 (0-4.9); Cholesterol 163 mg/dL (< 200); Glucose 216 mg/dL (70-105); HDL Cholesterol 40 mg/dL (40-59); LDL Cholesterol,Calculated 66 mg/dL (< 100); Magnesium 1.9 mg/dL (1.6-2.6); Osmolality,Calculated 293 (280-300); Potassium 4.4 mEq/L (3.5-5.1); Sodium 136 mEq/L (136-145); Triglycerides 285 mg/dL (< 150); eGFR For African Americans > 60 (> 60); eGFR For Non-African Americans 51 (> 60)
[2020-05-21] MEDS: Insulin LISPRO 300 UNITS/3 ML VIAL SUBQ SCH ×4 (09:34→20:30)
[2020-05-21] MEDS: Magnesium Oxide 400 MG TABLET PO SCH ×2 (09:35→20:31)
[2020-05-21] MEDS: Furosemide 40 MG/4 ML VIAL IVP SCH ×2 (09:35→20:31)
[2020-05-21] MEDS: Cyanocobalamin (B-12) 1,000 MCG TABLET PO SCH (09:36)
[2020-05-21] MEDS: Aspirin Enteric Coated 81 MG Tablet PO SCH (09:36)
[2020-05-21] MEDS: NIFEdipine XL (24 HR) 60 MG TAB.ER.24 PO SCH (09:36)
[2020-05-21] MEDS: Gabapentin 300 MG CAPSULE PO SCH ×3 (09:36→20:31)
[2020-05-21] MEDS: carvediloL 6.25 MG TABLET PO SCH ×2 (09:36→17:23)
[2020-05-21] MEDS: POTASSIUM GLUCONATE 99 MG PO SCH (09:52)
[2020-05-21] MEDS ORDERED: *HR* Warfarin 5 MG TABLET PO ONE (18:00)
[2020-05-21 19:36] LABS: VBG HCO3 29 mEq/L (21-27); VBG PCO2 44 mmHg (41-51); VBG PH 7.42 pH Units (7.32-7.42); VBG PO2 165 mmHg (25-50)
[2020-05-22 06:15] LABS: Hematocrit 36.6 % (35.3-44.9); Hemoglobin 11.2 g/dL (11.5-15.4); Mean Corpuscular HGB Conc 30.6 g/dL (31.6-35.5); Mean Corpuscular Hemoglobin 28.4 pg (28.0-33.3); Mean Corpuscular Volume 92.9 fL (83.0-100.0); Mean Platelet Volume 11.1 fL (9.4-12.4); Platelet Count 217 K/mcL (140-400); Red Blood Count 3.94 M/mcL (3.82-4.97); Red Cell Distribution Width 15.4 % (11.5-14.5); White Blood Count 11.2 K/mcL (4.3-11.1)
[2020-05-22 06:25] LABS: INR 2.5
[2020-05-22 06:33] LABS: Calcium 9.3 mg/dL (8.6-10.3); Potassium 4.2 mEq/L (3.5-5.1)
[2020-05-22] MEDS: Insulin LISPRO 300 UNITS/3 ML VIAL SUBQ SCH ×4 (08:26→20:51)
[2020-05-22] MEDS: Furosemide 40 MG/4 ML VIAL IVP SCH (08:26)
[2020-05-22] MEDS: Gabapentin 300 MG CAPSULE PO SCH ×3 (08:27→20:51)
[2020-05-22] MEDS: Magnesium Oxide 400 MG TABLET PO SCH ×2 (08:27→20:52)
[2020-05-22] MEDS: Cyanocobalamin (B-12) 1,000 MCG TABLET PO SCH (08:27)
[2020-05-22] MEDS: Aspirin Enteric Coated 81 MG Tablet PO SCH (08:27)
[2020-05-22] MEDS: POTASSIUM GLUCONATE 99 MG PO SCH (08:28)
[2020-05-22] MEDS: NIFEdipine XL (24 HR) 60 MG TAB.ER.24 PO SCH (08:28)
[2020-05-22] MEDS: carvediloL 6.25 MG TABLET PO SCH ×2 (08:28→16:30)
[2020-05-22] MEDS: Insulin DETEMIR 100 UNIT/ML X5UNITS SUBQ SCH ×2 (13:35→20:52)
[2020-05-22] MEDS ORDERED: *HR* Warfarin 7.5 MG TABLET PO ONE (18:00)
[2020-05-23 07:07] LABS: INR 2.5; Prothrombin Time 28.5 Seconds (9.4-12.1)
[2020-05-23 07:18] LABS: Calcium 9.1 mg/dL (8.6-10.3); Magnesium 1.8 mg/dL (1.6-2.6); Potassium 4.6 mEq/L (3.5-5.1)
[2020-05-23] MEDS: Aspirin Enteric Coated 81 MG Tablet PO SCH (08:19)
[2020-05-23] MEDS: Insulin LISPRO 300 UNITS/3 ML VIAL SUBQ SCH ×4 (08:19→19:50)
[2020-05-23] MEDS: Magnesium Oxide 400 MG TABLET PO SCH ×2 (08:19→19:49)
[2020-05-23] MEDS: POTASSIUM GLUCONATE 99 MG PO SCH (08:20)
[2020-05-23] MEDS: Gabapentin 300 MG CAPSULE PO SCH ×3 (08:20→19:49)
[2020-05-23] MEDS: Furosemide 40 MG/4 ML VIAL IVP SCH (08:20)
[2020-05-23] MEDS: Cyanocobalamin (B-12) 1,000 MCG TABLET PO SCH (08:20)
[2020-05-23] MEDS: Insulin DETEMIR 100 UNIT/ML X5UNITS SUBQ SCH ×2 (08:24→19:50)
[2020-05-23] MEDS ORDERED: *HR* Warfarin 5 MG TABLET PO ONE (18:00)
[2020-05-24 07:23] LABS: INR 2.9; Prothrombin Time 32.1 Seconds (9.4-12.1)
[2020-05-24 07:56] LABS: BUN/Creatinine Ratio 38 (6-26); Blood Urea Nitrogen 34 mg/dL (8-23); Carbon Dioxide 29 mEq/L (23-29); Chloride 100 mEq/L (98-107); Glucose 207 mg/dL (70-105); Osmolality,Calculated 300 (280-300); Potassium 4.2 mEq/L (3.5-5.1); Sodium 138 mEq/L (136-145); eGFR For African Americans > 60 (> 60); eGFR For Non-African Americans > 60 (> 60)
[2020-05-24] MEDS: Insulin LISPRO 300 UNITS/3 ML VIAL SUBQ SCH ×4 (08:49→20:22)
[2020-05-24] MEDS: Aspirin Enteric Coated 81 MG Tablet PO SCH (08:50)
[2020-05-24] MEDS: Furosemide 40 MG/4 ML VIAL IVP SCH (08:51)
[2020-05-24] MEDS: Magnesium Oxide 400 MG TABLET PO SCH ×2 (08:51→20:23)
[2020-05-24] MEDS: Cyanocobalamin (B-12) 1,000 MCG TABLET PO SCH (08:51)
[2020-05-24] MEDS: Gabapentin 300 MG CAPSULE PO SCH ×3 (08:51→20:23)
[2020-05-24] MEDS: POTASSIUM GLUCONATE 99 MG PO SCH (08:52)
[2020-05-24] MEDS: carvediloL 6.25 MG TABLET PO SCH (17:38)
[2020-05-24] MEDS ORDERED: *HR* Warfarin 2.5 MG TABLET PO ONE (18:00)
[2020-05-24] MEDS ORDERED: Insulin DETEMIR 100 UNIT/ML X5UNITS SUBQ SCH (21:00)
[2020-05-24] MEDS: Insulin DETEMIR 100 UNIT/ML X5UNITS SUBQ SCH (21:22)
[2020-05-25 05:41] LABS: INR 2.7
[2020-05-25] MEDS: carvediloL 6.25 MG TABLET PO SCH (07:44)
[2020-05-25] MEDS: Gabapentin 300 MG CAPSULE PO SCH (07:44)
[2020-05-25] MEDS: Aspirin Enteric Coated 81 MG Tablet PO SCH (07:45)
[2020-05-25] MEDS: Cyanocobalamin (B-12) 1,000 MCG TABLET PO SCH (07:45)
[2020-05-25] MEDS: Magnesium Oxide 400 MG TABLET PO SCH (07:45)
[2020-05-25] MEDS: POTASSIUM GLUCONATE 99 MG PO SCH (07:45)
[2020-05-25] MEDS: Insulin LISPRO 300 UNITS/3 ML VIAL SUBQ SCH ×2 (07:56→12:23)
[2020-05-25] MEDS ORDERED: Furosemide 40 MG TABLET PO SCH (09:00)
[2020-05-25 11:08] LABS: Influenza A PCR Negative (Negative); Influenza B PCR Negative (Negative); Resp. Syncytial Virus PCR Negative (Negative)
[2020-05-25 11:32] VITALS: BP 148/71
[2020-05-25 12:12] LABS: SARS-CoV-2 by PCR (In House) Negative (Negative)
[2020-05-25] MEDS ORDERED: *HR* Warfarin 5 MG TABLET PO ONE (18:00)
== END 2020-05-25 13:54 ==
LOC: EMEROOARM 08:10 → 3BNU 08:10 → SUATTDRO 13:01 → 3BNU 14:44
PROVIDERS: ADMIT Family Medicine; ATTEND Internal Medicine

== ENCOUNTER 2020-07-02 10:19 | Observation (INO) ==
[2020-07-02] MEDS ORDERED: Furosemide 40 MG/4 ML VIAL IVP ONE (10:42)
[2020-07-02 11:09] LABS: Basophils # 0.1 K/mcL (0.0-0.2); Basophils % 0.5 %; Eosinophils # 0.2 K/mcL (0.0-0.6); Eosinophils % 2.2 %; Hematocrit 35.8 % (35.3-44.9); Hemoglobin 10.8 g/dL (11.5-15.4); Immature Granulocytes % 0.3 % (0-4); Lymphocytes # 1.7 K/mcL (0.6-4.6); Lymphocytes % 18.1 %; Mean Corpuscular HGB Conc 30.2 g/dL (31.6-35.5); Mean Corpuscular Hemoglobin 27.8 pg (28.0-33.3); Monocytes # 0.7 K/mcL (0.0-1.3); Monocytes % 7.5 %; Neutrophils # 6.6 K/mcL (1.6-8.9); Platelet Count 213 K/mcL (140-400); Red Blood Count 3.89 M/mcL (3.82-4.97); Red Cell Distribution Width 14.2 % (11.5-14.5); Segmented Neutrophils % 71.4 %; White Blood Count 9.3 K/mcL (4.3-11.1)
[2020-07-02 11:17] LABS: Prothrombin Time 23.1 Seconds (9.4-12.1)
[2020-07-02 11:27] LABS: BUN/Creatinine Ratio 30 (6-26); Blood Urea Nitrogen 27 mg/dL (8-23); Calcium 9.6 mg/dL (8.6-10.3); Carbon Dioxide 29 mEq/L (23-29); Chloride 100 mEq/L (98-107); Glucose 297 mg/dL (70-105); Osmolality,Calculated 300 (280-300); Potassium 4.9 mEq/L (3.5-5.1); Sodium 137 mEq/L (136-145); Troponin I 0.03 ng/mL (< 0.04); eGFR For African Americans > 60 (> 60); eGFR For Non-African Americans > 60 (> 60)
[2020-07-02 11:28] LABS: D-Dimer < 215 ng/mLFEU (0-500)
[2020-07-02] MEDS ORDERED: Aspirin 325 MG TABLET PO ONE (11:48)
[2020-07-02] MEDS ORDERED: Naloxone 0.4 MG/ML INJ IVP PRN (12:50)
[2020-07-02] MEDS ORDERED: D5% in Water 1,000 ML IVC PRN (12:54)
[2020-07-02] MEDS ORDERED: *HR* Dextrose 50 % in Water (Vial) 50 ML VIAL IVP PRN (12:54)
[2020-07-02] MEDS ORDERED: Dextrose Gel 15 GM/37.5 ML TUBE PO PRN ×2 (12:54)
[2020-07-02] MEDS: Insulin LISPRO 300 UNITS/3 ML VIAL SUBQ SCH ×2 (17:13→20:07)
[2020-07-02] MEDS: carvediloL 6.25 MG TABLET PO SCH (17:14)
[2020-07-02] MEDS ORDERED: Warfarin perPT PO PRN (18:00)
[2020-07-02] MEDS ORDERED: *HR* Warfarin 5 MG TABLET PO ONE (18:00)
[2020-07-02] MEDS: Gabapentin 300 MG CAPSULE PO SCH (22:02)
[2020-07-03] MEDS ORDERED: amLODIPine 5 MG TABLET PO SCH (06:17)
[2020-07-03] MEDS: amLODIPine 5 MG TABLET PO SCH (06:27)
[2020-07-03] MEDS: Furosemide 40 MG/4 ML VIAL IVP SCH (07:54)
[2020-07-03] MEDS: Gabapentin 300 MG CAPSULE PO SCH ×3 (07:54→20:02)
[2020-07-03] MEDS: carvediloL 6.25 MG TABLET PO SCH ×2 (07:54→16:53)
[2020-07-03] MEDS: Insulin LISPRO 300 UNITS/3 ML VIAL SUBQ SCH ×4 (07:55→20:02)
[2020-07-03 08:06] LABS: Basophils % 0.3 %; Eosinophils # 0.2 K/mcL (0.0-0.6); Eosinophils % 1.8 %; Hematocrit 34.7 % (35.3-44.9); Hemoglobin 10.2 g/dL (11.5-15.4); Immature Granulocytes % 0.1 % (0-4); Lymphocytes # 1.7 K/mcL (0.6-4.6); Lymphocytes % 19.1 %; Mean Corpuscular HGB Conc 29.4 g/dL (31.6-35.5); Mean Corpuscular Hemoglobin 27.1 pg (28.0-33.3); Mean Platelet Volume 11.3 fL (9.4-12.4); Monocytes # 0.7 K/mcL (0.0-1.3); Monocytes % 8.1 %; Neutrophils # 6.4 K/mcL (1.6-8.9); Platelet Count 201 K/mcL (140-400); Red Blood Count 3.77 M/mcL (3.82-4.97); Red Cell Distribution Width 14.3 % (11.5-14.5); Segmented Neutrophils % 70.6 %
[2020-07-03 08:12] LABS: Prothrombin Time 23.2 Seconds (9.4-12.1)
[2020-07-03] MEDS: Magnesium Oxide 400 MG TABLET PO SCH ×2 (09:09→20:02)
[2020-07-03] MEDS: Cyanocobalamin (B-12) 1,000 MCG TABLET PO SCH (09:09)
[2020-07-03] MEDS: Aspirin Enteric Coated 81 MG Tablet PO SCH (09:09)
[2020-07-03 09:12] LABS: BUN/Creatinine Ratio 29 (6-26); Blood Urea Nitrogen 24 mg/dL (8-23); Calcium 9.3 mg/dL (8.6-10.3); Carbon Dioxide 30 mEq/L (23-29); Chloride 100 mEq/L (98-107); Glucose 308 mg/dL (70-105); Osmolality,Calculated 300 (280-300); Potassium 4.4 mEq/L (3.5-5.1); Sodium 137 mEq/L (136-145); eGFR For African Americans > 60 (> 60); eGFR For Non-African Americans > 60 (> 60)
[2020-07-03] MEDS: Sucralfate 1 GM TABLET PO SCH ×3 (12:04→20:01)
[2020-07-03] MEDS ORDERED: *HR* Warfarin 5 MG TABLET PO ONE (18:00)
[2020-07-03] MEDS ORDERED: Insulin DETEMIR 100 UNIT/ML X5UNITS SUBQ SCH (21:00)
[2020-07-04 05:02] LABS: INR 2.2; Prothrombin Time 24.5 Seconds (9.4-12.1)
[2020-07-04 05:10] LABS: BUN/Creatinine Ratio 29 (6-26); Blood Urea Nitrogen 24 mg/dL (8-23); Calcium 9.2 mg/dL (8.6-10.3); Carbon Dioxide 28 mEq/L (23-29); Chloride 101 mEq/L (98-107); Glucose 319 mg/dL (70-105); Osmolality,Calculated 300 (280-300); Potassium 4.8 mEq/L (3.5-5.1); Sodium 137 mEq/L (136-145); eGFR For African Americans > 60 (> 60); eGFR For Non-African Americans > 60 (> 60)
[2020-07-04 06:14] LABS: Basophils % 0.4 %; Eosinophils # 0.2 K/mcL (0.0-0.6); Eosinophils % 1.8 %; Hematocrit 34.9 % (35.3-44.9); Hemoglobin 10.3 g/dL (11.5-15.4); Immature Granulocytes % 0.4 % (0-4); Lymphocytes # 1.5 K/mcL (0.6-4.6); Mean Corpuscular HGB Conc 29.5 g/dL (31.6-35.5); Mean Corpuscular Hemoglobin 27.6 pg (28.0-33.3); Mean Corpuscular Volume 93.6 fL (83.0-100.0); Mean Platelet Volume 11.3 fL (9.4-12.4); Monocytes # 0.9 K/mcL (0.0-1.3); Monocytes % 9.6 %; Neutrophils # 6.7 K/mcL (1.6-8.9); Platelet Count 209 K/mcL (140-400); Red Blood Count 3.73 M/mcL (3.82-4.97); Red Cell Distribution Width 14.4 % (11.5-14.5); Segmented Neutrophils % 71.8 %; White Blood Count 9.3 K/mcL (4.3-11.1)
[2020-07-04] MEDS ORDERED: Insulin LISPRO 300 UNITS/3 ML VIAL SUBQ SCH (07:36)
[2020-07-04] MEDS ORDERED: Insulin DETEMIR 100 UNIT/ML X5UNITS SUBQ SCH (09:00)
[2020-07-04] MEDS: Sucralfate 1 GM TABLET PO SCH ×4 (09:22→20:55)
[2020-07-04] MEDS: amLODIPine 5 MG TABLET PO SCH (09:22)
[2020-07-04] MEDS: carvediloL 6.25 MG TABLET PO SCH ×2 (09:22→17:06)
[2020-07-04] MEDS: Gabapentin 300 MG CAPSULE PO SCH ×3 (09:22→20:54)
[2020-07-04] MEDS: Magnesium Oxide 400 MG TABLET PO SCH ×2 (09:22→20:54)
[2020-07-04] MEDS: Insulin LISPRO 300 UNITS/3 ML VIAL SUBQ SCH ×4 (09:23→20:56)
[2020-07-04] MEDS: Aspirin Enteric Coated 81 MG Tablet PO SCH (09:23)
[2020-07-04] MEDS: Furosemide 40 MG/4 ML VIAL IVP SCH (09:23)
[2020-07-04] MEDS: Cyanocobalamin (B-12) 1,000 MCG TABLET PO SCH (09:23)
[2020-07-04] MEDS ORDERED: amLODIPine 5 MG TABLET PO ONE (10:42)
[2020-07-04] MEDS ORDERED: *HR* Warfarin 5 MG TABLET PO ONE (18:00)
[2020-07-04] MEDS: Insulin DETEMIR 100 UNIT/ML X5UNITS SUBQ SCH (20:56)
[2020-07-05 03:41] LABS: Basophils % 0.4 %; Eosinophils # 0.2 K/mcL (0.0-0.6); Eosinophils % 2.1 %; Immature Granulocytes % 0.3 % (0-4); Lymphocytes # 1.9 K/mcL (0.6-4.6); Lymphocytes % 18.3 %; Mean Corpuscular HGB Conc 29.4 g/dL (31.6-35.5); Mean Corpuscular Hemoglobin 27.3 pg (28.0-33.3); Mean Corpuscular Volume 92.9 fL (83.0-100.0); Mean Platelet Volume 11.1 fL (9.4-12.4); Monocytes # 0.9 K/mcL (0.0-1.3); Monocytes % 8.2 %; Neutrophils # 7.4 K/mcL (1.6-8.9); Platelet Count 201 K/mcL (140-400); Red Blood Count 3.66 M/mcL (3.82-4.97); Red Cell Distribution Width 14.2 % (11.5-14.5); Segmented Neutrophils % 70.7 %; White Blood Count 10.5 K/mcL (4.3-11.1)
[2020-07-05 03:48] LABS: INR 2.2; Prothrombin Time 24.8 Seconds (9.4-12.1)
[2020-07-05 04:02] LABS: BUN/Creatinine Ratio 32 (6-26); Blood Urea Nitrogen 28 mg/dL (8-23); Calcium 8.7 mg/dL (8.6-10.3); Carbon Dioxide 26 mEq/L (23-29); Chloride 101 mEq/L (98-107); Glucose 298 mg/dL (70-105); Osmolality,Calculated 297 (280-300); Potassium 4.3 mEq/L (3.5-5.1); Sodium 135 mEq/L (136-145); eGFR For African Americans > 60 (> 60); eGFR For Non-African Americans > 60 (> 60)
[2020-07-05] MEDS: Gabapentin 300 MG CAPSULE PO SCH ×3 (07:23→20:15)
[2020-07-05] MEDS: Magnesium Oxide 400 MG TABLET PO SCH ×2 (07:23→20:15)
[2020-07-05] MEDS: carvediloL 6.25 MG TABLET PO SCH ×2 (07:24→16:09)
[2020-07-05] MEDS: Furosemide 40 MG/4 ML VIAL IVP SCH (07:24)
[2020-07-05] MEDS: Cyanocobalamin (B-12) 1,000 MCG TABLET PO SCH (07:24)
[2020-07-05] MEDS: Sucralfate 1 GM TABLET PO SCH ×4 (07:24→20:15)
[2020-07-05] MEDS: Aspirin Enteric Coated 81 MG Tablet PO SCH (07:24)
[2020-07-05] MEDS: amLODIPine 5 MG TABLET PO SCH (07:24)
[2020-07-05] MEDS: Insulin DETEMIR 100 UNIT/ML X5UNITS SUBQ SCH ×2 (07:25→20:16)
[2020-07-05] MEDS: Insulin LISPRO 300 UNITS/3 ML VIAL SUBQ SCH ×8 (07:47→20:17)
[2020-07-05] MEDS ORDERED: Furosemide 40 MG/4 ML VIAL IVP SCH (09:00)
[2020-07-05] MEDS ORDERED: *HR* Warfarin 5 MG TABLET PO ONE (18:00)
[2020-07-06 02:14] LABS: Basophils % 0.4 %; Eosinophils # 0.2 K/mcL (0.0-0.6); Eosinophils % 2.3 %; Hematocrit 35.1 % (35.3-44.9); Hemoglobin 10.5 g/dL (11.5-15.4); Immature Granulocytes % 0.5 % (0-4); Lymphocytes % 19.8 %; Mean Corpuscular HGB Conc 29.9 g/dL (31.6-35.5); Mean Corpuscular Hemoglobin 27.8 pg (28.0-33.3); Mean Corpuscular Volume 92.9 fL (83.0-100.0); Mean Platelet Volume 11.4 fL (9.4-12.4); Monocytes % 9.6 %; Neutrophils # 6.9 K/mcL (1.6-8.9); Platelet Count 199 K/mcL (140-400); Red Blood Count 3.78 M/mcL (3.82-4.97); Red Cell Distribution Width 14.2 % (11.5-14.5); Segmented Neutrophils % 67.4 %; White Blood Count 10.2 K/mcL (4.3-11.1)
[2020-07-06 02:28] LABS: INR 2.2; Prothrombin Time 24.9 Seconds (9.4-12.1)
[2020-07-06 02:35] LABS: Potassium 4.7 mEq/L (3.5-5.1)
[2020-07-06 02:36] LABS: Magnesium 1.9 mg/dL (1.6-2.6); Phosphorous 3.9 mg/dL (2.7-4.5)
[2020-07-06 06:30] VITALS: BP 175/67
[2020-07-06] MEDS: Magnesium Oxide 400 MG TABLET PO SCH (07:55)
[2020-07-06] MEDS: carvediloL 6.25 MG TABLET PO SCH (07:55)
[2020-07-06] MEDS: Gabapentin 300 MG CAPSULE PO SCH (07:55)
[2020-07-06] MEDS: Cyanocobalamin (B-12) 1,000 MCG TABLET PO SCH (07:55)
[2020-07-06] MEDS: Aspirin Enteric Coated 81 MG Tablet PO SCH (07:55)
[2020-07-06] MEDS: Sucralfate 1 GM TABLET PO SCH ×2 (07:55→12:21)
[2020-07-06] MEDS: amLODIPine 5 MG TABLET PO SCH (07:56)
[2020-07-06] MEDS: Insulin LISPRO 300 UNITS/3 ML VIAL SUBQ SCH ×4 (07:56→12:18)
[2020-07-06] MEDS: Insulin DETEMIR 100 UNIT/ML X5UNITS SUBQ SCH (07:59)
[2020-07-06] MEDS ORDERED: Furosemide 40 MG/4 ML VIAL IVP SCH (09:00)
[2020-07-06] MEDS ORDERED: *HR* Warfarin 5 MG TABLET PO ONE (18:00)
== END 2020-07-06 14:26 | disposition home or self-care (01) ==
LOC: EMEROOARM 10:19 → 2ANU 10:19 → SUATTDRO 12:12 → 2ANU 13:07
PROVIDERS: ADMIT Family Medicine; ATTEND Internal Medicine

== ENCOUNTER 2020-08-06 10:03 | Inpatient (IN) ==
[2020-08-06 10:51] LABS: Basophils # 0.1 K/mcL (0.0-0.2); Basophils % 0.5 %; Eosinophils # 0.4 K/mcL (0.0-0.6); Eosinophils % 3.6 %; Hematocrit 34.6 % (35.3-44.9); Hemoglobin 10.4 g/dL (11.5-15.4); Immature Granulocytes % 0.6 % (0-4); Lymphocytes # 1.2 K/mcL (0.6-4.6); Lymphocytes % 12.7 %; Mean Corpuscular HGB Conc 30.1 g/dL (31.6-35.5); Mean Corpuscular Hemoglobin 26.5 pg (28.0-33.3); Mean Platelet Volume 10.5 fL (9.4-12.4); Monocytes # 0.9 K/mcL (0.0-1.3); Neutrophils # 7.2 K/mcL (1.6-8.9); Platelet Count 235 K/mcL (140-400); Red Blood Count 3.93 M/mcL (3.82-4.97); Red Cell Distribution Width 14.2 % (11.5-14.5); Segmented Neutrophils % 73.6 %; White Blood Count 9.7 K/mcL (4.3-11.1)
[2020-08-06 10:58] LABS: INR 2.3; Prothrombin Time 25.6 Seconds (9.4-12.1)
[2020-08-06 11:15] LABS: BUN/Creatinine Ratio 33 (6-26); Blood Urea Nitrogen 27 mg/dL (8-23); Calcium 9.4 mg/dL (8.6-10.3); Carbon Dioxide 27 mEq/L (23-29); Chloride 99 mEq/L (98-107); Glucose 330 mg/dL (70-105); Osmolality,Calculated 292 (280-300); Potassium 4.7 mEq/L (3.5-5.1); Sodium 132 mEq/L (136-145); Troponin I < 0.03 ng/mL (< 0.04); eGFR For African Americans > 60 (> 60); eGFR For Non-African Americans > 60 (> 60)
[2020-08-06 11:20] LABS: Bacteria,Urine Few per hpf (None-Few); Bilirubin,Urine Negative (Negative); Blood,Urine Small (Negative); Clarity,Urine Clear (Clear); Color,Urine Light-Yellow (Yellow); Glucose,Urine (UA) >=1000 mg/dL (Normal); Hyaline Casts,Urine Few per lpf (None Seen); Ketones,Urine Negative (Negative); Leukocyte Esterase,Urine Small (Negative); Mucus,Urine Few per lpf (None-Few); Nitrite,Urine Negative (Negative); Protein,Urine 50 mg/dL (Neg-Trace); RBC,Urine 15-30 per hpf (0-3); Specific Gravity,Urine 1.026 (1.010-1.025); Squamous Epithelial Cell,Urine Moderate per hpf (None-Few); Urobilinogen,Urine Normal (Normal)
[2020-08-06] MEDS ORDERED: Furosemide 40 MG/4 ML VIAL IVP ONE (14:45)
[2020-08-06 15:33] LABS: Magnesium 1.8 mg/dL (1.6-2.6)
[2020-08-06] MEDS ORDERED: *HR* Dextrose 50 % in Water (Vial) 50 ML VIAL IVP PRN (16:18)
[2020-08-06] MEDS ORDERED: D5% in Water 1,000 ML IVC PRN (16:18)
[2020-08-06] MEDS ORDERED: Dextrose Gel 15 GM/37.5 ML TUBE PO PRN ×2 (16:18)
[2020-08-06] MEDS ORDERED: Ondansetron 4 MG/2 ML VIAL IVP PRN (16:23)
[2020-08-06] MEDS ORDERED: Acetaminophen 325 MG TABLET PO PRN (16:23)
[2020-08-06] MEDS ORDERED: Warfarin perPT PO PRN (18:00)
[2020-08-06] MEDS: Sucralfate 1 GM TABLET PO SCH ×2 (18:10→20:06)
[2020-08-06] MEDS: carvediloL 6.25 MG TABLET PO SCH (18:10)
[2020-08-06] MEDS: amLODIPine 5 MG TABLET PO SCH (18:13)
[2020-08-06] MEDS: Insulin LISPRO 300 UNITS/3 ML VIAL SUBQ SCH ×2 (18:25→20:07)
[2020-08-06] MEDS ORDERED: *HR* Warfarin 5 MG TABLET PO ONE (19:15)
[2020-08-06] MEDS: Melatonin 3 MG TABLET PO PRN (20:05)
[2020-08-06] MEDS: Gabapentin 300 MG CAPSULE PO SCH (20:05)
[2020-08-06] MEDS: Insulin DETEMIR 100 UNIT/ML X5UNITS SUBQ SCH (20:06)
[2020-08-07 03:45] LABS: INR 2.1; Prothrombin Time 23.8 Seconds (9.4-12.1)
[2020-08-07 03:52] LABS: BUN/Creatinine Ratio 27 (6-26); Blood Urea Nitrogen 23 mg/dL (8-23); Calcium 9.2 mg/dL (8.6-10.3); Carbon Dioxide 30 mEq/L (23-29); Chloride 97 mEq/L (98-107); Glucose 321 mg/dL (70-105); Magnesium 1.9 mg/dL (1.6-2.6); Osmolality,Calculated 296 (280-300); Potassium 3.9 mEq/L (3.5-5.1); Sodium 135 mEq/L (136-145); eGFR For African Americans > 60 (> 60); eGFR For Non-African Americans > 60 (> 60)
[2020-08-07] MEDS: amLODIPine 5 MG TABLET PO SCH (08:46)
[2020-08-07] MEDS: Aspirin Enteric Coated 81 MG Tablet PO SCH (08:46)
[2020-08-07] MEDS: Sucralfate 1 GM TABLET PO SCH ×4 (08:46→21:12)
[2020-08-07] MEDS: Gabapentin 300 MG CAPSULE PO SCH ×3 (08:46→21:12)
[2020-08-07] MEDS: carvediloL 6.25 MG TABLET PO SCH ×2 (08:47→15:08)
[2020-08-07] MEDS: Furosemide 40 MG/4 ML VIAL IVP SCH ×2 (08:47→15:08)
[2020-08-07] MEDS: Cyanocobalamin (B-12) 1,000 MCG TABLET PO SCH (08:47)
[2020-08-07] MEDS: *HR* HYDROcodone/Acet 5/325 mg TABLET PO PRN ×3 (09:11→21:12)
[2020-08-07] MEDS: Insulin LISPRO 300 UNITS/3 ML VIAL SUBQ SCH ×4 (09:12→21:13)
[2020-08-07] MEDS ORDERED: *HR* Warfarin 5 MG TABLET PO ONE (18:00)
[2020-08-07] MEDS: Melatonin 3 MG TABLET PO PRN (21:12)
[2020-08-07] MEDS: Insulin DETEMIR 100 UNIT/ML X5UNITS SUBQ SCH (21:25)
[2020-08-08] MEDS: *HR* HYDROcodone/Acet 5/325 mg TABLET PO PRN ×3 (05:16→17:55)
[2020-08-08 07:16] LABS: INR 1.9; Prothrombin Time 21.2 Seconds (9.4-12.1)
[2020-08-08 07:23] LABS: BUN/Creatinine Ratio 31 (6-26); Blood Urea Nitrogen 33 mg/dL (8-23); Calcium 9.5 mg/dL (8.6-10.3); Carbon Dioxide 28 mEq/L (23-29); Chloride 99 mEq/L (98-107); Glucose 230 mg/dL (70-105); Magnesium 1.8 mg/dL (1.6-2.6); Osmolality,Calculated 291 (280-300); Potassium 4.3 mEq/L (3.5-5.1); Sodium 133 mEq/L (136-145); eGFR For African Americans > 60 (> 60); eGFR For Non-African Americans 51 (> 60)
[2020-08-08] MEDS: Insulin LISPRO 300 UNITS/3 ML VIAL SUBQ SCH ×4 (08:27→20:26)
[2020-08-08] MEDS: Sucralfate 1 GM TABLET PO SCH ×4 (08:28→20:25)
[2020-08-08] MEDS: amLODIPine 5 MG TABLET PO SCH (08:28)
[2020-08-08] MEDS: Aspirin Enteric Coated 81 MG Tablet PO SCH (08:28)
[2020-08-08] MEDS: Gabapentin 300 MG CAPSULE PO SCH ×3 (08:28→20:25)
[2020-08-08] MEDS: Furosemide 40 MG/4 ML VIAL IVP SCH ×2 (08:28→16:07)
[2020-08-08] MEDS: carvediloL 6.25 MG TABLET PO SCH ×2 (08:28→16:07)
[2020-08-08] MEDS: Cyanocobalamin (B-12) 1,000 MCG TABLET PO SCH (08:28)
[2020-08-08] MEDS ORDERED: *HR* Warfarin 7.5 MG TABLET PO ONE (18:00)
[2020-08-08] MEDS: Insulin DETEMIR 100 UNIT/ML X5UNITS SUBQ SCH (20:26)
[2020-08-09] MEDS: Melatonin 3 MG TABLET PO PRN ×2 (00:09→23:02)
[2020-08-09] MEDS: *HR* HYDROcodone/Acet 5/325 mg TABLET PO PRN ×3 (00:09→17:36)
[2020-08-09 06:25] LABS: Calcium 9.2 mg/dL (8.6-10.3); Potassium 4.4 mEq/L (3.5-5.1)
[2020-08-09 06:35] LABS: INR 1.9; Prothrombin Time 21.3 Seconds (9.4-12.1)
[2020-08-09] MEDS: carvediloL 6.25 MG TABLET PO SCH ×2 (08:21→16:06)
[2020-08-09] MEDS: Aspirin Enteric Coated 81 MG Tablet PO SCH (08:21)
[2020-08-09] MEDS: amLODIPine 5 MG TABLET PO SCH (08:21)
[2020-08-09] MEDS: Sucralfate 1 GM TABLET PO SCH ×4 (08:22→23:02)
[2020-08-09] MEDS: Furosemide 40 MG/4 ML VIAL IVP SCH (08:22)
[2020-08-09] MEDS: Gabapentin 300 MG CAPSULE PO SCH ×3 (08:22→23:02)
[2020-08-09] MEDS: Cyanocobalamin (B-12) 1,000 MCG TABLET PO SCH (08:22)
[2020-08-09] MEDS: Insulin LISPRO 300 UNITS/3 ML VIAL SUBQ SCH ×4 (08:22→23:01)
[2020-08-09] MEDS ORDERED: *HR* Warfarin 7.5 MG TABLET PO ONE (18:00)
[2020-08-09] MEDS ORDERED: Insulin DETEMIR 100 UNIT/ML X5UNITS SUBQ SCH (21:00)
[2020-08-10] MEDS: *HR* HYDROcodone/Acet 5/325 mg TABLET PO PRN ×2 (00:08→06:09)
[2020-08-10 02:38] LABS: Prothrombin Time 23.1 Seconds (9.4-12.1)
[2020-08-10 02:47] LABS: BUN/Creatinine Ratio 37 (6-26); Blood Urea Nitrogen 33 mg/dL (8-23); Calcium 9.1 mg/dL (8.6-10.3); Carbon Dioxide 29 mEq/L (23-29); Chloride 101 mEq/L (98-107); Glucose 286 mg/dL (70-105); Osmolality,Calculated 298 (280-300); Potassium 4.3 mEq/L (3.5-5.1); Sodium 135 mEq/L (136-145); eGFR For African Americans > 60 (> 60); eGFR For Non-African Americans > 60 (> 60)
[2020-08-10 07:07] VITALS: BP 157/67
[2020-08-10] MEDS: Aspirin Enteric Coated 81 MG Tablet PO SCH (08:20)
[2020-08-10] MEDS: amLODIPine 5 MG TABLET PO SCH (08:20)
[2020-08-10] MEDS: Sucralfate 1 GM TABLET PO SCH (08:20)
[2020-08-10] MEDS: carvediloL 6.25 MG TABLET PO SCH (08:20)
[2020-08-10] MEDS: Cyanocobalamin (B-12) 1,000 MCG TABLET PO SCH (08:21)
[2020-08-10] MEDS: Insulin LISPRO 300 UNITS/3 ML VIAL SUBQ SCH (08:21)
[2020-08-10] MEDS: Gabapentin 300 MG CAPSULE PO SCH (08:21)
[2020-08-10] MEDS ORDERED: Furosemide 40 MG TABLET PO SCH (09:00)
[2020-08-10] MEDS ORDERED: *HR* Warfarin 7.5 MG TABLET PO ONE (18:00)
== END 2020-08-10 12:15 | disposition home or self-care (01) | DRG 291 ==
LOC: EMEROOARM 10:03 → 2ANU 10:03 → SUATTDRO 16:17 → 2ANU 17:25
PROVIDERS: ADMIT Internal Medicine; ATTEND Family Medicine

== ENCOUNTER 2021-04-23 12:44 | Inpatient (IN) ==
[2021-04-23] MEDS ORDERED: Furosemide 40 MG/4 ML VIAL IVP ONE ×2 (14:18→20:00)
[2021-04-23 14:42] LABS: Hemoglobin 7.7 g/dL (11.5-15.4); Mean Corpuscular Volume 79.5 fL (83.0-100.0)
[2021-04-23 14:44] LABS: Eosinophils # 0.2 K/mcL (0.0-0.6); Mean Corpuscular HGB Conc 27.5 g/dL (31.6-35.5); Mean Corpuscular Hemoglobin 21.9 pg (28.0-33.3); Nucleated Red Blood Cells 0.4 /100 WBC (0); Platelet Count 281 K/mcL (140-400); Red Blood Count 3.52 M/mcL (3.82-4.97); Red Cell Distribution Width 18.1 % (11.5-14.5); White Blood Count 11.8 K/mcL (4.3-11.1)
[2021-04-23 14:57] LABS: INR 1.7; Prothrombin Time 18.8 Seconds (9.4-12.1)
[2021-04-23 14:59] LABS: Activated Partial Thrombo Time 36.5 Seconds (26.0-36.0)
[2021-04-23 15:05] LABS: BUN/Creatinine Ratio 27 (6-26); Blood Urea Nitrogen 21 mg/dL (8-23); Calcium 9.7 mg/dL (8.6-10.3); Carbon Dioxide 43 mEq/L (23-29); Chloride 97 mEq/L (98-107); Glucose 278 mg/dL (70-105); Osmolality,Calculated 295 (280-300); Potassium 4.7 mEq/L (3.5-5.1); Sodium 136 mEq/L (136-145); Troponin I < 0.03 ng/mL (< 0.04); eGFR For African Americans > 60 (> 60); eGFR For Non-African Americans > 60 (> 60)
[2021-04-23 15:19] LABS: Basophils # 0.2 K/mcL (0.0-0.2); Large Platelets Present (Not Present); Lymphocytes # 2.6 K/mcL (0.6-4.6); Monocytes # 0.2 K/mcL (0.0-1.3); Neutrophils # 8.5 K/mcL (1.6-8.9)
[2021-04-23 15:20] LABS: Anisocytosis 1+ (Not Present); Hypochromasia Present (Not Present); Platelet Estimate Normal (Normal); Polychromasia 1+ (Not Present); Stomatocytes 1+ (Not Present)
[2021-04-23] MEDS ORDERED: Isovue-370 500 ML BOTTLE IVP ONE (15:25)
[2021-04-23] MEDS ORDERED: Ondansetron ODT 4 MG TAB.RAPDIS SL PRN (16:00)
[2021-04-23] MEDS ORDERED: Naloxone 0.4 MG/ML INJ IVP PRN (16:00)
[2021-04-23] MEDS ORDERED: Dextrose Gel 15 GM/37.5 ML TUBE PO PRN ×2 (16:12)
[2021-04-23] MEDS ORDERED: *HR* Dextrose 50 % in Water (Syg) 50 ML SYRINGE IVP PRN (16:12)
[2021-04-23] MEDS ORDERED: D5% in Water 1,000 ML IVC PRN (16:12)
[2021-04-23] MEDS ORDERED: Perflutren Lipid Microsphere 1.3 ML in 0.9 % Sodium Chloride 8.7 ML IVP PRN (16:22)
[2021-04-23 17:02] LABS: Adenovirus Not Detected (Not Detect); Bordetella Pertussis Not Detected (Not Detect); Chlamydophila pneumoniae Not Detected (Not Detect); Coronavirus 229E Not Detected (Not Detect); Coronavirus HKU1 Not Detected (Not Detect); Coronavirus NL63 Not Detected (Not Detect); Coronavirus OC43 Not Detected (Not Detect); Human Metapneumovirus Not Detected (Not Detect); Human Rhinovirus/Enterovirus Not Detected (Not Detect); Influenza A Subtype 2009 H1 Not Detected (Not Detect); Influenza B Not Detected (Not Detect); Mycoplasma pneumoniae Not Detected (Not Detect); Parainfluenza Virus 1 Not Detected (Not Detect); Parainfluenza Virus 2 Not Detected (Not Detect); Parainfluenza Virus 3 Not Detected (Not Detect); Parainfluenza Virus 4 Not Detected (Not Detect); Respiratory Syncytial Virus Not Detected (Not Detect); SARS-CoV-2 Not Detected (Not Detect)
[2021-04-23 17:36] LABS: VBG HCO3 34 mEq/L (21-27); VBG PCO2 55 mmHg (41-51); VBG PH 7.39 pH Units (7.32-7.42); VBG PO2 55 mmHg (25-50)
[2021-04-23] MEDS: Insulin LISPRO 300 UNITS/3 ML VIAL SUBQ SCH ×2 (18:07→20:39)
[2021-04-23 23:11] LABS: Hemoglobin 7.4 g/dL (11.5-15.4); Nucleated Red Blood Cells 0.3 /100 WBC (0)
[2021-04-23 23:12] LABS: Basophils # 0.1 K/mcL (0.0-0.2); Basophils % 0.6 %; Eosinophils # 0.2 K/mcL (0.0-0.6); Eosinophils % 1.9 %; Hematocrit 26.8 % (35.3-44.9); Immature Granulocytes % 0.4 % (0-4); Lymphocytes % 17.1 %; Mean Corpuscular HGB Conc 27.6 g/dL (31.6-35.5); Mean Corpuscular Hemoglobin 21.6 pg (28.0-33.3); Mean Corpuscular Volume 78.1 fL (83.0-100.0); Mean Platelet Volume 9.8 fL (9.4-12.4); Monocytes # 1.1 K/mcL (0.0-1.3); Monocytes % 9.3 %; Neutrophils # 8.3 K/mcL (1.6-8.9); Platelet Count 258 K/mcL (140-400); Red Blood Count 3.43 M/mcL (3.82-4.97); Red Cell Distribution Width 18.3 % (11.5-14.5); Segmented Neutrophils % 70.7 %; White Blood Count 11.8 K/mcL (4.3-11.1)
[2021-04-23 23:18] LABS: Platelet Estimate Normal (Normal)
[2021-04-23 23:19] LABS: Hypochromasia Present (Not Present)
[2021-04-24] MEDS: Acetaminophen 325 MG TABLET PO PRN ×4 (00:32→23:47)
[2021-04-24 01:46] LABS: Bilirubin,Urine Negative (Negative); Blood,Urine Small (Negative); Clarity,Urine Clear (Clear); Color,Urine Colorless (Yellow); Glucose,Urine (UA) 200 mg/dL (Normal); Ketones,Urine Negative (Negative); Leukocyte Esterase,Urine Negative (Negative); Mucus,Urine Few per lpf (None-Few); Nitrite,Urine Negative (Negative); Protein,Urine Trace mg/dL (Neg-Trace); RBC,Urine 15-30 per hpf (0-3); Specific Gravity,Urine 1.014 (1.010-1.025); Urobilinogen,Urine Normal (Normal)
[2021-04-24 06:56] LABS: Immature Granulocytes % 0.5 % (0-4); Nucleated Red Blood Cells 0.3 /100 WBC (0); Segmented Neutrophils % 70.5 %
[2021-04-24 06:57] LABS: Basophils # 0.1 K/mcL (0.0-0.2); Basophils % 0.6 %; Eosinophils # 0.2 K/mcL (0.0-0.6); Eosinophils % 1.7 %; Hematocrit 26.3 % (35.3-44.9); Hemoglobin 7.1 g/dL (11.5-15.4); Mean Corpuscular Hemoglobin 21.1 pg (28.0-33.3); Mean Platelet Volume 10.3 fL (9.4-12.4); Monocytes % 8.7 %; Neutrophils # 7.8 K/mcL (1.6-8.9); Platelet Count 264 K/mcL (140-400); Red Blood Count 3.37 M/mcL (3.82-4.97); Red Cell Distribution Width 18.3 % (11.5-14.5); White Blood Count 11.1 K/mcL (4.3-11.1)
[2021-04-24 07:04] LABS: INR 1.4; Prothrombin Time 15.7 Seconds (9.4-12.1)
[2021-04-24 07:15] LABS: % Iron Saturation 2 % (15-50); Alanine Aminotransferase 19 Units/L (7-52); Albumin 3.6 g/dL (3.5-5.7); Albumin/Globulin Ratio 1.2 (1.1-2.2); Alkaline Phosphatase 90 Units/L (34-104); Aspartate Amino Transferase 15 Units/L (13-39); BUN/Creatinine Ratio 22 (6-26); Bilirubin,Indirect 0.7 mg/dL (0.0-1.0); Bilirubin,Total 0.7 mg/dL (0.3-1.0); Blood Urea Nitrogen 19 mg/dL (8-23); Calcium 9.4 mg/dL (8.6-10.3); Carbon Dioxide 33 mEq/L (23-29); Chloride 94 mEq/L (98-107); Globulin 2.9 g/dL (2.4-3.5); Glucose 284 mg/dL (70-105); Iron 12 mcg/dL (50-170); Lactate Dehydrogenase 159 Units/L (140-271); Magnesium 1.6 mg/dL (1.6-2.6); Osmolality,Calculated 297 (280-300); Potassium 4.2 mEq/L (3.5-5.1); Sodium 137 mEq/L (136-145); Total Protein 6.5 g/dL (6.4-8.9); Transferrin 402 mg/dL (203-362); eGFR For African Americans > 60 (> 60); eGFR For Non-African Americans > 60 (> 60)
[2021-04-24 07:24] LABS: Thyroid Stimulating Hormone 3.008 mcIU/mL (0.340-5.600)
[2021-04-24 07:31] LABS: Ferritin 27 ng/mL (10-120)
[2021-04-24 07:37] LABS: Folate > 22.3 ng/mL (3.0-16.0); Vitamin B12 908 pg/mL (250-1100)
[2021-04-24 07:45] LABS: Anisocytosis 1+ (Not Present); Hypochromasia Present (Not Present); Large Platelets Present (Not Present); Platelet Estimate Normal (Normal); Polychromasia 1+ (Not Present)
[2021-04-24] MEDS: Insulin LISPRO 300 UNITS/3 ML VIAL SUBQ SCH ×4 (08:14→20:09)
[2021-04-24] MEDS ORDERED: Iron Sucrose Complex 400 MG in 0.9 % Sodium Chloride 250 ML IVPB ONE (09:00)
[2021-04-24] MEDS: Furosemide 40 MG/4 ML VIAL IVP SCH ×2 (09:23→16:28)
[2021-04-24] MEDS: Cyanocobalamin (B-12) 1,000 MCG TABLET PO SCH (09:23)
[2021-04-24] MEDS: Gabapentin 300 MG CAPSULE PO SCH ×3 (09:23→20:09)
[2021-04-24] MEDS: carvediloL 6.25 MG TABLET PO SCH ×2 (09:23→16:28)
[2021-04-24] MEDS: amLODIPine 5 MG TABLET PO SCH (09:24)
[2021-04-24] MEDS: Aspirin Enteric Coated 81 MG Tablet PO SCH (09:24)
[2021-04-24 10:33] LABS: Estimated Average Glucose 269 mg/dl
[2021-04-24] MEDS: Sucralfate 1 GM TABLET PO SCH ×3 (11:56→20:09)
[2021-04-24 14:20] LABS: Hematocrit 26.7 % (35.3-44.9); Hemoglobin 7.4 g/dL (11.5-15.4)
[2021-04-24] MEDS: Insulin DETEMIR 100 UNIT/ML X5UNITS SUBQ SCH (20:09)
[2021-04-25 05:35] LABS: Basophils % 0.6 %
[2021-04-25 05:37] LABS: Basophils # 0.1 K/mcL (0.0-0.2); Eosinophils # 0.2 K/mcL (0.0-0.6); Eosinophils % 1.8 %; Hematocrit 27.4 % (35.3-44.9); Hemoglobin 7.4 g/dL (11.5-15.4); Immature Granulocytes % 1.1 % (0-4); Lymphocytes % 18.9 %; Mean Corpuscular Hemoglobin 21.4 pg (28.0-33.3); Mean Corpuscular Volume 79.2 fL (83.0-100.0); Monocytes # 0.9 K/mcL (0.0-1.3); Monocytes % 8.9 %; Neutrophils # 7.3 K/mcL (1.6-8.9); Nucleated Red Blood Cells 0.9 /100 WBC (0); Platelet Count 256 K/mcL (140-400); Red Blood Count 3.46 M/mcL (3.82-4.97); Red Cell Distribution Width 18.5 % (11.5-14.5); Segmented Neutrophils % 68.7 %; White Blood Count 10.6 K/mcL (4.3-11.1)
[2021-04-25 06:01] LABS: Anisocytosis 2+ (Not Present); Hypochromasia Present (Not Present); Platelet Estimate Normal (Normal); Polychromasia 1+ (Not Present)
[2021-04-25 06:03] LABS: BUN/Creatinine Ratio 24 (6-26); Blood Urea Nitrogen 22 mg/dL (8-23); Calcium 9.1 mg/dL (8.6-10.3); Carbon Dioxide 30 mEq/L (23-29); Chloride 93 mEq/L (98-107); Glucose 314 mg/dL (70-105); Magnesium 1.6 mg/dL (1.6-2.6); Osmolality,Calculated 293 (280-300); Phosphorous 3.9 mg/dL (2.7-4.5); Potassium 3.8 mEq/L (3.5-5.1); Sodium 134 mEq/L (136-145); eGFR For African Americans > 60 (> 60); eGFR For Non-African Americans 59 (> 60)
[2021-04-25] MEDS: Insulin LISPRO 300 UNITS/3 ML VIAL SUBQ SCH ×8 (08:19→20:46)
[2021-04-25] MEDS: Sucralfate 1 GM TABLET PO SCH ×4 (08:26→20:46)
[2021-04-25] MEDS: amLODIPine 5 MG TABLET PO SCH (08:26)
[2021-04-25] MEDS: Cyanocobalamin (B-12) 1,000 MCG TABLET PO SCH (08:26)
[2021-04-25] MEDS: Gabapentin 300 MG CAPSULE PO SCH ×3 (08:26→20:45)
[2021-04-25] MEDS: carvediloL 6.25 MG TABLET PO SCH ×2 (08:26→17:08)
[2021-04-25] MEDS: Acetaminophen 325 MG TABLET PO PRN ×2 (08:26→22:51)
[2021-04-25] MEDS: Furosemide 40 MG/4 ML VIAL IVP SCH ×2 (08:26→17:08)
[2021-04-25] MEDS: Aspirin Enteric Coated 81 MG Tablet PO SCH (08:26)
[2021-04-25] MEDS ORDERED: Iron Sucrose Complex 400 MG in 0.9 % Sodium Chloride 250 ML IVPB ONE (09:28)
[2021-04-25] MEDS ORDERED: SODIUM CHLORIDE/NAHCO3/KCL/PEG 4,000 ML SOLN.RECON PO ONE (17:00)
[2021-04-25] MEDS: Insulin DETEMIR 100 UNIT/ML X5UNITS SUBQ SCH (20:47)
[2021-04-26 02:08] LABS: Nucleated Red Blood Cells 0.8 /100 WBC (0)
[2021-04-26 02:10] LABS: Basophils # 0.1 K/mcL (0.0-0.2); Basophils % 0.6 %; Eosinophils # 0.3 K/mcL (0.0-0.6); Eosinophils % 2.3 %; Hematocrit 26.5 % (35.3-44.9); Hemoglobin 7.2 g/dL (11.5-15.4); Immature Granulocytes % 1.5 % (0-4); Lymphocytes # 2.1 K/mcL (0.6-4.6); Lymphocytes % 18.2 %; Mean Corpuscular HGB Conc 27.2 g/dL (31.6-35.5); Mean Corpuscular Hemoglobin 21.6 pg (28.0-33.3); Mean Corpuscular Volume 79.6 fL (83.0-100.0); Mean Platelet Volume 10.2 fL (9.4-12.4); Monocytes # 1.1 K/mcL (0.0-1.3); Monocytes % 9.9 %; Neutrophils # 7.6 K/mcL (1.6-8.9); Platelet Count 250 K/mcL (140-400); Red Blood Count 3.33 M/mcL (3.82-4.97); Red Cell Distribution Width 18.2 % (11.5-14.5); Segmented Neutrophils % 67.5 %; White Blood Count 11.3 K/mcL (4.3-11.1)
[2021-04-26 02:20] LABS: BUN/Creatinine Ratio 22 (6-26); Blood Urea Nitrogen 17 mg/dL (8-23); Calcium 8.4 mg/dL (8.6-10.3); Carbon Dioxide 30 mEq/L (23-29); Chloride 99 mEq/L (98-107); Glucose 115 mg/dL (70-105); Magnesium 1.5 mg/dL (1.6-2.6); Osmolality,Calculated 290 (280-300); Phosphorous 3.2 mg/dL (2.7-4.5); Potassium 3.2 mEq/L (3.5-5.1); Sodium 139 mEq/L (136-145); eGFR For African Americans > 60 (> 60); eGFR For Non-African Americans > 60 (> 60)
[2021-04-26 03:02] LABS: Hypochromasia Present (Not Present)
[2021-04-26 03:03] LABS: Platelet Estimate Normal (Normal)
[2021-04-26] MEDS: Insulin LISPRO 300 UNITS/3 ML VIAL SUBQ SCH ×7 (08:23→20:51)
[2021-04-26] MEDS: Furosemide 40 MG/4 ML VIAL IVP SCH ×2 (08:30→17:05)
[2021-04-26] MEDS: Sucralfate 1 GM TABLET PO SCH ×4 (08:32→20:51)
[2021-04-26] MEDS: Aspirin Enteric Coated 81 MG Tablet PO SCH (08:32)
[2021-04-26] MEDS: carvediloL 6.25 MG TABLET PO SCH ×2 (08:32→17:06)
[2021-04-26] MEDS: amLODIPine 5 MG TABLET PO SCH (08:32)
[2021-04-26] MEDS: Gabapentin 300 MG CAPSULE PO SCH ×3 (08:33→20:51)
[2021-04-26] MEDS: Cyanocobalamin (B-12) 1,000 MCG TABLET PO SCH (08:33)
[2021-04-26] MEDS ORDERED: Lidocaine -MPF 2% 5 ML VIAL ONE (12:33)
[2021-04-26] MEDS ORDERED: *HR* Propofol 200 MG/20 ML VIAL IVP ONE (13:37)
[2021-04-26] MEDS: Acetaminophen 325 MG TABLET PO PRN (17:12)
[2021-04-26] MEDS: Insulin DETEMIR 100 UNIT/ML X5UNITS SUBQ SCH (20:51)
[2021-04-26] MEDS ORDERED: *HR* HYDROcodone/Acet 5/325 mg TABLET PO ONE (21:29)
[2021-04-27] MEDS: Acetaminophen 325 MG TABLET PO PRN ×2 (05:40→21:06)
[2021-04-27] MEDS: amLODIPine 5 MG TABLET PO SCH (09:05)
[2021-04-27] MEDS: Aspirin Enteric Coated 81 MG Tablet PO SCH (09:05)
[2021-04-27] MEDS: Furosemide 40 MG/4 ML VIAL IVP SCH (09:06)
[2021-04-27] MEDS: carvediloL 6.25 MG TABLET PO SCH ×2 (09:06→17:19)
[2021-04-27] MEDS: Gabapentin 300 MG CAPSULE PO SCH ×3 (09:06→21:25)
[2021-04-27] MEDS: Cyanocobalamin (B-12) 1,000 MCG TABLET PO SCH (09:06)
[2021-04-27] MEDS: Insulin LISPRO 300 UNITS/3 ML VIAL SUBQ SCH ×7 (09:06→21:09)
[2021-04-27] MEDS: Sucralfate 1 GM TABLET PO SCH ×4 (09:09→21:06)
[2021-04-27 09:18] LABS: Monocytes % 8.5 %; Nucleated Red Blood Cells 0.6 /100 WBC (0); Red Blood Count 3.28 M/mcL (3.82-4.97)
[2021-04-27 09:19] LABS: Basophils # 0.1 K/mcL (0.0-0.2); Basophils % 0.5 %; Eosinophils # 0.3 K/mcL (0.0-0.6); Eosinophils % 2.5 %; Hematocrit 26.5 % (35.3-44.9); Hemoglobin 7.1 g/dL (11.5-15.4); Immature Granulocytes % 0.9 % (0-4); Lymphocytes # 1.5 K/mcL (0.6-4.6); Lymphocytes % 13.8 %; Mean Corpuscular HGB Conc 26.8 g/dL (31.6-35.5); Mean Corpuscular Hemoglobin 21.6 pg (28.0-33.3); Mean Corpuscular Volume 80.8 fL (83.0-100.0); Mean Platelet Volume 10.4 fL (9.4-12.4); Monocytes # 0.9 K/mcL (0.0-1.3); Neutrophils # 8.1 K/mcL (1.6-8.9); Platelet Count 249 K/mcL (140-400); Segmented Neutrophils % 73.8 %
[2021-04-27 09:40] LABS: Anisocytosis 2+ (Not Present); Hypochromasia Present (Not Present); Platelet Estimate Normal (Normal); Polychromasia 1+ (Not Present)
[2021-04-27] MEDS ORDERED: Iron Sucrose Complex 400 MG in 0.9 % Sodium Chloride 250 ML IVPB ONE (09:45)
[2021-04-27 10:11] LABS: BUN/Creatinine Ratio 22 (6-26); Blood Urea Nitrogen 17 mg/dL (8-23); Calcium 8.8 mg/dL (8.6-10.3); Carbon Dioxide 30 mEq/L (23-29); Chloride 101 mEq/L (98-107); Glucose 193 mg/dL (70-105); Magnesium 1.8 mg/dL (1.6-2.6); Osmolality,Calculated 291 (280-300); Phosphorous 2.8 mg/dL (2.7-4.5); Potassium 3.9 mEq/L (3.5-5.1); Sodium 137 mEq/L (136-145); eGFR For African Americans > 60 (> 60); eGFR For Non-African Americans > 60 (> 60)
[2021-04-27 11:33] LABS: INR 1.2; Prothrombin Time 12.9 Seconds (9.4-12.1)
[2021-04-27] MEDS: Furosemide 40 MG TABLET PO SCH (17:19)
[2021-04-27] MEDS ORDERED: Warfarin perPT PO PRN (18:00)
[2021-04-27] MEDS ORDERED: *HR* Warfarin 7.5 MG TABLET PO ONE (18:00)
[2021-04-27] MEDS: Insulin DETEMIR 100 UNIT/ML X5UNITS SUBQ SCH (21:08)
[2021-04-28] MEDS ORDERED: *HR* HYDROcodone/Acet 5/325 mg TABLET PO ONE (01:42)
[2021-04-28 06:04] LABS: INR 1.1; Prothrombin Time 12.8 Seconds (9.4-12.1)
[2021-04-28 06:09] LABS: BUN/Creatinine Ratio 18 (6-26); Blood Urea Nitrogen 16 mg/dL (8-23); Calcium 8.7 mg/dL (8.6-10.3); Carbon Dioxide 31 mEq/L (23-29); Chloride 101 mEq/L (98-107); Glucose 237 mg/dL (70-105); Magnesium 1.7 mg/dL (1.6-2.6); Osmolality,Calculated 293 (280-300); Phosphorous 2.8 mg/dL (2.7-4.5); Potassium 3.9 mEq/L (3.5-5.1); Sodium 137 mEq/L (136-145); eGFR For African Americans > 60 (> 60); eGFR For Non-African Americans > 60 (> 60)
[2021-04-28 07:12] LABS: Hemoglobin 7.4 g/dL (11.5-15.4); Nucleated Red Blood Cells 0.4 /100 WBC (0)
[2021-04-28 07:13] LABS: Basophils # 0.1 K/mcL (0.0-0.2); Basophils % 0.6 %; Eosinophils # 0.3 K/mcL (0.0-0.6); Eosinophils % 2.6 %; Hematocrit 27.5 % (35.3-44.9); Immature Granulocytes % 1.7 % (0-4); Lymphocytes # 1.9 K/mcL (0.6-4.6); Lymphocytes % 17.3 %; Mean Corpuscular HGB Conc 26.9 g/dL (31.6-35.5); Mean Corpuscular Hemoglobin 22.5 pg (28.0-33.3); Mean Corpuscular Volume 83.6 fL (83.0-100.0); Mean Platelet Volume 10.4 fL (9.4-12.4); Monocytes % 8.9 %; Platelet Count 249 K/mcL (140-400); Red Blood Count 3.29 M/mcL (3.82-4.97); Segmented Neutrophils % 68.9 %; White Blood Count 11.2 K/mcL (4.3-11.1)
[2021-04-28 07:17] LABS: Neutrophils # 7.7 K/mcL (1.6-8.9)
[2021-04-28 07:59] LABS: Anisocytosis 1+ (Not Present); Hypochromasia Present (Not Present)
[2021-04-28 08:00] LABS: Platelet Estimate Normal (Normal); Polychromasia 1+ (Not Present)
[2021-04-28] MEDS: Aspirin Enteric Coated 81 MG Tablet PO SCH (08:07)
[2021-04-28] MEDS: Cyanocobalamin (B-12) 1,000 MCG TABLET PO SCH (08:07)
[2021-04-28] MEDS: Sucralfate 1 GM TABLET PO SCH ×4 (08:07→21:26)
[2021-04-28] MEDS: Insulin LISPRO 300 UNITS/3 ML VIAL SUBQ SCH ×7 (08:07→21:27)
[2021-04-28] MEDS: carvediloL 6.25 MG TABLET PO SCH ×2 (08:08→16:02)
[2021-04-28] MEDS: Furosemide 40 MG TABLET PO SCH (08:08)
[2021-04-28] MEDS: amLODIPine 5 MG TABLET PO SCH (08:08)
[2021-04-28] MEDS: Gabapentin 300 MG CAPSULE PO SCH ×3 (08:08→21:26)
[2021-04-28] MEDS ORDERED: Bisacodyl 10 MG RECTAL SUPPOSITORY RC PRN (11:23)
[2021-04-28] MEDS: polyethylene glycoL 3350 17 GM POWD.PACK PO SCH (11:42)
[2021-04-28] MEDS: Furosemide 40 MG/4 ML VIAL IVP SCH ×2 (11:42→21:27)
[2021-04-28] MEDS: hydrALAZINE 25 MG TABLET PO SCH (16:02)
[2021-04-28] MEDS: Acetaminophen 325 MG TABLET PO PRN (16:02)
[2021-04-28] MEDS ORDERED: *HR* Warfarin 7.5 MG TABLET PO ONE (18:00)
[2021-04-28] MEDS: Insulin DETEMIR 100 UNIT/ML X5UNITS SUBQ SCH (21:27)
[2021-04-28] MEDS: *HR* HYDROcodone/Acet 5/325 mg TABLET PO PRN (21:58)
[2021-04-29] MEDS: hydrALAZINE 25 MG TABLET PO SCH ×4 (00:07→23:59)
[2021-04-29 01:41] LABS: Basophils % 0.5 %; Platelet Count 230 K/mcL (140-400); White Blood Count 12.8 K/mcL (4.3-11.1)
[2021-04-29 01:43] LABS: Basophils # 0.1 K/mcL (0.0-0.2); Eosinophils # 0.3 K/mcL (0.0-0.6); Hematocrit 27.4 % (35.3-44.9); Hemoglobin 7.3 g/dL (11.5-15.4); Immature Granulocytes % 1.4 % (0-4); Lymphocytes # 1.8 K/mcL (0.6-4.6); Mean Corpuscular HGB Conc 26.6 g/dL (31.6-35.5); Mean Corpuscular Hemoglobin 22.5 pg (28.0-33.3); Mean Corpuscular Volume 84.3 fL (83.0-100.0); Mean Platelet Volume 10.2 fL (9.4-12.4); Monocytes # 1.1 K/mcL (0.0-1.3); Monocytes % 8.4 %; Neutrophils # 9.4 K/mcL (1.6-8.9); Nucleated Red Blood Cells 0.4 /100 WBC (0); Red Blood Count 3.25 M/mcL (3.82-4.97); Red Cell Distribution Width 20.7 % (11.5-14.5); Segmented Neutrophils % 73.7 %
[2021-04-29 01:46] LABS: Anisocytosis 2+ (Not Present); Hypochromasia Present (Not Present); Platelet Estimate Normal (Normal)
[2021-04-29 01:54] LABS: INR 1.1; Prothrombin Time 12.8 Seconds (9.4-12.1)
[2021-04-29 01:57] LABS: BUN/Creatinine Ratio 17 (6-26); Blood Urea Nitrogen 17 mg/dL (8-23); Calcium 8.5 mg/dL (8.6-10.3); Carbon Dioxide 30 mEq/L (23-29); Chloride 102 mEq/L (98-107); Glucose 291 mg/dL (70-105); Osmolality,Calculated 298 (280-300); Sodium 138 mEq/L (136-145); eGFR For African Americans > 60 (> 60); eGFR For Non-African Americans 54 (> 60)
[2021-04-29] MEDS: *HR* HYDROcodone/Acet 5/325 mg TABLET PO PRN ×2 (08:14→17:28)
[2021-04-29] MEDS: Furosemide 40 MG/4 ML VIAL IVP SCH ×2 (08:14→20:59)
[2021-04-29] MEDS: carvediloL 6.25 MG TABLET PO SCH ×2 (08:15→17:24)
[2021-04-29] MEDS: Sucralfate 1 GM TABLET PO SCH ×4 (08:15→20:57)
[2021-04-29] MEDS: Cyanocobalamin (B-12) 1,000 MCG TABLET PO SCH (08:15)
[2021-04-29] MEDS: Aspirin Enteric Coated 81 MG Tablet PO SCH (08:15)
[2021-04-29] MEDS: Insulin LISPRO 300 UNITS/3 ML VIAL SUBQ SCH ×7 (08:15→20:58)
[2021-04-29] MEDS: Gabapentin 300 MG CAPSULE PO SCH ×3 (08:15→20:57)
[2021-04-29] MEDS: polyethylene glycoL 3350 17 GM POWD.PACK PO SCH (08:32)
[2021-04-29] MEDS ORDERED: *HR* Warfarin 7.5 MG TABLET PO ONE (18:00)
[2021-04-29] MEDS: Insulin DETEMIR 100 UNIT/ML X5UNITS SUBQ SCH (20:59)
[2021-04-30] MEDS: *HR* HYDROcodone/Acet 5/325 mg TABLET PO PRN ×2 (03:25→17:15)
[2021-04-30 05:35] LABS: INR 1.3
[2021-04-30] MEDS: Furosemide 40 MG/4 ML VIAL IVP SCH ×2 (09:28→21:33)
[2021-04-30] MEDS: hydrALAZINE 25 MG TABLET PO SCH ×2 (09:32→17:05)
[2021-04-30] MEDS: Gabapentin 300 MG CAPSULE PO SCH ×3 (09:32→21:31)
[2021-04-30] MEDS: carvediloL 6.25 MG TABLET PO SCH ×2 (09:32→17:06)
[2021-04-30] MEDS: Aspirin Enteric Coated 81 MG Tablet PO SCH (09:32)
[2021-04-30] MEDS: Cyanocobalamin (B-12) 1,000 MCG TABLET PO SCH (09:32)
[2021-04-30] MEDS: Insulin LISPRO 300 UNITS/3 ML VIAL SUBQ SCH ×7 (09:33→21:33)
[2021-04-30] MEDS: polyethylene glycoL 3350 17 GM POWD.PACK PO SCH (09:54)
[2021-04-30] MEDS: Sucralfate 1 GM TABLET PO SCH ×4 (09:55→21:31)
[2021-04-30] MEDS ORDERED: *HR* Warfarin 10 MG TABLET PO ONE (18:00)
[2021-04-30] MEDS: Insulin DETEMIR 100 UNIT/ML X5UNITS SUBQ SCH (21:32)
[2021-05-01] MEDS: hydrALAZINE 25 MG TABLET PO SCH ×2 (00:34→08:59)
[2021-05-01] MEDS: *HR* HYDROcodone/Acet 5/325 mg TABLET PO PRN (04:21)
[2021-05-01 05:41] LABS: INR 1.4; Prothrombin Time 15.8 Seconds (9.4-12.1)
[2021-05-01] MEDS: Furosemide 40 MG/4 ML VIAL IVP SCH (08:59)
[2021-05-01] MEDS: Gabapentin 300 MG CAPSULE PO SCH (08:59)
[2021-05-01] MEDS: Cyanocobalamin (B-12) 1,000 MCG TABLET PO SCH (08:59)
[2021-05-01] MEDS: carvediloL 6.25 MG TABLET PO SCH (08:59)
[2021-05-01] MEDS: Sucralfate 1 GM TABLET PO SCH ×2 (09:00→11:34)
[2021-05-01] MEDS: Aspirin Enteric Coated 81 MG Tablet PO SCH (09:00)
[2021-05-01] MEDS: Insulin LISPRO 300 UNITS/3 ML VIAL SUBQ SCH ×4 (09:02→11:35)
[2021-05-01] MEDS: polyethylene glycoL 3350 17 GM POWD.PACK PO SCH (09:03)
[2021-05-01 10:46] VITALS: TEMP 97.9
[2021-05-01 10:51] LABS: Hematocrit 28.8 % (35.3-44.9); Hemoglobin 7.8 g/dL (11.5-15.4)
[2021-05-01 13:25] VITALS: BP 132/70; PULSE 83
[2021-05-01 13:36] VITALS: O2SAT 94
[2021-05-01] MEDS ORDERED: *HR* Warfarin 7.5 MG TABLET PO ONE (18:00)
== END 2021-05-01 15:03 | disposition home or self-care (01) | DRG 291 ==
LOC: EMEROOARM 12:44 → 3BNU 12:44 → SUATTDRO 16:07 → 3BNU 16:40 → SUATTDRO 04-25 11:15
PROVIDERS: ADMIT Student in an Organized Health Care Education/Training Program; ATTEND Registered Nurse
PROC: ENDOCCB (2021-04-26 13:00)

== ENCOUNTER 2021-08-27 09:34 | Inpatient (IN) ==
[2021-08-27 10:46] LABS: Basophils # 0.1 K/mcL (0.0-0.2); Basophils % 0.5 %; Eosinophils # 0.2 K/mcL (0.0-0.6); Eosinophils % 2.4 %; Hematocrit 38.1 % (35.3-44.9); Hemoglobin 11.6 g/dL (11.5-15.4); Immature Granulocytes % 0.2 % (0-4); Lymphocytes # 1.5 K/mcL (0.6-4.6); Lymphocytes % 15.3 %; Mean Corpuscular HGB Conc 30.4 g/dL (31.6-35.5); Mean Corpuscular Hemoglobin 28.7 pg (28.0-33.3); Mean Corpuscular Volume 94.3 fL (83.0-100.0); Monocytes # 0.7 K/mcL (0.0-1.3); Monocytes % 6.9 %; Neutrophils # 7.5 K/mcL (1.6-8.9); Platelet Count 192 K/mcL (140-400); Red Blood Count 4.04 M/mcL (3.82-4.97); Red Cell Distribution Width 13.9 % (11.5-14.5); Segmented Neutrophils % 74.7 %
[2021-08-27 10:53] LABS: INR 2.2; Prothrombin Time 24.3 Seconds (9.4-12.1)
[2021-08-27 10:56] LABS: Activated Partial Thrombo Time 43.3 Seconds (26.0-36.0)
[2021-08-27 11:09] LABS: Alanine Aminotransferase 25 Units/L (7-52); Albumin 3.5 g/dL (3.5-5.7); Albumin/Globulin Ratio 1.1 (1.1-2.2); Alkaline Phosphatase 147 Units/L (34-104); Aspartate Amino Transferase 19 Units/L (13-39); BUN/Creatinine Ratio 28 (6-26); Bilirubin,Direct 0.1 mg/dL (0.0-0.2); Bilirubin,Indirect 0.2 mg/dL (0.0-1.0); Bilirubin,Total 0.3 mg/dL (0.3-1.0); Blood Urea Nitrogen 25 mg/dL (8-23); Calcium 9.6 mg/dL (8.6-10.3); Carbon Dioxide 32 mEq/L (23-29); Chloride 98 mEq/L (98-107); Globulin 3.3 g/dL (2.4-3.5); Glucose 289 mg/dL (70-105); Osmolality,Calculated 293 (280-300); Potassium 5.3 mEq/L (3.5-5.1); Sodium 134 mEq/L (136-145); Total Protein 6.8 g/dL (6.4-8.9); Troponin I < 0.03 ng/mL (< 0.04); eGFR For African Americans > 60 (> 60); eGFR For Non-African Americans > 60 (> 60)
[2021-08-27] MEDS ORDERED: Furosemide 40 MG/4 ML VIAL IVP ONE (11:51)
[2021-08-27 11:52] LABS: Adenovirus Not Detected (Not Detect); Bordetella Pertussis Not Detected (Not Detect); Chlamydophila pneumoniae Not Detected (Not Detect); Coronavirus 229E Not Detected (Not Detect); Coronavirus HKU1 Not Detected (Not Detect); Coronavirus NL63 Not Detected (Not Detect); Coronavirus OC43 Not Detected (Not Detect); Human Metapneumovirus Not Detected (Not Detect); Human Rhinovirus/Enterovirus Not Detected (Not Detect); Influenza A Subtype 2009 H1 Not Detected (Not Detect); Influenza B Not Detected (Not Detect); Mycoplasma pneumoniae Not Detected (Not Detect); Parainfluenza Virus 1 Not Detected (Not Detect); Parainfluenza Virus 2 Not Detected (Not Detect); Parainfluenza Virus 3 Not Detected (Not Detect); Parainfluenza Virus 4 Not Detected (Not Detect); Respiratory Syncytial Virus Not Detected (Not Detect); SARS-CoV-2 Not Detected (Not Detect)
[2021-08-27] MEDS ORDERED: Doxycycline 100 MG in 0.9 % Sodium Chloride Mini Bag 100 ML IVPB ONE (12:47)
[2021-08-27] MEDS ORDERED: Nitroglycerin 0.4 MG TAB.SUBL SL PRN (16:54)
[2021-08-27] MEDS ORDERED: Aspirin 325 MG TABLET PO STA (16:55)
[2021-08-27] MEDS ORDERED: Morphine Sulfate 2 MG/ML SYRINGE IVP ONE (18:48)
[2021-08-27] MEDS: Morphine Sulfate 2 MG/ML SYRINGE IVP PRN (22:53)
[2021-08-28] MEDS: Morphine Sulfate 2 MG/ML SYRINGE IVP PRN ×2 (04:30→21:03)
[2021-08-28] MEDS: Furosemide 40 MG/4 ML VIAL IVP SCH ×2 (07:25→17:55)
[2021-08-28] MEDS ORDERED: *HR* Dextrose 50 % in Water (Syg) 50 ML SYRINGE IVP PRN (07:32)
[2021-08-28] MEDS ORDERED: Dextrose Gel 15 GM/37.5 ML TUBE PO PRN ×2 (07:32)
[2021-08-28] MEDS ORDERED: D5% in Water 1,000 ML IVC PRN (07:32)
[2021-08-28] MEDS: Cholecalciferol (D-3) 1,000 UNIT (25MCG) TABLET PO SCH (09:13)
[2021-08-28] MEDS: Insulin DETEMIR 100 UNIT/ML X5UNITS SUBQ SCH ×2 (09:13→21:02)
[2021-08-28] MEDS: Magnesium Oxide 400 MG TABLET PO SCH ×2 (09:14→20:55)
[2021-08-28] MEDS: Cyanocobalamin (B-12) 1,000 MCG TABLET PO SCH (09:14)
[2021-08-28] MEDS: carvediloL 6.25 MG TABLET PO SCH ×2 (09:14→17:55)
[2021-08-28] MEDS: Aspirin Enteric Coated 81 MG Tablet PO SCH (09:14)
[2021-08-28] MEDS: Sucralfate 1 GM TABLET PO SCH ×4 (09:14→20:55)
[2021-08-28] MEDS: Gabapentin 300 MG CAPSULE PO SCH ×3 (09:14→20:55)
[2021-08-28] MEDS: Insulin LISPRO 300 UNITS/3 ML VIAL SUBQ SCH ×2 (13:29→17:55)
[2021-08-28 15:08] LABS: INR 1.8; Prothrombin Time 20.5 Seconds (9.4-12.1)
[2021-08-28] MEDS: Warfarin perPT PO SCH (17:57)
[2021-08-29] MEDS: Morphine Sulfate 2 MG/ML SYRINGE IVP PRN ×4 (02:39→23:40)
[2021-08-29 04:03] LABS: INR 1.6; Prothrombin Time 17.7 Seconds (9.4-12.1)
[2021-08-29 08:10] LABS: BUN/Creatinine Ratio 26 (6-26); Blood Urea Nitrogen 27 mg/dL (8-23); Calcium 9.9 mg/dL (8.6-10.3); Carbon Dioxide 35 mEq/L (23-29); Chloride 94 mEq/L (98-107); Glucose 228 mg/dL (70-105); Magnesium 1.4 mg/dL (1.6-2.6); Osmolality,Calculated 294 (280-300); Phosphorous 4.4 mg/dL (2.7-4.5); Sodium 136 mEq/L (136-145); eGFR For African Americans > 60 (> 60); eGFR For Non-African Americans 53 (> 60)
[2021-08-29] MEDS: Aspirin Enteric Coated 81 MG Tablet PO SCH (08:39)
[2021-08-29] MEDS: Cholecalciferol (D-3) 1,000 UNIT (25MCG) TABLET PO SCH (08:39)
[2021-08-29] MEDS: carvediloL 6.25 MG TABLET PO SCH ×2 (08:39→15:38)
[2021-08-29] MEDS: Cyanocobalamin (B-12) 1,000 MCG TABLET PO SCH (08:40)
[2021-08-29] MEDS: Gabapentin 300 MG CAPSULE PO SCH ×3 (08:40→22:25)
[2021-08-29] MEDS: Sucralfate 1 GM TABLET PO SCH ×4 (08:41→22:24)
[2021-08-29] MEDS: Insulin LISPRO 300 UNITS/3 ML VIAL SUBQ SCH ×4 (08:41→16:28)
[2021-08-29] MEDS: Furosemide 40 MG/4 ML VIAL IVP SCH (08:41)
[2021-08-29] MEDS: Magnesium Oxide 400 MG TABLET PO SCH ×2 (08:41→22:24)
[2021-08-29] MEDS: Insulin DETEMIR 100 UNIT/ML X5UNITS SUBQ SCH ×2 (09:00→22:25)
[2021-08-29] MEDS: hydrALAZINE 25 MG TABLET PO SCH ×2 (15:38→23:40)
[2021-08-29] MEDS: Furosemide 20 MG TABLET PO SCH (15:39)
[2021-08-29] MEDS ORDERED: Furosemide 20 MG/2 ML VIAL IVP SCH (17:00)
[2021-08-29] MEDS: Warfarin perPT PO SCH (17:20)
[2021-08-29] MEDS ORDERED: *HR* Warfarin 3 MG TABLET PO ONE (18:00)
[2021-08-30] MEDS: Morphine Sulfate 2 MG/ML SYRINGE IVP PRN (04:41)
[2021-08-30] MEDS: Cholecalciferol (D-3) 1,000 UNIT (25MCG) TABLET PO SCH (08:43)
[2021-08-30] MEDS: Sucralfate 1 GM TABLET PO SCH ×2 (08:43→11:44)
[2021-08-30] MEDS: Gabapentin 300 MG CAPSULE PO SCH (08:44)
[2021-08-30] MEDS: Cyanocobalamin (B-12) 1,000 MCG TABLET PO SCH (08:44)
[2021-08-30] MEDS: Aspirin Enteric Coated 81 MG Tablet PO SCH (08:44)
[2021-08-30] MEDS: Furosemide 20 MG TABLET PO SCH (08:44)
[2021-08-30] MEDS: Insulin DETEMIR 100 UNIT/ML X5UNITS SUBQ SCH (08:44)
[2021-08-30] MEDS: hydrALAZINE 25 MG TABLET PO SCH (08:44)
[2021-08-30] MEDS: Magnesium Oxide 400 MG TABLET PO SCH (08:44)
[2021-08-30] MEDS: carvediloL 6.25 MG TABLET PO SCH (08:45)
[2021-08-30] MEDS: Insulin LISPRO 300 UNITS/3 ML VIAL SUBQ SCH ×4 (08:46→11:45)
[2021-08-30 11:44] VITALS: BP 149/70; PULSE 48; TEMP 97.8; O2SAT 95
== END 2021-08-30 14:44 | disposition home or self-care (01) | DRG 291 ==
LOC: 3ANU 09:34 → EMEROOARM 09:34 → SUATTDRO 13:57 → 3ANU 15:07
PROVIDERS: ADMIT Student in an Organized Health Care Education/Training Program; ATTEND Internal Medicine

== ENCOUNTER 2021-10-03 11:31 | Inpatient (IN) ==
[2021-10-03] MEDS ORDERED: Furosemide 40 MG/4 ML VIAL IVP ONE (12:59)
[2021-10-03 13:19] LABS: Basophils # 0.1 K/mcL (0.0-0.2); Basophils % 0.5 %; Eosinophils # 0.2 K/mcL (0.0-0.6); Eosinophils % 2.2 %; Hematocrit 33.9 % (35.3-44.9); Hemoglobin 10.1 g/dL (11.5-15.4); Immature Granulocytes % 0.3 % (0-4); Lymphocytes # 1.7 K/mcL (0.6-4.6); Lymphocytes % 16.6 %; Mean Corpuscular HGB Conc 29.8 g/dL (31.6-35.5); Mean Corpuscular Hemoglobin 29.4 pg (28.0-33.3); Mean Corpuscular Volume 98.8 fL (83.0-100.0); Mean Platelet Volume 10.7 fL (9.4-12.4); Monocytes # 0.8 K/mcL (0.0-1.3); Monocytes % 7.5 %; Neutrophils # 7.7 K/mcL (1.6-8.9); Platelet Count 209 K/mcL (140-400); Red Blood Count 3.43 M/mcL (3.82-4.97); Red Cell Distribution Width 14.1 % (11.5-14.5); Segmented Neutrophils % 72.9 %; White Blood Count 10.5 K/mcL (4.3-11.1)
[2021-10-03 13:26] LABS: Prothrombin Time 33.1 Seconds (9.4-12.1)
[2021-10-03 13:33] LABS: Alanine Aminotransferase 18 Units/L (7-52); Albumin 3.7 g/dL (3.5-5.7); Albumin/Globulin Ratio 1.1 (1.1-2.2); Alkaline Phosphatase 130 Units/L (34-104); Aspartate Amino Transferase 16 Units/L (13-39); BUN/Creatinine Ratio 29 (6-26); Bilirubin,Direct 0.1 mg/dL (0.0-0.2); Bilirubin,Indirect 0.3 mg/dL (0.0-1.0); Bilirubin,Total 0.4 mg/dL (0.3-1.0); Blood Urea Nitrogen 22 mg/dL (8-23); Calcium 9.9 mg/dL (8.6-10.3); Carbon Dioxide 36 mEq/L (23-29); Chloride 96 mEq/L (98-107); Globulin 3.3 g/dL (2.4-3.5); Glucose 262 mg/dL (70-105); Lipase 34 Units/L (11-82); Magnesium 1.6 mg/dL (1.6-2.6); Osmolality,Calculated 294 (280-300); Potassium 4.8 mEq/L (3.5-5.1); Sodium 136 mEq/L (136-145); Troponin I < 0.03 ng/mL (< 0.04); eGFR For African Americans > 60 (> 60); eGFR For Non-African Americans > 60 (> 60)
[2021-10-03 13:35] LABS: Bacteria,Urine Few per hpf (None-Few); Bilirubin,Urine Negative (Negative); Blood,Urine Large (Negative); Clarity,Urine Turbid (Clear); Color,Urine Light-Brown (Yellow); Glucose,Urine (UA) >=1000 mg/dL (Normal); Ketones,Urine Negative (Negative); Leukocyte Esterase,Urine Moderate (Negative); Nitrite,Urine Negative (Negative); Protein,Urine 200 mg/dL (Neg-Trace); RBC,Urine TNTC per hpf (0-3); Renal Epithelial Cells,Urine Few per hpf (None-Few); Squamous Epithelial Cell,Urine Few per hpf (None-Few); Transitional Epi Cells,Urine Few per hpf (None-Few); Urobilinogen,Urine Normal (Normal); WBC,Urine 50-100 per hpf (0-3)
[2021-10-03] MEDS ORDERED: cefTRIAXone 1,000 MG in Water for inj. (sterile) 10 ML IVP ONE (14:23)
[2021-10-03] MEDS ORDERED: Aspirin 325 MG TABLET PO ONE (15:38)
[2021-10-03] MEDS ORDERED: Ampicillin/Sulbactam 3,000 MG in 0.9 % Sodium Chloride Mini Bag 100 ML IVPB ONE (16:50)
[2021-10-03] MEDS ORDERED: Naloxone 0.4 MG/ML INJ IVP PRN (17:09)
[2021-10-03] MEDS ORDERED: Mag Hydrox/Al Hydrox/Simeth 30 ML UDC PO PRN (17:09)
[2021-10-03] MEDS ORDERED: Perflutren Lipid Microsphere 1.3 ML in 0.9 % Sodium Chloride 8.7 ML IVP PRN (19:35)
[2021-10-03] MEDS ORDERED: Ipratropium/Albuterol Neb 3 ML IH PRN (19:45)
[2021-10-03] MEDS: Furosemide 40 MG/4 ML VIAL IVP SCH (20:34)
[2021-10-03] MEDS ORDERED: Warfarin perPT PO PRN (21:09)
[2021-10-03] MEDS ORDERED: *HR* Warfarin 5 MG TABLET PO ONE (21:10)
[2021-10-03] MEDS: Insulin LISPRO 300 UNITS/3 ML VIAL SUBQ SCH (22:16)
[2021-10-03] MEDS ORDERED: *HR* Labetalol 20 MG/4 ML SYRINGE IVP ONE (23:26)
[2021-10-04 02:19] LABS: Basophils % 0.2 %; Eosinophils # 0.2 K/mcL (0.0-0.6); Eosinophils % 1.6 %; Hematocrit 32.3 % (35.3-44.9); Hemoglobin 9.7 g/dL (11.5-15.4); Immature Granulocytes % 0.5 % (0-4); Lymphocytes # 1.7 K/mcL (0.6-4.6); Lymphocytes % 13.8 %; Mean Corpuscular Hemoglobin 28.7 pg (28.0-33.3); Mean Corpuscular Volume 95.6 fL (83.0-100.0); Monocytes # 0.8 K/mcL (0.0-1.3); Monocytes % 6.3 %; Neutrophils # 9.4 K/mcL (1.6-8.9); Platelet Count 195 K/mcL (140-400); Red Blood Count 3.38 M/mcL (3.82-4.97); Red Cell Distribution Width 13.9 % (11.5-14.5); Segmented Neutrophils % 77.6 %; White Blood Count 12.1 K/mcL (4.3-11.1)
[2021-10-04 02:31] LABS: INR 2.6; Prothrombin Time 28.6 Seconds (9.4-12.1)
[2021-10-04 02:42] LABS: Alanine Aminotransferase 16 Units/L (7-52); Albumin 3.5 g/dL (3.5-5.7); Albumin/Globulin Ratio 1.1 (1.1-2.2); Alkaline Phosphatase 119 Units/L (34-104); Aspartate Amino Transferase 17 Units/L (13-39); BUN/Creatinine Ratio 28 (6-26); Bilirubin,Total 0.4 mg/dL (0.3-1.0); Blood Urea Nitrogen 24 mg/dL (8-23); Calcium 9.9 mg/dL (8.6-10.3); Carbon Dioxide 38 mEq/L (23-29); Chloride 93 mEq/L (98-107); Globulin 3.1 g/dL (2.4-3.5); Glucose 324 mg/dL (70-105); Magnesium 1.7 mg/dL (1.6-2.6); Osmolality,Calculated 303 (280-300); Potassium 4.1 mEq/L (3.5-5.1); Sodium 138 mEq/L (136-145); Total Protein 6.6 g/dL (6.4-8.9); eGFR For African Americans > 60 (> 60); eGFR For Non-African Americans > 60 (> 60)
[2021-10-04 02:43] LABS: % Iron Saturation 10 % (15-50); Iron 40 mcg/dL (50-170); Transferrin 290 mg/dL (203-362)
[2021-10-04] MEDS ORDERED: *HR* HYDROcodone/Acet 5/325 mg TABLET PO ONE (03:10)
[2021-10-04 03:26] LABS: Folate > 22.3 ng/mL (3.0-16.0); Vitamin B12 1082 pg/mL (250-1100)
[2021-10-04] MEDS ORDERED: hydrALAZINE 25 MG TABLET PO SCH (08:00)
[2021-10-04] MEDS: Gabapentin 300 MG CAPSULE PO SCH ×3 (08:50→20:23)
[2021-10-04] MEDS: methocarbamoL 750 MG TABLET PO SCH ×3 (08:50→22:53)
[2021-10-04] MEDS: Aspirin Enteric Coated 81 MG Tablet PO SCH (08:52)
[2021-10-04] MEDS: *HR* HYDROcodone/Acet 5/325 mg TABLET PO PRN ×3 (08:52→21:50)
[2021-10-04] MEDS: cefTRIAXone 1,000 MG in 0.9 % Sodium Chloride Mini Bag 100 ML IVPB SCH (08:56)
[2021-10-04] MEDS: Furosemide 40 MG/4 ML VIAL IVP SCH (09:06)
[2021-10-04] MEDS ORDERED: Nitroglycerin 0.4 MG TAB.SUBL SL PRN (09:07)
[2021-10-04] MEDS: Insulin LISPRO 300 UNITS/3 ML VIAL SUBQ SCH ×4 (09:09→20:24)
[2021-10-04] MEDS ORDERED: SULFUR HEXAFLUORIDE MICROSPHR 25 MG VIAL IVP ONE (10:11)
[2021-10-04] MEDS: Sucralfate 1 GM TABLET PO SCH ×3 (12:28→20:23)
[2021-10-04] MEDS: carvediloL 6.25 MG TABLET PO SCH (15:36)
[2021-10-04] MEDS: Furosemide 80 MG in 0.9 % Sodium Chloride 50 ML IV SCH (15:47)
[2021-10-04] MEDS ORDERED: *HR* Warfarin 7.5 MG TABLET PO ONE (18:00)
[2021-10-04] MEDS: Insulin DETEMIR 100 UNIT/ML X5UNITS SUBQ SCH (20:24)
[2021-10-04] MEDS: Melatonin 3 MG TABLET PO PRN (22:53)
[2021-10-05 03:00] LABS: INR 2.1; Prothrombin Time 23.8 Seconds (9.4-12.1)
[2021-10-05] MEDS: *HR* HYDROcodone/Acet 5/325 mg TABLET PO PRN ×3 (04:27→20:58)
[2021-10-05] MEDS: Aspirin Enteric Coated 81 MG Tablet PO SCH (07:44)
[2021-10-05] MEDS: Sucralfate 1 GM TABLET PO SCH ×4 (07:45→20:59)
[2021-10-05] MEDS: carvediloL 6.25 MG TABLET PO SCH (07:45)
[2021-10-05] MEDS: methocarbamoL 750 MG TABLET PO SCH ×3 (07:45→23:44)
[2021-10-05] MEDS: Gabapentin 300 MG CAPSULE PO SCH ×3 (07:45→20:59)
[2021-10-05] MEDS: Furosemide 80 MG in 0.9 % Sodium Chloride 50 ML IV SCH (07:48)
[2021-10-05] MEDS: cefTRIAXone 1,000 MG in 0.9 % Sodium Chloride Mini Bag 100 ML IVPB SCH (07:50)
[2021-10-05] MEDS: Insulin LISPRO 300 UNITS/3 ML VIAL SUBQ SCH ×4 (07:51→21:04)
[2021-10-05 08:42] LABS: Basophils % 0.4 %; Eosinophils # 0.3 K/mcL (0.0-0.6); Eosinophils % 2.7 %; Hematocrit 34.8 % (35.3-44.9); Hemoglobin 10.7 g/dL (11.5-15.4); Immature Granulocytes % 0.2 % (0-4); Lymphocytes # 1.4 K/mcL (0.6-4.6); Lymphocytes % 13.2 %; Mean Corpuscular HGB Conc 30.7 g/dL (31.6-35.5); Mean Corpuscular Hemoglobin 29.7 pg (28.0-33.3); Mean Corpuscular Volume 96.7 fL (83.0-100.0); Mean Platelet Volume 10.7 fL (9.4-12.4); Monocytes # 0.8 K/mcL (0.0-1.3); Monocytes % 7.6 %; Neutrophils # 8.1 K/mcL (1.6-8.9); Platelet Count 205 K/mcL (140-400); Red Cell Distribution Width 14.1 % (11.5-14.5); Segmented Neutrophils % 75.9 %; White Blood Count 10.6 K/mcL (4.3-11.1)
[2021-10-05 08:57] LABS: BUN/Creatinine Ratio 30 (6-26); Blood Urea Nitrogen 25 mg/dL (8-23); Calcium 9.5 mg/dL (8.6-10.3); Carbon Dioxide 37 mEq/L (23-29); Chloride 93 mEq/L (98-107); Glucose 244 mg/dL (70-105); Magnesium 1.6 mg/dL (1.6-2.6); Osmolality,Calculated 296 (280-300); Phosphorous 4.1 mg/dL (2.7-4.5); Potassium 4.1 mEq/L (3.5-5.1); Sodium 137 mEq/L (136-145); eGFR For African Americans > 60 (> 60); eGFR For Non-African Americans > 60 (> 60)
[2021-10-05 09:14] LABS: Ferritin 59 ng/mL (10-120)
[2021-10-05] MEDS: carvediloL 25 MG TABLET PO SCH (17:22)
[2021-10-05] MEDS ORDERED: *HR* Warfarin 10 MG TABLET PO ONE (18:00)
[2021-10-05] MEDS: Insulin DETEMIR 100 UNIT/ML X5UNITS SUBQ SCH (21:06)
[2021-10-06] MEDS: *HR* HYDROcodone/Acet 5/325 mg TABLET PO PRN ×3 (03:04→22:14)
[2021-10-06] MEDS ORDERED: Torsemide 20 MG TABLET PO SCH (09:00)
[2021-10-06] MEDS: Aspirin Enteric Coated 81 MG Tablet PO SCH (09:13)
[2021-10-06] MEDS: carvediloL 25 MG TABLET PO SCH ×2 (09:13→16:45)
[2021-10-06] MEDS: methocarbamoL 750 MG TABLET PO SCH ×2 (09:13→15:29)
[2021-10-06] MEDS: Gabapentin 300 MG CAPSULE PO SCH ×3 (09:14→21:22)
[2021-10-06] MEDS: Insulin LISPRO 300 UNITS/3 ML VIAL SUBQ SCH ×4 (09:14→21:20)
[2021-10-06] MEDS: Sucralfate 1 GM TABLET PO SCH ×4 (09:19→21:19)
[2021-10-06 09:30] LABS: Basophils % 0.4 %; Eosinophils # 0.3 K/mcL (0.0-0.6); Eosinophils % 3.3 %; Hematocrit 34.8 % (35.3-44.9); Hemoglobin 10.5 g/dL (11.5-15.4); Immature Granulocytes % 0.4 % (0-4); Lymphocytes # 1.3 K/mcL (0.6-4.6); Lymphocytes % 12.4 %; Mean Corpuscular HGB Conc 30.2 g/dL (31.6-35.5); Mean Corpuscular Hemoglobin 29.1 pg (28.0-33.3); Mean Corpuscular Volume 96.4 fL (83.0-100.0); Mean Platelet Volume 10.6 fL (9.4-12.4); Monocytes # 0.9 K/mcL (0.0-1.3); Monocytes % 8.4 %; Neutrophils # 7.6 K/mcL (1.6-8.9); Platelet Count 198 K/mcL (140-400); Red Blood Count 3.61 M/mcL (3.82-4.97); Red Cell Distribution Width 13.9 % (11.5-14.5); Segmented Neutrophils % 75.1 %; White Blood Count 10.1 K/mcL (4.3-11.1)
[2021-10-06 09:49] LABS: INR 2.4; Prothrombin Time 26.6 Seconds (9.4-12.1)
[2021-10-06 09:50] LABS: BUN/Creatinine Ratio 29 (6-26); Blood Urea Nitrogen 27 mg/dL (8-23); Calcium 9.3 mg/dL (8.6-10.3); Carbon Dioxide 36 mEq/L (23-29); Chloride 95 mEq/L (98-107); Glucose 289 mg/dL (70-105); Magnesium 1.8 mg/dL (1.6-2.6); Osmolality,Calculated 300 (280-300); Phosphorous 3.4 mg/dL (2.7-4.5); Potassium 4.4 mEq/L (3.5-5.1); Sodium 137 mEq/L (136-145); eGFR For African Americans > 60 (> 60); eGFR For Non-African Americans 60 (> 60)
[2021-10-06] MEDS ORDERED: *HR* Warfarin 7.5 MG TABLET PO ONE (18:00)
[2021-10-06] MEDS: Insulin DETEMIR 100 UNIT/ML X5UNITS SUBQ SCH (21:22)
[2021-10-06] MEDS: Furosemide 80 MG in 0.9 % Sodium Chloride 50 ML IV SCH (21:23)
[2021-10-06] MEDS: Melatonin 3 MG TABLET PO PRN (23:56)
[2021-10-07 02:53] LABS: INR 2.7; Prothrombin Time 29.4 Seconds (9.4-12.1)
[2021-10-07] MEDS: Sucralfate 1 GM TABLET PO SCH ×4 (06:17→21:24)
[2021-10-07] MEDS: *HR* HYDROcodone/Acet 5/325 mg TABLET PO PRN ×3 (06:39→21:48)
[2021-10-07] MEDS: carvediloL 25 MG TABLET PO SCH ×2 (08:52→17:53)
[2021-10-07] MEDS: Aspirin Enteric Coated 81 MG Tablet PO SCH (08:52)
[2021-10-07] MEDS: Furosemide 80 MG in 0.9 % Sodium Chloride 50 ML IV SCH ×2 (08:53→21:28)
[2021-10-07] MEDS: Gabapentin 300 MG CAPSULE PO SCH ×3 (08:53→21:25)
[2021-10-07] MEDS: methocarbamoL 750 MG TABLET PO SCH ×3 (08:58→17:54)
[2021-10-07] MEDS: Insulin LISPRO 300 UNITS/3 ML VIAL SUBQ SCH ×4 (09:00→21:27)
[2021-10-07 13:31] LABS: Adenovirus Not Detected (Not Detect); Bordetella Pertussis Not Detected (Not Detect); Chlamydophila pneumoniae Not Detected (Not Detect); Coronavirus 229E Not Detected (Not Detect); Coronavirus HKU1 Not Detected (Not Detect); Coronavirus NL63 Not Detected (Not Detect); Coronavirus OC43 Not Detected (Not Detect); Human Metapneumovirus Not Detected (Not Detect); Human Rhinovirus/Enterovirus Not Detected (Not Detect); Influenza A Subtype 2009 H1 Not Detected (Not Detect); Influenza B Not Detected (Not Detect); Mycoplasma pneumoniae Not Detected (Not Detect); Parainfluenza Virus 1 Not Detected (Not Detect); Parainfluenza Virus 2 Not Detected (Not Detect); Parainfluenza Virus 3 Not Detected (Not Detect); Parainfluenza Virus 4 Not Detected (Not Detect); Respiratory Syncytial Virus Not Detected (Not Detect); SARS-CoV-2 Not Detected (Not Detect)
[2021-10-07] MEDS ORDERED: *HR* Warfarin 5 MG TABLET PO ONE (18:00)
[2021-10-07] MEDS: Insulin DETEMIR 100 UNIT/ML X5UNITS SUBQ SCH (21:27)
[2021-10-08] MEDS: Melatonin 3 MG TABLET PO PRN ×2 (00:29→23:38)
[2021-10-08] MEDS: methocarbamoL 750 MG TABLET PO SCH ×4 (00:29→22:04)
[2021-10-08 05:50] LABS: INR 2.7; Prothrombin Time 30.2 Seconds (9.4-12.1)
[2021-10-08] MEDS: Sucralfate 1 GM TABLET PO SCH ×4 (06:22→20:40)
[2021-10-08] MEDS: Gabapentin 300 MG CAPSULE PO SCH ×3 (08:51→20:40)
[2021-10-08] MEDS: carvediloL 25 MG TABLET PO SCH ×2 (08:51→18:02)
[2021-10-08] MEDS: Furosemide 80 MG in 0.9 % Sodium Chloride 50 ML IV SCH (08:51)
[2021-10-08] MEDS: Aspirin Enteric Coated 81 MG Tablet PO SCH (08:51)
[2021-10-08] MEDS: Insulin LISPRO 300 UNITS/3 ML VIAL SUBQ SCH ×4 (08:52→20:42)
[2021-10-08] MEDS: *HR* HYDROcodone/Acet 5/325 mg TABLET PO PRN ×2 (14:18→22:04)
[2021-10-08 16:54] LABS: Basophils % 0.4 %; Eosinophils # 0.3 K/mcL (0.0-0.6); Eosinophils % 3.1 %; Hemoglobin 10.3 g/dL (11.5-15.4); Immature Granulocytes % 0.3 % (0-4); Lymphocytes # 1.6 K/mcL (0.6-4.6); Lymphocytes % 15.2 %; Mean Corpuscular HGB Conc 30.3 g/dL (31.6-35.5); Mean Corpuscular Hemoglobin 29.1 pg (28.0-33.3); Monocytes # 0.8 K/mcL (0.0-1.3); Monocytes % 8.2 %; Neutrophils # 7.5 K/mcL (1.6-8.9); Platelet Count 196 K/mcL (140-400); Red Blood Count 3.54 M/mcL (3.82-4.97); Red Cell Distribution Width 13.8 % (11.5-14.5); Segmented Neutrophils % 72.8 %; White Blood Count 10.2 K/mcL (4.3-11.1)
[2021-10-08 17:11] LABS: Calcium 8.9 mg/dL (8.6-10.3); Potassium 4.2 mEq/L (3.5-5.1)
[2021-10-08] MEDS ORDERED: *HR* Warfarin 5 MG TABLET PO ONE (18:00)
[2021-10-08] MEDS: Torsemide 20 MG TABLET PO SCH (18:10)
[2021-10-08] MEDS: Insulin DETEMIR 100 UNIT/ML X5UNITS SUBQ SCH (22:04)
[2021-10-09 02:36] LABS: Basophils % 0.4 %; Eosinophils # 0.3 K/mcL (0.0-0.6); Eosinophils % 3.1 %; Hematocrit 33.9 % (35.3-44.9); Hemoglobin 10.3 g/dL (11.5-15.4); Immature Granulocytes % 0.2 % (0-4); Lymphocytes # 1.9 K/mcL (0.6-4.6); Lymphocytes % 20.7 %; Mean Corpuscular HGB Conc 30.4 g/dL (31.6-35.5); Mean Corpuscular Hemoglobin 29.3 pg (28.0-33.3); Mean Corpuscular Volume 96.3 fL (83.0-100.0); Mean Platelet Volume 11.2 fL (9.4-12.4); Monocytes # 0.8 K/mcL (0.0-1.3); Monocytes % 8.3 %; Neutrophils # 6.2 K/mcL (1.6-8.9); Platelet Count 197 K/mcL (140-400); Red Blood Count 3.52 M/mcL (3.82-4.97); Red Cell Distribution Width 13.7 % (11.5-14.5); Segmented Neutrophils % 67.3 %; White Blood Count 9.2 K/mcL (4.3-11.1)
[2021-10-09 02:46] LABS: INR 2.6; Prothrombin Time 28.5 Seconds (9.4-12.1)
[2021-10-09 03:49] LABS: BUN/Creatinine Ratio 43 (6-26); Blood Urea Nitrogen 46 mg/dL (8-23); Calcium 8.5 mg/dL (8.6-10.3); Carbon Dioxide 27 mEq/L (23-29); Chloride 98 mEq/L (98-107); Glucose 236 mg/dL (70-105); Osmolality,Calculated 304 (280-300); Potassium 4.6 mEq/L (3.5-5.1); Sodium 137 mEq/L (136-145); eGFR For African Americans > 60 (> 60); eGFR For Non-African Americans 51 (> 60)
[2021-10-09] MEDS: Insulin LISPRO 300 UNITS/3 ML VIAL SUBQ SCH ×4 (08:48→20:28)
[2021-10-09] MEDS: Sucralfate 1 GM TABLET PO SCH ×4 (08:49→20:27)
[2021-10-09] MEDS: methocarbamoL 750 MG TABLET PO SCH ×3 (08:49→23:22)
[2021-10-09] MEDS: Gabapentin 300 MG CAPSULE PO SCH ×3 (08:49→20:31)
[2021-10-09] MEDS: Aspirin Enteric Coated 81 MG Tablet PO SCH (08:49)
[2021-10-09] MEDS: carvediloL 25 MG TABLET PO SCH ×2 (08:49→17:41)
[2021-10-09] MEDS: Torsemide 20 MG TABLET PO SCH ×2 (08:49→17:42)
[2021-10-09 13:02] LABS: Estimated Average Glucose 240 mg/dl
[2021-10-09] MEDS ORDERED: *HR* Warfarin 5 MG TABLET PO ONE (18:00)
[2021-10-09] MEDS: Insulin DETEMIR 100 UNIT/ML X5UNITS SUBQ SCH (20:27)
[2021-10-09] MEDS: *HR* HYDROcodone/Acet 5/325 mg TABLET PO PRN (20:27)
[2021-10-09] MEDS: Melatonin 3 MG TABLET PO PRN (23:23)
[2021-10-10] MEDS ORDERED: Naloxone 0.4 MG/ML INJ IVP PRN (00:01)
[2021-10-10 05:42] LABS: INR 2.2; Prothrombin Time 24.4 Seconds (9.4-12.1)
[2021-10-10] MEDS: Insulin LISPRO 300 UNITS/3 ML VIAL SUBQ SCH ×4 (08:57→20:42)
[2021-10-10] MEDS: Torsemide 20 MG TABLET PO SCH ×2 (08:58→16:41)
[2021-10-10] MEDS: Aspirin Enteric Coated 81 MG Tablet PO SCH (08:58)
[2021-10-10] MEDS: Sucralfate 1 GM TABLET PO SCH ×4 (08:58→20:39)
[2021-10-10] MEDS: Gabapentin 300 MG CAPSULE PO SCH ×3 (08:58→20:43)
[2021-10-10] MEDS: methocarbamoL 750 MG TABLET PO SCH ×2 (08:58→16:40)
[2021-10-10] MEDS: carvediloL 25 MG TABLET PO SCH ×2 (08:58→16:40)
[2021-10-10] MEDS ORDERED: *HR* Warfarin 7.5 MG TABLET PO ONE (18:00)
[2021-10-10] MEDS: *HR* HYDROcodone/Acet 5/325 mg TABLET PO PRN (20:43)
[2021-10-10] MEDS ORDERED: Insulin DETEMIR 100 UNIT/ML X5UNITS SUBQ SCH (21:00)
[2021-10-11] MEDS: methocarbamoL 750 MG TABLET PO SCH ×2 (00:23→08:23)
[2021-10-11] MEDS: Melatonin 3 MG TABLET PO PRN (00:23)
[2021-10-11] MEDS: *HR* HYDROcodone/Acet 5/325 mg TABLET PO PRN (03:12)
[2021-10-11 06:14] LABS: INR 2.1; Prothrombin Time 23.8 Seconds (9.4-12.1)
[2021-10-11 07:46] VITALS: BP 164/60; PULSE 57; TEMP 97.4; O2SAT 92
[2021-10-11] MEDS: carvediloL 25 MG TABLET PO SCH (08:22)
[2021-10-11] MEDS: Torsemide 20 MG TABLET PO SCH (08:22)
[2021-10-11] MEDS: Aspirin Enteric Coated 81 MG Tablet PO SCH (08:22)
[2021-10-11] MEDS: Sucralfate 1 GM TABLET PO SCH ×2 (08:23→12:14)
[2021-10-11] MEDS: Gabapentin 300 MG CAPSULE PO SCH (08:24)
[2021-10-11] MEDS: Insulin LISPRO 300 UNITS/3 ML VIAL SUBQ SCH ×2 (08:25→12:13)
[2021-10-11 10:01] LABS: Influenza A PCR Negative (Negative); Influenza B PCR Negative (Negative); Resp. Syncytial Virus PCR Negative (Negative)
[2021-10-11 10:04] LABS: SARS-CoV-2 by PCR (In House) Negative (Negative)
[2021-10-11] MEDS ORDERED: *HR* Warfarin 10 MG TABLET PO ONE (18:00)
== END 2021-10-11 13:45 | DRG 291 ==
LOC: EMEROOARM 11:31 → 3BNU 11:31 → SUATTDRO 17:40 → 3BNU 19:03 → SUATTDRO 10-06 16:27
PROVIDERS: ADMIT Family Medicine; ATTEND Registered Nurse

== ENCOUNTER 2021-12-23 09:43 | Inpatient (IN) ==
[2021-12-23] MEDS ORDERED: Morphine Sulfate 2 MG/ML SYRINGE IVP ONE (10:41)
[2021-12-23 11:27] LABS: Basophils # 0.1 K/mcL (0.0-0.2); Basophils % 0.5 %; Eosinophils # 0.3 K/mcL (0.0-0.6); Eosinophils % 2.2 %; Hemoglobin 10.2 g/dL (11.5-15.4); Immature Granulocytes % 1.4 % (0-4); Lymphocytes # 1.1 K/mcL (0.6-4.6); Lymphocytes % 9.9 %; Mean Corpuscular Hemoglobin 28.5 pg (28.0-33.3); Mean Platelet Volume 10.4 fL (9.4-12.4); Monocytes # 0.9 K/mcL (0.0-1.3); Monocytes % 7.9 %; Neutrophils # 8.9 K/mcL (1.6-8.9); Nucleated Red Blood Cells 0.3 /100 WBC (0); Platelet Count 227 K/mcL (140-400); Red Blood Count 3.58 M/mcL (3.82-4.97); Red Cell Distribution Width 13.8 % (11.5-14.5); Segmented Neutrophils % 78.1 %; White Blood Count 11.5 K/mcL (4.3-11.1)
[2021-12-23 11:31] LABS: VBG HCO3 35 mEq/L (21-27); VBG PCO2 61 mmHg (41-51); VBG PH 7.36 pH Units (7.32-7.42); VBG PO2 129 mmHg (25-50)
[2021-12-23 11:34] LABS: INR 2.2; Prothrombin Time 23.9 Seconds (9.4-12.1)
[2021-12-23 11:37] LABS: Activated Partial Thrombo Time 47.9 Seconds (26.0-36.0)
[2021-12-23 11:49] LABS: Alanine Aminotransferase 65 Units/L (7-52); Albumin 3.6 g/dL (3.5-5.7); Albumin/Globulin Ratio 0.9 (1.1-2.2); Alkaline Phosphatase 238 Units/L (34-104); Aspartate Amino Transferase 26 Units/L (13-39); BUN/Creatinine Ratio 31 (6-26); Bilirubin,Indirect 0.3 mg/dL (0.0-1.0); Bilirubin,Total 0.3 mg/dL (0.3-1.0); Blood Urea Nitrogen 26 mg/dL (8-23); Calcium 10.5 mg/dL (8.6-10.3); Carbon Dioxide 31 mEq/L (23-29); Chloride 98 mEq/L (98-107); Glucose 277 mg/dL (70-105); Osmolality,Calculated 295 (280-300); Sodium 135 mEq/L (136-145); Total Protein 7.6 g/dL (6.4-8.9); Troponin I < 0.03 ng/mL (< 0.04)
[2021-12-23 14:07] LABS: Influenza A PCR Negative (Negative); Influenza B PCR Negative (Negative); Resp. Syncytial Virus PCR Negative (Negative); SARS-CoV-2 by PCR (In House) Negative (Negative)
[2021-12-23] MEDS ORDERED: *HR* Dextrose 50 % in Water (Syg) 50 ML SYRINGE IVP PRN (15:41)
[2021-12-23] MEDS ORDERED: Dextrose Gel 15 GM/37.5 ML TUBE PO PRN ×2 (15:41)
[2021-12-23] MEDS ORDERED: D5% in Water 1,000 ML IVC PRN (15:41)
[2021-12-23] MEDS ORDERED: Naloxone 0.4 MG/ML INJ IVP PRN (15:41)
[2021-12-23] MEDS ORDERED: Acetaminophen 325 MG TABLET PO PRN (15:46)
[2021-12-23] MEDS: Aspirin 81 MG TAB.CHEW PO SCH (16:26)
[2021-12-23] MEDS: *HR* OxyCODONE Immed Rel 5 MG TABLET PO PRN ×2 (16:32→22:34)
[2021-12-23] MEDS: Insulin LISPRO 300 UNITS/3 ML VIAL SUBQ SCH ×2 (18:30→22:01)
[2021-12-23] MEDS: Furosemide 40 MG/4 ML VIAL IVP SCH (20:01)
[2021-12-23] MEDS ORDERED: Melatonin 3 MG TABLET PO PRN (22:08)
[2021-12-23] MEDS ORDERED: *HR* Labetalol 20 MG/4 ML SYRINGE IVP ONE (23:43)
[2021-12-24] MEDS ORDERED: *HR* Labetalol 20 MG/4 ML SYRINGE IVP ONE (04:21)
[2021-12-24 05:21] LABS: Basophils % 0.4 %; Eosinophils # 0.2 K/mcL (0.0-0.6); Eosinophils % 2.1 %; Hemoglobin 9.7 g/dL (11.5-15.4); Immature Granulocytes % 1.2 % (0-4); Lymphocytes # 1.1 K/mcL (0.6-4.6); Mean Corpuscular HGB Conc 30.3 g/dL (31.6-35.5); Mean Corpuscular Hemoglobin 28.9 pg (28.0-33.3); Mean Corpuscular Volume 95.2 fL (83.0-100.0); Mean Platelet Volume 10.7 fL (9.4-12.4); Monocytes # 0.9 K/mcL (0.0-1.3); Monocytes % 8.6 %; Platelet Count 231 K/mcL (140-400); Red Blood Count 3.36 M/mcL (3.82-4.97); Segmented Neutrophils % 76.7 %; White Blood Count 10.4 K/mcL (4.3-11.1)
[2021-12-24 05:32] LABS: Estimated Average Glucose 240 mg/dl
[2021-12-24 05:45] LABS: Albumin 3.5 g/dL (3.5-5.7); Albumin/Globulin Ratio 0.9 (1.1-2.2); Bilirubin,Total 0.4 mg/dL (0.3-1.0); Calcium 10.2 mg/dL (8.6-10.3); Chol/HDL Ratio 3.3 (0-4.9); Globulin 3.7 g/dL (2.4-3.5); Magnesium 1.6 mg/dL (1.6-2.6); Phosphorous 5.2 mg/dL (2.7-4.5); Potassium 4.5 mEq/L (3.5-5.1); Total Protein 7.2 g/dL (6.4-8.9)
[2021-12-24] MEDS: *HR* OxyCODONE Immed Rel 5 MG TABLET PO PRN ×3 (06:12→18:59)
[2021-12-24 06:53] LABS: Thyroid Stimulating Hormone 5.304 mcIU/mL (0.340-5.600)
[2021-12-24] MEDS ORDERED: methocarbamoL 750 MG TABLET PO PRN (07:14)
[2021-12-24] MEDS: Ondansetron ODT 4 MG TAB.RAPDIS SL PRN ×2 (08:22→18:05)
[2021-12-24] MEDS: Furosemide 40 MG/4 ML VIAL IVP SCH ×2 (08:24→21:31)
[2021-12-24] MEDS: Insulin LISPRO 300 UNITS/3 ML VIAL SUBQ SCH ×4 (08:24→21:45)
[2021-12-24] MEDS ORDERED: NON-FORMULARY MEDICATION 1 EACH EACH (Potassium Gluconate [Potassium] 99 MG Tablet) PO SCH (09:00)
[2021-12-24] MEDS: hydrALAZINE 25 MG TABLET PO SCH ×2 (09:35→17:48)
[2021-12-24] MEDS: Gabapentin 300 MG CAPSULE PO SCH ×3 (09:35→21:31)
[2021-12-24] MEDS: Aspirin 81 MG TAB.CHEW PO SCH (09:35)
[2021-12-24] MEDS: carvediloL 6.25 MG TABLET PO SCH ×2 (09:35→17:49)
[2021-12-24] MEDS: Magnesium Oxide 400 MG TABLET PO SCH ×2 (09:35→21:31)
[2021-12-24] MEDS: Sucralfate 1 GM TABLET PO SCH ×4 (09:35→21:30)
[2021-12-24] MEDS ORDERED: Metoclopramide 10 MG/2 ML VIAL IVP ONE (13:50)
[2021-12-24] MEDS ORDERED: *HR* Warfarin 10 MG TABLET PO ONE (18:00)
[2021-12-24] MEDS ORDERED: Warfarin perPT PO PRN (18:00)
[2021-12-25] MEDS: hydrALAZINE 25 MG TABLET PO SCH ×3 (02:03→16:02)
[2021-12-25 06:43] LABS: Basophils # 0.1 K/mcL (0.0-0.2); Basophils % 0.7 %; Eosinophils # 0.2 K/mcL (0.0-0.6); Hemoglobin 10.2 g/dL (11.5-15.4); Immature Granulocytes % 0.6 % (0-4); Lymphocytes # 1.2 K/mcL (0.6-4.6); Mean Corpuscular Hemoglobin 29.3 pg (28.0-33.3); Mean Corpuscular Volume 97.7 fL (83.0-100.0); Mean Platelet Volume 11.4 fL (9.4-12.4); Monocytes % 9.3 %; Neutrophils # 7.8 K/mcL (1.6-8.9); Platelet Count 221 K/mcL (140-400); Red Blood Count 3.48 M/mcL (3.82-4.97); Red Cell Distribution Width 14.6 % (11.5-14.5); Segmented Neutrophils % 75.4 %; White Blood Count 10.3 K/mcL (4.3-11.1)
[2021-12-25 06:48] LABS: INR 2.1
[2021-12-25] MEDS: Gabapentin 300 MG CAPSULE PO SCH ×3 (07:54→21:49)
[2021-12-25] MEDS: Sucralfate 1 GM TABLET PO SCH ×4 (07:54→21:49)
[2021-12-25] MEDS: Aspirin 81 MG TAB.CHEW PO SCH (07:54)
[2021-12-25] MEDS: Magnesium Oxide 400 MG TABLET PO SCH ×2 (07:55→21:49)
[2021-12-25] MEDS: Furosemide 40 MG/4 ML VIAL IVP SCH ×2 (07:55→23:01)
[2021-12-25] MEDS: carvediloL 6.25 MG TABLET PO SCH ×2 (07:55→16:05)
[2021-12-25] MEDS: Insulin LISPRO 300 UNITS/3 ML VIAL SUBQ SCH ×4 (07:56→22:22)
[2021-12-25] MEDS: *HR* OxyCODONE Immed Rel 5 MG TABLET PO PRN ×2 (08:00→18:20)
[2021-12-25 09:06] LABS: Calcium 10.3 mg/dL (8.6-10.3); Potassium 4.6 mEq/L (3.5-5.1); Uric Acid 7.8 mg/dL (2.3-7.6)
[2021-12-25 14:17] LABS: Bilirubin,Urine Negative (Negative); Blood,Urine Negative (Negative); Clarity,Urine Clear (Clear); Color,Urine Light-Yellow (Yellow); Glucose,Urine (UA) 500 mg/dL (Normal); Hyaline Casts,Urine Many per lpf (None Seen); Ketones,Urine Negative (Negative); Leukocyte Esterase,Urine Trace (Negative); Mucus,Urine Few per lpf (None-Few); Nitrite,Urine Negative (Negative); PH,Urine 5.5 pH Units (5.0-8.0); Protein,Urine 30 mg/dL (Neg-Trace); RBC,Urine 0-3 per hpf (0-3); Renal Epithelial Cells,Urine Few per hpf (None-Few); Specific Gravity,Urine 1.014 (1.010-1.025); Squamous Epithelial Cell,Urine Few per hpf (None-Few); Transitional Epi Cells,Urine Few per hpf (None-Few); Urobilinogen,Urine Normal (Normal)
[2021-12-25] MEDS ORDERED: *HR* Warfarin 7.5 MG TABLET PO ONE (18:00)
[2021-12-26] MEDS: hydrALAZINE 25 MG TABLET PO SCH ×2 (02:00→08:59)
[2021-12-26] MEDS: *HR* OxyCODONE Immed Rel 5 MG TABLET PO PRN (02:14)
[2021-12-26 06:48] LABS: Basophils # 0.1 K/mcL (0.0-0.2); Basophils % 0.5 %; Eosinophils # 0.3 K/mcL (0.0-0.6); Eosinophils % 2.7 %; Hematocrit 33.2 % (35.3-44.9); Hemoglobin 9.9 g/dL (11.5-15.4); Immature Granulocytes % 0.5 % (0-4); Lymphocytes # 1.4 K/mcL (0.6-4.6); Lymphocytes % 14.2 %; Mean Corpuscular HGB Conc 29.8 g/dL (31.6-35.5); Mean Corpuscular Hemoglobin 28.7 pg (28.0-33.3); Mean Corpuscular Volume 96.2 fL (83.0-100.0); Mean Platelet Volume 10.5 fL (9.4-12.4); Monocytes # 0.9 K/mcL (0.0-1.3); Monocytes % 8.6 %; Neutrophils # 7.3 K/mcL (1.6-8.9); Platelet Count 250 K/mcL (140-400); Red Blood Count 3.45 M/mcL (3.82-4.97); Red Cell Distribution Width 14.1 % (11.5-14.5); Segmented Neutrophils % 73.5 %
[2021-12-26 07:06] LABS: Calcium 10.1 mg/dL (8.6-10.3); Potassium 4.9 mEq/L (3.5-5.1)
[2021-12-26] MEDS: Insulin LISPRO 300 UNITS/3 ML VIAL SUBQ SCH ×2 (09:00→11:54)
[2021-12-26] MEDS: Aspirin 81 MG TAB.CHEW PO SCH (09:00)
[2021-12-26] MEDS: Sucralfate 1 GM TABLET PO SCH ×2 (09:00→11:54)
[2021-12-26] MEDS: carvediloL 6.25 MG TABLET PO SCH (09:00)
[2021-12-26] MEDS: Gabapentin 300 MG CAPSULE PO SCH (09:00)
[2021-12-26] MEDS: Magnesium Oxide 400 MG TABLET PO SCH (09:00)
[2021-12-26] MEDS: Furosemide 40 MG/4 ML VIAL IVP SCH (09:01)
[2021-12-26 11:13] VITALS: BP 166/72; PULSE 76; TEMP 98.6; O2SAT 91
[2021-12-26] MEDS ORDERED: Insulin DETEMIR 100 UNIT/ML X5UNITS SUBQ ONE (11:49)
== END 2021-12-26 15:49 | disposition home or self-care (01) | DRG 291 ==
LOC: 2ANU 09:43 → EMEROOARM 09:43 → SUATTDRO 14:17 → 2ANU 14:56
PROVIDERS: ADMIT Hospitalist; ATTEND Student in an Organized Health Care Education/Training Program